=== PATIENT | female | born 1955 | race Caucasian/White ===

== ENCOUNTER 2018-04-24 18:06 | Emergency (ER) | payer OTHER ==
[~2018-04-24] VITALS: Ht 152.4 cm; Wt 59.0 kg
[~2018-04-24 18:06] MED LIST: ALBU3IS INH; ALBU90OI INH; ALBU90OI61 INH; ALPR.25 PO; AMOX500 PO; ASPI81CH PO; Augmentin 875-1 EACH PO; BENZ100A PO; CARI350 PO; CEPH500 PO; CODGUAEL PO; DOXY100 PO; DULO30 PO; ESCI10; GABA100 PO; HYDACE10B PO; HYDACE5 PO; IBUP600 PO; ISODICACE; METO100ER PO; METO25ER PO; METO50ER PO; MONT10T PO; Maxalt5 MG; Melatonin5 M1 PO; ONDA4 PO; OXYACE5T PO; OXYC10ER PO; OXYC10TA19 PO; OXYC1TAB11 PO; OXYC5; OXYC5 PO; PANT20 PO; PRED10 PO; PRED20 PO; Percocet 5-3251 EACH PO; RANI150 PO; RXHYDACE PO; RXOXYACE PO; SULTRIDS PO; TRAZ100; Veetids 500500 MG PO
[2018-04-24] MEDS ORDERED: ALBU90OI INH (18:45)
[2018-04-24] MEDS ORDERED: BENZ100A PO (18:45)
[2018-04-24] MEDS ORDERED: Zofran4 MG PO (18:45)
== END 2018-04-24 18:49 | disposition home or self-care (01) ==
LOC: ER 18:06
DX: J40 Bronchitis, not specified as acute or chronic (principal); A08.4 Viral intestinal infection, unspecified; Z79.899 Other long term (current) drug therapy; I10 Essential (primary) hypertension; F17.210 Nicotine dependence, cigarettes, uncomplicated
CPT/HCPCS: 99283

== ENCOUNTER 2021-01-21 01:42 | Inpatient (IN) | payer OTHER ==
[~2021-01-21] VITALS: Ht 167.6 cm; Wt 50.3 kg
[~2021-01-21 01:42] MED LIST changes: +Zofran4 MG PO
[2021-01-21 02:28] LABS: BASOPHILS ABSOLUTE AUTO 0.08 K/mm3 (0.00-0.23); BASOPHILS PERCENT AUTO 1 % (0-2); EOSINOPHILS ABSOLUTE AUTO 0.21 K/mm3 (0.00-0.68); EOSINOPHILS PERCENT AUTO 3 % (0-6); Hematocrit 37.8 % (33.0-51.0); IMMATURE GRAN ABSOLUTE AUTO 0.09 K/mm3 (0.00-0.10); IMMATURE GRAN PERCENT AUTO 1 % (0-1); LYMPHOCYTES ABSOLUTE AUTO 1.59 K/mm3 (0.84-5.20); LYMPHOCYTES PERCENT AUTO 20 % (21-46); MONOCYTES ABSOLUTE AUTO 0.55 K/mm3 (0.16-1.47); MONOCYTES PERCENT AUTO 7 % (4-13); Mean Corpuscular HGB 28.3 pg (26.0-34.0); Mean Corpuscular HGB Conc 31.7 g/dL (31.5-36.5); Mean Corpuscular Volume 89 fL (80-100); Mean Platelet Volume 10.8 fL (9.1-12.4); NEUTROPHILS ABSOLUTE AUTO 5.43 K/mm3 (1.96-9.15); NEUTROPHILS PERCENT AUTO 68 % (41-73); Platelet Count 260 K/mm3 (150-400); RDW Coefficient Variation 14.7 % (11.7-14.2); RDW Standard Deviation 48.1 fL (35.1-46.3); Red Blood Cell Count 4.24 M/mm3 (3.80-5.20); White Blood Cell Count 7.95 K/mm3 (4.00-11.30)
[2021-01-21 02:44] LABS: D-Dimer, Quantitative 0.51 mg/L FEU (0.00-0.52); International Normalized Ratio 1.01; Prothrombin Time Results 10.6 Sec (9.7-11.5)
[2021-01-21 02:50] LABS: Albumin, Blood 3.1 g/dL (3.4-5.0); Albumin/Globulin Ratio 0.8 (0.8-1.8); Bilirubin, Total 0.7 mg/dL (0.1-1.0); Bun/Creatinine Ratio 18.9 (12.0-20.0); Calcium, Blood 8.6 mg/dL (8.5-10.1); Creatinine, Blood 1.06 mg/dL (0.40-1.00); Globulin, Blood 3.8 g/dL (2.2-4.0); Potassium, Blood 3.6 mmol/L (3.5-5.5); Total Protein, Blood 6.9 g/dL (6.4-8.2); Troponin I 0.065 ng/mL (0.000-0.040)
[2021-01-21 03:29] LABS: SARS-Cov-2 (COVID-19) PCR, MMC NEGATIVE (NEGATIVE)
[2021-01-22 04:08] LABS: Albumin, Blood 2.8 g/dL (3.4-5.0); Anion Gap 4 mmol/L (6-16); Blood Urea Nitrogen 30 mg/dL (8-24); Bun/Creatinine Ratio 23.8 (12.0-20.0); CO2, Blood 28 mmol/L (21-32); Calcium, Blood 8.5 mg/dL (8.5-10.1); Chloride, Blood 107 mmol/L (98-108); Creatinine, Blood 1.26 mg/dL (0.40-1.00); Glomerular Filtration Rate 42 (60-); Glucose, Blood 119 mg/dL (70-99); Magnesium, Blood 2.3 mg/dL (1.6-2.4); Phosphorus, Blood 3.8 mg/dL (2.5-4.9); Potassium, Blood 4.4 mmol/L (3.5-5.5); Sodium, Blood 139 mmol/L (136-145)
[2021-01-23 05:44] LABS: Albumin, Blood 2.3 g/dL (3.4-5.0); Anion Gap 5 mmol/L (6-16); Blood Urea Nitrogen 28 mg/dL (8-24); Bun/Creatinine Ratio 26.9 (12.0-20.0); CO2, Blood 28 mmol/L (21-32); Calcium, Blood 8.3 mg/dL (8.5-10.1); Chloride, Blood 106 mmol/L (98-108); Creatinine, Blood 1.04 mg/dL (0.40-1.00); Glomerular Filtration Rate 53 (60-); Glucose, Blood 261 mg/dL (70-99); Phosphorus, Blood 2.5 mg/dL (2.5-4.9); Potassium, Blood 3.8 mmol/L (3.5-5.5); Sodium, Blood 139 mmol/L (136-145)
[2021-01-24 03:55] LABS: Albumin, Blood 2.7 g/dL (3.4-5.0); Anion Gap 2 mmol/L (6-16); Blood Urea Nitrogen 35 mg/dL (8-24); CO2, Blood 29 mmol/L (21-32); Calcium, Blood 8.7 mg/dL (8.5-10.1); Chloride, Blood 109 mmol/L (98-108); Creatinine, Blood 1.13 mg/dL (0.40-1.00); Glomerular Filtration Rate 48 (60-); Glucose, Blood 141 mg/dL (70-99); Phosphorus, Blood 2.7 mg/dL (2.5-4.9); Potassium, Blood 4.1 mmol/L (3.5-5.5); Sodium, Blood 140 mmol/L (136-145)
[2021-01-25 05:05] LABS: Albumin, Blood 2.6 g/dL (3.4-5.0); Anion Gap 5 mmol/L (6-16); Blood Urea Nitrogen 29 mg/dL (8-24); Bun/Creatinine Ratio 26.4 (12.0-20.0); CO2, Blood 27 mmol/L (21-32); Calcium, Blood 8.5 mg/dL (8.5-10.1); Chloride, Blood 110 mmol/L (98-108); Glomerular Filtration Rate 50 (60-); Glucose, Blood 122 mg/dL (70-99); Phosphorus, Blood 4.1 mg/dL (2.5-4.9); Potassium, Blood 4.1 mmol/L (3.5-5.5); Sodium, Blood 142 mmol/L (136-145)
[2021-01-25] MEDS ORDERED: ALPR.25 PO (11:38)
[2021-01-25] MEDS ORDERED: METO50 PO (11:38)
[2021-01-25] MEDS ORDERED: DILT180 PO (11:39)
[2021-01-25] MEDS ORDERED: XARELTO20 MG PO (11:39)
[2021-01-25] MEDS ORDERED: Tambocor100 MG PO (11:40)
== END 2021-01-25 13:52 | disposition home or self-care (01) | DRG 309 ==
LOC: ER 01:42 → PCU 04:48 → MEDS 01-22 15:18 → ICUE 01-24 00:37 → PCU 01-24 01:03
PROVIDERS: Emergency Medicine; Family Medicine; ADMIT Internal Medicine
DX: I48.91 Unspecified atrial fibrillation (principal); E44.0 Moderate protein-calorie malnutrition; I24.8 Other forms of acute ischemic heart disease; Z20.822 Contact with and (suspected) exposure to COVID-19; N18.30 Chronic kidney disease, stage 3 unspecified; Z71.6 Tobacco abuse counseling; J44.9 Chronic obstructive pulmonary disease, unspecified; I27.20 Pulmonary hypertension, unspecified; I08.1 Rheumatic disorders of both mitral and tricuspid valves; I12.9 Hypertensive chronic kidney disease with stage 1 through stage 4 chronic kidney disease, or unspecified chronic kidney disease; F32.A Depression, unspecified; G47.00 Insomnia, unspecified; Z68.21 Body mass index [BMI] 21.0-21.9, adult; F41.9 Anxiety disorder, unspecified; F17.210 Nicotine dependence, cigarettes, uncomplicated; Z28.21 Immunization not carried out because of patient refusal; Z90.89 Acquired absence of other organs; Z90.710 Acquired absence of both cervix and uterus; Z98.890 Other specified postprocedural states; Z79.899 Other long term (current) drug therapy
CPT/HCPCS: 36415; 71045; 71046; 80053; 80069; 83735; 84145; 84443; 84484; 85025; 85379; 85610; 93005; 93010; 93306; 94640; 94760; 94762; 96365-59; 96366-59; 96376-59; 97110; 97161; 97165; 97530; 97535; 99285-25; A9270; J0360; J3010; U0004

== ENCOUNTER 2021-03-12 01:06 | Observation (INO) | payer OTHER ==
[~2021-03-12] VITALS: Ht 167.6 cm; Wt 54.4 kg
[~2021-03-12 01:06] MED LIST changes: +DILT180 PO; +METO50 PO; +Tambocor100 MG PO; +XARELTO20 MG PO
[2021-03-12 01:40] LABS: BASOPHILS PERCENT AUTO 1 % (0-2); EOSINOPHILS ABSOLUTE AUTO 0.11 K/mm3 (0.00-0.68); EOSINOPHILS PERCENT AUTO 1 % (0-6); Hematocrit 42.8 % (33.0-51.0); Hemoglobin 13.2 g/dL (11.5-16.0); IMMATURE GRAN ABSOLUTE AUTO 0.18 K/mm3 (0.00-0.10); IMMATURE GRAN PERCENT AUTO 1 % (0-1); LYMPHOCYTES ABSOLUTE AUTO 1.67 K/mm3 (0.84-5.20); LYMPHOCYTES PERCENT AUTO 13 % (21-46); MONOCYTES ABSOLUTE AUTO 1.02 K/mm3 (0.16-1.47); MONOCYTES PERCENT AUTO 8 % (4-13); Mean Corpuscular HGB 27.2 pg (26.0-34.0); Mean Corpuscular HGB Conc 30.8 g/dL (31.5-36.5); Mean Corpuscular Volume 88 fL (80-100); Mean Platelet Volume 11.5 fL (9.1-12.4); NEUTROPHILS ABSOLUTE AUTO 9.57 K/mm3 (1.96-9.15); NEUTROPHILS PERCENT AUTO 76 % (41-73); Platelet Count 313 K/mm3 (150-400); RDW Coefficient Variation 14.4 % (11.7-14.2); RDW Standard Deviation 46.5 fL (35.1-46.3); Red Blood Cell Count 4.86 M/mm3 (3.80-5.20); White Blood Cell Count 12.65 K/mm3 (4.00-11.30)
[2021-03-12 01:55] LABS: Alanine Aminotransfer (ALT/SGP 90 U/L (12-78); Albumin, Blood 3.1 g/dL (3.4-5.0); Albumin/Globulin Ratio 0.7 (0.8-1.8); Alk Phos 170 U/L (50-136); Anion Gap 7 mmol/L (6-16); Aspartate Aminotrans (AST/SGOT 61 U/L (12-37); Bilirubin, Total 1.2 mg/dL (0.1-1.0); Blood Urea Nitrogen 31 mg/dL (8-24); Bun/Creatinine Ratio 25.4 (12.0-20.0); CO2, Blood 27 mmol/L (21-32); Chloride, Blood 106 mmol/L (98-108); Creatinine, Blood 1.22 mg/dL (0.40-1.00); Globulin, Blood 4.2 g/dL (2.2-4.0); Glomerular Filtration Rate 44 (60-); Glucose, Blood 170 mg/dL (70-99); Potassium, Blood 4.4 mmol/L (3.5-5.5); Sodium, Blood 140 mmol/L (136-145); Total Protein, Blood 7.3 g/dL (6.4-8.2); Troponin I <0.015 ng/mL (0.000-0.040)
[2021-03-12 02:33] LABS: Influenza A, PCR NEGATIVE (NEGATIVE); Influenza B, PCR NEGATIVE (NEGATIVE); Resp Syncytial Virus, PCR NEGATIVE (NEGATIVE); SARS-Cov-2 (COVID-19) PCR, MMC NEGATIVE (NEGATIVE)
[2021-03-12 06:50] LABS: Magnesium, Blood 2.3 mg/dL (1.6-2.4)
[2021-03-12 06:51] LABS: Digoxin (Lanoxin) 0.09 ug/mL (0.80-2.00)
[2021-03-12 06:51] LABS: CPK Creatine Kinase 36 U/L (26-193); Troponin I <0.015 ng/mL (0.000-0.040)
[2021-03-12 14:42] LABS: CPK Creatine Kinase 33 U/L (26-193); Troponin I <0.015 ng/mL (0.000-0.040)
--- NOTE | 2021-03-13 04:17 | NUR ---
SHIFT SUMMARY PT IS AWAKE AND ALERT X4.FULL CODE STATUS. PT IS INDEPENDENT, ON RA.VS REVIEWED,ALL MEDS GIVEN. NO ACUTE CHANGES DURING THE SHIFT. WILL CONTINUE TO MONITOR.
[2021-03-13 05:50] LABS: BASOPHILS ABSOLUTE AUTO 0.14 K/mm3 (0.00-0.23); BASOPHILS PERCENT AUTO 2 % (0-2); EOSINOPHILS ABSOLUTE AUTO 0.42 K/mm3 (0.00-0.68); EOSINOPHILS PERCENT AUTO 5 % (0-6); Hematocrit 37.7 % (33.0-51.0); Hemoglobin 11.8 g/dL (11.5-16.0); IMMATURE GRAN ABSOLUTE AUTO 0.24 K/mm3 (0.00-0.10); IMMATURE GRAN PERCENT AUTO 3 % (0-1); LYMPHOCYTES ABSOLUTE AUTO 1.75 K/mm3 (0.84-5.20); LYMPHOCYTES PERCENT AUTO 19 % (21-46); MONOCYTES ABSOLUTE AUTO 1.05 K/mm3 (0.16-1.47); MONOCYTES PERCENT AUTO 11 % (4-13); Mean Corpuscular HGB 27.4 pg (26.0-34.0); Mean Corpuscular HGB Conc 31.3 g/dL (31.5-36.5); Mean Corpuscular Volume 88 fL (80-100); Mean Platelet Volume 11.1 fL (9.1-12.4); NEUTROPHILS ABSOLUTE AUTO 5.64 K/mm3 (1.96-9.15); NEUTROPHILS PERCENT AUTO 61 % (41-73); Platelet Count 304 K/mm3 (150-400); RDW Coefficient Variation 14.1 % (11.7-14.2); RDW Standard Deviation 45.4 fL (35.1-46.3); White Blood Cell Count 9.24 K/mm3 (4.00-11.30)
[2021-03-13 06:21] LABS: Albumin, Blood 2.4 g/dL (3.4-5.0); Albumin/Globulin Ratio 0.8 (0.8-1.8); Bilirubin, Total 0.6 mg/dL (0.1-1.0); Bun/Creatinine Ratio 30.8 (12.0-20.0); Calcium, Blood 8.6 mg/dL (8.5-10.1); Creatinine, Blood 1.3 mg/dL (0.40-1.00); Globulin, Blood 3.2 g/dL (2.2-4.0); Phosphorus, Blood 3.9 mg/dL (2.5-4.9); Potassium, Blood 4.1 mmol/L (3.5-5.5); Total Protein, Blood 5.6 g/dL (6.4-8.2)
[2021-03-13] MEDS ORDERED: FURO20 PO (10:49)
[2021-03-13] MEDS ORDERED: XARELTO20 MG PO (10:50)
--- NOTE | 2021-03-13 16:00 | NUR ---
DISCHARGE DISCHARGE INSTRUCTIONS, MEDICATION LIST AND FOLLOW UP APPOINTMENT REVIEWED WITH PT. QUESTIONS/CONCERNS ANSWERED. PT VERBALLY INDICATED UNDERSTANDING OF ALL INSTRUCTIONS RECEIVED. ATTEMPTED TO CONTACT PT'S SON VIA T/C SEVERAL TIMES, BUSY SIGNAL EVERY TIME. [facility] CALLED FOR PT AND SHE WAS ESCORTED OUT VIA W/C BY LINEN CONTROLLER.
== END 2021-03-13 14:46 | disposition home or self-care (01) ==
LOC: ER 01:06 → ERHOLD 01:07 → MEDS 16:32
PROVIDERS: Emergency Medicine; ADMIT Internal Medicine
DX: I13.0 Hypertensive heart and chronic kidney disease with heart failure and stage 1 through stage 4 chronic kidney disease, or unspecified chronic kidney disease (principal); I50.9 Heart failure, unspecified; N18.30 Chronic kidney disease, stage 3 unspecified; I48.20 Chronic atrial fibrillation, unspecified; J96.01 Acute respiratory failure with hypoxia; J44.9 Chronic obstructive pulmonary disease, unspecified; F17.210 Nicotine dependence, cigarettes, uncomplicated
CPT/HCPCS: 0241U; 36415; 71045; 80053; 80162; 82550; 83735; 83880; 84100; 84145; 84484; 85025; 93005; 93010; 93970; 96374; 96375; 96376; 99285-25; A9270; J1160; J1940

== ENCOUNTER 2021-03-26 22:42 | Inpatient (IN) | payer OTHER ==
[~2021-03-26] VITALS: Ht 167.6 cm; Wt 54.6 kg
[~2021-03-26 22:42] MED LIST changes: +FURO20 PO
[2021-03-27 00:21] LABS: BASOPHILS ABSOLUTE AUTO 0.11 K/mm3 (0.00-0.23); BASOPHILS PERCENT AUTO 1 % (0-2); EOSINOPHILS ABSOLUTE AUTO 0.04 K/mm3 (0.00-0.68); EOSINOPHILS PERCENT AUTO 0 % (0-6); Hematocrit 43.9 % (33.0-51.0); Hemoglobin 13.6 g/dL (11.5-16.0); IMMATURE GRAN ABSOLUTE AUTO 0.13 K/mm3 (0.00-0.10); IMMATURE GRAN PERCENT AUTO 1 % (0-1); LYMPHOCYTES ABSOLUTE AUTO 1.82 K/mm3 (0.84-5.20); LYMPHOCYTES PERCENT AUTO 13 % (21-46); MONOCYTES ABSOLUTE AUTO 1.01 K/mm3 (0.16-1.47); MONOCYTES PERCENT AUTO 7 % (4-13); Mean Corpuscular HGB 27.8 pg (26.0-34.0); Mean Corpuscular Volume 90 fL (80-100); Mean Platelet Volume 11.4 fL (9.1-12.4); NEUTROPHILS ABSOLUTE AUTO 10.66 K/mm3 (1.96-9.15); NEUTROPHILS PERCENT AUTO 78 % (41-73); Platelet Count 430 K/mm3 (150-400); RDW Coefficient Variation 14.6 % (11.7-14.2); RDW Standard Deviation 47.7 fL (35.1-46.3); White Blood Cell Count 13.77 K/mm3 (4.00-11.30)
[2021-03-27 00:35] LABS: Alanine Aminotransfer (ALT/SGP 39 U/L (12-78); Albumin, Blood 3.4 g/dL (3.4-5.0); Albumin/Globulin Ratio 0.8 (0.8-1.8); Alk Phos 118 U/L (50-136); Anion Gap 7 mmol/L (6-16); Aspartate Aminotrans (AST/SGOT 28 U/L (12-37); Bilirubin, Total 1.3 mg/dL (0.1-1.0); Blood Urea Nitrogen 23 mg/dL (8-24); Bun/Creatinine Ratio 21.1 (12.0-20.0); CO2, Blood 26 mmol/L (21-32); Calcium, Blood 9.3 mg/dL (8.5-10.1); Chloride, Blood 109 mmol/L (98-108); Creatinine, Blood 1.09 mg/dL (0.40-1.00); Globulin, Blood 4.2 g/dL (2.2-4.0); Glomerular Filtration Rate 50 (60-); Glucose, Blood 144 mg/dL (70-99); Potassium, Blood 4.4 mmol/L (3.5-5.5); Sodium, Blood 142 mmol/L (136-145); Total Protein, Blood 7.6 g/dL (6.4-8.2); Troponin I <0.015 ng/mL (0.000-0.040)
[2021-03-27 03:02] LABS: Influenza A, PCR NEGATIVE (NEGATIVE); Influenza B, PCR NEGATIVE (NEGATIVE); Resp Syncytial Virus, PCR NEGATIVE (NEGATIVE); SARS-Cov-2 (COVID-19) PCR, MMC NEGATIVE (NEGATIVE)
[2021-03-27 04:04] LABS: BASOPHILS PERCENT AUTO 1 % (0-2); EOSINOPHILS ABSOLUTE AUTO 0.07 K/mm3 (0.00-0.68); EOSINOPHILS PERCENT AUTO 1 % (0-6); Hematocrit 39.3 % (33.0-51.0); Hemoglobin 11.7 g/dL (11.5-16.0); IMMATURE GRAN ABSOLUTE AUTO 0.11 K/mm3 (0.00-0.10); IMMATURE GRAN PERCENT AUTO 1 % (0-1); LYMPHOCYTES ABSOLUTE AUTO 2.62 K/mm3 (0.84-5.20); LYMPHOCYTES PERCENT AUTO 23 % (21-46); MONOCYTES ABSOLUTE AUTO 1.02 K/mm3 (0.16-1.47); MONOCYTES PERCENT AUTO 9 % (4-13); Mean Corpuscular HGB 27.1 pg (26.0-34.0); Mean Corpuscular HGB Conc 29.8 g/dL (31.5-36.5); Mean Corpuscular Volume 91 fL (80-100); Mean Platelet Volume 11.1 fL (9.1-12.4); NEUTROPHILS ABSOLUTE AUTO 7.47 K/mm3 (1.96-9.15); NEUTROPHILS PERCENT AUTO 66 % (41-73); Platelet Count 321 K/mm3 (150-400); RDW Coefficient Variation 14.7 % (11.7-14.2); RDW Standard Deviation 48.3 fL (35.1-46.3); Red Blood Cell Count 4.32 M/mm3 (3.80-5.20); White Blood Cell Count 11.39 K/mm3 (4.00-11.30)
[2021-03-27 05:01] LABS: Alanine Aminotransfer (ALT/SGP 33 U/L (12-78); Albumin, Blood 2.7 g/dL (3.4-5.0); Albumin/Globulin Ratio 0.8 (0.8-1.8); Alk Phos 107 U/L (50-136); Anion Gap 7 mmol/L (6-16); Aspartate Aminotrans (AST/SGOT 46 U/L (12-37); Bilirubin, Total 0.9 mg/dL (0.1-1.0); Blood Urea Nitrogen 25 mg/dL (8-24); Bun/Creatinine Ratio 22.3 (12.0-20.0); CO2, Blood 22 mmol/L (21-32); Calcium, Blood 8.4 mg/dL (8.5-10.1); Chloride, Blood 112 mmol/L (98-108); Creatinine, Blood 1.12 mg/dL (0.40-1.00); Globulin, Blood 3.6 g/dL (2.2-4.0); Glomerular Filtration Rate 49 (60-); Glucose, Blood 256 mg/dL (70-99); Sodium, Blood 141 mmol/L (136-145); Total Protein, Blood 6.3 g/dL (6.4-8.2)
--- NOTE | 2021-03-27 06:04 | NUR ---
PATIENT IS ALERT AND ORIENTATED ABLE TO MAKE NEEDS KNOWN, ARRIVED VIA STRETCHER AT 0439 , ABLE TO WALK FROM STRETCHER TO BED, EXCESSIVE SNEEZING UPON ARRIVAL, ON 2L NC SATURATIONS >92%, ANXIOUS AND WITHDRAWN REQUESTED XANAX THAT PATIENT TAKES TID AT HOME, PATIENT STATED THAT SHE HASN'T BEEN TAKING HER MEDICATIONS AT HOME THAT THEY FELL TO WHERE SHE COULDN'T FIND THEM, PATIENT STATES SHE LIVES ALONE IN A TRAILER AND SHE HAD A FALL RECENTLY FROM NOT HAVING ANY LIGHTS ON, SAFETY WAS EXPLAINED TO PATIENT, ORIENTATED TO ROOM, CALL LIGHT AND SAFETY PROTOCOL, PATIENT DOESN'T WANT TO USE YELLOW SOCKS WHILE IN BED BUT AGREED TO PUT THEM ON PRIOR TO AMBULATION. LUNG SOUNDS ARE COARSE AND DIM IN LOWER LOBE FINE CRACKLES, PATIENT STATED SHE IS A FIFTY YEAR SMOKER AND HASN'T BEEN REALLY SMOKING FOR TWO WEEKS JUST ONE HERE AND THERE, SHE SMOKES IN HER HOME. PATIENT DIDN'T WANT TO ANSWER SURGICAL HISTORY QUESTIONS BUT IS ALREADY NOTED IN THE CHART. PATIENT REQUESTED TO REST, WILL CONTINUE TO MONITOR UNTIL CHANGE OF SHIFT.
--- NOTE | 2021-03-27 10:30 | NUR ---
SpO2 dropped to 87% while sleeping and lying flat on her back. Oxygen applied at 2 l/min and the pt awakened, spo2 improved to 91%.
--- NOTE | 2021-03-27 17:44 | NUR ---
SHIFT SUMMARY PT ALERT AND ORIENTED X4, VITAL SIGNS STABLE WITH SPO2 MAINTAINING IN 90'S VIA RA. WHEN PT SLEEPING SHE WILL OCCASIONALLY DESATURATE TO 88% THEREFOR 2L O2 VIA NC ON PT TO MAINTAIN SATS ABOVE 90%. PT REMAINS IN AFIB PER TELE MONITORING. PT REPORTED SLIGHT CHEST PRESSURE THIS AM. PT ALSO REPORTED THAT MINIMAL EXERTION EXHAUSTS HER AND STATED THAT SHE HAS FELT THIS WAY AT HOME WELL. SHE HAS BEEN ABLE TO UTILIZE BEDSIDE COMMODE SBA. HOME MED LASIX CONTINUED TODAY, NO OTHER ACUTE CHANGES NOTED. WILL CONTINUE TO MONITOR. CALL LIGHT IN REACH.
--- NOTE | 2021-03-27 21:28 | NUR ---
PATIENT COMPLAIN OF STOMACH BURNING AFTER A BOWEL MOVEMENT AND UNABLE TO CATCH HER BREATHE OXYGEN WAS OFF AND SAT 88% NOW SITTING ON COMMODE AGAIN, " I CAN'T DO THIS ANYMORE,
--- NOTE | 2021-03-27 23:18 | NUR ---
AT 2226 PATIENT RECEIVED 1MG IVP ATIVAN WITH GOOD RESULTS, CALM AND RESTING. WILL CONTINUE TO MONITOR.
--- NOTE | 2021-03-28 01:20 | NUR ---
PATIENT CONCERNED WHEN SHE DISCHARGES SHE WILL NOT HAVE MONEY FOR MEDICATIONS, " I HAVE NO MONEY, AND CAN'T AFFORD MEDICATIONS" THIS WAS FORWARD ON TO MARKETING FINANCIAL ANALYST WHO PUT IN A REFEREAL FOR GROOVER RUNNER.
--- NOTE | 2021-03-28 03:00 | NUR ---
PATIENT HAD CONTINUOUS EPISODE OF DIARRHEA, UNABLE TO KEEP CLEAN, PATIENT AGREED TO RECTAL TUBE, BED CHANGED X 3, HEART RATE SUSTAINING 130-150'S DR. PATTERSON GAVE ORDER TO GIVE DILTIZEM 15MG IVP X ONCE, BP 135/107 0255 4 BEATS VT HR 151 PATIENT TOLERATED WELL, HR 89 AND BP 124/79 AFTER PUSH.
--- NOTE | 2021-03-28 17:50 | NUR ---
SHIFT SUMMARY NO ACUTE EVENTS THIS SHIFT, VSS. PT TEMP ELEVATED AT TIMES, IMPROVED WITH REMOVAL OF EXTRA BLANKETS. PT DENIED PAIN THIS SHIFT, WAS ABLE TO USE BEDSIDE COMMODE WITH ASSISTANCE. PT APPEARED SOMEWHAT LETHARGIC THIS MORNING AND STATED SHE FELT LIKE TAKING A NAP, AND WAS MUCH MORE ALERT IN THE AFTERNOON. PT WAS PLEASANT AND ORIENTED THOUGHOUT SHIFT. PT ON 2 L VIA NASAL CANNULA OR ON ROOM AIR TOLERATED. PT'S RECTAL TUBE WAS FULL OF GAS AND CAME OUT BY AFTERNOON, STOOL WAS NOTED TO BE LESS LOOSE THAN START OF SHIFT. PT HAD POOR APPETITE, ORAL INTAKE ENCOURAGED.
[2021-03-28 19:48] LABS: Source, Urine Clean Catch
[2021-03-28 20:01] LABS: Bilirubin, Urine Neg (Neg); Blood, Urine Neg (Neg); Glucose Qualitative, Urine Neg (Neg); Ketones, Urine Neg (Neg); Leukocyte Esterase, Urine Neg (Neg); Nitrite, Urine Neg (Neg); Protein, Urine 1+ (Neg); Specific Gravity, Urine 1.025 (1.003-1.022); Urobilinogen, Urine NORM (Normal)
[2021-03-28 20:16] LABS: Appearance, Urine Clear (Clear); Color, Urine Yellow (P-Yellow)
[2021-03-29 04:07] LABS: Bun/Creatinine Ratio 21.6 (12.0-20.0); Calcium, Blood 7.9 mg/dL (8.5-10.1); Creatinine, Blood 1.34 mg/dL (0.40-1.00); Magnesium, Blood 1.6 mg/dL (1.6-2.4); Potassium, Blood 3.8 mmol/L (3.5-5.5)
--- NOTE | 2021-03-29 05:15 | NUR ---
PATIENT HAD A ROUGH NIGHT; JUST DOES NOT FEEL WELL. SHE BECAME EXTREMELY ANXIOUS AT THE START OF THE SHIFT WHEN IV ABX WERE BEING ADMINISTERED; FOR SOME REASON THIS REALLY AFFECTS HER. DR PATTERSON WAS NOTIFIED AND GAVE ORDERS FOR IV ATIVAN PRN; DOSE WAS ADMINISTERED WITH EFFECTIVENESS. ALTHOUGH THE ATIVAN WAS VERY EFFECTIVE, THE PATIENT WAS FULLY ABLE TO RELAX AND GO TO SLEEP ONCE SHE WAS AWARE THAT ALL IV MEDICATIONS WERE ADMINISTERED. PATIENT DID SLEEP T/O THE NIGHT HOWEVER WOKE UP SEVERAL TIMES CALLING OUT FOR THE "NURSE". MOST OFTEN SHE WAS REQUESTING A SNACK OR A WARM BLANKET WHICH BOTH SEEMED TO APPEASE HER FOR THE TIME BEING. PATIENT DID GET UP ONE TIME DURING THE SHIFT TO USE THE BSC; SBA FOR SAFETY. DUE TO PATIENTS FATIGUE AND LETHARGY BED ALARMS SET. PATIENT IS COOPERATIVE WITH STAFF AND CARE PROVIDED. PATIENT NOW RESTING IN BED. CALL LIGHT WITHIN REACH.
--- NOTE | 2021-03-29 17:39 | NUR ---
Shift note: Pt is oriented x4, but has been lethargic throughout the day. Anxious at times, prn xanax given. Pt reported headache today, prn tylenol given. VSS on 2L sating low 90s. Tele: afib 90-110s, po metoprolol given as well as xaralto. IV magnesium given as well as PO potassium.
--- NOTE | 2021-03-29 18:28 | NUR ---
BROTHER SHARON WAS UPDATED.
--- NOTE | 2021-03-30 04:05 | NUR ---
PT IS ALERT WHEN SPOKEN TO. REQUESTING ATIVAN FOR ANXIETY WITH IV ABX. PT SLEEPS THROUGH ANTIBIOTICS AFTER TAKING ATIVAN. PT IS ABLE TO SLEEP THROUGH THE NGHT WITHOUT EXPRESSING ANXIETY. BP SLIGHTLY ELEVATED. O2 SAT 94-97% ON RA, O2 AT BEDSIDE. LEFT LOWER LOBE AUSCLTATED COURSE RALES. PT CONTINUE TO EXPERIENCE A DRY COUGH. EDUCATED PATIENT ON IMPORTANCE OF CONTINUEING IV ABX, PUT IS WITHDRAWN BUT COOPERATIVE.
[2021-03-30 05:00] LABS: Bun/Creatinine Ratio 26.2 (12.0-20.0); Calcium, Blood 8.4 mg/dL (8.5-10.1); Creatinine, Blood 1.26 mg/dL (0.40-1.00); Potassium, Blood 4.3 mmol/L (3.5-5.5)
--- NOTE | 2021-03-30 09:41 | NUR ---
Pt is lethargic, but oriented again today. Withdrawn. Pt reported feeling anxious, headach and nauseous at start of shift. PRN xanax, tylenol and zofran given. At that time HR 100-120s and BP elevated. added additional BP med. After about an hour pt reported feeling better, but still wanting to sleep.
--- NOTE | 2021-03-30 13:54 | NUR ---
Pt is lethargic and sleeping most of the day. Oriented x4. Pt was very anxious right at the start of the shift, prn xanax has been given x2 today. Headache reported, prn tylenol given. Nausea in AM, prn zofran given. Tele: a-fib 90-110s mainly. Pt did jump up to 120-130s when anxious this AM and when working with PT. BP has been elevated today, cozaar added by MD. Pt expressed concern about being able to pay for medications when she leave the hospital, pt does have a social media designer order in place. Pt is on RA-2L, prn. Last BM 03/29/2021. Up to BSC. Pt worked with PT and was weak when sitting on side of bed. Was able to transfer to BSC, but is deconditioned. PT talked about possibly increasing the frequency of visits. Pt is being transferred to medical floor.
--- NOTE | 2021-03-30 14:14 | NUR ---
BP HAS REMAINED ELEVATED EVEN AFTER NEW DOSE OF MD AVIVA NOTIFIED DBP >100. ORDER ADDDED FOR AMLODIPINE 5MG DAILY WITH FIRST DOSE NOW.
--- NOTE | 2021-03-30 14:45 | NUR ---
Report given to Hanh on medical floor.
--- NOTE | 2021-03-30 15:31 | NUR ---
PT ARRIVED TO ROOM 307 AT SET UP WITH A SNACK AFTER EXPLAINING SHE SLEPT THROUGH LUNCH. CURRENTLY LAYING IN BED WITH EYES CLOSED. WITH RECHECK BP IN AN HOUR AND NOTIFY MD IF NO CHANGE
--- NOTE | 2021-03-30 18:33 | NUR ---
SHIFT SUMMARY PTS BLOOD PRESSURE AND HEART RATE HAS CONTINUED TO BE ELEVATED SINCE ARRIVAL TO FLOOR. SPOKE WITH MD A FEW TIMES WITH NEW ORDERS PLACED. REQUESTED O2 APPROX 1630 SAYING SHE FELT SOB. HEART RATE AT THE TIME INCREASED TO 130-140'S. O2 PLACED. ALSO REPORTS FEELING NAUSEATED AT TIMES. DID EAT MUCH OF SUPPER. COREG GIVEN. WILL MONITER FOR CHANGE OR IMPROVEMENT AND NOTIFY CIRCUS TRAINER. 1 PERSON ASSIST UP TO BSC.
[2021-03-31 05:26] LABS: BASOPHILS ABSOLUTE AUTO 0.11 K/mm3 (0.00-0.23); BASOPHILS PERCENT AUTO 1 % (0-2); EOSINOPHILS ABSOLUTE AUTO 0.35 K/mm3 (0.00-0.68); EOSINOPHILS PERCENT AUTO 4 % (0-6); Hemoglobin 11.6 g/dL (11.5-16.0); IMMATURE GRAN ABSOLUTE AUTO 0.18 K/mm3 (0.00-0.10); IMMATURE GRAN PERCENT AUTO 2 % (0-1); LYMPHOCYTES ABSOLUTE AUTO 1.98 K/mm3 (0.84-5.20); LYMPHOCYTES PERCENT AUTO 21 % (21-46); MONOCYTES ABSOLUTE AUTO 0.91 K/mm3 (0.16-1.47); MONOCYTES PERCENT AUTO 10 % (4-13); Mean Corpuscular HGB 26.9 pg (26.0-34.0); Mean Corpuscular HGB Conc 29.7 g/dL (31.5-36.5); Mean Corpuscular Volume 91 fL (80-100); Mean Platelet Volume 11.4 fL (9.1-12.4); NEUTROPHILS ABSOLUTE AUTO 5.87 K/mm3 (1.96-9.15); NEUTROPHILS PERCENT AUTO 62 % (41-73); Platelet Count 304 K/mm3 (150-400); RDW Coefficient Variation 14.5 % (11.7-14.2); RDW Standard Deviation 48.2 fL (35.1-46.3); Red Blood Cell Count 4.31 M/mm3 (3.80-5.20)
[2021-03-31 06:14] LABS: Bun/Creatinine Ratio 25.2 (12.0-20.0); Calcium, Blood 8.6 mg/dL (8.5-10.1); Creatinine, Blood 1.19 mg/dL (0.40-1.00); Potassium, Blood 4.8 mmol/L (3.5-5.5)
--- NOTE | 2021-03-31 06:40 | NUR ---
PATIENT HAS HAD AN UNEVENTFUL NIGHT. HEART RHYTHM IS STILL AFIB RUNNING FROM THE 90'S TO LOW 100'S. BLOOD PRESSURE IS ALSO STILL FLUCTUATING. CALL LIGHT IN REACH BED IN LOWEST POSITION.
--- NOTE | 2021-03-31 17:15 | NUR ---
SHIFT SUMMARY PT IS AAOX4, ABLE TO MAKE NEEDS KNOWN. PATIENT IS VERY ANXIOUS AT TIMES AND YELLS FOR ASSISTANCE AT TIMES. PT MEDICATED FOR ANXIETY THIS SHIFT. PER PACKER INSULATION PT ALSO HAS MULTIPLE EVENTS OF AFIB 120's to 130's. DR. HAY NOTIFIED, T.O AND V.O. NOTED. NO C/O CP, SOB, OR N/V/D. PT ON 2LPM O2 VIA NC, SATTING 94-96%. PT REQUIRES 1P SBA TO BSC. BED AT LOWEST POSITION. CALL LIGHT WITHIN REACH.
--- NOTE | 2021-04-01 01:50 | NUR ---
PER TELE, READING RIGHT NOW IS AFIB 138
--- NOTE | 2021-04-01 05:20 | NUR ---
PATIENT WAS NAUSEATED AND SYMPTOMATIC DUE TO ELEVATED HEART RATE. WAS CALLED AND ORDER FOR 15MG OF CARDIZEM WAS GIVEN. PATIENTS HR RESPONDED WELL TO THIS. HR IS NOW IN THE 80'S. PATIENT REPORTS FEELING BETTER.
[2021-04-01 06:21] LABS: Bun/Creatinine Ratio 23.6 (12.0-20.0); Calcium, Blood 8.8 mg/dL (8.5-10.1); Creatinine, Blood 1.1 mg/dL (0.40-1.00); Potassium, Blood 4.8 mmol/L (3.5-5.5)
--- NOTE | 2021-04-01 08:00 | NUR ---
pt laying in bed, a bit sleepy, and anxious, b/p elevated and pt reports h/a which she recieved tylenol for but only came down to 08/10, Dr. Tena in to see her, says the h/a is probably from htn, increased her coreg to 25mg, lungs are clear in upper gu[place], dim in bases, resp even and unlabored, no cough noted, hrirr, tele in place running afib per monitor, see strip, no edema noted, ppp+1, cap refill <3sec, vs stable, afebrile, iv site powerglide to jerome is clear and patent, s.l. btx4, abd flat soft nontender, voids without diff, skin c/w/d, maew, general weakness, jannette, call light in reach.
--- NOTE | 2021-04-01 18:42 | NUR ---
pt has had one dose of xanax today, will take it tonight to help sleep, she slept today when left undisturbed, no acute changes this shift. call light in reach.
--- NOTE | 2021-04-02 05:49 | NUR ---
SHIFT SUMMARY ASSUMED CARE AT 1900. PT AAOX3, ANXIOUS. REMAINS ON CARDIAC TELEMETRY MONITORING, BOX# [id number]. AFIB, RATE INITALLY IN 110s-120s. CHARGE NURSE, TREE, REPORTED THAT THE THOROUGHBRED HORSE FARM MANAGER STATED PT'S HR IN THE 130s. PT C/O PALPITATIONS ANF FLUTTERING IN CHEST. HOSPITALIST NOTIFIED AND ORDERS RECEIVED TO GIVE 0800 DOSE OF COREG 25MG NOW AND ALSO ONE DOSE OF IV METOPROLOL 5MG. ORDER CARRIED OUT AND PATIENT UPDATED ON PLAN OF CARE. AFTER ADMINISTRATION OF IV METOPROLOL, DEANN-THOROUGHBRED HORSE FARM MANAGER REPORTED THAT PT'S HR HIGH 90s-LOW 100s, REMAINS IN AFIB. PT REPORTS SOME INPROVEMENT IN SYMPTOMS. REMAINS ON O2 2LPM VIA NC. IV SITE BENIGN. PT REQUESTED SEVERAL SNACKS OVERNIGHT. MEDICATED WITH PRN XANAX 0.25MG TWICE DURING SHIFT. BED REMAINS IN LOW POSITION WITH THE CALL LIGHT WITHIN EASY REACH. WILL CONTINUE TO MONITOR.
--- NOTE | 2021-04-02 16:59 | NUR ---
SHIFT SUMMARY 65 Y FEMALE ADMITTED WITH AFIB AND RLL PNEUM. PT HAS HX OF DEPRESSION AND SHF. PT IS A&O, UP IND/SBA TO BSC. PT HAS REMAINED AFIB IN 100'S PER TELE. PT CALLS OUT FREQUENTLY, C/O ANXIETY. PLANS FOR PT TO D/C HOME PENDING FOR TOMORROW PE DR. HAY. NO OTHER CHANGES THIS SHIFT.
--- NOTE | 2021-04-03 06:29 | NUR ---
SHIFT SUMMARY ASSUMED CARE AT 1900. NO ACUTE EVENTS OVERNIGHT. PT RECEIVED SCHEDULED MEDICATIONS ORDERED. PT RESTED WELL OVERNIGHT. REMAINS ON CARDIAC TELE, REMAINS IN AFIB, HR 118 AND LOWER, VERIFIED WITH TECH. ON O2 2LPM VIA NC, O2 SATS 93%-99%. DENIES CHEST PAIN, PALPITATIONS, AND SOB. IV SITE BENIGN. NO PRN XANAX NEEDED OR REQUESTED DURING THE SHIFT THUS FAR. BED IS IN LOW POSITION WITH THE CALL LIGHT WITHIN EASY REACH.
[2021-04-03] MEDS ORDERED: CARV25 PT (12:41)
[2021-04-03] MEDS ORDERED: XARELTO15 MG PO (12:41)
[2021-04-03] MEDS ORDERED: LOSA50 PO (12:42)
[2021-04-03] MEDS ORDERED: DILT60 PO (12:42)
[2021-04-03] MEDS ORDERED: TRAZ100 PO (12:43)
[2021-04-03] MEDS ORDERED: MELA3 PO (12:43)
--- NOTE | 2021-04-03 14:17 | NUR ---
DISCHARGE NOTE D/C ORDERS RECIEVED AND IMPLEMENTED. REVIEWED D/C INSTRUCTIONS, EDUCATION AND HOME MEDS WITH PT, SHE VERBALIZED UNDERSTANDING AND AGREE WITH PLAN. IV REMOVED INTACT AND PT TOLERATED WELL. PT D/C HOME AND WAS ESCOTED OUT VIA W/C AND TRANSPORTED HOME VIA [facility].
== END 2021-04-03 14:28 | disposition home or self-care (01) | DRG 193 ==
LOC: ER 22:42 → MEDS 03-27 03:22 → PCU 03-27 03:22 → MEDS 03-30 15:01
PROVIDERS: Family Medicine; Hospitalist; Internal Medicine; Student in an Organized Health Care Education/Training Program; ADMIT Internal Medicine
DX: J18.9 Pneumonia, unspecified organism (principal); J96.01 Acute respiratory failure with hypoxia; J44.0 Chronic obstructive pulmonary disease with (acute) lower respiratory infection; J44.1 Chronic obstructive pulmonary disease with (acute) exacerbation; I50.32 Chronic diastolic (congestive) heart failure; I13.0 Hypertensive heart and chronic kidney disease with heart failure and stage 1 through stage 4 chronic kidney disease, or unspecified chronic kidney disease; I48.91 Unspecified atrial fibrillation; Z20.822 Contact with and (suspected) exposure to COVID-19; F32.A Depression, unspecified; N18.30 Chronic kidney disease, stage 3 unspecified; F41.9 Anxiety disorder, unspecified; I27.20 Pulmonary hypertension, unspecified; F17.210 Nicotine dependence, cigarettes, uncomplicated; G47.00 Insomnia, unspecified; Z91.14 Patient's other noncompliance with medication regimen; Z98.1 Arthrodesis status; Z90.89 Acquired absence of other organs; Z98.890 Other specified postprocedural states; Z90.710 Acquired absence of both cervix and uterus; Z79.01 Long term (current) use of anticoagulants; Z79.899 Other long term (current) drug therapy
CPT/HCPCS: 0241U; 36415; 71045; 80048; 80053; 83690; 83735; 83880; 84132; 84484; 85025; 93005; 93010; 94760; 94761; 94762; 96365; 96367; 96368; 97110; 97116; 97162; 97530; 99285-25; A9270; J0456; J0696; J2060; J2405; J3475; J7050

== ENCOUNTER 2021-04-04 17:40 | Inpatient (IN) | payer OTHER ==
[~2021-04-04] VITALS: Ht 167.6 cm; Wt 60.6 kg
[~2021-04-04 17:40] MED LIST changes: +CARV25 PT; +DILT60 PO; +LOSA50 PO; +MELA3 PO; +TRAZ100 PO; +XARELTO15 MG PO
[2021-04-04 18:11] LABS: PCO2 Arterial 82 mmHg (35-45); PO2 Arterial 98.3 mmHg (80-100)
[2021-04-04 18:21] LABS: Alanine Aminotransfer (ALT/SGP 56 U/L (12-78); Albumin, Blood 3.3 g/dL (3.4-5.0); Albumin/Globulin Ratio 0.8 (0.8-1.8); Alk Phos 139 U/L (50-136); Anion Gap 1 mmol/L (6-16); Aspartate Aminotrans (AST/SGOT 38 U/L (12-37); Bilirubin, Total 0.4 mg/dL (0.1-1.0); Blood Urea Nitrogen 30 mg/dL (8-24); Bun/Creatinine Ratio 38.5 (12.0-20.0); CO2, Blood 32 mmol/L (21-32); Calcium, Blood 8.7 mg/dL (8.5-10.1); Chloride, Blood 106 mmol/L (98-108); Creatinine, Blood 0.78 mg/dL (0.40-1.00); Glomerular Filtration Rate >60 (60-); Glucose, Blood 215 mg/dL (70-99); Magnesium, Blood 2.3 mg/dL (1.6-2.4); Potassium, Blood 4.9 mmol/L (3.5-5.5); Sodium, Blood 139 mmol/L (136-145); Total Protein, Blood 7.3 g/dL (6.4-8.2)
[2021-04-04 19:30] LABS: BASOPHILS ABSOLUTE AUTO 0.06 K/mm3 (0.00-0.23); BASOPHILS PERCENT AUTO 1 % (0-2); EOSINOPHILS PERCENT AUTO 0 % (0-6); Hematocrit 40.6 % (33.0-51.0); Hemoglobin 11.9 g/dL (11.5-16.0); IMMATURE GRAN ABSOLUTE AUTO 0.23 K/mm3 (0.00-0.10); IMMATURE GRAN PERCENT AUTO 2 % (0-1); LYMPHOCYTES ABSOLUTE AUTO 0.86 K/mm3 (0.84-5.20); LYMPHOCYTES PERCENT AUTO 7 % (21-46); MONOCYTES PERCENT AUTO 2 % (4-13); Mean Corpuscular HGB 26.6 pg (26.0-34.0); Mean Corpuscular HGB Conc 29.3 g/dL (31.5-36.5); Mean Corpuscular Volume 91 fL (80-100); Mean Platelet Volume 11.2 fL (9.1-12.4); NEUTROPHILS ABSOLUTE AUTO 11.43 K/mm3 (1.96-9.15); NEUTROPHILS PERCENT AUTO 89 % (41-73); Platelet Count 320 K/mm3 (150-400); RDW Coefficient Variation 14.5 % (11.7-14.2); RDW Standard Deviation 48.3 fL (35.1-46.3); Red Blood Cell Count 4.48 M/mm3 (3.80-5.20); White Blood Cell Count 12.88 K/mm3 (4.00-11.30)
[2021-04-04 21:26] LABS: Influenza A, PCR NEGATIVE (NEGATIVE); Influenza B, PCR NEGATIVE (NEGATIVE); Resp Syncytial Virus, PCR NEGATIVE (NEGATIVE); SARS-Cov-2 (COVID-19) PCR, MMC NEGATIVE (NEGATIVE)
[2021-04-05 02:11] LABS: Anion Gap 5 mmol/L (6-16); Blood Urea Nitrogen 31 mg/dL (8-24); Bun/Creatinine Ratio 38.1 (12.0-20.0); CO2, Blood 31 mmol/L (21-32); Calcium, Blood 8.8 mg/dL (8.5-10.1); Chloride, Blood 105 mmol/L (98-108); Creatinine, Blood 0.81 mg/dL (0.40-1.00); Glomerular Filtration Rate >60 (60-); Glucose, Blood 219 mg/dL (70-99); Potassium, Blood 4.9 mmol/L (3.5-5.5); Sodium, Blood 141 mmol/L (136-145)
--- NOTE | 2021-04-05 05:43 | NUR ---
SHIFT SUMMARY PT IS ALERT AND ORIENTED. WHEN PT ARRIVED TO UNIT WAS FEELING ANXIOUS WITH SOB AND CHEST PAIN. PER GLOBAL CTO HEART RATE WAS AFIB IN THE 120'S TO 130'S. PT THEN RECIEVED ANXIETY MEDS AND SLEEP MEDS AND HEART RATE DECREASED TO 60'S AND TOUCHED 50'S. PT WAS ON 4L NC WHEN ARRIVED TO FLOOR AND IS NOW ON 3L NC AT 100% O2. SHE REPORTED THAT HER CHEST PAIN WAS "NOT SO BAD ANYMORE 5/10." SHE HAS BEEN SLEEPING ON AND OFF AND ASKING FOR SNACKS. SHE IS ABLE TO USE BSC WITH 1 ASSIST. CALL LIGHT IS WITHIN REACH. WILL CONTINUE TO MONITOR.
--- NOTE | 2021-04-05 16:52 | NUR ---
Pt is alert and oriented. In AM pt was pretty sleepy, but was more alert later in the day. Good appetite. IV abx continued per orders. PRN xanax given x2. VSS on 2L. Solumedrol continued per orders. Up to BSC with assist.
--- NOTE | 2021-04-05 18:02 | NUR ---
CALLED MD REGARDING TROP TRENDING UP, NO ANSWER SO LVM. PT REPORTED NAUSEA, PRN ZOFRAN GIVEN.
--- NOTE | 2021-04-06 05:47 | NUR ---
SHIFT SUMMARY PT IS ALERT AND ORIENTED. PT REPORTED ONLY HEADACHE IN THE EVENING 11/10 AND WAS TREATED PER EMAR. PT HAS HAD SEVERAL SNACKS T/O THE NIGHT. VITAL SIGNS ARE STABLE. THERE HAVE BEEN NO ACUTE CHANGES. PT IS ON 2L NC WITH SATS ABOVE 92%. SHE WAS TITRATED TO 1L NC BUT DROPPED TO 88-89% WHEN SLEEPING. CALLS APPROPRIETLY. CALL LIGHT IS WITHIN REACH.
[2021-04-06 06:02] LABS: Base Excess Venous 5.6 mmol/L; Bicarbonate Venous 28.5 mmol/L (24.0-30.0); PCO2 Venous 49.6 mmHg (38-42); PO2 Venous 58.5 mmHg (38-42)
--- NOTE | 2021-04-06 15:56 | NUR ---
Pt is A&Ox 4. VSS on RA-2L. Pt worked with PT/OT today and ambulated in the halls. Pt will be d/c w/ HH and walker and shower chair prescription. IV solumedrol given per orders. Pt had a good appetite. Tele: afib 80-100s, pt increases to 120-130s with activity.
[2021-04-06] MEDS ORDERED: PRED20 PO (15:59)
== END 2021-04-06 16:41 | disposition home health service (06) | DRG 189 ==
LOC: ER 17:40 → PCU 22:19 → ERHOLD 22:19 → PCU 04-05 00:29
PROVIDERS: Emergency Medicine; Student in an Organized Health Care Education/Training Program; ADMIT Internal Medicine
PROC: 5A09357 Assistance with Respiratory Ventilation, Less than 24 Consecutive Hours, Continuous Positive Airway Pressure (ICD-10-PCS; principal; 2021-04-04)
DX: J96.01 Acute respiratory failure with hypoxia (principal); J44.1 Chronic obstructive pulmonary disease with (acute) exacerbation; I13.0 Hypertensive heart and chronic kidney disease with heart failure and stage 1 through stage 4 chronic kidney disease, or unspecified chronic kidney disease; I50.32 Chronic diastolic (congestive) heart failure; Z20.822 Contact with and (suspected) exposure to COVID-19; J96.02 Acute respiratory failure with hypercapnia; R77.8 Other specified abnormalities of plasma proteins; F41.9 Anxiety disorder, unspecified; N18.30 Chronic kidney disease, stage 3 unspecified; F32.A Depression, unspecified; I27.20 Pulmonary hypertension, unspecified; G47.00 Insomnia, unspecified; Z28.21 Immunization not carried out because of patient refusal; F17.210 Nicotine dependence, cigarettes, uncomplicated; Z79.899 Other long term (current) drug therapy; Z91.14 Patient's other noncompliance with medication regimen; Z79.01 Long term (current) use of anticoagulants; Z90.89 Acquired absence of other organs; Z90.710 Acquired absence of both cervix and uterus; Z98.890 Other specified postprocedural states
CPT/HCPCS: 0241U; 36415; 36600; 71045; 80048; 80053; 82803; 83735; 84145; 84484; 85025; 93005; 93010; 94640; 94660; 94664; 94667; 94761; 96365; 96366; 96375; 97110; 97162; 97165; 97530; 97535; 98960; 99285-25; A9270; J2405; J2543; J2930; J3370

== ENCOUNTER 2021-04-28 20:51 | Observation (INO) | payer OTHER ==
[~2021-04-28] VITALS: Ht 175.3 cm; Wt 59.9 kg
[~2021-04-28 20:51] MED LIST changes: +CARV25 PO; -CARV25 PT
[2021-04-28 21:16] LABS: BASOPHILS ABSOLUTE AUTO 0.06 K/mm3 (0.00-0.23); BASOPHILS PERCENT AUTO 1 % (0-2); EOSINOPHILS ABSOLUTE AUTO 0.12 K/mm3 (0.00-0.68); EOSINOPHILS PERCENT AUTO 2 % (0-6); Hematocrit 33.5 % (33.0-51.0); Hemoglobin 10.4 g/dL (11.5-16.0); IMMATURE GRAN ABSOLUTE AUTO 0.07 K/mm3 (0.00-0.10); IMMATURE GRAN PERCENT AUTO 1 % (0-1); LYMPHOCYTES ABSOLUTE AUTO 1.62 K/mm3 (0.84-5.20); LYMPHOCYTES PERCENT AUTO 24 % (21-46); MONOCYTES ABSOLUTE AUTO 0.73 K/mm3 (0.16-1.47); MONOCYTES PERCENT AUTO 11 % (4-13); Mean Corpuscular HGB 26.9 pg (26.0-34.0); Mean Corpuscular Volume 87 fL (80-100); Mean Platelet Volume 10.7 fL (9.1-12.4); NEUTROPHILS ABSOLUTE AUTO 4.17 K/mm3 (1.96-9.15); NEUTROPHILS PERCENT AUTO 62 % (41-73); Platelet Count 257 K/mm3 (150-400); RDW Coefficient Variation 15.4 % (11.7-14.2); RDW Standard Deviation 48.5 fL (35.1-46.3); Red Blood Cell Count 3.87 M/mm3 (3.80-5.20); White Blood Cell Count 6.77 K/mm3 (4.00-11.30)
[2021-04-28 21:35] LABS: Alanine Aminotransfer (ALT/SGP 25 U/L (12-78); Albumin/Globulin Ratio 0.9 (0.8-1.8); Alk Phos 114 U/L (50-136); Anion Gap 5 mmol/L (6-16); Aspartate Aminotrans (AST/SGOT 17 U/L (12-37); Bilirubin, Total 0.5 mg/dL (0.1-1.0); Blood Urea Nitrogen 30 mg/dL (8-24); Bun/Creatinine Ratio 23.3 (12.0-20.0); CO2, Blood 33 mmol/L (21-32); Calcium, Blood 8.4 mg/dL (8.5-10.1); Chloride, Blood 105 mmol/L (98-108); Creatinine, Blood 1.29 mg/dL (0.40-1.00); Globulin, Blood 3.4 g/dL (2.2-4.0); Glomerular Filtration Rate 41 (60-); Glucose, Blood 109 mg/dL (70-99); Potassium, Blood 3.9 mmol/L (3.5-5.5); Sodium, Blood 143 mmol/L (136-145); Total Protein, Blood 6.4 g/dL (6.4-8.2)
[2021-04-28] MEDS ORDERED: FUROSEMIDE20 MG PO (23:50)
[2021-04-28] MEDS ORDERED: METO50 PO (23:51)
[2021-04-29 00:14] LABS: Troponin I <0.015 ng/mL (0.000-0.040)
[2021-04-29] MEDS ORDERED: MELA3 PO (00:14)
[2021-04-29 05:06] LABS: BASOPHILS ABSOLUTE AUTO 0.08 K/mm3 (0.00-0.23); BASOPHILS PERCENT AUTO 1 % (0-2); EOSINOPHILS ABSOLUTE AUTO 0.16 K/mm3 (0.00-0.68); EOSINOPHILS PERCENT AUTO 2 % (0-6); Hematocrit 32.5 % (33.0-51.0); Hemoglobin 9.9 g/dL (11.5-16.0); IMMATURE GRAN ABSOLUTE AUTO 0.09 K/mm3 (0.00-0.10); IMMATURE GRAN PERCENT AUTO 1 % (0-1); LYMPHOCYTES ABSOLUTE AUTO 1.87 K/mm3 (0.84-5.20); LYMPHOCYTES PERCENT AUTO 27 % (21-46); MONOCYTES ABSOLUTE AUTO 0.79 K/mm3 (0.16-1.47); MONOCYTES PERCENT AUTO 11 % (4-13); Mean Corpuscular HGB 26.5 pg (26.0-34.0); Mean Corpuscular HGB Conc 30.5 g/dL (31.5-36.5); Mean Corpuscular Volume 87 fL (80-100); Mean Platelet Volume 10.5 fL (9.1-12.4); NEUTROPHILS ABSOLUTE AUTO 3.96 K/mm3 (1.96-9.15); NEUTROPHILS PERCENT AUTO 57 % (41-73); Platelet Count 239 K/mm3 (150-400); RDW Coefficient Variation 15.3 % (11.7-14.2); RDW Standard Deviation 48.9 fL (35.1-46.3); Red Blood Cell Count 3.73 M/mm3 (3.80-5.20); White Blood Cell Count 6.95 K/mm3 (4.00-11.30)
--- NOTE | 2021-04-29 05:26 | NUR ---
SHIFT SUMMARY PT RESTED WELL THROUGH THE NIGHT AFTER ADMISSION WAS COMPLETE. ALERT AND ORIENTED, ABLE TO MAKE NEEDS KNOWN. COOPERATIVE WITH PLAN OF CARE. SATS >95% ON ROOM AIR. TELE READS AFIB - RATE 80-100'S. NO C/O CHEST PAIN. PT C/O R SIDED WEAKNESS IN RLE. PT ABLE TO AMBULATE WELL AND STEADY WITH WALKER AND STAND BY ASSISTANCE. VOIDED TO TOILET. NO SKIN ISSUES. HEAD CT DID NOT SHOW SIGNS OF STROKE, BUT PT GOING FOR MRI AND US OF CAROTID TODAY. VSS. CALL LIGHT WITHIN REACH, BED IN LOWEST POSITION. WILL CONTINUE TO MONITOR.
--- NOTE | 2021-04-29 05:29 | NUR ---
SHIFT SUMMARY PT REMAINS ON COMFORT CARE. PT HAD NO NEEDS THROUGH THE NIGHT. ALERT AND ORIENTED, ABLE TO MAKE NEEDS KNOWN. COOPERATIVE WITH PLAN OF CARE. SATS >95% ON 3LNC. NO TELE, NO CP. VOIDS TO URINAL. PT STATES HE "CANNOT GET COMFORTABLE" DESPITE INTERVNETIONS DONE AND OFFERED. NO VITALS DONE. PT STABLE. CALL LIGHT WITHIN REACH, BED IN LOWEST POSITION. WILL CONTINUE TO MONITOR.
[2021-04-29 05:58] LABS: Anion Gap 5 mmol/L (6-16); Blood Urea Nitrogen 29 mg/dL (8-24); Bun/Creatinine Ratio 27.6 (12.0-20.0); CHOL/HDL RATIO 2.4; CO2, Blood 28 mmol/L (21-32); Calcium, Blood 8.1 mg/dL (8.5-10.1); Chloride, Blood 109 mmol/L (98-108); Cholesterol 143 mg/dL (50-200); Creatinine, Blood 1.05 mg/dL (0.40-1.00); Glomerular Filtration Rate 52 (60-); Glucose, Blood 104 mg/dL (70-99); HDL Cholesterol 60 mg/dL (>39); LDL/HDL RATIO 1.1; Low Density Lipoprotein Chol 65 mg/dL (0-110); Sodium, Blood 142 mmol/L (136-145); Triglycerides 91 mg/dL (30-160); Very Low Density Lipoprot Chol 18 mg/dL (6-32)
[2021-04-29] MEDS ORDERED: ASPI81CH PO (11:45)
[2021-04-29] MEDS ORDERED: ATOR80 PO (11:46)
--- NOTE | 2021-04-29 17:02 | NUR ---
DISCHARGE PT DISCHARGED BY [facility] BACK TO [facility] AT 16:45 . ALL DISCHARGE PAPERWORK GONE OVER.
--- NOTE | 2021-04-30 14:29 | NUR ---
Received referral from nurse care trainer (Romana Looney) on 04/29/2021. Patient discharged 04/29/2021 with orders for home health and elected [facility]. Patient was admitted to [facility] on 04/28/2021 due to CVA. Review of patient's records indicate that patient does not have a PCP. Informed patient of the need to establish care with a PCP who can then make a referral for home health. Patient verbalized understanding of the above. No further interventions Natasha Graves Referral Liaison
== END 2021-04-29 16:21 | disposition home health service (06) ==
LOC: ER 20:51 → MEDS 20:52
PROVIDERS: Emergency Medicine; Family Medicine; ADMIT Internal Medicine
DX: I63.9 Cerebral infarction, unspecified (principal); G83.11 Monoplegia of lower limb affecting right dominant side; N17.9 Acute kidney failure, unspecified; I48.91 Unspecified atrial fibrillation; R07.89 Other chest pain; I12.9 Hypertensive chronic kidney disease with stage 1 through stage 4 chronic kidney disease, or unspecified chronic kidney disease; N18.30 Chronic kidney disease, stage 3 unspecified; J44.9 Chronic obstructive pulmonary disease, unspecified; F17.210 Nicotine dependence, cigarettes, uncomplicated; Z59.00 Homelessness unspecified; Z79.01 Long term (current) use of anticoagulants
CPT/HCPCS: 36415; 70450; 80048; 80053; 80061; 83036; 84484; 85025; 93005; 93010; 93880; 97110; 97162; 97165; 99285-25; A9270; G0378

== ENCOUNTER 2021-05-14 15:31 | Inpatient (IN) | payer OTHER ==
[~2021-05-14] VITALS: Ht 167.6 cm; Wt 55.1 kg
[~2021-05-14 15:31] MED LIST changes: +ATOR80 PO; +FUROSEMIDE20 MG PO
[2021-05-14] MEDS ORDERED: ALBU90OI INH (15:59)
[2021-05-14 16:22] LABS: BASOPHILS ABSOLUTE AUTO 0.09 K/mm3 (0.00-0.23); BASOPHILS PERCENT AUTO 1 % (0-2); EOSINOPHILS ABSOLUTE AUTO 0.18 K/mm3 (0.00-0.68); EOSINOPHILS PERCENT AUTO 2 % (0-6); Hematocrit 27.2 % (33.0-51.0); Hemoglobin 8.1 g/dL (11.5-16.0); IMMATURE GRAN ABSOLUTE AUTO 0.18 K/mm3 (0.00-0.10); IMMATURE GRAN PERCENT AUTO 2 % (0-1); LYMPHOCYTES ABSOLUTE AUTO 1.57 K/mm3 (0.84-5.20); LYMPHOCYTES PERCENT AUTO 18 % (21-46); MONOCYTES ABSOLUTE AUTO 0.89 K/mm3 (0.16-1.47); MONOCYTES PERCENT AUTO 10 % (4-13); Mean Corpuscular HGB 26.7 pg (26.0-34.0); Mean Corpuscular HGB Conc 29.8 g/dL (31.5-36.5); Mean Corpuscular Volume 90 fL (80-100); NEUTROPHILS ABSOLUTE AUTO 5.68 K/mm3 (1.96-9.15); NEUTROPHILS PERCENT AUTO 66 % (41-73); Platelet Count 355 K/mm3 (150-400); RDW Coefficient Variation 17.7 % (11.7-14.2); RDW Standard Deviation 57.9 fL (35.1-46.3); Red Blood Cell Count 3.03 M/mm3 (3.80-5.20); White Blood Cell Count 8.59 K/mm3 (4.00-11.30)
[2021-05-14 16:36] LABS: Albumin, Blood 3.1 g/dL (3.4-5.0); Albumin/Globulin Ratio 0.9 (0.8-1.8); Bilirubin, Total 0.8 mg/dL (0.1-1.0); Bun/Creatinine Ratio 22.1 (12.0-20.0); Calcium, Blood 8.3 mg/dL (8.5-10.1); Creatinine, Blood 0.95 mg/dL (0.40-1.00); Globulin, Blood 3.6 g/dL (2.2-4.0); Potassium, Blood 4.8 mmol/L (3.5-5.5); Total Protein, Blood 6.7 g/dL (6.4-8.2)
[2021-05-14 20:09] LABS: CPK Creatine Kinase 78 U/L (26-193)
[2021-05-14 20:45] LABS: Source, Urine Clean Catch
[2021-05-14 20:48] LABS: Appearance, Urine Clear (Clear); Bilirubin, Urine Neg (Neg); Blood, Urine Neg (Neg); Glucose Qualitative, Urine 2+ (Neg); Ketones, Urine Neg (Neg); Leukocyte Esterase, Urine Neg (Neg); Nitrite, Urine Neg (Neg); Protein, Urine Neg (Neg); Urobilinogen, Urine NORM (Normal)
[2021-05-14 20:59] LABS: Influenza A, PCR NEGATIVE (NEGATIVE); Influenza B, PCR NEGATIVE (NEGATIVE); Resp Syncytial Virus, PCR NEGATIVE (NEGATIVE); SARS-Cov-2 (COVID-19) PCR, MMC NEGATIVE (NEGATIVE)
[2021-05-14 21:02] LABS: Color, Urine Pale Yellow (P-Yellow)
[2021-05-14] MEDS ORDERED: GABA300 PO (22:04)
[2021-05-15 04:19] LABS: BASOPHILS ABSOLUTE AUTO 0.05 K/mm3 (0.00-0.23); BASOPHILS PERCENT AUTO 1 % (0-2); EOSINOPHILS ABSOLUTE AUTO 0.12 K/mm3 (0.00-0.68); EOSINOPHILS PERCENT AUTO 1 % (0-6); Hematocrit 24.3 % (33.0-51.0); Hemoglobin 7.4 g/dL (11.5-16.0); IMMATURE GRAN ABSOLUTE AUTO 0.16 K/mm3 (0.00-0.10); IMMATURE GRAN PERCENT AUTO 2 % (0-1); LYMPHOCYTES ABSOLUTE AUTO 1.66 K/mm3 (0.84-5.20); LYMPHOCYTES PERCENT AUTO 17 % (21-46); MONOCYTES ABSOLUTE AUTO 0.86 K/mm3 (0.16-1.47); MONOCYTES PERCENT AUTO 9 % (4-13); Mean Corpuscular HGB 26.7 pg (26.0-34.0); Mean Corpuscular HGB Conc 30.5 g/dL (31.5-36.5); Mean Corpuscular Volume 88 fL (80-100); Mean Platelet Volume 9.7 fL (9.1-12.4); NEUTROPHILS ABSOLUTE AUTO 6.88 K/mm3 (1.96-9.15); NEUTROPHILS PERCENT AUTO 71 % (41-73); Platelet Count 344 K/mm3 (150-400); RDW Coefficient Variation 17.6 % (11.7-14.2); Red Blood Cell Count 2.77 M/mm3 (3.80-5.20); White Blood Cell Count 9.73 K/mm3 (4.00-11.30)
[2021-05-15 04:51] LABS: Alanine Aminotransfer (ALT/SGP 25 U/L (12-78); Albumin, Blood 2.9 g/dL (3.4-5.0); Albumin/Globulin Ratio 0.9 (0.8-1.8); Alk Phos 94 U/L (50-136); Anion Gap 4 mmol/L (6-16); Aspartate Aminotrans (AST/SGOT 14 U/L (12-37); Bilirubin, Total 0.6 mg/dL (0.1-1.0); Blood Urea Nitrogen 17 mg/dL (8-24); Bun/Creatinine Ratio 22.3 (12.0-20.0); CO2, Blood 29 mmol/L (21-32); Calcium, Blood 8.5 mg/dL (8.5-10.1); Chloride, Blood 110 mmol/L (98-108); Creatinine, Blood 0.76 mg/dL (0.40-1.00); Globulin, Blood 3.2 g/dL (2.2-4.0); Glomerular Filtration Rate >60 (60-); Glucose, Blood 138 mg/dL (70-99); Potassium, Blood 3.9 mmol/L (3.5-5.5); Sodium, Blood 143 mmol/L (136-145); Total Protein, Blood 6.1 g/dL (6.4-8.2)
[2021-05-15 04:56] LABS: CPK Creatine Kinase 23 U/L (26-193)
--- NOTE | 2021-05-15 06:12 | NUR ---
SHIFT SUMMARY ASSUMED CARE OF PT AT 2100. PT IS A/OX4 BUT VERY ANXIOUS AT TIMES. HEART SOUNDS IRREGULAR, TELE SHOWED AFIB. PT REMANS ON DILTIZEM DTT T/O THE NIGHT. RATE WAS IN THE 90'S UNLESS MOVING OR AGITATED. LUNG SOUNDS HAVE CRACKLES AT THE BSES. PT REORTS SHE IS A CURRENT SMOKER. PT IS A 1P ASSIST TO BSC. PTWAS ABLE TO GET SLEEP DURING THE NIGHT.
[2021-05-24] MEDS ORDERED: ESCITALOPRAM OXA5 MG PO (19:39)
[2021-05-24] MEDS ORDERED: SYMBICORT 160-4.6 GM (19:40)
[2021-05-25] MEDS ORDERED: ONDA4ODT MM (15:22)
[2021-05-25] MEDS ORDERED: MASOPHEN325 M4 PO (15:22)
[2021-05-25] MEDS ORDERED: PANT20 PO (15:23)
== END 2021-05-15 13:40 | disposition home or self-care (01) | DRG 189 ==
LOC: ER 15:31 → ERHOLD 19:21 → PCU 21:45
PROVIDERS: ADMIT Internal Medicine
DX: J96.01 Acute respiratory failure with hypoxia (principal); J98.11 Atelectasis; Z20.822 Contact with and (suspected) exposure to COVID-19; F32.A Depression, unspecified; M54.2 Cervicalgia; F17.210 Nicotine dependence, cigarettes, uncomplicated; G89.29 Other chronic pain; G47.00 Insomnia, unspecified; I12.9 Hypertensive chronic kidney disease with stage 1 through stage 4 chronic kidney disease, or unspecified chronic kidney disease; N18.30 Chronic kidney disease, stage 3 unspecified; D63.1 Anemia in chronic kidney disease; J44.9 Chronic obstructive pulmonary disease, unspecified; I48.91 Unspecified atrial fibrillation; I16.0 Hypertensive urgency; Z53.29 Procedure and treatment not carried out because of patient's decision for other reasons; Z59.00 Homelessness unspecified; Z86.73 Personal history of transient ischemic attack (TIA), and cerebral infarction without residual deficits; Z90.710 Acquired absence of both cervix and uterus; Z90.89 Acquired absence of other organs; Z79.01 Long term (current) use of anticoagulants; Z79.82 Long term (current) use of aspirin; Z79.899 Other long term (current) drug therapy
CPT/HCPCS: 0241U; 36415; 71045; 80053; 81003; 82550; 83880; 84484; 85025; 93005; 93010; 96365; 96366; 96376; 97162; 97530; 99285-25; A9270; J0360; J0456; J0696; J1650; J7050

== ENCOUNTER 2021-05-24 15:49 | Observation (INO) | payer OTHER ==
[~2021-05-24] VITALS: Ht 167.6 cm; Wt 60.3 kg
[~2021-05-24 15:49] MED LIST changes: +GABA300 PO
[2021-05-24 16:34] LABS: BASOPHILS ABSOLUTE AUTO 0.06 K/mm3 (0.00-0.23); BASOPHILS PERCENT AUTO 1 % (0-2); EOSINOPHILS ABSOLUTE AUTO 0.14 K/mm3 (0.00-0.68); EOSINOPHILS PERCENT AUTO 2 % (0-6); Hematocrit 23.4 % (33.0-51.0); Hemoglobin 6.8 g/dL (11.5-16.0); IMMATURE GRAN ABSOLUTE AUTO 0.06 K/mm3 (0.00-0.10); IMMATURE GRAN PERCENT AUTO 1 % (0-1); LYMPHOCYTES PERCENT AUTO 24 % (21-46); MONOCYTES PERCENT AUTO 12 % (4-13); Mean Corpuscular HGB 26.2 pg (26.0-34.0); Mean Corpuscular HGB Conc 29.1 g/dL (31.5-36.5); Mean Corpuscular Volume 90 fL (80-100); Mean Platelet Volume 9.5 fL (9.1-12.4); NEUTROPHILS ABSOLUTE AUTO 3.99 K/mm3 (1.96-9.15); NEUTROPHILS PERCENT AUTO 60 % (41-73); Platelet Count 295 K/mm3 (150-400); RDW Coefficient Variation 16.7 % (11.7-14.2); RDW Standard Deviation 54.6 fL (35.1-46.3); White Blood Cell Count 6.65 K/mm3 (4.00-11.30)
[2021-05-24 16:59] LABS: Influenza A, PCR NEGATIVE (NEGATIVE); Influenza B, PCR NEGATIVE (NEGATIVE); Resp Syncytial Virus, PCR NEGATIVE (NEGATIVE); SARS-Cov-2 (COVID-19) PCR, MMC NEGATIVE (NEGATIVE)
[2021-05-24 17:14] LABS: Albumin, Blood 3.2 g/dL (3.4-5.0); Albumin/Globulin Ratio 1.1 (0.8-1.8); Bilirubin, Total 0.5 mg/dL (0.1-1.0); Bun/Creatinine Ratio 27.4 (12.0-20.0); Calcium, Blood 8.5 mg/dL (8.5-10.1); Creatinine, Blood 1.24 mg/dL (0.40-1.00); Potassium, Blood 4.1 mmol/L (3.5-5.5); Total Protein, Blood 6.2 g/dL (6.4-8.2)
[2021-05-24 18:37] LABS: International Normalized Ratio 1.11; Prothrombin Time Results 11.6 Sec (9.7-11.5)
[2021-05-24] MEDS ORDERED: ESCITALOPRAM OXA5 MG PO ×2 (19:39)
[2021-05-24] MEDS ORDERED: SYMBICORT 160-4.6 GM ×2 (19:40)
--- NOTE | 2021-05-24 21:00 | NUR ---
ADMISSION REPORT RECIEVED FROM ER NURSE. PATIENT ARRIVED TO PCU 14 ON ER JIMBelkysSPADE, SLID OVER BY PCU STAFF. 1st UNIT PRBC INFUSING UPON ARRIVAL WELL AT PROTONIX GTT. PATIENT ALERT AND ORIENTED. TELE IN PLACE READING SINUS RHYTHM 60s. PATIENT REPORTS ABDOMINAL TENDERNESS BUT DENIES BLACK TARRY STOOLS. PATIENT ORIENTED TO ROOM AND CALL LIGHT SYSTEM. PATIENT ABLE TO MAKE NEEDS KNOWN TO STAFF.
[2021-05-25 02:11] LABS: Hematocrit 29.2 % (33.0-51.0); Hemoglobin 8.8 g/dL (11.5-16.0); Mean Corpuscular HGB 26.6 pg (26.0-34.0); Mean Corpuscular HGB Conc 30.1 g/dL (31.5-36.5); Mean Corpuscular Volume 88 fL (80-100); Mean Platelet Volume 9.4 fL (9.1-12.4); Platelet Count 271 K/mm3 (150-400); RDW Coefficient Variation 15.9 % (11.7-14.2); RDW Standard Deviation 51.5 fL (35.1-46.3); Red Blood Cell Count 3.31 M/mm3 (3.80-5.20)
[2021-05-25 02:28] LABS: Bun/Creatinine Ratio 29.2 (12.0-20.0); Calcium, Blood 8.1 mg/dL (8.5-10.1); Creatinine, Blood 1.06 mg/dL (0.40-1.00); Potassium, Blood 4.3 mmol/L (3.5-5.5)
--- NOTE | 2021-05-25 06:02 | NUR ---
SHIFT SUMMARY PATIENT ALERT AND ORIENTED x4 AND HAS SLEPT THE MAJORITY OF SHIFT AFTER ADMISSION. VSS. PATIENT ON RA WITH O2 SAT ABOVE 90%. NO BM THIS SHIFT. 2 UNITS PRBCs INFUSED OVERNIGHT. PROTONIX GTT INFUSING. PATIENT ABLE TO USE BEDISDE COMMODE WITH SUPERVISON OF STAFF. CT SCAN COMPLETED THIS AM. PATIENT ABLE TO MAKE NEEDS KNOWN TO STAFF. NO OTHER ACUTE CHANGES, WILL REPORT TO DAY SHIFT RN.
--- NOTE | 2021-05-25 09:40 | NUR ---
PER TELEMETRY, PT IS NOW IN AFIB HR 90s. PT IS ASYMPTOMATIC. ISTRATE NOTIFIED, NO NEW ORDERS AT THIS TIME.
[2021-05-25 13:49] LABS: Hematocrit 33.5 % (33.0-51.0); Hemoglobin 10.3 g/dL (11.5-16.0); Mean Corpuscular HGB Conc 30.7 g/dL (31.5-36.5); Mean Corpuscular Volume 88 fL (80-100); Mean Platelet Volume 9.2 fL (9.1-12.4); Platelet Count 312 K/mm3 (150-400); RDW Coefficient Variation 15.8 % (11.7-14.2); RDW Standard Deviation 50.2 fL (35.1-46.3); Red Blood Cell Count 3.82 M/mm3 (3.80-5.20); White Blood Cell Count 7.81 K/mm3 (4.00-11.30)
--- NOTE | 2021-05-25 14:12 | NUR ---
DR BAHENATRATE NOTIFIED OF PT'S H/H RESULTS AND CONTINUED AFIB. SEE VS.
[2021-05-25] MEDS ORDERED: ONDA4ODT MM ×2 (15:22)
[2021-05-25] MEDS ORDERED: MASOPHEN325 M4 PO ×2 (15:22)
[2021-05-25] MEDS ORDERED: PANT20 PO ×2 (15:23)
--- NOTE | 2021-05-25 16:08 | NUR ---
DISCHARGE EDUCATION REVEIWED WITH PT INCLUDING MEDICATIONS, FOLLOW UP APPOINTMENTS AND DIAGNOSIS INFORMATION. PT VERBALIZES UNDERSTANDING AND STATES THEY DO NOT HAVE ANY QUESTIONS OR CONCERNS AT THIS TIME. RXs CALLED TO [facility] PER PT REQUEST. TRANSPORT ARRANGED WITH [facility]. IVs REMOVED. PT WILL BE SENT HOME WITH ALL BELONGINGS. FOLLOW UP APPT WITH PCP OFFICE CONFIRMED BY THIS RN, PT VERBALIZES UNDERSTANDING OF APPT DATE/TIME. NO FURTHER DISCHARGE NEEDS IDENTIFIED AT THIS TIME. AWAITING ARRIVAL OF TRANSPORT.
== END 2021-05-25 16:21 | disposition home or self-care (01) ==
LOC: ER 15:49 → PCU 15:50 → ER 20:35 → PCU 20:35 → ER 20:51 → PCU 20:54
PROVIDERS: Emergency Medicine; Family Medicine; ADMIT Internal Medicine
DX: D50.0 Iron deficiency anemia secondary to blood loss (chronic) (principal); R07.9 Chest pain, unspecified; I12.9 Hypertensive chronic kidney disease with stage 1 through stage 4 chronic kidney disease, or unspecified chronic kidney disease; N18.30 Chronic kidney disease, stage 3 unspecified; F17.210 Nicotine dependence, cigarettes, uncomplicated; J90 Pleural effusion, not elsewhere classified; J44.9 Chronic obstructive pulmonary disease, unspecified; N17.9 Acute kidney failure, unspecified; G47.00 Insomnia, unspecified; F41.9 Anxiety disorder, unspecified; I48.0 Paroxysmal atrial fibrillation; Z86.73 Personal history of transient ischemic attack (TIA), and cerebral infarction without residual deficits; Z79.01 Long term (current) use of anticoagulants; Z59.01 Sheltered homelessness; Z20.822 Contact with and (suspected) exposure to COVID-19
CPT/HCPCS: 0241U; 36415; 71045; 71250; 74177; 80048; 80053; 83880; 84145; 84484; 85025; 85027; 85610; 85730; 86850; 86900; 86901; 86923; 93005; 93010; 94640; A9270; C9113; J7030; P9016; Q9967

== ENCOUNTER 2021-09-22 19:48 | Emergency (ER) | payer OTHER ==
[~2021-09-22] VITALS: Ht 167.6 cm; Wt 60.8 kg
[~2021-09-22 19:48] MED LIST changes: +ESCITALOPRAM OXA5 MG PO; +MASOPHEN325 M4 PO; +ONDA4ODT MM; +SYMBICORT 160-4.6 GM
[2021-09-22 20:33] LABS: BASOPHILS PERCENT AUTO 1 % (0-2); EOSINOPHILS ABSOLUTE AUTO 0.14 K/mm3 (0.00-0.68); EOSINOPHILS PERCENT AUTO 2 % (0-6); Hematocrit 38.4 % (33.0-51.0); Hemoglobin 11.7 g/dL (11.5-16.0); IMMATURE GRAN ABSOLUTE AUTO 0.21 K/mm3 (0.00-0.10); IMMATURE GRAN PERCENT AUTO 2 % (0-1); LYMPHOCYTES ABSOLUTE AUTO 2.06 K/mm3 (0.84-5.20); LYMPHOCYTES PERCENT AUTO 21 % (21-46); MONOCYTES ABSOLUTE AUTO 0.85 K/mm3 (0.16-1.47); MONOCYTES PERCENT AUTO 9 % (4-13); Mean Corpuscular HGB 25.3 pg (26.0-34.0); Mean Corpuscular HGB Conc 30.5 g/dL (31.5-36.5); Mean Corpuscular Volume 83 fL (80-100); Mean Platelet Volume 9.7 fL (9.1-12.4); NEUTROPHILS ABSOLUTE AUTO 6.29 K/mm3 (1.96-9.15); NEUTROPHILS PERCENT AUTO 65 % (41-73); Platelet Count 259 K/mm3 (150-400); RDW Coefficient Variation 24.5 % (11.7-14.2); RDW Standard Deviation 71.7 fL (35.1-46.3); Red Blood Cell Count 4.62 M/mm3 (3.80-5.20); White Blood Cell Count 9.65 K/mm3 (4.00-11.30)
[2021-09-22 20:53] LABS: Albumin, Blood 3.4 g/dL (3.4-5.0); Bilirubin, Total 0.3 mg/dL (0.1-1.0); Bun/Creatinine Ratio 30.6 (12.0-20.0); Calcium, Blood 8.9 mg/dL (8.5-10.1); Creatinine, Blood 1.21 mg/dL (0.40-1.00); Globulin, Blood 3.3 g/dL (2.2-4.0); Potassium, Blood 3.8 mmol/L (3.5-5.5); Total Protein, Blood 6.7 g/dL (6.4-8.2)
== END 2021-09-22 22:46 | disposition home or self-care (01) ==
LOC: ER 19:48
PROVIDERS: Physician Assistant
DX: K64.8 Other hemorrhoids (principal); I48.91 Unspecified atrial fibrillation; I12.9 Hypertensive chronic kidney disease with stage 1 through stage 4 chronic kidney disease, or unspecified chronic kidney disease; N18.30 Chronic kidney disease, stage 3 unspecified; J44.9 Chronic obstructive pulmonary disease, unspecified; F17.200 Nicotine dependence, unspecified, uncomplicated; Z79.82 Long term (current) use of aspirin; Z79.899 Other long term (current) drug therapy; Z79.01 Long term (current) use of anticoagulants; Z86.73 Personal history of transient ischemic attack (TIA), and cerebral infarction without residual deficits
CPT/HCPCS: 36415; 80053; 85025

== ENCOUNTER 2021-10-08 13:01 | Emergency (ER) | payer OTHER ==
[~2021-10-08] VITALS: Ht 167.6 cm; Wt 60.8 kg
[~2021-10-08 13:01] MED LIST changes: -SYMBICORT 160-4.6 GM; +SYMBICORT 160-4.6 GM INH
[2021-10-08 13:52] LABS: BASOPHILS ABSOLUTE AUTO 0.04 K/mm3 (0.00-0.23); BASOPHILS PERCENT AUTO 1 % (0-2); EOSINOPHILS ABSOLUTE AUTO 0.02 K/mm3 (0.00-0.68); EOSINOPHILS PERCENT AUTO 0 % (0-6); Hematocrit 39.6 % (33.0-51.0); Hemoglobin 12.4 g/dL (11.5-16.0); IMMATURE GRAN ABSOLUTE AUTO 0.09 K/mm3 (0.00-0.10); IMMATURE GRAN PERCENT AUTO 2 % (0-1); LYMPHOCYTES PERCENT AUTO 20 % (21-46); MONOCYTES ABSOLUTE AUTO 1.06 K/mm3 (0.16-1.47); MONOCYTES PERCENT AUTO 20 % (4-13); Mean Corpuscular HGB 26.4 pg (26.0-34.0); Mean Corpuscular HGB Conc 31.3 g/dL (31.5-36.5); Mean Corpuscular Volume 84 fL (80-100); Mean Platelet Volume 9.8 fL (9.1-12.4); NEUTROPHILS ABSOLUTE AUTO 3.11 K/mm3 (1.96-9.15); NEUTROPHILS PERCENT AUTO 57 % (41-73); Platelet Count 215 K/mm3 (150-400); RDW Coefficient Variation 25.3 % (11.7-14.2); RDW Standard Deviation 76.1 fL (35.1-46.3); White Blood Cell Count 5.42 K/mm3 (4.00-11.30)
[2021-10-08 14:10] LABS: Albumin, Blood 3.1 g/dL (3.4-5.0); Bilirubin, Total 0.5 mg/dL (0.1-1.0); Bun/Creatinine Ratio 22.8 (12.0-20.0); Calcium, Blood 8.5 mg/dL (8.5-10.1); Creatinine, Blood 1.14 mg/dL (0.40-1.00); Globulin, Blood 3.2 g/dL (2.2-4.0); Potassium, Blood 4.1 mmol/L (3.5-5.5); Total Protein, Blood 6.3 g/dL (6.4-8.2)
[2021-10-08 14:28] LABS: Influenza B, PCR NEGATIVE (NEGATIVE); Resp Syncytial Virus, PCR NEGATIVE (NEGATIVE); SARS-Cov-2 (COVID-19) PCR, MMC NEGATIVE (NEGATIVE)
[2021-10-08 14:29] LABS: Influenza A, PCR POSITIVE (NEGATIVE)
[2021-10-08] MEDS ORDERED: Guaifenesin Wit10 ML PO ×2 (16:15→16:16)
[2021-10-08] MEDS ORDERED: Prednisone50 MG PO (16:15)
[2021-10-08] MEDS ORDERED: OSEL75CA PO (16:15)
[2021-10-08] MEDS ORDERED: ONDA4ODT MM (16:15)
== END 2021-10-08 17:04 | disposition home or self-care (01) ==
LOC: ER 13:01
PROVIDERS: Emergency Medicine
DX: J10.1 Influenza due to other identified influenza virus with other respiratory manifestations (principal); J40 Bronchitis, not specified as acute or chronic; I48.91 Unspecified atrial fibrillation; I12.9 Hypertensive chronic kidney disease with stage 1 through stage 4 chronic kidney disease, or unspecified chronic kidney disease; N18.30 Chronic kidney disease, stage 3 unspecified; J44.9 Chronic obstructive pulmonary disease, unspecified; F17.200 Nicotine dependence, unspecified, uncomplicated; Z20.822 Contact with and (suspected) exposure to COVID-19; Z79.899 Other long term (current) drug therapy; Z79.82 Long term (current) use of aspirin
CPT/HCPCS: 0241U; 71045; 80053; 84484; 85025; 93005; 93010; 94640; 94664; A9270; J2930; J7030

== ENCOUNTER 2021-10-15 21:00 | Inpatient (IN) | payer OTHER ==
[~2021-10-15] VITALS: Ht 167.6 cm; Wt 60.8 kg
[~2021-10-15 21:00] MED LIST changes: +Guaifenesin Wit10 ML PO; +OSEL75CA PO; +Prednisone50 MG PO
[2021-10-15 21:26] LABS: Hematocrit 44.8 % (33.0-51.0); Hemoglobin 13.9 g/dL (11.5-16.0); Mean Corpuscular HGB 26.7 pg (26.0-34.0); Mean Corpuscular Volume 86 fL (80-100); Mean Platelet Volume 10.3 fL (9.1-12.4); NRBC ABSOLUTE 0.06 K/mm3 (0.00-0.02); NRBC Auto 0.4 /100 WBC (0.0-0.2); Platelet Count 462 K/mm3 (150-400); RDW Coefficient Variation 25.2 % (11.7-14.2); RDW Standard Deviation 77.5 fL (35.1-46.3); Red Blood Cell Count 5.21 M/mm3 (3.80-5.20); White Blood Cell Count 16.96 K/mm3 (4.00-11.30)
[2021-10-15 21:46] LABS: Albumin, Blood 2.9 g/dL (3.4-5.0); Albumin/Globulin Ratio 0.5 (0.8-1.8); Bilirubin, Total 1.2 mg/dL (0.1-1.0); Bun/Creatinine Ratio 27.4 (12.0-20.0); Calcium, Blood 9.8 mg/dL (8.5-10.1); Creatinine, Blood 1.24 mg/dL (0.40-1.00); Globulin, Blood 5.4 g/dL (2.2-4.0); Potassium, Blood 4.1 mmol/L (3.5-5.5); Total Protein, Blood 8.3 g/dL (6.4-8.2)
[2021-10-15 21:49] LABS: BAND PERCENT MAN 34 % (0-8); BASOPHILS PERCENT MAN 0 % (0-2); EOSINOPHILS PERCENT MAN 0 % (0-6); LYMPHOCYTES ABSOLUTE MAN 1.35 K/mm3 (0.84-5.20); LYMPHOCYTES PERCENT MAN 8 % (21-46); MONOCYTES PERCENT MAN 13 % (4-13); MYELOCYTE ABSOLUTE MAN 0.33 K/mm3 (0.00-0.00); MYELOCYTE PERCENT MAN 2 % (0-0); NEUTROPHILS ABSOLUTE MAN 13.05 K/mm3 (1.96-9.15); SEG NEUTROPHILS PERCENT MAN 43 % (41-73); TOTAL CELLS COUNTED 100
[2021-10-15 21:50] LABS: PCO2 Arterial 46.3 mmHg (35-45); PO2 Arterial 70.3 mmHg (80-100); pH Blood Arterial 7.37 (7.35-7.45)
[2021-10-15 22:04] LABS: Influenza A, PCR NEGATIVE (NEGATIVE); Influenza B, PCR NEGATIVE (NEGATIVE); Resp Syncytial Virus, PCR NEGATIVE (NEGATIVE); SARS-Cov-2 (COVID-19) PCR, MMC NEGATIVE (NEGATIVE)
[2021-10-16 01:54] LABS: Source, Urine Foley catheter
[2021-10-16 02:02] LABS: Bilirubin, Urine Neg (Neg); Blood, Urine 4+ (Neg); Glucose Qualitative, Urine 3+ (Neg); Ketones, Urine 2+ (Neg); Leukocyte Esterase, Urine Neg (Neg); Nitrite, Urine Neg (Neg); Protein, Urine 4+ (Neg); Specific Gravity, Urine 1.025 (1.003-1.022); Urobilinogen, Urine 1+ (Normal)
[2021-10-16 02:15] LABS: Appearance, Urine Hazy (Clear); Color, Urine Yellow (P-Yellow)
[2021-10-16 02:20] LABS: Amorphous Mod (0-Heavy); Bacteria Mod /hpf; Mucus Light (0-Heavy); Red Blood Cells, Urine 0-2 /hpf (0-2); Squamous Epithelial Cells Few /hpf (Few); Transitional Epithelial Cells Few /hpf (0-Rare); White Blood Cells, Urine 0-2 /hpf (0-5)
[2021-10-16 03:14] LABS: Hemoglobin 12.8 g/dL (11.5-16.0); Mean Corpuscular HGB 26.7 pg (26.0-34.0); Mean Corpuscular HGB Conc 30.5 g/dL (31.5-36.5); Mean Corpuscular Volume 88 fL (80-100); Mean Platelet Volume 10.2 fL (9.1-12.4); NRBC ABSOLUTE 0.06 K/mm3 (0.00-0.02); NRBC Auto 0.4 /100 WBC (0.0-0.2); Platelet Count 414 K/mm3 (150-400); Red Blood Cell Count 4.79 M/mm3 (3.80-5.20); White Blood Cell Count 16.07 K/mm3 (4.00-11.30)
[2021-10-16 03:32] LABS: Albumin, Blood 2.8 g/dL (3.4-5.0); Albumin/Globulin Ratio 0.5 (0.8-1.8); Bilirubin, Total 0.6 mg/dL (0.1-1.0); Bun/Creatinine Ratio 31.4 (12.0-20.0); Calcium, Blood 9.2 mg/dL (8.5-10.1); Creatinine, Blood 1.05 mg/dL (0.40-1.00); Globulin, Blood 5.1 g/dL (2.2-4.0); Potassium, Blood 3.9 mmol/L (3.5-5.5); Total Protein, Blood 7.9 g/dL (6.4-8.2)
[2021-10-16 03:34] LABS: BAND PERCENT MAN 24 % (0-8); BASOPHILS PERCENT MAN 0 % (0-2); EOSINOPHILS PERCENT MAN 0 % (0-6); LYMPHOCYTES ABSOLUTE MAN 0.64 K/mm3 (0.84-5.20); LYMPHOCYTES PERCENT MAN 4 % (21-46); METAMYELOCYTE ABSOLUTE MAN 0.32 K/mm3 (0.00-0.00); METAMYELOCYTE PERCENT MAN 2 % (0-0); MONOCYTES ABSOLUTE MAN 2.57 K/mm3 (0.16-1.47); MONOCYTES PERCENT MAN 16 % (4-13); NEUTROPHILS ABSOLUTE MAN 12.53 K/mm3 (1.96-9.15); SEG NEUTROPHILS PERCENT MAN 54 % (41-73); TOTAL CELLS COUNTED 100
--- NOTE | 2021-10-16 06:42 | NUR ---
PT. CAME IN LAST NIGHT WITH AFIB AND RVR RATES INTO THE 180S WHEN SHE CAME TO ICU. CARDIZEM DRIP IS GOING AT 10 AND HR IS SUSTAINING AROUND 80S, TITRATED DOWN FROM 20 LAST NIGHT. BP AND HR ARE NOW WITHIN NORMAL LIMITS. LASIX WAS GIVEN BECAUSE THE PATIENT HAD CRACKLES FROM FLUID BOLUS GIVEN IN ER. HOWARD IN PLACE TO MONITOR URINE OUTPUT FROM LASIX.
--- NOTE | 2021-10-16 14:00 | NUR ---
PT WAS ABLE TO PASS BEDSIDE SWALLOW EVAL THIS AM. GAVE AM MEDS AND TURNED CARDIZEM GTT OFF. PT BECAME BRADYCARDIC AND HYPOTENSIVE AFTER COREG DOSE. PT REMAINS A/O X4 JUST FEELS TIRED WHICH PT HAD ALSO WORKED WITH PHYSICAL THERAPY WHICH EXERTED HER. HR DOWN TO 39 AT TIMES BUT NOT SUSTAINING. DR. PATTERSON ORDERED DOPAMINE GTT THAT WAS STARTED. AFTER TITRATING UP TO 10MCG/KG/MIN CALLED DR. PATTERSON BACK TO UPDATE AND SHE ORDERED 1L BOLUS OF LR AND TO TRY TO TITRATE DOPAMINE BACK DOWN. PT IS ASYMPTOMATIC AT THIS TIME. LS CLEAR WITH FAINT COARSE ON END OF EXHALE IN LOWER LOBES. WAS TRIALED ON BIPAP BUT PT DID NOT TOLERATE, BACK ON AIRVO 40L FIO2 35%.
--- NOTE | 2021-10-16 18:21 | NUR ---
SUMMARY PT RESTING IN BED. A/O X4. GETS SOB WITH EXERTION BUT DOES NOT DESAT. ON AIRVO 40L FIO2 35%, LS CLEAR EXCEPT LLL IS DIM. PT COUGHS UP THICK BROWNING SPUTUM AT TIMES. SPUTUM SAMPLE SENT TO LAB. TOLERATED 1L BOLUS. ABLE TO TITRATE DOPAMINE DOWN TO 2MCG/KG/MIN. PT ABLE TO TAKE A FEW BITES OF FOOD T/O THE DAY AND ABLE TO TAKE PILLS WITH WATER WITHOUT ISSUE. HELD PO IF PT LOOKED EXERTED AT ALL. NO SIGN OF DISTRESS TONIGHT. ABLE TO TURN SIDE TO SIDE IN BED INDEP.
[2021-10-17 05:10] LABS: Hematocrit 32.2 % (33.0-51.0); Mean Corpuscular HGB 26.8 pg (26.0-34.0); Mean Corpuscular HGB Conc 31.1 g/dL (31.5-36.5); Mean Corpuscular Volume 86 fL (80-100); Mean Platelet Volume 10.2 fL (9.1-12.4); NRBC ABSOLUTE 0.02 K/mm3 (0.00-0.02); NRBC Auto 0.3 /100 WBC (0.0-0.2); Platelet Count 290 K/mm3 (150-400); RDW Coefficient Variation 24.4 % (11.7-14.2); RDW Standard Deviation 74.7 fL (35.1-46.3); Red Blood Cell Count 3.73 M/mm3 (3.80-5.20); White Blood Cell Count 7.65 K/mm3 (4.00-11.30)
--- NOTE | 2021-10-17 05:15 | NUR ---
PT. WAS STABLE OVERNIGHT, REMAINED ON AIRVO AND WAS ABLE TO TURN OFF THE DOPAMINE DRIP AND THE PRESSURES HAVE SUSTAINED OVER A MAP OF 70 ALL NIGHT. PT. BG IS RUNNING 250-300S AND IS BEING TREATED VIA SLIDING SCALE. URINARY CATHETER IS STILL PATENT AND DRAINING, OUTPUT HAS DECREASED TO 300 OVERNIGHT. PT. HAS BEEN OTHERWISE UNCHANGED AND IS RESTING COMFORTABLY IN BED.
[2021-10-17 05:38] LABS: Albumin/Globulin Ratio 0.5 (0.8-1.8); Bilirubin, Total 0.4 mg/dL (0.1-1.0); Bun/Creatinine Ratio 33.3 (12.0-20.0); Calcium, Blood 8.5 mg/dL (8.5-10.1); Creatinine, Blood 1.53 mg/dL (0.40-1.00); Globulin, Blood 4.1 g/dL (2.2-4.0); Potassium, Blood 3.8 mmol/L (3.5-5.5); Total Protein, Blood 6.1 g/dL (6.4-8.2)
[2021-10-17 05:44] LABS: BASOPHILS PERCENT MAN 0 % (0-2); EOSINOPHILS PERCENT MAN 0 % (0-6); TOTAL CELLS COUNTED 100
[2021-10-17 05:48] LABS: BAND PERCENT MAN 29 % (0-8); LYMPHOCYTES ABSOLUTE MAN 0.22 K/mm3 (0.84-5.20); LYMPHOCYTES PERCENT MAN 3 % (21-46); METAMYELOCYTE ABSOLUTE MAN 0.07 K/mm3 (0.00-0.00); METAMYELOCYTE PERCENT MAN 1 % (0-0); MONOCYTES ABSOLUTE MAN 0.15 K/mm3 (0.16-1.47); MONOCYTES PERCENT MAN 2 % (4-13); MYELOCYTE ABSOLUTE MAN 0.07 K/mm3 (0.00-0.00); MYELOCYTE PERCENT MAN 1 % (0-0); NEUTROPHILS ABSOLUTE MAN 7.11 K/mm3 (1.96-9.15); SEG NEUTROPHILS PERCENT MAN 64 % (41-73)
--- NOTE | 2021-10-17 09:01 | NUR ---
PT TRANSITIONED TO PCU STATUS, O2 SWITCHED TO REGULAR HIFLO NASAL CANNULA STARTED AT 6L NOW DOWN TO 4L TOLERATING WELL SATTING ABOVE 95%, VITALS HRR 90-110'S AFIB, BP SYSTOLIC STARTED AT 140'S WHEN PT WAS SITTING UP EATING BREAKFAST PT NOW IS LYING DOWN BP SYSTOLIC WENT SOFT 90-100'S PROVIDER IS AWARE TO RESTART METOPROLOL 25MG. AFEBRILE. PT IS ALERT AND ORIENTED X4 AT BASELINE, ABLE TO MAKE NEEDS KNOWN CALLS APPROPRIATE, CAN MOVE SLOWLY BUT INDEPENDENTLY IN BED. ATE BREAKFAST THIS MORNING NO ISSUES, HAS BASELINE NON PRODUCTIVE DRY COUGH. DENIES ANY CHEST PAIN/PRESSURE PT STATED SHE'S JUST FEELING WEAK. NO OTHER ISSUES AT THIS TIME, PLAN TO TAKE HOWARD OUT BEFORE THE END OF THE SHIFT TODAY. NO OTHER COMPLAINS PT NOW RESTING IN BED CALL LIGHTS IN REACH WILL MONITOR
--- NOTE | 2021-10-17 17:10 | NUR ---
TRANSFER FROM ICU: REPORT RECEIVED FROM JOHNNIE FERRARI IN ICU. PATIENT ARRIVED VIA BED. PATIENT ALERT AND ORIENTED X4. PATIENT ABLE TO TRANSFER FROM BED TO BED WITH SBA. PATIENT REPORTED DIZZINESS UPON SITTING UP INITIALLY. PATIENT DENIED CHEST PAIN AND REPORTED THAT DIZZINESS RESOLVED. NO SHORTNESS OF BREATH NOTED WITH AMBULATION. PATIENT IN AFIB IN LOW 100'S PER TELEMETRY. VITALS STABLE WHEN COMPARED TO MOST RECENT VITALS IN THE ICU. PATIENT CONTINUES TO TOLERATE HIGH FLOW NC ON 2L VIA NC.
--- NOTE | 2021-10-17 17:10 | NUR ---
PT TRANSFERRED TO PCU 13 REPORT GIVEN TO ALONSO BLAIR, PT WAS ABLE TO STAND AND TRANSFER VIA WALKER TO PCU BED, PT STEYED IN BED MOST OF THE SHIFT ABLE TO MOVE SELF AROUND IN BED, O2 TITRATED DOWN TO 2L PT STILL DESATS TO 87% ON RA, BP SYSTOLIC 120-140'S FOR THE REST OF THE SHIFT, DENIES ANY PAIN OR DISCOMFORT. ANITA WAS DC'D PRIOR TO TRANSFER. EATING AND DRINKING WITH NO ISSUES. ALL BELONGINGS SENT WITH THE PT
--- NOTE | 2021-10-17 18:42 | NUR ---
END OF SHIFT SUMMARY: PATIENT ARRIVED TO THE UNIT [facility] 1710. SEE TRANSFER NOTE. PATIENT DENIED PAIN FOR THE REMAINDER OF THE SHIFT. PATIENT REPORTED FEELING COLD AND TIRED. HOME TRAZODONE DOSE ORDERED PER DR. JOHN. PATIENT REPORTED LACK OF APPETITE AND DENIED NAUSEA OR GASTRIC DISCOMFORT. HOWARD CATHETER PULLED PRIOR TO TRANSFER. PATIENT HAS YET TO VOID. LIQUOR ESTABLISHMENT MANAGER VONDA REPORTED THAT THE PATIENT HAD MOST RECENTLY BEEN DECREASED TO 2L VIA HIGH FLOW NASAL CANNULA. PATIENT STAYED STABLE ON 2L AT 96-98%. PATIENT DENIES DIFFICULTY BREATHING OR SHORTNESS OF BREATH.
--- NOTE | 2021-10-18 01:24 | NUR ---
CRITICAL VALUE: MIDNIGHT CBG 494. ADMINISTERED INSULIN PER EMAR.
--- NOTE | 2021-10-18 04:45 | NUR ---
CALLED RESIDENT DR. DAVINA DENG ([facility]) RE: CBG [phone] FOLLOWING PREVIOUS ORDERS. RECEIVED NEW ORDERS FOR 1X DOSE OF 10U LISPRO SC.
[2021-10-18 05:35] LABS: Hematocrit 33.6 % (33.0-51.0); Hemoglobin 10.5 g/dL (11.5-16.0); Mean Corpuscular HGB 26.9 pg (26.0-34.0); Mean Corpuscular HGB Conc 31.3 g/dL (31.5-36.5); Mean Corpuscular Volume 86 fL (80-100); Mean Platelet Volume 10.2 fL (9.1-12.4); Platelet Count 297 K/mm3 (150-400); RDW Coefficient Variation 24.3 % (11.7-14.2); RDW Standard Deviation 74.8 fL (35.1-46.3)
[2021-10-18 05:51] LABS: Albumin, Blood 2.1 g/dL (3.4-5.0); Albumin/Globulin Ratio 0.5 (0.8-1.8); Bilirubin, Total 0.3 mg/dL (0.1-1.0); Bun/Creatinine Ratio 37.8 (12.0-20.0); Creatinine, Blood 1.27 mg/dL (0.40-1.00); Globulin, Blood 4.1 g/dL (2.2-4.0); Potassium, Blood 3.8 mmol/L (3.5-5.5); Total Protein, Blood 6.2 g/dL (6.4-8.2)
--- NOTE | 2021-10-18 06:18 | NUR ---
SHIFT SUMMARY: PATIENT DENIES CHEST PAIN, SOB, N/V. AFEBRILE. CBG >300 T/O SHIFT, MEDICATED PER EMAR AND CALLED MD DOCUMENTED IN PREVIOUS NOTES. RETURNED TO AFIB RHYTHM SOON AFTER ADMINISTRATION OF APRESOLINE AT 0540. PATIENT COMPLIANT WITH CARE BUT NOT AN ACTIVE PARTICIPANT IN CARE. WANTS TO SLEEP AND BE LEFT ALONE, HAS NOT MOVED FROM RIGHT SIDE EXCEPT TO USE BSC AND WITH FIRM ENCOURAGEMENT FROM RN FOR VS MEASUREMENTS. WILL CONTINUE TO MONITOR AND REPORT TO ONCOMING RN.
[2021-10-18 06:24] LABS: BAND PERCENT MAN 11 % (0-8); BASOPHILS PERCENT MAN 0 % (0-2); EOSINOPHILS PERCENT MAN 0 % (0-6); LYMPHOCYTES ABSOLUTE MAN 0.44 K/mm3 (0.84-5.20); LYMPHOCYTES PERCENT MAN 4 % (21-46); METAMYELOCYTE ABSOLUTE MAN 0.11 K/mm3 (0.00-0.00); METAMYELOCYTE PERCENT MAN 1 % (0-0); MONOCYTES ABSOLUTE MAN 0.22 K/mm3 (0.16-1.47); MONOCYTES PERCENT MAN 2 % (4-13); MYELOCYTE ABSOLUTE MAN 0.22 K/mm3 (0.00-0.00); MYELOCYTE PERCENT MAN 2 % (0-0); NEUTROPHILS ABSOLUTE MAN 9.99 K/mm3 (1.96-9.15); PROMYELOCYTE ABSOLUTE MAN 0.11 K/mm3 (0.00-0.00); PROMYELOCYTE PERCENT MAN 1 % (0-0); SEG NEUTROPHILS PERCENT MAN 79 % (41-73); TOTAL CELLS COUNTED 100
--- NOTE | 2021-10-18 07:17 | NUR ---
ASSUMED CARE: PT SITTING UP AT EDGE OF BED AT THIS TIME. GETTING BREATHING TX FROM RT. RT PLACED PT ON RA DUE TO SATS OF 99% ON 2L. AFIB ON TELE AT 103. WILL CLARIFY WITH MD CBG ORDERS. NO FURTHER NEEDS OR CONCERNS AT THIS TIME.
--- NOTE | 2021-10-18 08:11 | NUR ---
MED STUDENT AT BEDSIDE, DISCUSSED PT'S MED ORDERS FOR BETA BLOCKERS DUE TO TACHYCARDIA AND HYPERTENSTION. DISCUSSED CBG ORDERS AND MED STUDENT STATED WILL DISCUSS WITH RESIDENT. NO ACUTE NEEDS AT THIS TIME.
--- NOTE | 2021-10-18 14:08 | NUR ---
CALL TO DR ROACH AND RESIDENT REGARDING PT'S CONTINUED HR OF 130S AFTER AM DOSE AND IV PUSH. SEE NEW ORDERS, WILL ADMINISTER WHEN AVAILABLE
[2021-10-18 14:48] LABS: Vancomycin, Trough 13.3 ug/mL (5.0-10.0)
--- NOTE | 2021-10-18 15:19 | NUR ---
CALL TO [facility] REGARDING PT'S HR IN 130S AFTER PO METOPROLOL DOSE. DR'S STATED THEY WOULD REVIEW AND CALL BACK
--- NOTE | 2021-10-18 17:47 | NUR ---
SHIFT SUMMARY: PT HAS BEEN ON RA SINCE THIS AM. COUGH NOTED AT TIMES. AFIB T/O DAY IN 130S MAJORITY OF THE DAY. MEDICATED MULTIPLE TIMES TO TRY TO CORRECT THIS WITH MOST CORRECTION NOTED WHEN CARDIZEM WAS ADMINISTERED. HR CURRENTLY IN 120S. MEDICATED T/O DAY FOR CBGS. RESTING T/O DAY. HELD PT/OT DUE TO PT'S HR. NO ACUTE NEEDS AT THIS TIME.
[2021-10-19 05:04] LABS: Hematocrit 35.8 % (33.0-51.0); Hemoglobin 11.4 g/dL (11.5-16.0); Mean Corpuscular HGB 27.3 pg (26.0-34.0); Mean Corpuscular HGB Conc 31.8 g/dL (31.5-36.5); Mean Corpuscular Volume 86 fL (80-100); NRBC ABSOLUTE 0.03 K/mm3 (0.00-0.02); NRBC Auto 0.1 /100 WBC (0.0-0.2); Platelet Count 355 K/mm3 (150-400); RDW Coefficient Variation 24.7 % (11.7-14.2); RDW Standard Deviation 75.3 fL (35.1-46.3); Red Blood Cell Count 4.17 M/mm3 (3.80-5.20); White Blood Cell Count 20.57 K/mm3 (4.00-11.30)
[2021-10-19 05:23] LABS: Albumin, Blood 2.4 g/dL (3.4-5.0); Albumin/Globulin Ratio 0.6 (0.8-1.8); Bilirubin, Total 0.4 mg/dL (0.1-1.0); Bun/Creatinine Ratio 36.3 (12.0-20.0); Creatinine, Blood 1.24 mg/dL (0.40-1.00); Globulin, Blood 4.2 g/dL (2.2-4.0); Potassium, Blood 3.3 mmol/L (3.5-5.5); Total Protein, Blood 6.6 g/dL (6.4-8.2)
[2021-10-19 05:36] LABS: BAND PERCENT MAN 4 % (0-8); BASOPHILS PERCENT MAN 0 % (0-2); EOSINOPHILS PERCENT MAN 0 % (0-6); LYMPHOCYTES ABSOLUTE MAN 1.64 K/mm3 (0.84-5.20); LYMPHOCYTES PERCENT MAN 8 % (21-46); METAMYELOCYTE PERCENT MAN 1 % (0-0); MONOCYTES ABSOLUTE MAN 0.82 K/mm3 (0.16-1.47); MONOCYTES PERCENT MAN 4 % (4-13); MYELOCYTE ABSOLUTE MAN 0.82 K/mm3 (0.00-0.00); MYELOCYTE PERCENT MAN 4 % (0-0); NEUTROPHILS ABSOLUTE MAN 17.07 K/mm3 (1.96-9.15); SEG NEUTROPHILS PERCENT MAN 79 % (41-73); TOTAL CELLS COUNTED 100
--- NOTE | 2021-10-19 06:09 | NUR ---
SHIFT SUMMARY: PATIENT A&O X4, AFEBRILE, DENIES SOB OR CHEST PAIN. CARDIZEM DRIP STARTED THIS SHIFT FOR HR >140. PATIENT MAINTAINED 80-90S FOR >4HRS ON 5 MG/HR DRIP BEFORE TRENDING BACK UP TO 110-120S. TITRATED PER ORDERS. AT 0400 VITALS SYSTOLIC BP >180 AND HAS SUSTAINED - MEDICATED PER EMAR. PATIENT REFUSED TO USE BSC "BECAUSE I'M AFIBBING." HAS BECOME ANXIOUS ABOUT HER BP AND IS REQUESTING TO TALK TO A MD. CALL PLACED TO DR. DENG WHO IS GOING TO FOLLOW UP WITH RESIDENT MD. BED LOW WITH CALL LIGHT IN PLACE. WILL CONTINUE TO MONITOR AND REPORT TO ONCOMING RN.
--- NOTE | 2021-10-19 07:09 | NUR ---
Received report from Noc RN. Patient is awake with slow verbal responses, patient withdrawn and independent with positioning in bed. Hospitalist by and ordered 1 time dose Hydralazine for systolics in the 170's. Waiting for patient to void post clark removal. She is on 2L O2 via NC and sats 93% and decreased to 1 L O2. Patient has 18ga PowerGlide in HENNA dressing intact and site WNL's and is infusing Diltiazem at 10 mg/hr with rates 110-120's A-Fib. She also has 20ga IV in RAC flushed and SL'd.
--- NOTE | 2021-10-19 09:58 | NUR ---
Patient had small amount of breakfast. 0852 reduced diltiazem gtt to 5mg/hr. She was up to bedside cammode at 0922 and had loose black coffee ground stool and bloody urine which was mixed with stool and could be r/t that. Called Dr Springer and he did rectal check and was guiac (+). He stated will look at GI consult. Patient continues to rest.
--- NOTE | 2021-10-19 10:47 | NUR ---
Patient up in room with OT and currently in bathroom and will get her up to chair. Remains on 1L O2 and sats >90%.
--- NOTE | 2021-10-19 11:30 | NUR ---
Patient alittle more alert while up in chait with OT, PT on there way to work with patient. Diltiazem gtt at 5 mg/hr and HR 90's. Her systolic around 140-150's and remains in A-Fib. Patient states poor appetite and wants to wait with lunch.
[2021-10-19 12:14] LABS: Hematocrit 37.3 % (33.0-51.0); Hemoglobin 11.7 g/dL (11.5-16.0)
[2021-10-19] MEDS ORDERED: Flonase 0.05% N16 GM (13:07)
[2021-10-19] MEDS ORDERED: IRON18 MG PO (13:13)
[2021-10-19] MEDS ORDERED: ALPR.25 PO (13:14)
--- NOTE | 2021-10-19 13:30 | NUR ---
Patient started on protonix gtt for possible GI bleed. PT worked with patient and placed back to bed. She has been resting since. Friend at bedside. Patient A-Fib in the 90's and systolic 130's. Diltiazem gtt remains at 5mg/hr.
--- NOTE | 2021-10-19 16:00 | NUR ---
Patient continues to rest and awakens easily for care. Mario Alberto remains in A-Fib and rates very low 100's and systolic 120's and MAP >65. Appetite still poor. Protonix gtt stopped and changed back to BID and Cardizem gtt remains at 5 mg/hr. She received 20 meq Potassium IV. She positions self for comfort and calls appropriately. She remains on 2L O2 via NC and sats>90%.
[2021-10-19 17:59] LABS: Hematocrit 35.2 % (33.0-51.0); Hemoglobin 10.9 g/dL (11.5-16.0)
--- NOTE | 2021-10-19 23:16 | NUR ---
CARE ASSUMPTION: PATIENT ASLEEP IN BED WITH CARDIZEM 5MG/HR INFUSING AND HR 105-120S, TITRATED TO 10 MG/HR AND HR CAME DOWN TO 65-80 AT 2300. CARDIZEM STOPPED AT 2315. SYSTOLIC BP 110-140S WHEN PATIENT IS LYING FLAT ON HER BACK, HIGHER BPS WHEN PATIENT IS IN PREFERRED SIDE-LYING POSITION. AFEBRILE, O2 >92% RA, DENIES SOB OR CHEST PAIN/DISCOMFORT. BED LOW WITH SIDERAIL UP AND CALL LIGHT IN REACH.
[2021-10-20 01:10] LABS: Hematocrit 33.3 % (33.0-51.0); Hemoglobin 10.3 g/dL (11.5-16.0)
[2021-10-20 04:10] LABS: Hematocrit 34.5 % (33.0-51.0); Hemoglobin 10.8 g/dL (11.5-16.0); Mean Corpuscular HGB 27.1 pg (26.0-34.0); Mean Corpuscular HGB Conc 31.3 g/dL (31.5-36.5); Mean Corpuscular Volume 87 fL (80-100); NRBC ABSOLUTE 0.14 K/mm3 (0.00-0.02); NRBC Auto 0.8 /100 WBC (0.0-0.2); Platelet Count 334 K/mm3 (150-400); RDW Standard Deviation 76.7 fL (35.1-46.3); Red Blood Cell Count 3.99 M/mm3 (3.80-5.20)
[2021-10-20 04:26] LABS: Albumin, Blood 2.4 g/dL (3.4-5.0); Albumin/Globulin Ratio 0.6 (0.8-1.8); Bilirubin, Total 0.4 mg/dL (0.1-1.0); Bun/Creatinine Ratio 34.9 (12.0-20.0); Calcium, Blood 9.1 mg/dL (8.5-10.1); Creatinine, Blood 1.06 mg/dL (0.40-1.00); Globulin, Blood 3.8 g/dL (2.2-4.0); Potassium, Blood 3.6 mmol/L (3.5-5.5); Total Protein, Blood 6.2 g/dL (6.4-8.2)
[2021-10-20 04:28] LABS: BAND PERCENT MAN 2 % (0-8); BASOPHILS PERCENT MAN 0 % (0-2); EOSINOPHILS PERCENT MAN 0 % (0-6); LYMPHOCYTES ABSOLUTE MAN 1.91 K/mm3 (0.84-5.20); LYMPHOCYTES PERCENT MAN 11 % (21-46); METAMYELOCYTE ABSOLUTE MAN 0.69 K/mm3 (0.00-0.00); METAMYELOCYTE PERCENT MAN 4 % (0-0); MONOCYTES ABSOLUTE MAN 1.39 K/mm3 (0.16-1.47); MONOCYTES PERCENT MAN 8 % (4-13); MYELOCYTE ABSOLUTE MAN 0.69 K/mm3 (0.00-0.00); MYELOCYTE PERCENT MAN 4 % (0-0); SEG NEUTROPHILS PERCENT MAN 71 % (41-73); TOTAL CELLS COUNTED 100
--- NOTE | 2021-10-20 05:29 | NUR ---
SHIFT SUMMARY: PATIENT HR 90-110S W/O CARDIZEM DRIP RUNNING; AFIB RHYTHM PERSISTS. SYSTOLIC BP >160 THIS AM. MEDICATED PER EMAR. PATIENT COMPLAINED OF POOR APPETITE EARLY AM THEN STATED SHE "DOESN'T WANT TO TALK" WHEN ASKED TO DESCRIBE STOMACH DISCOMFORT. DENIES SOB OR CHEST PAIN. O2 >90% RA AND AFEBRILE. HENNA POWERGLIDE PATENT AND DRAWS. PATIENT ATTENDS CHANGED T/O SHIFT. PATIENT REFUSED TURNS AND REPOSITIONED SELF TO RIGHT SIDE. COOPERATIVE WITH OTHER CARE AND MAKES NEEDS KNOWN WHEN STAFF IN ROOM. BED LOW WITH CALL LIGHT IN REACH. WILL CONTINUE TO MONITOR AND REPORT TO ONCOMING RN.
--- NOTE | 2021-10-20 07:30 | NUR ---
Received report from Noc Rn. Patient sleeping and awakens easily for care. She is on RA and sats >90%. She has 18ga PowerGlide to HENNA flushdianna and SL. JONNA but weak and slow, she is independent with positioning for comfort. She calls appropriatly. Her son was by briefly.
--- NOTE | 2021-10-20 10:30 | NUR ---
Patient was awakened for PT and OT together and got her up to chair after working with her. She tolerated some full liquid while up in chair. She tolerated am meds with water. When we got her up she went into bathroom and had valenzuela colored urine and dark black/green stool. When she was done went back to bed. She has been rest since. She continues in A-Fib rate of 90's and systolic 160's. She is up with SBA when transferring.
--- NOTE | 2021-10-20 13:30 | NUR ---
Patient has been sleeping most of shift and awakens to care and meds. She called and attends changed , incontinent when coughing of urine. Ra and sats >90%. HR 100's and systolic 160's. Denies any current needs. Patient denies appetite and does not want lunch.
--- NOTE | 2021-10-20 17:30 | NUR ---
Patient continues to rest and awakens for care and hydration. Dr Church by and talked with patient, clear liquid until 0600 and NPO after kaleb for EGD in am. Digoxin started and stil A-Fib 90-100's and systolic 170's and will give labatelol 10 mg. CBG low 100's, no coverage needed. Tolerated IV PO meds. She is SBA when up to ambulate. She still does not feel like eating.
[2021-10-21 04:54] LABS: Hemoglobin 11.6 g/dL (11.5-16.0)
[2021-10-21 05:16] LABS: Albumin, Blood 2.2 g/dL (3.4-5.0); Albumin/Globulin Ratio 0.6 (0.8-1.8); Bilirubin, Total 0.6 mg/dL (0.1-1.0); Bun/Creatinine Ratio 25.5 (12.0-20.0); Calcium, Blood 8.5 mg/dL (8.5-10.1); Creatinine, Blood 1.06 mg/dL (0.40-1.00); Potassium, Blood 4.2 mmol/L (3.5-5.5); Total Protein, Blood 6.2 g/dL (6.4-8.2)
--- NOTE | 2021-10-21 05:34 | NUR ---
SHIFT SUMMARY NO ACUTE CHANGES THIS SHIFT. PT AWAKE BUT LETHARGIC. SP02>90% ON RA. PT HAD HTN, MEDICATED PER EMAR W/ PRN X1 THIS SHIFT. AFIB, MOSTLY 100'S-120'S. DENIED PAIN. PT HAD MULITPLE INCONTINENT VOIDS, LINENS CHANGED. C/D ATTENDS IN PLACE. NO BM THIS SHIFT. COVID SWAB DONE THIS AM. NPO FOR PROCEDURE. PT SLEPT MOST OF NIGHT, REPOSITIONED Q2H. PT'S SON SLEPT IN RECLINER DURING SHIFT. CALL LIGHT IN REACH.
[2021-10-21 06:13] LABS: Influenza A, PCR NEGATIVE (NEGATIVE); Influenza B, PCR NEGATIVE (NEGATIVE); Resp Syncytial Virus, PCR NEGATIVE (NEGATIVE); SARS-Cov-2 (COVID-19) PCR, MMC NEGATIVE (NEGATIVE)
--- NOTE | 2021-10-21 10:21 | NUR ---
PT REFUSES TO PARTICIPATE IN CARE, PT REFUSED PHYSICAL THERAPY CONSULT AND COVERED FACE TO AVOID SPEAKING WITH PHYSICAL THERAPIST. PT THEN BECOMES AGITATED THAT SHE IS NPO FOR PROCEDURE AND CAN NOT HAVE "SPRITE"
--- NOTE | 2021-10-21 11:30 | NUR ---
PT CONTINUES TO REFUSE TP WORK WITH PHYSICAL THERAPY, REMAINS UNINVOLVED IN CARE. PT UPDATED THAT SHE WILL NOT GO TO PROCEDURE UNTIL AFTER 3-4 THIS EVENING. PT CONTINUES TO PRODUCE BLACK TARRY STOOLS
--- NOTE | 2021-10-21 14:44 | NUR ---
History, Chart, Medications and Allergies reviewed before start of procedure. Patient confirms NPO status and agrees with scheduled surgery. Pre-Op teaching done. Pt verbalizes understanding. Lungs dim t/o, coarse cough noted.
--- NOTE | 2021-10-21 15:39 | NUR ---
10/21/21 1538 Arturo Gomez History, Chart, Medications and Allergies reviewed before start of procedure.MONITOR INTACT WITH CONTINUOUS PULSE OXIMETRY AND INTERMITTENT BP.3-LEAD EKG REVIEWED WITH PHYSICIAN PRIOR TO START OF PROCEDURE.O2 VIA POM INTACT THROUGHOUT SEDATION/PROCEDURE. See Anesthesia record
--- NOTE | 2021-10-21 18:44 | NUR ---
PT CONTINUES TO REFUSE OCCUPATIONAL AND PHYSICAL THERAPY. STAFF FROM [facility] WHERE SHE LIVES WERE INTO VISIT, THEY STATE THAT PT IS ABLE TO RETURN THERE BUT HER RETURN DEPENDS ON HER WILLINGNESS TO PARTICIPATE IN PHYSICAL THERAPY THEY CAN NOT PROVIDE TOTAL CARE PT STS "I WILL TOMORROW ONLY IF I DON'T HAVE INTERNAL BLEEDING". PT WENT TO DAY SURGERY FOR EGD, THERE WAS NO ACTIVE BLEEDING NOTED DURING EGD, PT DOES STILL HAVE BLACK TARRY STOOLS. PT FREQUENTLY AGITATED AND COVERS HEAD WITH BLANKETS WHEN SHE DOES NOT WISH TO INTERACT WITH STAFF. VSS. DENIES CP AND SOB AT THIS TIME. PRODUCTIVE COUGH NOTED.
--- NOTE | 2021-10-22 05:59 | NUR ---
SHIFT SUMMARY PT LETHARGIC, FOLLOWS DIRECTIONS. SP02>90% ON 2L NC. TELEMETRY SHOWS AFIB, MOSTLY 90'S, ELEVATED WITH MOVEMENT. BP SOFT. TELEMETRY ALARMING T/O SHIFT FOR ST ABNORMALITY, WHICH IS NOT NEW FROM PREVIOUS SHIFTS. EKG DONE TO COMPARE TO PREVIOUS EKG, SEE FRONT OF CHART. DENIED PAIN. INCONTINENT OF URINE, C/D LINEN IN PLACE. NO BM THIS SHIFT. SON VISITED AT START OF SHIFT BUT DID NOT STAY. SLEPT MOST OF NIGHT. CALL LIGHT IN REACH,
--- NOTE | 2021-10-22 09:30 | NUR ---
PT REPORTS CP AT THIS TIME, UPON ASSESSMENT PT BECOMES AGITATED SHE IS BEING ASKED QUESTIONS ABOUT HER CP AND SOB. PT REPORTS SOB AND STATES IS DIFFICULT TO EXHALE, PT RAISES VOICE TO STAFF WHEN ASKING QUESTIONS. SHE REPORTS "CHRUSHING" CP TO LT ANTERIOR CHEST STS WAS THE SAME WITH ACTIVITY WITH PHYSICAL THERAPY. EKG BEING PERFORMED. DR PORTER TO BEDSIDE
--- NOTE | 2021-10-22 10:00 | NUR ---
PT REPORTS THAT CP AND SOB HAVE RESOLVED ONCE BACK TO BED. VSS. PT MEDICATED PER EMAR.
--- NOTE | 2021-10-22 11:04 | NUR ---
REYMUNDOAR GIVEN BP WAS 132 SYSTOLIC, SYSTOLIC BP NOW 78 WHICH IS UNCHANGED WITH REPEAT CHECK OF. DR PORTER CALLED PRESSURE REMAINS LOW, ANTICIPATING NEW ORDERS
--- NOTE | 2021-10-22 11:30 | NUR ---
DR PORTER CALLED ABOUT CONTINUED HYPOTENSION
--- NOTE | 2021-10-22 12:24 | NUR ---
DR PORTER CALLED ABOUT CRITICAL TROPONIN AND CONTINUED HYPOTENSION, NO NEW ORDERS AT THIS TIME
--- NOTE | 2021-10-22 15:50 | NUR ---
DR MARIE HAS BEEN IN TO ASSESS PT, HE WAS PRESENT DURING THE ECHO AT BEDSIDE, NEW ORDERS WERE OBTAINED FROM DR MARIE. DR PORTER IS UPDATED ABOUT NEW ORDERS AND THAT ECHO HAS BEEN VIEWED BY CARDIOLOGY. WILL CONTINUE TO MONITOR PT 500ML LACTATED RINGERS INFUSES TO DETERMINE IF PT WILL REQUIRE AN ADDITIONAL 500ML INFUSION.
[2021-10-22 16:41] LABS: Hematocrit 31.1 % (33.0-51.0); Hemoglobin 9.5 g/dL (11.5-16.0); Mean Corpuscular HGB 27.1 pg (26.0-34.0); Mean Corpuscular HGB Conc 30.5 g/dL (31.5-36.5); Mean Corpuscular Volume 89 fL (80-100); Mean Platelet Volume 10.4 fL (9.1-12.4); NRBC ABSOLUTE 0.03 K/mm3 (0.00-0.02); NRBC Auto 0.2 /100 WBC (0.0-0.2); Platelet Count 271 K/mm3 (150-400); RDW Coefficient Variation 23.6 % (11.7-14.2); RDW Standard Deviation 74.4 fL (35.1-46.3); White Blood Cell Count 13.61 K/mm3 (4.00-11.30)
--- NOTE | 2021-10-22 16:43 | NUR ---
500ML LR BOLUS HAS COMPLETED, MAPs REMAIN ABOVE 65 BUT PRESSURES STILL REMAIN SOFT. WILL CONTINUE WITH ANOTHER 500ML LR BOLUS WAS DISCUSSED WITH DR PORTER EARLIER IN THE DAY. PT'S LUNG SOUNDS REMAIN UNCHANGED T/O THE DAY, NO CHANGE SINCE FLUID BOLUSES. AFTERNOON GLUCOSE WAS 280 EVENING GLUCOSE WAS 67, PT WAS PROVIDED WITH YOGURT AND NAYLA MIST, WILL RECHECK GLUCOSE THIS EVENING, PT WAS ASYMPTOMATIC T/O HYPOTENSION AND CHANGE IN BLOOD SUGAR. PT DOES STATE THAT BREATHING HAS BEEN MORE DIFFICULT SINCE WAKING THIS AM, BUT HAS ALSO REMAINED UNCHANGED SINCE FLUIDS WERE ADMINSTERED. STS THAT CP HAS RESOLVED, AND ABD PAIN HAS GREATLY IMPROVED.
[2021-10-22 17:18] LABS: Alanine Aminotransfer (ALT/SGP 16 U/L (12-78); Albumin, Blood 1.9 g/dL (3.4-5.0); Albumin/Globulin Ratio 0.6 (0.8-1.8); Alk Phos 61 U/L (50-136); Anion Gap 5 mmol/L (6-16); Aspartate Aminotrans (AST/SGOT 18 U/L (12-37); Bilirubin, Total 0.2 mg/dL (0.1-1.0); Blood Urea Nitrogen 31 mg/dL (8-24); Bun/Creatinine Ratio 29.8 (12.0-20.0); CO2, Blood 33 mmol/L (21-32); Calcium, Blood 8.1 mg/dL (8.5-10.1); Chloride, Blood 110 mmol/L (98-108); Creatinine, Blood 1.04 mg/dL (0.40-1.00); Digoxin (Lanoxin) 0.85 ug/mL (0.80-2.00); Globulin, Blood 3.1 g/dL (2.2-4.0); Glomerular Filtration Rate 59 (60-); Glucose, Blood 70 mg/dL (70-99); Potassium, Blood 3.6 mmol/L (3.5-5.5); Sodium, Blood 148 mmol/L (136-145)
[2021-10-22 18:23] LABS: BAND PERCENT MAN 25 % (0-8); BASOPHILS PERCENT MAN 0 % (0-2); EOSINOPHILS ABSOLUTE MAN 0.27 K/mm3 (0.00-0.68); EOSINOPHILS PERCENT MAN 2 % (0-6); LYMPHOCYTES % ATYPICAL MANUAL 1 % (0-0); LYMPHOCYTES PERCENT MAN 13 % (21-46); METAMYELOCYTE ABSOLUTE MAN 0.27 K/mm3 (0.00-0.00); METAMYELOCYTE PERCENT MAN 2 % (0-0); MONOCYTES ABSOLUTE MAN 0.54 K/mm3 (0.16-1.47); MONOCYTES PERCENT MAN 4 % (4-13); NEUTROPHILS ABSOLUTE MAN 9.79 K/mm3 (1.96-9.15); SEG NEUTROPHILS PERCENT MAN 47 % (41-73); TOTAL CELLS COUNTED 100
[2021-10-22 18:24] LABS: MYELOCYTE ABSOLUTE MAN 0.81 K/mm3 (0.00-0.00); MYELOCYTE PERCENT MAN 6 % (0-0)
--- NOTE | 2021-10-22 18:27 | NUR ---
PT C/O BRIEF EPISODE OF CP THAT WAS RELIEVED BY SITTING PT UP. RT UPPER AND LOWER LOBES SOUND MORE COARSE, LR THAT WAS INFUSING IS STOPPED AT THIS TIME WITH A TOTAL OF 800ML LR INFUSED, PT DENIES ANY CHANGE IN WORK OF BREATHING THROUGHOUT THE ENTIRE EPISODE, OTHERWISE REMAINS ASYMPTOMATIC. BP 127/74 MAP 89. PT LEFT WITH HOB AT 30 DEGREES CONTINUES TO REPORT NO CP. TOTAL DURATION OF CP WAS LESS THAN 2 MINUTES PER PT'S REPORT.
--- NOTE | 2021-10-22 18:33 | NUR ---
COUGH IS NOW MORE PRODUCTIVE, PT WITH YELLOW TO GREEN SPUTUM PRODUCTION AT THIS TIME.
[2021-10-23 05:19] LABS: Hematocrit 31.2 % (33.0-51.0); Hemoglobin 9.3 g/dL (11.5-16.0); Mean Corpuscular HGB 26.9 pg (26.0-34.0); Mean Corpuscular HGB Conc 29.8 g/dL (31.5-36.5); Mean Corpuscular Volume 90 fL (80-100); Mean Platelet Volume 9.7 fL (9.1-12.4); Platelet Count 245 K/mm3 (150-400); RDW Coefficient Variation 23.5 % (11.7-14.2); Red Blood Cell Count 3.46 M/mm3 (3.80-5.20); White Blood Cell Count 12.46 K/mm3 (4.00-11.30)
[2021-10-23 05:42] LABS: Albumin/Globulin Ratio 0.6 (0.8-1.8); Bilirubin, Total 0.4 mg/dL (0.1-1.0); Bun/Creatinine Ratio 19.8 (12.0-20.0); Creatinine, Blood 0.96 mg/dL (0.40-1.00); Globulin, Blood 3.3 g/dL (2.2-4.0); Potassium, Blood 4.1 mmol/L (3.5-5.5); Total Protein, Blood 5.3 g/dL (6.4-8.2)
--- NOTE | 2021-10-23 06:06 | NUR ---
SHIFT SUMMARY PATIENT ALERT AND ORIENTED x3-4, ABLE TO MAKE NEEDS KNOWN TO STAFF. USES CALL LIGHT APPROPRIATLEY. VSS. SOFT BPs AT TIMES. 2L NC IN PLACE WITH O2 SAT LOW TO MID 90s. DENIES CHEST PAIN OR SOB. GREEN STOOL ONLY THIS SHIFT. NO SIGNS OF BLEEDING. PATIENT ABLE TO TRANSFER TO BSC WITH 1 PERSON ASSIST. TURNS SELF IN BED. NO OTHER SIGNFICANT CHANGES THIS SHIFT, WILL REPORT TO DAY SHIFT RN.
--- NOTE | 2021-10-23 09:33 | NUR ---
PT COMPLAINED OF 7/10 LEFT UPPER CHEST PAIN, VSS. DR. MARIE NOTIFIED, WCTM.
--- NOTE | 2021-10-23 18:24 | NUR ---
SHIFT SUMMARY PT ENDORSED CHEST PAIN THIS MORNING, DR. MARIE EVALUATED PATIENT AT BEDSIDE AND RESTARTED LOWER DOSE OF COREG THAN ON PREVIOUSLY AND INITIATED DIGOXIN, BOTH GIVEN PER EMAR. PT REMAINED IN A FIB THIS SHIFT, HR UP TO 150-170s WITH ACTIVITY, HOWEVER AT REST PT HAS MAINTAINED 90s-130s T/O SHIFT. PT ABLE TO STAND WITH X1 ASSIST AT BEDSIDE. THIS EVENING PT COMPLAINED OF LUQ ABDOMINAL PAIN. A MASS WAS VISIBLE ON LUQ/L SIDE, ABOUT THE SIZE OF AN ORANGE. SKIN COLOR UNCHANGED FOR NORMAL SKIN, AREA FIRM AND TENDER. DR. STEIN NOTIFIED AND ORDERS FOR ABDOMINAL ULTRASOUND GIVEN. WCTM.
--- NOTE | 2021-10-23 22:07 | NUR ---
UPDATE CALL PLACED TO HOSPITALIST REGARDING PATIENT'S PAIN LEVEL AND "MASS" IN LEFT FLANK AREA. PATIENT STATES THAT SHE THINKS THE MASS IS GETTING BIGGER AND "I NEED SOMETHING MORE THAN TYLENOL, IT JUST ISN'T CUTTING IT". DR. DENG TO PUT IN ORDERS. SEE UPDATED EMAR/ORDERS.
[2021-10-24 04:30] LABS: Hematocrit 25.7 % (33.0-51.0); Hemoglobin 7.8 g/dL (11.5-16.0); Mean Corpuscular HGB 27.3 pg (26.0-34.0); Mean Corpuscular HGB Conc 30.4 g/dL (31.5-36.5); Mean Corpuscular Volume 90 fL (80-100); Mean Platelet Volume 10.7 fL (9.1-12.4); NRBC ABSOLUTE 0.02 K/mm3 (0.00-0.02); NRBC Auto 0.2 /100 WBC (0.0-0.2); Platelet Count 219 K/mm3 (150-400); RDW Coefficient Variation 23.8 % (11.7-14.2); RDW Standard Deviation 75.2 fL (35.1-46.3); Red Blood Cell Count 2.86 M/mm3 (3.80-5.20); White Blood Cell Count 12.69 K/mm3 (4.00-11.30)
[2021-10-24 05:00] LABS: Albumin, Blood 1.9 g/dL (3.4-5.0); Albumin/Globulin Ratio 0.6 (0.8-1.8); Bilirubin, Total 0.2 mg/dL (0.1-1.0); Bun/Creatinine Ratio 13.4 (12.0-20.0); Calcium, Blood 7.8 mg/dL (8.5-10.1); Creatinine, Blood 0.89 mg/dL (0.40-1.00); Globulin, Blood 3.1 g/dL (2.2-4.0); Potassium, Blood 3.9 mmol/L (3.5-5.5)
[2021-10-24 06:01] LABS: BAND PERCENT MAN 6 % (0-8); BASOPHILS PERCENT MAN 0 % (0-2); EOSINOPHILS PERCENT MAN 0 % (0-6); LYMPHOCYTES % ATYPICAL MANUAL 1 % (0-0); LYMPHOCYTES ABSOLUTE MAN 1.52 K/mm3 (0.84-5.20); LYMPHOCYTES PERCENT MAN 11 % (21-46); METAMYELOCYTE ABSOLUTE MAN 0.38 K/mm3 (0.00-0.00); METAMYELOCYTE PERCENT MAN 3 % (0-0); MONOCYTES ABSOLUTE MAN 0.25 K/mm3 (0.16-1.47); MONOCYTES PERCENT MAN 2 % (4-13); MYELOCYTE PERCENT MAN 4 % (0-0); NEUTROPHILS ABSOLUTE MAN 10.02 K/mm3 (1.96-9.15); SEG NEUTROPHILS PERCENT MAN 73 % (41-73); TOTAL CELLS COUNTED 100
--- NOTE | 2021-10-24 06:37 | NUR ---
SHIFT SUMMARY PATIENT ALET AND ORIENTED, WITHDRAWN AFFECT. VSS. PATIENT ALTERATING BETWEEN RA AND 2L D/T PAIN AND PAIN MEDICATION, O2 SAT REMEAINS >90%. SLEPT FOR MAJORITY OF NIGHT AFTER LEFT FLANK PAIN WAS BETTER MANAGED. SEE PREVIOUS NOTES. ABDOMINAL BINDER IN PLACE TO ASSIST WITH REDUCING SWELLING IN LEFT LOWER QUADRANT AREA. ADEQUATE OUTPUT THIS SHIFT. NO OTHER SIGNIFICANT CHANGES THIS SHIFT. WILL REPORT TO DAY SHIFT RN.
[2021-10-24 10:00] LABS: Hematocrit 25.9 % (33.0-51.0); Hemoglobin 7.8 g/dL (11.5-16.0)
[2021-10-24 15:30] LABS: Hematocrit 25.9 % (33.0-51.0); Hemoglobin 7.7 g/dL (11.5-16.0)
--- NOTE | 2021-10-24 16:23 | NUR ---
HEMATOMA HEMATOMA TO RIGHT SIDE OF ABDOMEN ASSESSED FREQUENTLY. PATIENT WEARING ABD BINDER, SIZE HAS NOT SEEMED TO CHANGE FROM INITIAL MORNING ASSESSMENT. H AND H REMAINS STABLE. AT 1600 PATIENT CONCERNED THAT PAIN HAS SPREAD AND STATES SHE FEELS THE HEMATOMA HAS GROWN IN SIZE. RN ASSESSED AND NOTIFIED DR. STEIN OF PATIENT'S REPORTS OF INCREASED PAIN AND POSSIBLE SIZE INCREASE. WILL CONTINUE TO MONITOR AT THIS TIME DUE TO STABLE H&H.
--- NOTE | 2021-10-24 17:55 | NUR ---
SHIFT SUMMARY PATIENT ORIENTED, STARTED ON 2L 02 AND TITRATED TO ROOM AIR WITH STABLE SP02 ABOVE 90%. STANDBY ASSIST TO COMMODE. ABD BINDER IN PLACE, HEMATOMA MONITORED AND REPORTED TO DR. STEIN CONCERNS. LABS REMAINED STABLE. MEDICATED FOR PAIN ONCE, EFFECTIVE PER PATIENT. CARDIOLOGY ROUNDED WITH NO CONCERNS, REPORTED THEY WILL SIGN OFF AT THIS TIME. PATIENT CURRENTLY RESTING ON RIGHT SIDE WITH SON IN ROOM. WILL REPORT TO ONCOMING RN.
[2021-10-24 21:26] LABS: Hematocrit 23.7 % (33.0-51.0); Hemoglobin 7.2 g/dL (11.5-16.0)
--- NOTE | 2021-10-25 05:36 | NUR ---
SHIFT SUMMARY PATIENT ALERT AND ORIENTED, ABLE TO MAKE NEEDS KNOWN TO STAFF. VSS, PATIENT WEARING 2L NC OVERNIGHT D/T O2 SATs DROPPING TO MID 80s WHEN PATIENT IS SLEEPING. DENIES CHEST PAIN OR PRESSURE. MEDICATED PER EMAR FOR PAIN. NO CHANGES TO HEMATOMA ON LEFT FLANK. STANDBY ASSIST TO BEDSIDE COMMODE. NO OTHER SIGNFICANT CHANGES THIS SHIFT. WILL REPORT TO DAY SHIFT RN.
[2021-10-25 05:50] LABS: Hematocrit 23.1 % (33.0-51.0); Mean Corpuscular HGB 27.7 pg (26.0-34.0); Mean Corpuscular HGB Conc 30.3 g/dL (31.5-36.5); Mean Corpuscular Volume 91 fL (80-100); Mean Platelet Volume 10.6 fL (9.1-12.4); NRBC ABSOLUTE 0.02 K/mm3 (0.00-0.02); NRBC Auto 0.2 /100 WBC (0.0-0.2); Platelet Count 221 K/mm3 (150-400); RDW Coefficient Variation 23.9 % (11.7-14.2); RDW Standard Deviation 76.7 fL (35.1-46.3); Red Blood Cell Count 2.53 M/mm3 (3.80-5.20); White Blood Cell Count 11.93 K/mm3 (4.00-11.30)
--- NOTE | 2021-10-25 06:35 | NUR ---
UPDATE AM LABS CAME BACK WITH A HGB OF 7.0. CALL PLACED TO DR. VELAZQUEZ, ORDER RECIEVED FOR REPEAT H&H FOR 1000.
[2021-10-25 07:31] LABS: BAND PERCENT MAN 2 % (0-8); BASOPHILS PERCENT MAN 0 % (0-2); EOSINOPHILS ABSOLUTE MAN 0.11 K/mm3 (0.00-0.68); EOSINOPHILS PERCENT MAN 1 % (0-6); LYMPHOCYTES ABSOLUTE MAN 0.83 K/mm3 (0.84-5.20); LYMPHOCYTES PERCENT MAN 7 % (21-46); MONOCYTES ABSOLUTE MAN 0.23 K/mm3 (0.16-1.47); MONOCYTES PERCENT MAN 2 % (4-13); SEG NEUTROPHILS PERCENT MAN 81 % (41-73); TOTAL CELLS COUNTED 100
[2021-10-25 07:32] LABS: MYELOCYTE ABSOLUTE MAN 0.83 K/mm3 (0.00-0.00); MYELOCYTE PERCENT MAN 7 % (0-0)
[2021-10-25 10:33] LABS: Hematocrit 23.7 % (33.0-51.0); Hemoglobin 7.1 g/dL (11.5-16.0)
--- NOTE | 2021-10-25 16:51 | NUR ---
SHIFT SUMMARY PT REMAINS ALERT AND ORIENTED. VS STABLE. PT COMPLAINED OF PAIN TO LEFT FLANK HEMATOMA THAT WAS RELEIVED WITH MEDICATION ADMINISTRATION. ABD BINDER IN PLACE. HEMATOMA UNCHANGED THIS SHIFT. PT ABLE TO TRANSFER WITH MINIMAL ASSISTANCE. WILL CONTINUE TO MONITOR AND REPORT TO ONCOMING RN
[2021-10-25 17:13] LABS: Hematocrit 24.1 % (33.0-51.0); Hemoglobin 7.2 g/dL (11.5-16.0)
[2021-10-26 04:25] LABS: Hematocrit 22.9 % (33.0-51.0); Hemoglobin 6.7 g/dL (11.5-16.0)
--- NOTE | 2021-10-26 06:10 | NUR ---
SHIFT SUMMARY/UPDATE PATIENT ALERT AND ORIENTED, ABLE TO MAKE NEEDS KNOWN TO STAFF. VSS, BPs SOFT AT TIMES. PATIENT WEARING 2L NC WHILE SLEEPING D/T O2 SATs DROPPING TO HIGH 80s, ON RA WHILE AWAKE. MEDICATED PER EMAR FOR PAIN, PATIENT ABLE TO SLEEP FOR MAJORITY OF NIGHT. BLADDER SCAN DONE THIS MORNING BECAUSE PATIENT HAS NOT FELT THE URGE TO VOID THIS SHIFT. APPROXIMATLEY 250 IN BLADDER, PATIENT STATES "I WILL PEE AFTER BREAKFAST, I DON'T NEED TO RIGHT NOW". ABDOMINAL BINDER IN PLACE FOR COMFORT FROM LEFT FLANK TENDERNESS. HGB 6.7 ON AM LABS, CALL PLACED TO HOSPIALIST, ORDER RECIEVED TO TRANSFUSE 1 UNIT PRBC.
--- NOTE | 2021-10-26 07:43 | NUR ---
ASSUMED CARE OF PT THIS AM PT. RESTING QUIELTY IN BED, AWAKENS EASILY TO VERBAL STIMULI. PT. DENIES ANY CHEST PAIN OR PRESSURE THIS AM. REPORTS PAIN TO LEFT FLANK. REPORTS PAIN IS WORSE WHEN COUGHING. TENDER TO PALPATION. PT REPORTS SHE THINKS THE "LUMP" IS SMALLER THIS AM. UNABLE TO FEEL CLEAR MARGINS OF HEMATOMA. ABD BINDER TO ABD FOR COMFORT. PT. VSS THIS AM. SON SLEEPING AT BEDSIDE THIS AM. CALL LIGHT IN REACH.
[2021-10-26 11:07] LABS: Hematocrit 25.6 % (33.0-51.0)
--- NOTE | 2021-10-26 15:57 | NUR ---
ROUNDED ON PT. MED FOR PAIN PER PT. REQUEST, LEFT FLANK ASSESSED AND REMAINS UNCHANGED. CONTINUES TO BE TENDER TO PALPATION. PT. UP TO BEDSIDE COMMODE WITH 1 PERSON ASSIST. REMAINS IN AFIB WITH ST ELEVATION, THIS IS NOT NEW TO PT. VSS AT THIS TIME.
--- NOTE | 2021-10-26 16:29 | NUR ---
REPORT TO DEV BLAIR
--- NOTE | 2021-10-26 16:57 | NUR ---
PT ARRIVED TO UNIT @ THIS TIME. 1X ASSIST TO BED. DENIES PAIN. ORIENTED TO ROOM. CALL LIGHT W/IN REACH.
[2021-10-27 05:20] LABS: Hemoglobin 8.3 g/dL (11.5-16.0)
--- NOTE | 2021-10-27 05:29 | NUR ---
PT A/0X4 AND CANDELARIA TO MAKE NEEDS KNOWN. PT C/O PAIN TO L FLANK AND MEDICATED PER JUN. PT STATES THAT THE HEMATOMA ON L FLANK SIZE INCREASES/DECREASES ON ITS OWN. HEMATOMA MARKED WITH MARKER. PT ALSO C/O NAUSEA AND MEDICATED PER JUN. ABD BINDER IN PLACE. PT C/O OF BURNING ON URINATION AND REQUESTING A U.A BE SENT FOR TESTING. WILL ENDORSE TO ONCOMING RN.
--- NOTE | 2021-10-27 18:16 | NUR ---
SUMMARY- PT A/O UP TO CHAIR SBA MULT TIMES TODAY. USES CALL LIGHT AND KNOWS LIMITS. AMBULATED WITH R/T IN DUENAS FOR O2 EVAL. HAD BEEN ON ROOM AIR MOST OF THE SHIFT. AROUND 1530 PT SATS WERE CHECKED AND FOUND TO BE 86-88% ROOM AIR, ONC COUGH AND DEEP BREATH, CLEARED SOME PHLEGM. SATS HIGHEST AT 88%. PLACED ON 2L NC. PT CONT WITH CRACKLES IN THE BASES. DR WILLIS AWARE. PT TOLERATING FOOD AND FLUIDS. NEEDS DIABETIC TEACHING THIS IS A NEW DIAGNOSIS. PLAN FOR DISCHARGE IN THE NEXT DAY OR SO, ACCORDING TO WHAT DR WILLIS SPOKE TO PT. PT C/O BURINIG WITH URINATION. SENT UA FINALLY THIS PM- (OTHERS COMTAMINALTED WITH BM.) WILL REPORT ALL TO SILVIANO BLAIR.
[2021-10-27 18:29] LABS: Source, Urine Clean Catch
[2021-10-27 18:55] LABS: Appearance, Urine Hazy (Clear); Bilirubin, Urine Neg (Neg); Blood, Urine 2+ (Neg); Color, Urine Yellow (P-Yellow); Glucose Qualitative, Urine Neg (Neg); Ketones, Urine Neg (Neg); Leukocyte Esterase, Urine 1+ (Neg); Nitrite, Urine Neg (Neg); Protein, Urine 2+ (Neg); Specific Gravity, Urine 1.025 (1.003-1.022); Urobilinogen, Urine NORM (Normal)
[2021-10-27 19:07] LABS: Calcium Oxalate Crystals Many /hpf; Hyaline Casts 0-2 /lpf (0-2)
[2021-10-27 19:08] LABS: Bacteria Many /hpf; Squamous Epithelial Cells Mod /hpf (Few); Yeast/Fungi Urine Rare /hpf
--- NOTE | 2021-10-27 23:51 | NUR ---
TELEMETRY EVENTS (NIGHT) EPISODE OF 2.45 PAUSE PER MILANA PLANNING ASSISTANT AT 2205 EPIDOSE OF BRADYCARDIA ON 40'S, COMES BACK UP QUICKLY PER MILANA AT 2305 ... CALLED DR. STEIN, NOTIFY OF THIS EVENT PLAN: RECHECK DIGOXIN LEVEL IN THE MORNING HOLD DIGOXIN MED IN THE MORNING UNTIL WE GET RESULTS BACK. ... WILL NOTIFY AM NURSE
--- NOTE | 2021-10-28 03:36 | NUR ---
TEMETRY EVENTS 0330: TELE CALLED FOR 3.05 PAUSE. NOTIFY CHARGE NURSE OF THIS, WILL CONTINUE TO MONITOR PATIENT. PT IS ASYMPTOMATIC. SLEEPING WITH 2L NC. VITALS RECHECKED 162/95 MMHG, 77 HR, 98.1 TEMP, 14 RR AND 94%.
[2021-10-28 05:57] LABS: Hematocrit 25.6 % (33.0-51.0); Hemoglobin 7.7 g/dL (11.5-16.0)
[2021-10-28 06:30] LABS: Digoxin (Lanoxin) 1.74 ug/mL (0.80-2.00)
--- NOTE | 2021-10-28 07:28 | NUR ---
SHIFT SUMMARY TELE EVENTS WITH MULTIPLE PAUSE T/O SHIFT. SEE EMR NOTES. PT ALSO EXPERIENCE SOME BRADYCARDIAC EPISODE LAST NIGHT AND THIS MORNING PER TELE AT 30-40'S BUT WOULD RECOVER QUICKLY. PT IS ASYMPTOMATIC. DENIES CHEST PAIN AND SOB. WEARS 2L NASAL CANNULA AT NIGHT. DESATS ON MID 80'S WHEN AT SLEEP. TOLEARTING PO INTAKE. DENIES NAUSEA AND VOMITING. PT REPORTS PAIN ON L ABD, PAIN MANAGED WITH NORCO. ABD BINDER IN PLACE. DIGOXIN ON HOLD FOR THIS MORNING. WILL RECHECK WITH FOR LAB DIGOXIN RESULT. PT HAD BM. ALSO HAVE REDNESS IN BUTTOM. APPLIED CREAM TO PREVENT SKIN BREAKDOWN. CALL LIGHT WITHIN REACH. REPORT GIVEN TO AM NURSE.
[2021-10-28] MEDS ORDERED: CITALOPRAM HBR10 MG PO (14:34)
[2021-10-28] MEDS ORDERED: DIGOX250 MCG PO (14:36)
[2021-10-28] MEDS ORDERED: METF500 PO (14:36)
[2021-10-28] MEDS ORDERED: Norco 5-325 Ta1 EACH PO (14:44)
--- NOTE | 2021-10-28 15:54 | NUR ---
DISCHARGE SUMMARY: PT DISCHARGED TO THE [facility]. DISCUSSED AND EDUCATED PT ON DISCHARGE PLAN, MEDICATION CHANGES AND FOLLOW-UP CARE PLAN. PT JAKE. PT REPORTED HER GLASSES HAVE BEEN MISSING AND SHE THINKS SHE LOST THEM IN THE ER SEVERAL DAYS AGO. SHE REPORTS OTHERS HAVE LOOKED FOR HER GLASSES AND NOT TO WORRY ABOUT LOOKING FOR THEM WHEN I OFFERED TO CHECK INTO IF THEY HAD BEEN FOUND. CLOTHING FROM [employer]OTHING [employer] OBTAINED FOR PT HERS WERE SOILED AND WET AND SHE WAS UNABLE TO WEAR THEM HOME. PT GIVEN A SHIRT AND [place] PANTS WHICH FIT WELL. ASSISTED PT WITH PACKING UP HER BELONGINGS AND SENT PT HOME VIA WHEELCHAIR WITH WHEELCHAIR TRANSPORT THROUGH [facility].
== END 2021-10-28 15:40 | disposition home health service (06) | DRG 871 ==
LOC: ER 21:00 → PCU 10-16 00:04 → ICUW 10-16 00:04 → PCU 10-17 16:59 → MEDS 10-26 16:48
PROVIDERS: Emergency Medicine; Family Medicine; Internal Medicine; Internal Medicine Interventional Cardiology; Student in an Organized Health Care Education/Training Program; ADMIT Family Medicine
PROC: 3E03329 Introduction of Other Anti-infective into Peripheral Vein, Percutaneous Approach (ICD-10-PCS; 2021-10-16)
PROC: 0DJ08ZZ Inspection of Upper Intestinal Tract, Via Natural or Artificial Opening Endoscopic (ICD-10-PCS; principal; 2021-10-21 15:00)
DX: A41.9 Sepsis, unspecified organism (principal); J18.9 Pneumonia, unspecified organism; J96.01 Acute respiratory failure with hypoxia; R65.21 Severe sepsis with septic shock; D62 Acute posthemorrhagic anemia; K92.2 Gastrointestinal hemorrhage, unspecified; I13.0 Hypertensive heart and chronic kidney disease with heart failure and stage 1 through stage 4 chronic kidney disease, or unspecified chronic kidney disease; N17.9 Acute kidney failure, unspecified; E87.2 Acidosis; Z20.822 Contact with and (suspected) exposure to COVID-19; R65.20 Severe sepsis without septic shock; I48.91 Unspecified atrial fibrillation; N18.30 Chronic kidney disease, stage 3 unspecified; R79.89 Other specified abnormal findings of blood chemistry; J44.9 Chronic obstructive pulmonary disease, unspecified; I95.2 Hypotension due to drugs; I16.0 Hypertensive urgency; E11.22 Type 2 diabetes mellitus with diabetic chronic kidney disease; F41.9 Anxiety disorder, unspecified; I27.20 Pulmonary hypertension, unspecified; Z98.890 Other specified postprocedural states; Z90.710 Acquired absence of both cervix and uterus; F17.200 Nicotine dependence, unspecified, uncomplicated; G47.00 Insomnia, unspecified; Z79.82 Long term (current) use of aspirin; Z79.899 Other long term (current) drug therapy; I50.9 Heart failure, unspecified; K44.9 Diaphragmatic hernia without obstruction or gangrene
CPT/HCPCS: 0241U; 36415; 36430; 36600; 51702; 71045; 71046; 74177; 76705; 80053; 80162; 80202; 81001; 82803; 82947; 83036; 83605; 83690; 83735; 83880; 84145; 84484; 85014; 85018; 85025; 85027; 86850; 86900; 86901; 86923; 87040; 87070; 87086; 87205; 93005; 93010; 93306; 93308; 93321; 94640; 94660; 94664; 94760; 94761; 94762; 96365; 96366; 96368; 96375; 96376; 97110; 97116; 97162; 97166; 97530; 97535; 99285-25; A9270; C1751; C9113; J0360; J0456; J0696; J1160; J1265; J1650; J1815; J1940; J2405; J2543; J2704; J2930; J3370; J3480; J7030; J7040; J7050; J7060; J7120; J7512; P9016; Q9967

== ENCOUNTER 2021-11-06 16:29 | Inpatient (IN) | payer OTHER ==
[~2021-11-06] VITALS: Ht 167.6 cm; Wt 92.9 kg
[~2021-11-06 16:29] MED LIST changes: +CITALOPRAM HBR10 MG PO; +DIGOX250 MCG PO; +Flonase 0.05% N16 GM; +IRON18 MG PO; +METF500 PO; +Norco 5-325 Ta1 EACH PO
[2021-11-06 16:57] LABS: BASOPHILS ABSOLUTE AUTO 0.09 K/mm3 (0.00-0.23); BASOPHILS PERCENT AUTO 1 % (0-2); EOSINOPHILS ABSOLUTE AUTO 0.22 K/mm3 (0.00-0.68); EOSINOPHILS PERCENT AUTO 3 % (0-6); Hematocrit 30.5 % (33.0-51.0); Hemoglobin 9.2 g/dL (11.5-16.0); IMMATURE GRAN ABSOLUTE AUTO 0.15 K/mm3 (0.00-0.10); IMMATURE GRAN PERCENT AUTO 2 % (0-1); LYMPHOCYTES ABSOLUTE AUTO 1.17 K/mm3 (0.84-5.20); LYMPHOCYTES PERCENT AUTO 13 % (21-46); MONOCYTES ABSOLUTE AUTO 0.83 K/mm3 (0.16-1.47); MONOCYTES PERCENT AUTO 10 % (4-13); Mean Corpuscular HGB 27.1 pg (26.0-34.0); Mean Corpuscular HGB Conc 30.2 g/dL (31.5-36.5); Mean Corpuscular Volume 90 fL (80-100); Mean Platelet Volume 9.6 fL (9.1-12.4); NEUTROPHILS ABSOLUTE AUTO 6.24 K/mm3 (1.96-9.15); NEUTROPHILS PERCENT AUTO 72 % (41-73); NRBC ABSOLUTE 0.02 K/mm3 (0.00-0.02); NRBC Auto 0.2 /100 WBC (0.0-0.2); Platelet Count 392 K/mm3 (150-400); RDW Coefficient Variation 21.8 % (11.7-14.2); RDW Standard Deviation 71.2 fL (35.1-46.3); Red Blood Cell Count 3.39 M/mm3 (3.80-5.20)
[2021-11-06 17:09] LABS: Albumin, Blood 2.7 g/dL (3.4-5.0); Albumin/Globulin Ratio 0.6 (0.8-1.8); Bun/Creatinine Ratio 14.4 (12.0-20.0); Calcium, Blood 8.9 mg/dL (8.5-10.1); Creatinine, Blood 0.9 mg/dL (0.40-1.00); Globulin, Blood 4.6 g/dL (2.2-4.0); Total Protein, Blood 7.3 g/dL (6.4-8.2)
[2021-11-06 17:44] LABS: Influenza A, PCR NEGATIVE (NEGATIVE); Influenza B, PCR NEGATIVE (NEGATIVE); Resp Syncytial Virus, PCR NEGATIVE (NEGATIVE); SARS-Cov-2 (COVID-19) PCR, MMC NEGATIVE (NEGATIVE)
[2021-11-06 21:21] LABS: Source, Urine Foley catheter
[2021-11-06 21:23] LABS: Appearance, Urine Clear (Clear); Bilirubin, Urine Neg (Neg); Blood, Urine Neg (Neg); Color, Urine Yellow (P-Yellow); Glucose Qualitative, Urine Neg (Neg); Ketones, Urine Neg (Neg); Leukocyte Esterase, Urine Neg (Neg); Nitrite, Urine Neg (Neg); Protein, Urine Neg (Neg); Specific Gravity, Urine 1.005 (1.003-1.022); Urobilinogen, Urine NORM (Normal)
[2021-11-06] MEDS ORDERED: GABA300 PO (21:56)
--- NOTE | 2021-11-07 02:19 | NUR ---
ARRIVAL TO ICU AT 2024 PT ARRIVED TO ICU 7 VIA ED BED AND TRANSFERED OVER TO ICU BED VIA SLIDE SHEET. PT IS A/O X4 AND ABLE TO MAKE HER NEEDS KNOWN; GENERAL WEAKNESS NOTED. SPO2 >95% ON 4L NC; DYSPNEA NOTED WITH EXERTION; PRODUCTIVE CONGESTED COUGH NOTED WITH MODERATE AMOUNT OF THICK SECREATIONS, SPUTUM SAMPLE SENT. AFIB NOTED, HR 90-100; NITRO GTT INFUSING AT 140MCG/MIN AT ARRIVAL AND AM ABLE TO TITRATE DOWN; SEE FLOWSHEET FOR TITRATION; BP IMPROVING WITH NITRO GTT AND PO HYDROLAZINE. ABDOMINAL HEMATOMA NOTED TO LT SIDE, AREA IS TRACED AND TENDER TO TOUCH; ABDMONINAL BAND IS OFF FOR THE NIGHT INSTRUCTED BY ADMITTING HOSPITALIST AND WILL START AGAIN IN THE MORNING. HOWARD PLACED FOR STRICT I&O'S; UA SENT. WHILE PLACING HOWARD, PT LABIA FOUND WITH SIGNS OF REDNESS AND PT C/O DISCOMFORT WHEN URINATING. POWERGLIDE PLACED TO KELLIE. SEE ADMISSION ASSESSMENT FOR FULL ASSESSMENT.
[2021-11-07 04:53] LABS: BASOPHILS ABSOLUTE AUTO 0.04 K/mm3 (0.00-0.23); BASOPHILS PERCENT AUTO 1 % (0-2); EOSINOPHILS ABSOLUTE AUTO 0.23 K/mm3 (0.00-0.68); EOSINOPHILS PERCENT AUTO 3 % (0-6); Hematocrit 26.2 % (33.0-51.0); Hemoglobin 7.6 g/dL (11.5-16.0); IMMATURE GRAN ABSOLUTE AUTO 0.12 K/mm3 (0.00-0.10); IMMATURE GRAN PERCENT AUTO 2 % (0-1); LYMPHOCYTES ABSOLUTE AUTO 1.17 K/mm3 (0.84-5.20); LYMPHOCYTES PERCENT AUTO 16 % (21-46); MONOCYTES ABSOLUTE AUTO 0.98 K/mm3 (0.16-1.47); MONOCYTES PERCENT AUTO 13 % (4-13); Mean Corpuscular HGB 26.6 pg (26.0-34.0); Mean Corpuscular Volume 92 fL (80-100); Mean Platelet Volume 9.5 fL (9.1-12.4); NEUTROPHILS ABSOLUTE AUTO 5.03 K/mm3 (1.96-9.15); NEUTROPHILS PERCENT AUTO 67 % (41-73); NRBC ABSOLUTE 0.02 K/mm3 (0.00-0.02); NRBC Auto 0.3 /100 WBC (0.0-0.2); Platelet Count 334 K/mm3 (150-400); RDW Coefficient Variation 21.4 % (11.7-14.2); RDW Standard Deviation 71.6 fL (35.1-46.3); Red Blood Cell Count 2.86 M/mm3 (3.80-5.20); White Blood Cell Count 7.57 K/mm3 (4.00-11.30)
[2021-11-07 05:21] LABS: Albumin/Globulin Ratio 0.6 (0.8-1.8); Bilirubin, Total 0.9 mg/dL (0.1-1.0); Calcium, Blood 7.6 mg/dL (8.5-10.1); Creatinine, Blood 0.91 mg/dL (0.40-1.00); Globulin, Blood 3.6 g/dL (2.2-4.0); Magnesium, Blood 1.9 mg/dL (1.6-2.4); Potassium, Blood 3.8 mmol/L (3.5-5.5); Total Protein, Blood 5.6 g/dL (6.4-8.2)
[2021-11-07 05:34] LABS: International Normalized Ratio 1.12; Prothrombin Time Results 11.7 Sec (9.7-11.5)
--- NOTE | 2021-11-07 05:56 | NUR ---
END OF SHIFT SUMMARY NO ACUTE EVENTS OVERNIGHT. PT SLEPT MOST OF THE NIGHT SINCE ARRIVAL TO ICU. SHE IS A/O X4 AND ABLE TO MAKE HER NEEDS KNONW. SPO2 >95% ON 4L NC; CONT TO HAVE PRODUCTIVE COUGH. AFIB NOTED; HR 60-80'S. SBP 100-130; NITRO OFF SINCE 2300. NO CHANGES TO ABD HEMATOMA. HOWARD IN PLACE AND DRAINING TO GRAVITY; 1100ML OUTPUT. WILL REPORT TO AM RN WHEN AVAILABLE.
--- NOTE | 2021-11-07 08:00 | NUR ---
INITIAL ASSESSMENT PATIENT ALERT AND ORIENTED X 4. PATIENT HAS TEMP OF 99.2 DEGREES FAHRENHEIT. PATIENT COMPLAINS OF PAIN IN L ABD HEMATOMA. PATIENT WEAK BUT ABLE TO REPOSITION WITH ASSISTANCE. PATIENT STATES SHE USES WALKER TO GET AROUND AT HOME. PATIENT DECREASED FROM 4 L NC TO 2 L NC AND REMAINS SATTING 90% AND GREATER. INSP WHEEZE NOTED TO YARITZA. RUL CLEAR. CRACKLES NOTED IN LOWER LOBES. PATIENT SOB WITH EXERTION. PATIENT HAS MOIST COUGH AND OCCASIONAL COUGHS UP LARGE AMOUNTS OF THICK, CLEAR SPUTUM. PATIENT IN A. FIB, HR 60S TO 70S. SBP 120S TO 140S. 2+ EDEMA NOTED TO BLES. 1+ EDEMA NOTED TO BUES. SCDS IN PLACE. HOWARD IN PLACE DRAINING YELLOW COLORED URINE. PATIENT COMPLAINTS OF BURNING WITH URINATION. PATIENT RECEIVING SCHEDULED LASIX. ABD MILDLY DISTENDED, TENDER, WITH HYPERACTIVE BOWEL SOUNDS NOTED. SKIN FRAGILE AND DRY. L ABD HEMATOMA NOTED. LABIA REDDENED. BED LOW, CALL LIGHT IN REACH. WILL CONTINUE TO MONITOR PATIENT FREQUENTLY THROUGHOUT SHIFT.
--- NOTE | 2021-11-07 11:00 | NUR ---
DR. DENG UPDATED ON PATIENT STATUS. INFORMED THAT PATIENT HAD 6 BEAT RUN OF VTACH AT 1024; ASYMPTOMATIC. INFORMED THAT PATIENT IS NOT ON ANTICOAGULANT AT THIS TIME AND IS IN A. FIB. INFORMED THAT PATIENT DISCHARGED END OF OCTOBER AND HAD A GI BLEED THAT ADMIT. NO ORDERS RECEIVED AT THIS TIME.
--- NOTE | 2021-11-07 12:30 | NUR ---
PATIENT HAS TEMP OF 99.5 DEGREES FAHRENHEIT. HR IN THE 60S. SBP IN THE 120S. PATIENT STATES NO BURNING OR DISCOMFORT WITH URINATION. NO REDNESS NOTED ON LABIA AT THIS TIME. BLOOD SUGAR 176; COVERAGE GIVEN. NO OTHER ACUTE CHANGES TO NOTE ON AT THIS TIME. WILL CONTINUE TO MONITOR.
--- NOTE | 2021-11-07 16:42 | NUR ---
PATIENT HAS TEMP OF 101.2 DEGREES FAHRENHEIT. PRN TYLENOL GIVEN FOR FEVER. HR IN THE 70S. SBP IN THE 140S. BLOOD SUGAR OF 116; NO COVERAGE INDICATED. PRN NORCO GIVEN FOR COMPLAINTS OF PAIN AT ABD HEMATOMA. PATIENT SITTING IN CHAIR AT THIS TIME. NO OTHER ACUTE CHANGES TO NOTE ON AT THIS TIME. WILL CONTINUE TO MONITOR.
--- NOTE | 2021-11-07 18:25 | NUR ---
SHIFT SUMMARY PATIENT NAPPED ON AND OFF THROUGHOUT SHIFT. PATIENT REMAINED ALERT AND ORIENTED X 4. PATIENT HAD TMAX OF 101.2 DEGREES FAHRENHEIT. PATIENT GIVEN PRN TYLENOL FOR FEVER AND HAS COME DOWN. PATIENT 1 PERSON ASSIST WITH WALKER. PATIENT WORKED WITH PHYSICAL THERAPY TODAY AND GOT UP TO CHAIR. PATIENT RECEIVED PRN NORCO FOR COMPLAINTS OF PAIN AT ABD HEMATOMA SITE. PATIENT REMAINED SATTING WELL ON 2 L NC. PATIENT CONTINUES TO HAVE SOB WITH EXERTION. PATIENT CONTINUES TO HAVE MOIST COUGH; OCCASIONAL AT TIMES. PATIENT REMAINS IN A. FIB, HR 60S TO 70S. SBP LOW 100S TO 140S. PATIENT HAD ASYMPTOMATIC 6 BEAT RUN OF VTACH THIS AM. EDEMA REMAINS TO UPPER AND LOWER EXTREMITIES. NO BM THIS SHIFT. HOWARD DRAINED 1700 MLS OF YELLOW COLORED URINE. PATIENT RECEIVING SCHEDULED LASIX. NO CHANGES TO SKIN NOTED. IV SALINE LOCKED. BLOOD SUGARS 116 TO 176. PATIENT REFUSED BEDBATH THI SHIFT. PATIENT APPEARS COMFORTABLE AT THIS TIME. BED LOW, CALL LIGHT IN REACH. REPORT WILL BE GIVEN TO ASSUMING MANAGER APPOINTMENT NURSE SHORTLY.
[2021-11-08 04:08] LABS: BASOPHILS ABSOLUTE AUTO 0.05 K/mm3 (0.00-0.23); BASOPHILS PERCENT AUTO 1 % (0-2); EOSINOPHILS ABSOLUTE AUTO 0.32 K/mm3 (0.00-0.68); EOSINOPHILS PERCENT AUTO 5 % (0-6); Hematocrit 24.3 % (33.0-51.0); Hemoglobin 7.2 g/dL (11.5-16.0); IMMATURE GRAN ABSOLUTE AUTO 0.12 K/mm3 (0.00-0.10); IMMATURE GRAN PERCENT AUTO 2 % (0-1); LYMPHOCYTES ABSOLUTE AUTO 1.24 K/mm3 (0.84-5.20); LYMPHOCYTES PERCENT AUTO 17 % (21-46); MONOCYTES ABSOLUTE AUTO 0.93 K/mm3 (0.16-1.47); MONOCYTES PERCENT AUTO 13 % (4-13); Mean Corpuscular HGB 27.2 pg (26.0-34.0); Mean Corpuscular HGB Conc 29.6 g/dL (31.5-36.5); Mean Corpuscular Volume 92 fL (80-100); Mean Platelet Volume 9.9 fL (9.1-12.4); NEUTROPHILS ABSOLUTE AUTO 4.52 K/mm3 (1.96-9.15); NEUTROPHILS PERCENT AUTO 63 % (41-73); Platelet Count 317 K/mm3 (150-400); RDW Coefficient Variation 21.2 % (11.7-14.2); RDW Standard Deviation 70.8 fL (35.1-46.3); Red Blood Cell Count 2.65 M/mm3 (3.80-5.20); White Blood Cell Count 7.18 K/mm3 (4.00-11.30)
[2021-11-08 04:37] LABS: Bun/Creatinine Ratio 15.9 (12.0-20.0); Calcium, Blood 7.7 mg/dL (8.5-10.1); Creatinine, Blood 0.94 mg/dL (0.40-1.00); Potassium, Blood 4.1 mmol/L (3.5-5.5)
--- NOTE | 2021-11-08 05:23 | NUR ---
SHIFT SUMMARY PATIENT IS ALERT AND ORIENTED X4. 02 SATS 96% ON 4L VIA NC. COARSE LS, PRODUCTIVE COUGH, WITH CLEAR SPUTUM. HR A.FIB 60-70, BRIEF PERIODS OF BRADYCARDIA DOWN TO THE 40s. BP STABLE. HOWARD PATENT AND DRAINING TO GRAVITY. MEDICATED FOR FEVER OF 101.7, NOW DOWN TO 100.0. PATIENT REPOSITIONS SELF AND SLEPT MOST THE NIGHT. CALL LIGHT IN REACH.
--- NOTE | 2021-11-08 10:19 | NUR ---
ASSUMED CARE OF PATIENT AT 0700, SHE WAS SLEEPING. SKIN HOT TO THE TOUCH, TEMP ELEVATED. LEFT LOWER FLANK WITH DRAWING AROUND HEMATOMA, TENDER TO PALPATE. PT WITH O2 VIA NC @ 4L WITH SATS>98%. LUNGS COARSE, MOIST COUGH NON PRODUCTIVE AT THIS TIME. TAKING IN HER BREAKFAST, ABLE TO MAKE NEEDS KNOWN, HOWARD TO GRAVITY DRAINAGE, ATTEMPT TO HAVE BM WHEN WORKING WITH THERAPY, UNABLE. NOW SITTING UP IN THE RECLINER WITHOUT ANY COMPLAINTS.
--- NOTE | 2021-11-08 14:32 | NUR ---
PT MEDICATED WITH PAIN MEDS PER HER REQUEST, TAKEN BY BED TO RADIOLOGY FOR HER PROCEDURE.
[2021-11-08 15:35] LABS: Automated BF WBC Count 0.465 K/mm3 (0-999); Body Fluid WBC Count 465 /mm3 (0-999)
--- NOTE | 2021-11-08 15:37 | NUR ---
RETURNS FROM IMAGING ACCOMPANIED BY [place], IN [facility], TEMP STILL ELEV AT 100.6, MEDICATED WITH TYLENOL. SHE SAID SHE WOULD LIKE TO REST A BIT.
[2021-11-08 15:52] LABS: RBC Count, Body Fluid 283 /mm3 (0-0)
[2021-11-08 15:53] LABS: Appearance, Body Fluid Clear (Clear); Color, Body Fluid Yellow (None-Yellow)
--- NOTE | 2021-11-08 15:56 | NUR ---
PT COUGHING UP CLEAR/WHITE PHLEGM, DOING WELL IN BEING ABLE TO EXPECTORATE. RESTING WHEN NOT COUGHING.
[2021-11-08 16:15] LABS: Total Cell Count, Body Fluid 100
[2021-11-08 16:26] LABS: Albumin, Body Fluid 0.9 g/dL; Glucose, Body Fluid 194 mg/dL
[2021-11-08 16:29] LABS: Lactate Dehydrogenase, Body Fl 99 U/L; Protein, Body Fluid 1.9 g/dL
[2021-11-08 17:07] LABS: pH, Body Fluid 7.7
--- NOTE | 2021-11-08 17:58 | NUR ---
MAURICIO IS ON OXYGEN VIA NC @ 2L. SHE SAID SHE HASN'T REALLY NOTICED A CHANGE SINCE THE THORACENTESIS BUT SHE SAID THEY TOOK "A LOT OUT". SHE HAS HAD GOOD URINE OUTPUT, TAKEN IN HER MEALS FAIRLY WELL. SHE LIKES HER MILK AND HER WATER. SHE CONTINUES WITH PAIN IN THE LEFT FLANK, HAS BEEN MEDICATED A COUPLE OF TIMES. TEMP DOWN TO 99.2, MEDICATED WITH TYLENOL MOST RECENTLY. WILL CONT TO MONITOR AND TREAT.
--- NOTE | 2021-11-09 06:20 | NUR ---
SHIFT SUMMARY PATIENT IS ALERT AND ORIENTED X4. 02 SATS 96% ON 2L VIA NC, PRODUCTIVE COUGH WITH THICK YELLOW SPUTUM. HR A. FIB 60-70s, BRIEF EPISODES OF BRADYCARDIA DOWN TO 40s. BP STABLE, DENIES CP/PRESSURE. TEMP HOWARD PATENT AND DRAINING TO GRAVITY. PATIENT UP WITH 1 PERSON ASSIST TO BEDSIDE COMMODE. CALL LIGHT IN REACH.
[2021-11-09 08:16] LABS: BASOPHILS ABSOLUTE AUTO 0.07 K/mm3 (0.00-0.23); BASOPHILS PERCENT AUTO 1 % (0-2); EOSINOPHILS ABSOLUTE AUTO 0.33 K/mm3 (0.00-0.68); EOSINOPHILS PERCENT AUTO 4 % (0-6); Hematocrit 28.5 % (33.0-51.0); Hemoglobin 8.2 g/dL (11.5-16.0); IMMATURE GRAN ABSOLUTE AUTO 0.15 K/mm3 (0.00-0.10); IMMATURE GRAN PERCENT AUTO 2 % (0-1); LYMPHOCYTES ABSOLUTE AUTO 1.46 K/mm3 (0.84-5.20); LYMPHOCYTES PERCENT AUTO 19 % (21-46); MONOCYTES ABSOLUTE AUTO 0.98 K/mm3 (0.16-1.47); MONOCYTES PERCENT AUTO 13 % (4-13); Mean Corpuscular HGB 26.3 pg (26.0-34.0); Mean Corpuscular HGB Conc 28.8 g/dL (31.5-36.5); Mean Corpuscular Volume 91 fL (80-100); Mean Platelet Volume 9.7 fL (9.1-12.4); NEUTROPHILS ABSOLUTE AUTO 4.73 K/mm3 (1.96-9.15); NEUTROPHILS PERCENT AUTO 61 % (41-73); Platelet Count 373 K/mm3 (150-400); RDW Standard Deviation 70.3 fL (35.1-46.3); Red Blood Cell Count 3.12 M/mm3 (3.80-5.20); White Blood Cell Count 7.72 K/mm3 (4.00-11.30)
[2021-11-09 08:39] LABS: Albumin, Blood 2.5 g/dL (3.4-5.0); Albumin/Globulin Ratio 0.6 (0.8-1.8); Bilirubin, Total 0.7 mg/dL (0.1-1.0); Bun/Creatinine Ratio 13.9 (12.0-20.0); Calcium, Blood 8.5 mg/dL (8.5-10.1); Creatinine, Blood 0.94 mg/dL (0.40-1.00); Globulin, Blood 4.1 g/dL (2.2-4.0); Potassium, Blood 4.1 mmol/L (3.5-5.5); Total Protein, Blood 6.6 g/dL (6.4-8.2)
--- NOTE | 2021-11-09 09:33 | NUR ---
AM ASSUME CARE PATIENT IS RESTING IN BED, BOOSTED HER FOR BREAKFAST BUT SHE HAS A DECREASED APPETITE AND NAUSEA. GAVE HER SALTINE CRACKERS AND SPRITE. PUT PRUNE JUICE ON TRAY DUE TO HER NOT BEING ABLE TO HAVE A BOWEL MOVEMENT. DISCUSSED WITH DR'S ABOUT HER BOWEL TREATMENT PLAN. AWAITING ORDERS. PATIENT HAS A HOWARD IN PLACE AND IS GETTING DIURETICS HOWEVER SHE IS ABLE TO BE UP OUT OF BED TO COMMODE, PLAN TO DC HOWARD. PT IN ROOM WORKING WITH PATIENT AND GOT HER TO BEDSIDE CHAIR. VITAL SIGNS ARE STABLE AT THIS TIME SHE DOES HAVE 2L NC ON WITH SAO2 AT 92%, IT WAS INCREASED TO 4L WITH PT WORKING WITH HER. HER LEFT LUNG HAS DECREASE LUNG SOUNDS GREATER THAN RIGHT LUNG THIS AM, DR ARE AWARE. LEFT FLANK CAUSING HER PAIN AND NORCO WAS GIVEN FOR PAIN CONTROL. HER FEVER HAS DECREASED SLIGHTLY SINCE OVER NIGHT. WILL CONTINUE TO MONITOR PATIENT.
[2021-11-09 10:49] LABS: Digoxin (Lanoxin) 1.81 ug/mL (0.80-2.00)
--- NOTE | 2021-11-09 15:22 | NUR ---
PT MOVING TO MEDICAL FLOOR PATIENT BEING BROUGHT UP TO MEDICAL FLOOR FOR JENNY TO ASSUME CARE FOR THE REST OF THE SHIFT. PATIENT RECIEVED HER BATH S/P A BM. SHE AMBULATED IN ROOM 10 STEPS. SHE IS WEAK AND A 1 PER SBA IS ADVISED. NO ACUTE CARE NEEDS AT THIS TIME.
--- NOTE | 2021-11-09 19:15 | NUR ---
SHIFT SUMMARY; PATIENT FROM ICU 7 TODAY. SHE IS AO X 4. INDEPENDANT TRANSFER FROM WHEELCHAIR TO BED. SHE IS ON 2 LITERS O2 VIA NASAL CANNULA. SHE COMPLAINS AFTER DINNER ABOUT PAIN ON HER LEFT SIDE. MEDICATED WITH NORCO WITH GOOD RESULTS. PATIENT CURRENTLY RESTING COMFORTABLY EYES CLOSED BREATHING AND UNLABORED.
[2021-11-10 04:50] LABS: BASOPHILS ABSOLUTE AUTO 0.08 K/mm3 (0.00-0.23); BASOPHILS PERCENT AUTO 1 % (0-2); EOSINOPHILS ABSOLUTE AUTO 0.31 K/mm3 (0.00-0.68); EOSINOPHILS PERCENT AUTO 4 % (0-6); Hematocrit 26.3 % (33.0-51.0); Hemoglobin 7.6 g/dL (11.5-16.0); IMMATURE GRAN ABSOLUTE AUTO 0.24 K/mm3 (0.00-0.10); IMMATURE GRAN PERCENT AUTO 3 % (0-1); LYMPHOCYTES ABSOLUTE AUTO 1.48 K/mm3 (0.84-5.20); LYMPHOCYTES PERCENT AUTO 21 % (21-46); MONOCYTES ABSOLUTE AUTO 0.89 K/mm3 (0.16-1.47); MONOCYTES PERCENT AUTO 13 % (4-13); Mean Corpuscular HGB 26.2 pg (26.0-34.0); Mean Corpuscular HGB Conc 28.9 g/dL (31.5-36.5); Mean Corpuscular Volume 91 fL (80-100); NEUTROPHILS ABSOLUTE AUTO 4.06 K/mm3 (1.96-9.15); NEUTROPHILS PERCENT AUTO 58 % (41-73); Platelet Count 362 K/mm3 (150-400); RDW Coefficient Variation 20.5 % (11.7-14.2); White Blood Cell Count 7.06 K/mm3 (4.00-11.30)
[2021-11-10 05:14] LABS: Albumin, Blood 1.9 g/dL (3.4-5.0); Albumin/Globulin Ratio 0.5 (0.8-1.8); Bilirubin, Total 0.6 mg/dL (0.1-1.0); Bun/Creatinine Ratio 14.9 (12.0-20.0); Calcium, Blood 7.9 mg/dL (8.5-10.1); Creatinine, Blood 0.8 mg/dL (0.40-1.00); Globulin, Blood 3.6 g/dL (2.2-4.0); Total Protein, Blood 5.5 g/dL (6.4-8.2)
--- NOTE | 2021-11-10 06:26 | NUR ---
PT OVERNIGHT CANDELARIA TO SLEEP T/O THE NIGHT. PT PLACED ON TELEMETRY. PER BANK CONSULTANT PT HAD EPISODES OF PAUSES WITH THE LONGEST ONE BEING 2.42 SECONDS. NOTIFIED AT THAT TIME AND PER MD MONITOR PT AND CALL BACK IF PAUSES ARE GREATER THAN 3 SECONDS. PT CONTINUED TO HAVE PAUSES CAUSING THE HR AT SOME POINT TO REGISTER HR 38 (TELE STRIP SAVED AT 9152) HOWEVER UPON REVIEW HR NOT 38. PT VOIDING W/O ISSUE. MEDICATED PER JUN FOR PAIN TO LEFT FLANK HEMATOMA. PT ALSO HAD EPISODE WHERE OXYGEN WAS 67% AT THIS TIME PT DID NOT HAVE NC. PT WAS ASLEEP AND IT APPEARS IT FELL OFF. PT PLACED ON 6L AND EVENTUALLY TITRATED TO 2L. PT ALSO PLACED ON CONT.PULSE OX.
--- NOTE | 2021-11-10 18:04 | NUR ---
SHIFT SUMMARY; PATIENT WORKED WITH PT OT TODAY. SHE AMBULATES IN ROOM AND IS ABLE TO GET UP AND DOWN FROM CHAIR USING HER WALKER FOR SUPPORT. ENGINE WATCHMAN MET WITH JAMES TODAY AND SHE IS AGGREABLE TO RETURNING TO [facility] AT DISCHARGE. MET WITH PATIENT TODAY AND PLAN IS TO DC HER HOME TOMORROW. SHE IS AO X 4. HER LUNGS ARE CLEAR IN THE UPPER LOBES AND DIM IN THE BASES. SHE HAS A SLIGHT RALE NOTED ON RIGHT LOWER LOBE THAT CLEARS WITH COUGH. SHE IS NOT FEBRILE.
[2021-11-11 04:45] LABS: BASOPHILS ABSOLUTE AUTO 0.06 K/mm3 (0.00-0.23); BASOPHILS PERCENT AUTO 1 % (0-2); EOSINOPHILS ABSOLUTE AUTO 0.46 K/mm3 (0.00-0.68); EOSINOPHILS PERCENT AUTO 8 % (0-6); Hemoglobin 7.5 g/dL (11.5-16.0); IMMATURE GRAN ABSOLUTE AUTO 0.23 K/mm3 (0.00-0.10); IMMATURE GRAN PERCENT AUTO 4 % (0-1); LYMPHOCYTES PERCENT AUTO 24 % (21-46); MONOCYTES ABSOLUTE AUTO 0.95 K/mm3 (0.16-1.47); MONOCYTES PERCENT AUTO 16 % (4-13); Mean Corpuscular HGB 26.5 pg (26.0-34.0); Mean Corpuscular HGB Conc 28.8 g/dL (31.5-36.5); Mean Corpuscular Volume 92 fL (80-100); Mean Platelet Volume 9.8 fL (9.1-12.4); NEUTROPHILS PERCENT AUTO 48 % (41-73); Platelet Count 371 K/mm3 (150-400); RDW Coefficient Variation 20.4 % (11.7-14.2); RDW Standard Deviation 69.5 fL (35.1-46.3); Red Blood Cell Count 2.83 M/mm3 (3.80-5.20)
[2021-11-11] MEDS ORDERED: SENN187 PO (11:13)
[2021-11-11] MEDS ORDERED: DIGOX125 MC1 PO (11:13)
[2021-11-11] MEDS ORDERED: VISBIOME 112.51 EACH PO (11:14)
[2021-11-11] MEDS ORDERED: FURO40 PO (11:15)
[2021-11-11] MEDS ORDERED: AMOCLA875 PO (11:15)
[2021-11-11] MEDS ORDERED: FURO20 PO (11:17)
[2021-11-11] MEDS ORDERED: TRAM50 PO (11:18)
--- NOTE | 2021-11-11 15:09 | NUR ---
DISCHARGE SUMMARY PT A/O X4 PLEASANT AND COOPERATIVE WITH CARE. GOING HOME ON O2 AND ARRANGED TO HAVE HOME HEALTH. ABLE TO AMBULATE IND/SBA WITH FWW. HEMATOMA ON L FLANK RESPONDS WELL TO COLD THERAPY. SENT HOME WITH AN ICE. DC'D TO [facility].
== END 2021-11-11 15:07 | disposition home health service (06) | DRG 871 ==
LOC: ER 16:29 → ICUW 19:24 → ICUE 19:24 → MEDS 11-09 15:57
PROVIDERS: Family Medicine; Internal Medicine; Nurse Practitioner Acute Care; Student in an Organized Health Care Education/Training Program; ADMIT Internal Medicine
PROC: 3E03329 Introduction of Other Anti-infective into Peripheral Vein, Percutaneous Approach (ICD-10-PCS; 2021-11-06)
PROC: 0W993ZZ Drainage of Right Pleural Cavity, Percutaneous Approach (ICD-10-PCS; principal; 2021-11-08)
DX: A41.9 Sepsis, unspecified organism (principal); I50.33 Acute on chronic diastolic (congestive) heart failure; J96.01 Acute respiratory failure with hypoxia; J18.9 Pneumonia, unspecified organism; I13.0 Hypertensive heart and chronic kidney disease with heart failure and stage 1 through stage 4 chronic kidney disease, or unspecified chronic kidney disease; I16.1 Hypertensive emergency; I48.20 Chronic atrial fibrillation, unspecified; J44.9 Chronic obstructive pulmonary disease, unspecified; M79.81 Nontraumatic hematoma of soft tissue; E11.22 Type 2 diabetes mellitus with diabetic chronic kidney disease; D63.1 Anemia in chronic kidney disease; N18.30 Chronic kidney disease, stage 3 unspecified; I27.20 Pulmonary hypertension, unspecified; R65.20 Severe sepsis without septic shock; G47.00 Insomnia, unspecified; F41.9 Anxiety disorder, unspecified; F17.210 Nicotine dependence, cigarettes, uncomplicated; E87.70 Fluid overload, unspecified; I16.0 Hypertensive urgency; Z79.899 Other long term (current) drug therapy; Z79.84 Long term (current) use of oral hypoglycemic drugs; Z79.51 Long term (current) use of inhaled steroids; Z79.891 Long term (current) use of opiate analgesic; Z79.01 Long term (current) use of anticoagulants; Z86.73 Personal history of transient ischemic attack (TIA), and cerebral infarction without residual deficits; Z87.19 Personal history of other diseases of the digestive system; Z98.890 Other specified postprocedural states; Z90.710 Acquired absence of both cervix and uterus
CPT/HCPCS: 0241U; 32555; 36415; 51702; 71045; 80048; 80053; 80162; 81003; 82042; 82945; 82947; 83605; 83615; 83735; 83880; 83986; 84145; 84157; 84484; 85025; 85610; 87040; 87070; 87081; 87205; 88108; 88305; 89051; 93005; 93010; 94640; 94664; 94761; 94762; 96365; 96366; 96375; 97110; 97116; 97161; 97530; 99285-25; A9270; C1751; J0295; J1940; J2405; J7040

== ENCOUNTER 2021-11-12 05:56 | Emergency (ER) | payer OTHER ==
[~2021-11-12] VITALS: Ht 170.2 cm; Wt 60.8 kg
[~2021-11-12 05:56] MED LIST changes: +AMOCLA875 PO; +DIGOX125 MC1 PO; +FURO40 PO; +SENN187 PO; +TRAM50 PO; +VISBIOME 112.51 EACH PO
[2021-11-12 06:36] LABS: BASOPHILS ABSOLUTE AUTO 0.11 K/mm3 (0.00-0.23); BASOPHILS PERCENT AUTO 1 % (0-2); EOSINOPHILS ABSOLUTE AUTO 0.22 K/mm3 (0.00-0.68); EOSINOPHILS PERCENT AUTO 2 % (0-6); Hematocrit 32.2 % (33.0-51.0); Hemoglobin 9.5 g/dL (11.5-16.0); IMMATURE GRAN ABSOLUTE AUTO 0.42 K/mm3 (0.00-0.10); IMMATURE GRAN PERCENT AUTO 4 % (0-1); LYMPHOCYTES ABSOLUTE AUTO 1.14 K/mm3 (0.84-5.20); LYMPHOCYTES PERCENT AUTO 12 % (21-46); MONOCYTES ABSOLUTE AUTO 1.12 K/mm3 (0.16-1.47); MONOCYTES PERCENT AUTO 12 % (4-13); Mean Corpuscular HGB 26.5 pg (26.0-34.0); Mean Corpuscular HGB Conc 29.5 g/dL (31.5-36.5); Mean Corpuscular Volume 90 fL (80-100); Mean Platelet Volume 9.2 fL (9.1-12.4); NEUTROPHILS ABSOLUTE AUTO 6.74 K/mm3 (1.96-9.15); NEUTROPHILS PERCENT AUTO 69 % (41-73); Platelet Count 460 K/mm3 (150-400); RDW Coefficient Variation 20.1 % (11.7-14.2); RDW Standard Deviation 66.8 fL (35.1-46.3); Red Blood Cell Count 3.58 M/mm3 (3.80-5.20); White Blood Cell Count 9.75 K/mm3 (4.00-11.30)
[2021-11-12 06:53] LABS: Albumin, Blood 2.9 g/dL (3.4-5.0); Albumin/Globulin Ratio 0.6 (0.8-1.8); Bilirubin, Total 0.8 mg/dL (0.1-1.0); Calcium, Blood 8.9 mg/dL (8.5-10.1); Creatinine, Blood 0.72 mg/dL (0.40-1.00); Potassium, Blood 3.6 mmol/L (3.5-5.5); Total Protein, Blood 7.9 g/dL (6.4-8.2)
[2021-11-12 08:26] LABS: Digoxin (Lanoxin) 1.47 ug/mL (0.80-2.00)
== END 2021-11-12 12:18 | disposition home or self-care (01) ==
LOC: ER 05:56
PROVIDERS: Emergency Medicine
DX: I48.91 Unspecified atrial fibrillation (principal); U07.1 COVID-19; E11.22 Type 2 diabetes mellitus with diabetic chronic kidney disease; I13.0 Hypertensive heart and chronic kidney disease with heart failure and stage 1 through stage 4 chronic kidney disease, or unspecified chronic kidney disease; N18.30 Chronic kidney disease, stage 3 unspecified; I50.9 Heart failure, unspecified; J44.9 Chronic obstructive pulmonary disease, unspecified; Z79.01 Long term (current) use of anticoagulants; Z79.899 Other long term (current) drug therapy; Z79.84 Long term (current) use of oral hypoglycemic drugs; Z87.891 Personal history of nicotine dependence
CPT/HCPCS: 71045; 80053; 80162; 83880; 84484; 85025; 93005; 93010; A9270; J1940; J2405

== ENCOUNTER 2021-11-12 13:18 | Emergency (ER) | payer OTHER ==
[~2021-11-12] VITALS: Ht 167.6 cm; Wt 77.1 kg
== END 2021-11-12 17:04 | disposition home or self-care (01) ==
LOC: ER 13:18
DX: U07.1 COVID-19 (principal); I12.9 Hypertensive chronic kidney disease with stage 1 through stage 4 chronic kidney disease, or unspecified chronic kidney disease; N18.30 Chronic kidney disease, stage 3 unspecified; E11.22 Type 2 diabetes mellitus with diabetic chronic kidney disease; Z79.84 Long term (current) use of oral hypoglycemic drugs; Z79.899 Other long term (current) drug therapy; Z79.01 Long term (current) use of anticoagulants; Z86.73 Personal history of transient ischemic attack (TIA), and cerebral infarction without residual deficits; Z87.891 Personal history of nicotine dependence
CPT/HCPCS: 99282

== ENCOUNTER 2021-11-30 15:44 | Emergency (ER) | payer OTHER ==
[~2021-11-30] VITALS: Ht 167.6 cm; Wt 60.8 kg
[2021-11-30 16:33] LABS: BASOPHILS ABSOLUTE AUTO 0.11 K/mm3 (0.00-0.23); BASOPHILS PERCENT AUTO 2 % (0-2); EOSINOPHILS ABSOLUTE AUTO 0.23 K/mm3 (0.00-0.68); EOSINOPHILS PERCENT AUTO 3 % (0-6); Hematocrit 32.6 % (33.0-51.0); Hemoglobin 9.3 g/dL (11.5-16.0); IMMATURE GRAN ABSOLUTE AUTO 0.16 K/mm3 (0.00-0.10); IMMATURE GRAN PERCENT AUTO 2 % (0-1); LYMPHOCYTES ABSOLUTE AUTO 1.67 K/mm3 (0.84-5.20); LYMPHOCYTES PERCENT AUTO 22 % (21-46); MONOCYTES ABSOLUTE AUTO 0.95 K/mm3 (0.16-1.47); MONOCYTES PERCENT AUTO 13 % (4-13); Mean Corpuscular HGB 24.9 pg (26.0-34.0); Mean Corpuscular HGB Conc 28.5 g/dL (31.5-36.5); Mean Corpuscular Volume 87 fL (80-100); Mean Platelet Volume 9.8 fL (9.1-12.4); NEUTROPHILS ABSOLUTE AUTO 4.36 K/mm3 (1.96-9.15); NEUTROPHILS PERCENT AUTO 58 % (41-73); Platelet Count 357 K/mm3 (150-400); RDW Coefficient Variation 18.3 % (11.7-14.2); RDW Standard Deviation 58.8 fL (35.1-46.3); Red Blood Cell Count 3.73 M/mm3 (3.80-5.20); White Blood Cell Count 7.48 K/mm3 (4.00-11.30)
[2021-11-30 17:02] LABS: Albumin/Globulin Ratio 0.7 (0.8-1.8); Bilirubin, Total 0.6 mg/dL (0.1-1.0); Bun/Creatinine Ratio 11.2 (12.0-20.0); Creatinine, Blood 0.81 mg/dL (0.40-1.00); Globulin, Blood 4.4 g/dL (2.2-4.0); Potassium, Blood 3.5 mmol/L (3.5-5.5); Total Protein, Blood 7.4 g/dL (6.4-8.2)
[2021-11-30 17:44] LABS: Influenza A, PCR NEGATIVE (NEGATIVE); Influenza B, PCR NEGATIVE (NEGATIVE); Resp Syncytial Virus, PCR NEGATIVE (NEGATIVE); SARS-Cov-2 (COVID-19) PCR, MMC NEGATIVE (NEGATIVE)
[2021-11-30 18:04] LABS: Source, Urine Clean Catch
[2021-11-30 18:09] LABS: Appearance, Urine Clear (Clear); Bilirubin, Urine Neg (Neg); Blood, Urine 1+ (Neg); Color, Urine Yellow (P-Yellow); Glucose Qualitative, Urine Neg (Neg); Ketones, Urine Neg (Neg); Leukocyte Esterase, Urine Neg (Neg); Nitrite, Urine Neg (Neg); Protein, Urine 2+ (Neg); Urobilinogen, Urine NORM (Normal)
[2021-11-30 18:16] LABS: Bacteria Mod /hpf; Squamous Epithelial Cells Few /hpf (Few)
[2021-11-30] MEDS ORDERED: CEPH500 PO (18:59)
== END 2021-11-30 21:08 | disposition home or self-care (01) ==
LOC: ER 15:44
PROVIDERS: Physician Assistant
DX: N39.0 Urinary tract infection, site not specified (principal); I12.9 Hypertensive chronic kidney disease with stage 1 through stage 4 chronic kidney disease, or unspecified chronic kidney disease; E11.22 Type 2 diabetes mellitus with diabetic chronic kidney disease; N18.30 Chronic kidney disease, stage 3 unspecified; I48.91 Unspecified atrial fibrillation; J44.9 Chronic obstructive pulmonary disease, unspecified; Z87.891 Personal history of nicotine dependence; Z79.899 Other long term (current) drug therapy; Z79.84 Long term (current) use of oral hypoglycemic drugs; Z20.822 Contact with and (suspected) exposure to COVID-19
CPT/HCPCS: 0241U; 36415; 71045; 74176; 80053; 81001; 83605; 84145; 85025; 93005; 93010; J0696; J1885; J7030

== ENCOUNTER 2022-01-03 02:55 | Emergency (ER) | payer OTHER ==
[~2022-01-03] VITALS: Ht 167.6 cm; Wt 58.5 kg
[~2022-01-03 02:55] MED LIST changes: +CARVEDILOL12.5 MG PO; +CEPHALEXIN125 MG/5 M PO; +DIGOX125 MC1; +FLUTICASONE-SA1 EAC1 INH; +FUROSEMIDE40 MG PO; +LEVOFLOXACIN750 MG PO; +LIPITOR80 MG PO; +Nicoderm Cq1 EAC1 TOP; +PANTOPRAZOLE SO40 M2 PO; +SEN-O-TAB8.6 MG; +TRAZ50 PO; +Ventolin/Prove6.7 GM INH
[2022-01-03 03:42] LABS: BASOPHILS ABSOLUTE AUTO 0.08 K/mm3 (0.00-0.23); BASOPHILS PERCENT AUTO 1 % (0-2); EOSINOPHILS ABSOLUTE AUTO 0.32 K/mm3 (0.00-0.68); EOSINOPHILS PERCENT AUTO 4 % (0-6); Hematocrit 30.6 % (33.0-51.0); Hemoglobin 8.9 g/dL (11.5-16.0); IMMATURE GRAN PERCENT AUTO 1 % (0-1); LYMPHOCYTES ABSOLUTE AUTO 1.61 K/mm3 (0.84-5.20); LYMPHOCYTES PERCENT AUTO 21 % (21-46); MONOCYTES ABSOLUTE AUTO 0.73 K/mm3 (0.16-1.47); MONOCYTES PERCENT AUTO 10 % (4-13); Mean Corpuscular HGB 24.1 pg (26.0-34.0); Mean Corpuscular HGB Conc 29.1 g/dL (31.5-36.5); Mean Corpuscular Volume 83 fL (80-100); Mean Platelet Volume 10.2 fL (9.1-12.4); NEUTROPHILS ABSOLUTE AUTO 4.72 K/mm3 (1.96-9.15); NEUTROPHILS PERCENT AUTO 62 % (41-73); Platelet Count 312 K/mm3 (150-400); RDW Coefficient Variation 16.9 % (11.7-14.2); RDW Standard Deviation 51.5 fL (35.1-46.3); White Blood Cell Count 7.56 K/mm3 (4.00-11.30)
[2022-01-03 04:02] LABS: Albumin, Blood 3.4 g/dL (3.4-5.0); Albumin/Globulin Ratio 0.9 (0.8-1.8); Bilirubin, Total 0.6 mg/dL (0.1-1.0); Bun/Creatinine Ratio 13.7 (12.0-20.0); Creatinine, Blood 0.73 mg/dL (0.40-1.00); Globulin, Blood 3.8 g/dL (2.2-4.0); Potassium, Blood 3.7 mmol/L (3.5-5.5); Total Protein, Blood 7.2 g/dL (6.4-8.2)
== END 2022-01-03 07:05 | disposition home or self-care (01) ==
LOC: ER 02:55
PROVIDERS: Emergency Medicine
DX: I48.91 Unspecified atrial fibrillation (principal); I10 Essential (primary) hypertension; Z86.73 Personal history of transient ischemic attack (TIA), and cerebral infarction without residual deficits; F17.200 Nicotine dependence, unspecified, uncomplicated
CPT/HCPCS: 36415; 71045; 80053; 83880; 84484; 85025; 93005; 93010; 99285-25

== ENCOUNTER 2022-01-05 18:25 | Inpatient (IN) | payer OTHER ==
[~2022-01-05] VITALS: Ht 167.6 cm; Wt 59.4 kg
[2022-01-05 20:13] LABS: BASOPHILS ABSOLUTE AUTO 0.08 K/mm3 (0.00-0.23); BASOPHILS PERCENT AUTO 1 % (0-2); EOSINOPHILS PERCENT AUTO 4 % (0-6); Hematocrit 29.4 % (33.0-51.0); Hemoglobin 8.9 g/dL (11.5-16.0); IMMATURE GRAN PERCENT AUTO 1 % (0-1); LYMPHOCYTES ABSOLUTE AUTO 1.84 K/mm3 (0.84-5.20); LYMPHOCYTES PERCENT AUTO 22 % (21-46); MONOCYTES ABSOLUTE AUTO 0.71 K/mm3 (0.16-1.47); MONOCYTES PERCENT AUTO 8 % (4-13); Mean Corpuscular HGB 24.3 pg (26.0-34.0); Mean Corpuscular HGB Conc 30.3 g/dL (31.5-36.5); Mean Corpuscular Volume 80 fL (80-100); Mean Platelet Volume 10.1 fL (9.1-12.4); NEUTROPHILS ABSOLUTE AUTO 5.52 K/mm3 (1.96-9.15); NEUTROPHILS PERCENT AUTO 65 % (41-73); Platelet Count 338 K/mm3 (150-400); RDW Coefficient Variation 16.9 % (11.7-14.2); RDW Standard Deviation 49.6 fL (35.1-46.3); Red Blood Cell Count 3.66 M/mm3 (3.80-5.20); White Blood Cell Count 8.55 K/mm3 (4.00-11.30)
[2022-01-05] MEDS ORDERED: COREG25 MG PO (20:13)
[2022-01-05] MEDS ORDERED: LISI20 PO (20:13)
[2022-01-05] MEDS ORDERED: METFORMIN HCL500 M2 PO (20:14)
[2022-01-05] MEDS ORDERED: TRAZ100 PO (20:14)
[2022-01-05] MEDS ORDERED: ELIQUIS5 M3 PO (20:15)
[2022-01-05 20:33] LABS: Albumin, Blood 3.4 g/dL (3.4-5.0); Albumin/Globulin Ratio 0.9 (0.8-1.8); Bilirubin, Total 0.5 mg/dL (0.1-1.0); Calcium, Blood 9.1 mg/dL (8.5-10.1); Creatinine, Blood 0.8 mg/dL (0.40-1.00); Globulin, Blood 3.9 g/dL (2.2-4.0); Magnesium, Blood 1.9 mg/dL (1.6-2.4); Potassium, Blood 3.7 mmol/L (3.5-5.5); Total Protein, Blood 7.3 g/dL (6.4-8.2)
[2022-01-06] MEDS ORDERED: DIGOX125 MC1 PO (01:22)
[2022-01-06] MEDS ORDERED: SEN-O-TAB8.6 MG PO (01:24)
[2022-01-06] MEDS ORDERED: Norco 5-325 Ta1 EACH PO (01:24)
[2022-01-06] MEDS ORDERED: POTA10T PO (01:25)
[2022-01-06] MEDS ORDERED: GABAPENTIN600 MG PO (01:25)
[2022-01-06 04:51] LABS: BASOPHILS PERCENT AUTO 1 % (0-2); EOSINOPHILS ABSOLUTE AUTO 0.26 K/mm3 (0.00-0.68); EOSINOPHILS PERCENT AUTO 3 % (0-6); Hematocrit 31.8 % (33.0-51.0); Hemoglobin 9.6 g/dL (11.5-16.0); IMMATURE GRAN ABSOLUTE AUTO 0.16 K/mm3 (0.00-0.10); IMMATURE GRAN PERCENT AUTO 2 % (0-1); LYMPHOCYTES ABSOLUTE AUTO 1.64 K/mm3 (0.84-5.20); LYMPHOCYTES PERCENT AUTO 19 % (21-46); MONOCYTES ABSOLUTE AUTO 0.88 K/mm3 (0.16-1.47); MONOCYTES PERCENT AUTO 10 % (4-13); Mean Corpuscular HGB Conc 30.2 g/dL (31.5-36.5); Mean Corpuscular Volume 80 fL (80-100); Mean Platelet Volume 10.3 fL (9.1-12.4); NEUTROPHILS ABSOLUTE AUTO 5.81 K/mm3 (1.96-9.15); NEUTROPHILS PERCENT AUTO 66 % (41-73); Platelet Count 385 K/mm3 (150-400); RDW Coefficient Variation 17.2 % (11.7-14.2); White Blood Cell Count 8.85 K/mm3 (4.00-11.30)
[2022-01-06 05:20] LABS: Albumin, Blood 3.6 g/dL (3.4-5.0); Albumin/Globulin Ratio 0.9 (0.8-1.8); Bilirubin, Total 0.8 mg/dL (0.1-1.0); Calcium, Blood 9.1 mg/dL (8.5-10.1); Creatinine, Blood 0.75 mg/dL (0.40-1.00); Globulin, Blood 3.9 g/dL (2.2-4.0); Potassium, Blood 3.3 mmol/L (3.5-5.5); Total Protein, Blood 7.5 g/dL (6.4-8.2)
--- NOTE | 2022-01-06 07:39 | NUR ---
NOC SHIFT SUMMARY PT ADMITTED FOR HTN URGENY/AFIB. 5MG IV LOPRESSOR GIVEN OVERNIGHT FOR HR OF 123. BNP 881; TRACE EDEMA IN BLE AND CRACKLES HEARD AT LUNG BASES. PUREWICH PLACED OVERNIGHT TO ALLOW HR TO DECREASE. PT AAOX4. NO ISSUES ASIDE FROM HR CONTROL NOTED. AM HR DOWN TO 80'S-90'S
[2022-01-06] MEDS ORDERED: FURO20 PO (12:48)
[2022-01-06] MEDS ORDERED: VITAMIN C125 MG PO (12:53)
[2022-01-06] MEDS ORDERED: FERSU300 PO (12:54)
--- NOTE | 2022-01-06 15:32 | NUR ---
DC HOME WRITTEN & VERBAL DC INSTRUCTIONS GIVEN TO PT WITH FAMILY MEMBER AT BEDSIDE, BOTH VERBALIZED GOOD UNDERSTANDING. ALL QUESTIONS ANSWERED. ANY NEW MED SCRIPTS FAXED TO [facility]. PIV DC'D WITH CATH TIP INTACT, NO REDNESS OR SWELLING NOTED. PT HOME VIA W/C WITH ALL PERSONAL BELONGINGS TO PRIVATE VEHICLE.
== END 2022-01-06 16:06 | disposition home or self-care (01) | DRG 291 ==
LOC: ER 18:25 → MEDS 23:39 → ER 01-06 00:55 → MEDS 01-06 00:58
PROVIDERS: Family Medicine; Student in an Organized Health Care Education/Training Program; ADMIT Internal Medicine
DX: I13.0 Hypertensive heart and chronic kidney disease with heart failure and stage 1 through stage 4 chronic kidney disease, or unspecified chronic kidney disease (principal); I50.33 Acute on chronic diastolic (congestive) heart failure; J96.01 Acute respiratory failure with hypoxia; I16.0 Hypertensive urgency; D50.9 Iron deficiency anemia, unspecified; J44.9 Chronic obstructive pulmonary disease, unspecified; Z79.899 Other long term (current) drug therapy; Z79.82 Long term (current) use of aspirin; Z79.84 Long term (current) use of oral hypoglycemic drugs; N18.30 Chronic kidney disease, stage 3 unspecified; E87.6 Hypokalemia; I48.91 Unspecified atrial fibrillation; I27.20 Pulmonary hypertension, unspecified; G47.00 Insomnia, unspecified; E11.22 Type 2 diabetes mellitus with diabetic chronic kidney disease; Z86.73 Personal history of transient ischemic attack (TIA), and cerebral infarction without residual deficits; F17.210 Nicotine dependence, cigarettes, uncomplicated; D63.1 Anemia in chronic kidney disease
CPT/HCPCS: 36415; 71045; 80053; 82947; 83735; 83880; 84484; 85025; 93005; 93010; 94640; 94664; 94760; 96365; 96375; 99285-25; A9270; J0360; J1940; J3475

== ENCOUNTER 2022-01-21 16:22 | Emergency (ER) | payer OTHER ==
[~2022-01-21] VITALS: Ht 167.6 cm; Wt 59.0 kg
[~2022-01-21 16:22] MED LIST changes: +COREG25 MG PO; +ELIQUIS5 M3 PO; +FERSU300 PO; +GABAPENTIN600 MG PO; +LISI20 PO; +METFORMIN HCL500 M2 PO; +POTA10T PO; +SEN-O-TAB8.6 MG PO; +VITAMIN C125 MG PO
[2022-01-21 16:54] LABS: BASOPHILS ABSOLUTE AUTO 0.07 K/mm3 (0.00-0.23); BASOPHILS PERCENT AUTO 1 % (0-2); EOSINOPHILS ABSOLUTE AUTO 0.18 K/mm3 (0.00-0.68); EOSINOPHILS PERCENT AUTO 2 % (0-6); Hematocrit 32.4 % (33.0-51.0); Hemoglobin 9.2 g/dL (11.5-16.0); IMMATURE GRAN ABSOLUTE AUTO 0.06 K/mm3 (0.00-0.10); IMMATURE GRAN PERCENT AUTO 1 % (0-1); LYMPHOCYTES ABSOLUTE AUTO 1.76 K/mm3 (0.84-5.20); LYMPHOCYTES PERCENT AUTO 23 % (21-46); MONOCYTES ABSOLUTE AUTO 0.68 K/mm3 (0.16-1.47); MONOCYTES PERCENT AUTO 9 % (4-13); Mean Corpuscular HGB 23.5 pg (26.0-34.0); Mean Corpuscular HGB Conc 28.4 g/dL (31.5-36.5); Mean Corpuscular Volume 83 fL (80-100); Mean Platelet Volume 10.5 fL (9.1-12.4); NEUTROPHILS ABSOLUTE AUTO 4.92 K/mm3 (1.96-9.15); NEUTROPHILS PERCENT AUTO 64 % (41-73); Platelet Count 315 K/mm3 (150-400); RDW Coefficient Variation 18.4 % (11.7-14.2); RDW Standard Deviation 54.4 fL (35.1-46.3); Red Blood Cell Count 3.91 M/mm3 (3.80-5.20); White Blood Cell Count 7.67 K/mm3 (4.00-11.30)
[2022-01-21 17:11] LABS: Albumin, Blood 3.8 g/dL (3.4-5.0); Albumin/Globulin Ratio 1.1 (0.8-1.8); Bilirubin, Total 0.7 mg/dL (0.1-1.0); Bun/Creatinine Ratio 18.2 (12.0-20.0); Calcium, Blood 9.4 mg/dL (8.5-10.1); Creatinine, Blood 0.99 mg/dL (0.40-1.00); Globulin, Blood 3.4 g/dL (2.2-4.0); Potassium, Blood 3.7 mmol/L (3.5-5.5); Total Protein, Blood 7.2 g/dL (6.4-8.2)
== END 2022-01-21 20:14 | disposition home or self-care (01) ==
LOC: ER 16:22
PROVIDERS: Physician Assistant
DX: I12.9 Hypertensive chronic kidney disease with stage 1 through stage 4 chronic kidney disease, or unspecified chronic kidney disease (principal); E11.22 Type 2 diabetes mellitus with diabetic chronic kidney disease; N18.30 Chronic kidney disease, stage 3 unspecified; J44.9 Chronic obstructive pulmonary disease, unspecified; I48.91 Unspecified atrial fibrillation; Z86.73 Personal history of transient ischemic attack (TIA), and cerebral infarction without residual deficits; Z79.899 Other long term (current) drug therapy; Z79.82 Long term (current) use of aspirin; Z79.84 Long term (current) use of oral hypoglycemic drugs; Z87.891 Personal history of nicotine dependence
CPT/HCPCS: 36415; 71046; 80053; 83880; 84484; 85025; 93005; 93010; 99284-25; A9270

== ENCOUNTER 2022-02-13 19:08 | Emergency (ER) | payer OTHER ==
[~2022-02-13] VITALS: Ht 167.6 cm; Wt 59.0 kg
[2022-02-13 19:33] LABS: BASOPHILS ABSOLUTE AUTO 0.06 K/mm3 (0.00-0.23); BASOPHILS PERCENT AUTO 1 % (0-2); EOSINOPHILS ABSOLUTE AUTO 0.19 K/mm3 (0.00-0.68); EOSINOPHILS PERCENT AUTO 2 % (0-6); Hematocrit 27.8 % (33.0-51.0); Hemoglobin 8.1 g/dL (11.5-16.0); IMMATURE GRAN ABSOLUTE AUTO 0.08 K/mm3 (0.00-0.10); IMMATURE GRAN PERCENT AUTO 1 % (0-1); LYMPHOCYTES ABSOLUTE AUTO 2.06 K/mm3 (0.84-5.20); LYMPHOCYTES PERCENT AUTO 23 % (21-46); MONOCYTES ABSOLUTE AUTO 0.94 K/mm3 (0.16-1.47); MONOCYTES PERCENT AUTO 10 % (4-13); Mean Corpuscular HGB 23.5 pg (26.0-34.0); Mean Corpuscular HGB Conc 29.1 g/dL (31.5-36.5); Mean Corpuscular Volume 81 fL (80-100); Mean Platelet Volume 10.5 fL (9.1-12.4); NEUTROPHILS ABSOLUTE AUTO 5.73 K/mm3 (1.96-9.15); NEUTROPHILS PERCENT AUTO 63 % (41-73); Platelet Count 343 K/mm3 (150-400); RDW Coefficient Variation 18.6 % (11.7-14.2); RDW Standard Deviation 54.9 fL (35.1-46.3); Red Blood Cell Count 3.44 M/mm3 (3.80-5.20); White Blood Cell Count 9.06 K/mm3 (4.00-11.30)
[2022-02-13 19:45] LABS: Albumin, Blood 3.5 g/dL (3.4-5.0); Bilirubin, Total 0.6 mg/dL (0.1-1.0); Bun/Creatinine Ratio 29.4 (12.0-20.0); Calcium, Blood 9.5 mg/dL (8.5-10.1); Creatinine, Blood 0.82 mg/dL (0.40-1.00); Globulin, Blood 3.6 g/dL (2.2-4.0); Potassium, Blood 4.2 mmol/L (3.5-5.5); Total Protein, Blood 7.1 g/dL (6.4-8.2)
[2022-02-13] MEDS ORDERED: Cardizem CD 12120 MG PO (21:23)
== END 2022-02-13 22:52 | disposition home or self-care (01) ==
LOC: ER 19:08
PROVIDERS: Emergency Medicine
DX: I48.91 Unspecified atrial fibrillation (principal); I13.0 Hypertensive heart and chronic kidney disease with heart failure and stage 1 through stage 4 chronic kidney disease, or unspecified chronic kidney disease; E11.22 Type 2 diabetes mellitus with diabetic chronic kidney disease; N18.30 Chronic kidney disease, stage 3 unspecified; I50.9 Heart failure, unspecified; J44.9 Chronic obstructive pulmonary disease, unspecified; Z86.73 Personal history of transient ischemic attack (TIA), and cerebral infarction without residual deficits; Z79.899 Other long term (current) drug therapy; Z79.01 Long term (current) use of anticoagulants; Z79.82 Long term (current) use of aspirin
CPT/HCPCS: 71045; 80053; 83690; 83880; 84443; 84484; 85025; 93005; 93010; A9270; J7030

== ENCOUNTER → 2022-02-28 | Outpatient (CLI) | payer OTHER ==
[~2022-02-28] MED LIST changes: +Cardizem CD 12120 MG PO
== END | disposition home or self-care (01) ==
LOC: LAB 07:48 → PLD 07:48 → LAB SHORT 07:48
DX: L60.2 Onychogryphosis (principal); B35.1 Tinea unguium
CPT/HCPCS: 88305; 88312

== ENCOUNTER 2022-04-09 15:00 | Observation (INO) | payer OTHER ==
[~2022-04-09] VITALS: Ht 167.6 cm; Wt 59.1 kg
[2022-04-09 15:23] LABS: BASOPHILS ABSOLUTE AUTO 0.07 K/mm3 (0.00-0.23); BASOPHILS PERCENT AUTO 1 % (0-2); EOSINOPHILS ABSOLUTE AUTO 0.23 K/mm3 (0.00-0.68); EOSINOPHILS PERCENT AUTO 3 % (0-6); Hematocrit 25.3 % (33.0-51.0); Hemoglobin 7.3 g/dL (11.5-16.0); IMMATURE GRAN ABSOLUTE AUTO 0.07 K/mm3 (0.00-0.10); IMMATURE GRAN PERCENT AUTO 1 % (0-1); LYMPHOCYTES ABSOLUTE AUTO 1.76 K/mm3 (0.84-5.20); LYMPHOCYTES PERCENT AUTO 23 % (21-46); MONOCYTES PERCENT AUTO 13 % (4-13); Mean Corpuscular HGB 21.9 pg (26.0-34.0); Mean Corpuscular HGB Conc 28.9 g/dL (31.5-36.5); Mean Corpuscular Volume 76 fL (80-100); Mean Platelet Volume 9.8 fL (9.1-12.4); NEUTROPHILS PERCENT AUTO 59 % (41-73); Platelet Count 307 K/mm3 (150-400); RDW Coefficient Variation 17.2 % (11.7-14.2); RDW Standard Deviation 47.6 fL (35.1-46.3); Red Blood Cell Count 3.34 M/mm3 (3.80-5.20); White Blood Cell Count 7.63 K/mm3 (4.00-11.30)
[2022-04-09 15:45] LABS: Albumin, Blood 3.3 g/dL (3.4-5.0); Albumin/Globulin Ratio 1.2 (0.8-1.8); Bilirubin, Total 0.4 mg/dL (0.1-1.0); Bun/Creatinine Ratio 21.1 (12.0-20.0); Calcium, Blood 8.5 mg/dL (8.5-10.1); Creatinine, Blood 0.76 mg/dL (0.40-1.00); Globulin, Blood 2.8 g/dL (2.2-4.0); Potassium, Blood 3.9 mmol/L (3.5-5.5); Total Protein, Blood 6.1 g/dL (6.4-8.2)
[2022-04-09 15:59] LABS: Source, Urine Clean Catch
[2022-04-09 16:10] LABS: Appearance, Urine Clear (Clear); Bilirubin, Urine Neg (Neg); Blood, Urine Neg (Neg); Color, Urine Yellow (P-Yellow); Glucose Qualitative, Urine Neg (Neg); Ketones, Urine Neg (Neg); Leukocyte Esterase, Urine 1+ (Neg); Nitrite, Urine Neg (Neg); Protein, Urine 1+ (Neg); Urobilinogen, Urine NORM (Normal)
[2022-04-09] MEDS ORDERED: DILT60 PO (16:11)
[2022-04-09] MEDS ORDERED: ELIQUIS5 M2 PO (16:12)
[2022-04-09] MEDS ORDERED: SYMBICORT 160-4.6 GM IH (16:13)
[2022-04-09 16:20] LABS: Influenza A, PCR NEGATIVE (NEGATIVE); Influenza B, PCR NEGATIVE (NEGATIVE); Resp Syncytial Virus, PCR NEGATIVE (NEGATIVE); SARS-Cov-2 (COVID-19) PCR, MMC NEGATIVE (NEGATIVE)
[2022-04-09 16:51] LABS: Bacteria Mod /hpf; Red Blood Cells, Urine 0-2 /hpf (0-2); Squamous Epithelial Cells Few /hpf (Few); White Blood Cells, Urine 0-2 /hpf (0-5)
[2022-04-09 16:52] LABS: Mucus Light (0-Heavy)
[2022-04-09 23:12] LABS: Percent Saturation 4.8 % (15.0-50.0)
[2022-04-10 05:55] LABS: Hematocrit 23.5 % (33.0-51.0); Hemoglobin 6.9 g/dL (11.5-16.0)
--- NOTE | 2022-04-10 13:01 | NUR ---
CALLED DR HAY- PT HER ON BLOOD VITALS, IS TRENDING DOWN. CURRENTLY RUNNING SINUS BHARGAV AT [address]. CALL[address] DR HAY, THE PT RECIEVED RATE CONTROL MEDS THIS MORNING THAT WERE SCHEDULED, SHE IS AWARE AND IS MAKING ADJUSTMENTS. PT IS AYMPTOMATIC AND WAS JUST ASSISTED BACK TO BED FROM THE CHAIR WHERE SHE SAT TO EAT LUNCH. NO NEW ORDERS AT THIS TIME WILL CTM.
--- NOTE | 2022-04-10 20:07 | NUR ---
SHIFT SUMMARY- PT RECIEVED 1 UNIT OF PRBC'S. PT WAS MEDICATED FOR PAIN ONCE THIS SHIFT IN THE EVENING. PT IS IN BED, CALL LIGHT IN REACH NO S&S OF DISTRESS NOTED AT THE TIME OF BEDSIDE REPORT. PLAN IS FOR THE PT TO DC HOME TOMORROW AFTER HER IRON INFUSION.
--- NOTE | 2022-04-11 03:58 | NUR ---
LOAN ASSISTANT SUMMARY A&OX4. PATIENT EFFECTIVELY COMMUNICATES NEEDS. VSS. TELE REVEALS SINUS RHYTHM, HR 90'S. RR EVEN AND UNLABORED ON RA. PATIENT RECEIVED ONE UNIT OF BLOOD YESTERDAY AND REPORTS SIGNIFICANT IMPROVEMENT SECONDARY TO THIS. GUIAIC STOOL SAMPLE UNCOLLECTED AT THIS TIME. CHAMOMILE TEA PROVIDED TO PATIENT FOR A DRY COUGH DUE TO CEPACOL SHORTAGES. PATIENT OBSERVED TO BE SLEEPING COMFORTABLY THROUGHOUT THE NIGHT. PRN MEDICATIONS ADMINISTERED PER ORDERS. NO ACUTE EVENTS THIS SHIFT. BED LOW AND LOCKED. CALL LIGHT WITHIN REACH. THIS RN WILL CONTINUE TO CLOSELY MONITOR.
[2022-04-11 06:02] LABS: BASOPHILS ABSOLUTE AUTO 0.07 K/mm3 (0.00-0.23); BASOPHILS PERCENT AUTO 1 % (0-2); EOSINOPHILS ABSOLUTE AUTO 0.23 K/mm3 (0.00-0.68); EOSINOPHILS PERCENT AUTO 4 % (0-6); Hematocrit 25.8 % (33.0-51.0); Hemoglobin 7.6 g/dL (11.5-16.0); IMMATURE GRAN ABSOLUTE AUTO 0.07 K/mm3 (0.00-0.10); IMMATURE GRAN PERCENT AUTO 1 % (0-1); LYMPHOCYTES ABSOLUTE AUTO 1.76 K/mm3 (0.84-5.20); LYMPHOCYTES PERCENT AUTO 27 % (21-46); MONOCYTES PERCENT AUTO 15 % (4-13); Mean Corpuscular HGB Conc 29.5 g/dL (31.5-36.5); Mean Corpuscular Volume 75 fL (80-100); Mean Platelet Volume 10.2 fL (9.1-12.4); NEUTROPHILS ABSOLUTE AUTO 3.43 K/mm3 (1.96-9.15); NEUTROPHILS PERCENT AUTO 52 % (41-73); Platelet Count 273 K/mm3 (150-400); RDW Coefficient Variation 17.2 % (11.7-14.2); RDW Standard Deviation 46.5 fL (35.1-46.3); Red Blood Cell Count 3.46 M/mm3 (3.80-5.20); White Blood Cell Count 6.56 K/mm3 (4.00-11.30)
[2022-04-11 06:47] LABS: Bun/Creatinine Ratio 20.7 (12.0-20.0); Calcium, Blood 8.8 mg/dL (8.5-10.1); Creatinine, Blood 0.87 mg/dL (0.40-1.00)
[2022-04-11] MEDS ORDERED: GUAI600T33 PO (12:41)
[2022-04-11] MEDS ORDERED: CARV6.25 PO (12:44)
[2022-04-11] MEDS ORDERED: ACET325 PO (12:48)
[2022-04-11] MEDS ORDERED: HYDRA25 PO (12:49)
--- NOTE | 2022-04-11 17:14 | NUR ---
DISCHARGE NOTE- PT WAS GIVEN VERBAL AND WRITTEN DISCHARGE INSTRUCTIONS AND ACKNOWLEDGED UNDERSTANING OF THEM. NO S&S OF DISTRESS NOTED AT THE TIME OF DISCHARGE. PT ESCORTED OUT TO THE [facility] VIA WC BY THE TORCH CUTTER. [facility] PAY [facility]AX[facility] TO THE [facility].
== END 2022-04-11 17:01 | disposition home or self-care (01) ==
LOC: ER 15:00 → ERHOLD 20:20 → MEDS 22:28
PROVIDERS: Internal Medicine; Nurse Practitioner Acute Care; Student in an Organized Health Care Education/Training Program; ADMIT Internal Medicine
DX: R07.9 Chest pain, unspecified (principal); I48.0 Paroxysmal atrial fibrillation; E11.9 Type 2 diabetes mellitus without complications; I16.0 Hypertensive urgency; D50.9 Iron deficiency anemia, unspecified; R77.8 Other specified abnormalities of plasma proteins; I50.32 Chronic diastolic (congestive) heart failure; Z86.73 Personal history of transient ischemic attack (TIA), and cerebral infarction without residual deficits; K21.9 Gastro-esophageal reflux disease without esophagitis; Z79.01 Long term (current) use of anticoagulants; Z20.822 Contact with and (suspected) exposure to COVID-19
CPT/HCPCS: 0241U; 36415; 36430; 71046; 80048; 80053; 81001; 82272; 82728; 82947; 83540; 83550; 83880; 84484; 85014; 85018; 85025; 85651; 86140; 86850; 86900; 86901; 86923; 87086; 93005; 93010; 93306; 94640; 94664; 94760; 96374; 96375; 99285-25; A9270; G0378; J2270; J2405; J2916; J7030; J7050; P9016

== ENCOUNTER 2022-04-20 08:59 | Observation (INO) | payer OTHER ==
[~2022-04-20] VITALS: Ht 167.6 cm; Wt 59.0 kg
[~2022-04-20 08:59] MED LIST changes: +ACET325 PO; +CARV6.25 PO; +ELIQUIS5 M2 PO; +GUAI600T33 PO; +HYDRA25 PO; +SYMBICORT 160-4.6 GM IH
[2022-04-20 10:08] LABS: BASOPHILS ABSOLUTE AUTO 0.08 K/mm3 (0.00-0.23); BASOPHILS PERCENT AUTO 1 % (0-2); EOSINOPHILS ABSOLUTE AUTO 0.04 K/mm3 (0.00-0.68); EOSINOPHILS PERCENT AUTO 0 % (0-6); Hematocrit 32.3 % (33.0-51.0); Hemoglobin 9.7 g/dL (11.5-16.0); IMMATURE GRAN ABSOLUTE AUTO 0.07 K/mm3 (0.00-0.10); IMMATURE GRAN PERCENT AUTO 1 % (0-1); LYMPHOCYTES ABSOLUTE AUTO 0.99 K/mm3 (0.84-5.20); LYMPHOCYTES PERCENT AUTO 10 % (21-46); MONOCYTES ABSOLUTE AUTO 0.48 K/mm3 (0.16-1.47); MONOCYTES PERCENT AUTO 5 % (4-13); Mean Corpuscular HGB 23.3 pg (26.0-34.0); Mean Corpuscular Volume 78 fL (80-100); Mean Platelet Volume 9.7 fL (9.1-12.4); NEUTROPHILS ABSOLUTE AUTO 8.27 K/mm3 (1.96-9.15); NEUTROPHILS PERCENT AUTO 83 % (41-73); Platelet Count 374 K/mm3 (150-400); RDW Coefficient Variation 21.3 % (11.7-14.2); RDW Standard Deviation 58.4 fL (35.1-46.3); Red Blood Cell Count 4.16 M/mm3 (3.80-5.20); White Blood Cell Count 9.93 K/mm3 (4.00-11.30)
[2022-04-20 11:08] LABS: Albumin, Blood 4.1 g/dL (3.4-5.0); Albumin/Globulin Ratio 1.3 (0.8-1.8); Bilirubin, Total 0.7 mg/dL (0.1-1.0); Bun/Creatinine Ratio 23.8 (12.0-20.0); Calcium, Blood 9.1 mg/dL (8.5-10.1); Creatinine, Blood 0.84 mg/dL (0.40-1.00); Globulin, Blood 3.1 g/dL (2.2-4.0); Magnesium, Blood 1.4 mg/dL (1.6-2.4); Potassium, Blood 4.2 mmol/L (3.5-5.5); Thyroid Stimulating Hormone 1.223 uIU/mL (0.360-4.800); Total Protein, Blood 7.2 g/dL (6.4-8.2)
--- NOTE | 2022-04-20 17:25 | NUR ---
SHIFT SUMMARY PATIENT ALERT AND ORIENTED X4. UNSTEADY ON FEET, REQUIRES 1 ASSIST TO AMBULATE. THE RIGHT SIDE OF THE PATIENT'S FACE IS BRUISED AND SWOLLEN, SHE IS UNABLE TO OPEN HER RIGHT EYE DUE TO THE SWELLING. PATIENT MEDICATED PER EMAR FOR PAIN. PATIENT IS FROM THE [facility], SHE WAS INFORMED TODAY THAT SINCE SHE IS UNABLE TO CARE FOR HERSELF THAT THEY ARE UNABLE TO ALLOW HER TO RETURN. SHE CURRENTLY HAS NO OTHER PLAN FOR HOUSING. CALL LIGHT WITHIN REACH.
[2022-04-21 03:37] LABS: Hematocrit 26.1 % (33.0-51.0); Hemoglobin 7.6 g/dL (11.5-16.0); Mean Corpuscular HGB Conc 29.1 g/dL (31.5-36.5); Mean Corpuscular Volume 79 fL (80-100); Mean Platelet Volume 9.8 fL (9.1-12.4); Platelet Count 322 K/mm3 (150-400); RDW Coefficient Variation 21.1 % (11.7-14.2); RDW Standard Deviation 58.2 fL (35.1-46.3); White Blood Cell Count 5.69 K/mm3 (4.00-11.30)
[2022-04-21 04:00] LABS: Bun/Creatinine Ratio 20.4 (12.0-20.0); Creatinine, Blood 0.93 mg/dL (0.40-1.00); Magnesium, Blood 2.2 mg/dL (1.6-2.4)
--- NOTE | 2022-04-21 04:31 | NUR ---
SHIFT SUMMARY: PT ALERT AND ORIENTED X4, ABLE TO FOLLOW COMMANDS AND MAKE NEEDS KNOWN. BP STABLE, HR REMAINS AFIB 70'S, NO COMPLAINTS OF CP/PRESSURE THROUGHOUT THE NIGHT, AFEBRILE, SATURATIONS >95% ON ROOM AIR. RESPIRATIONS EVEN AND UNLABORED. PULSES STRONG AND EQUAL THROUGHOUT. PT WITH RIGHT SWOLLEN EYE DUE TO ORBITAL FRACTURE FROM FALL AT HOME. MEDICATED X2 FOR PAIN, SEE EMAR. SBA TO AND FROM BATHROOM VIA FWW. CALLS APPROPRIATELY. BED ALARM IN PLACE FOR SAFETY. PT ABLE TO REPOS IND IN BED. BED IN LOW, CALL LIGHT IN REACH, WILL REPORT TO ONCOMING RN.
--- NOTE | 2022-04-21 13:30 | NUR ---
[employer] NOTIFIED THIS RN THAT PT HR BRIEFLY DROPPED INTO THE 40'S AND HAS BEEN STAYING AROUND 50-60'S. THIS RN AND CHAN RN ENTERED PT ROOM TO ASSESS, PT ON HER LEFT SIDE . PT INSTRUCTED TO LAY ON HER BACK FOR VS. PT NOTED TO HAVE SOFT BP'S, SEE CHARTS. WHEN ASKED IF SHE IS LIGHTHEADED OR HAVING SOB, PT ANSWERED YES TO BOTH. ORTHOSTATIC VS DONE, PT REPORTS LIGHTHEADEDNESS THAT GOT WORSE SHE SAT AT EDGE OF BED AND WORSENED WHEN STANDING. PT VISIBLY UNSTABLE DURING STANDING BP. NOTIFIED OF RESULTS AND SYMPTOMS. 500ML BOLUS ORDERED AND H&H ALREADY ORDERED FOR 1400.
[2022-04-21 14:03] LABS: Hematocrit 26.3 % (33.0-51.0); Hemoglobin 7.7 g/dL (11.5-16.0)
--- NOTE | 2022-04-21 18:42 | NUR ---
SHIFT SUMMARY PATIENT ALERT AND ORIENTED X4. MEDICATED PER EMAR FOR PAIN. TELEMETRY NOTED THAT PATIENT'S HEART RATE WAS SLOWLY TRENDING DOWN, SUSTAINING IN THE 50'S-60'S AND TOUCHED THE HIGH 40'S. PATIENT WAS HYPOTENSIVE UPON ASSESSMENT. COMPLETED ORTHOSTATIC VITAL SIGNS, PATIENT WAS INCREASINGLY DIZZY AND UNSTEADY SHE STOOD UP. NOTIFIED DR JOHN. PATIENT FEELING BETTER AFTER FLUID BOLUS. WILL CONTINUE TO MONITOR. CALL LIGHT WITHIN REACH.
[2022-04-22 04:09] LABS: BASOPHILS ABSOLUTE AUTO 0.05 K/mm3 (0.00-0.23); BASOPHILS PERCENT AUTO 1 % (0-2); EOSINOPHILS ABSOLUTE AUTO 0.22 K/mm3 (0.00-0.68); EOSINOPHILS PERCENT AUTO 4 % (0-6); Hematocrit 25.9 % (33.0-51.0); Hemoglobin 7.5 g/dL (11.5-16.0); IMMATURE GRAN ABSOLUTE AUTO 0.03 K/mm3 (0.00-0.10); IMMATURE GRAN PERCENT AUTO 1 % (0-1); LYMPHOCYTES ABSOLUTE AUTO 1.75 K/mm3 (0.84-5.20); LYMPHOCYTES PERCENT AUTO 34 % (21-46); MONOCYTES ABSOLUTE AUTO 0.52 K/mm3 (0.16-1.47); MONOCYTES PERCENT AUTO 10 % (4-13); Mean Corpuscular HGB 22.9 pg (26.0-34.0); Mean Corpuscular Volume 79 fL (80-100); Mean Platelet Volume 10.4 fL (9.1-12.4); NEUTROPHILS ABSOLUTE AUTO 2.54 K/mm3 (1.96-9.15); NEUTROPHILS PERCENT AUTO 50 % (41-73); Platelet Count 309 K/mm3 (150-400); RDW Coefficient Variation 21.2 % (11.7-14.2); RDW Standard Deviation 58.6 fL (35.1-46.3); Red Blood Cell Count 3.27 M/mm3 (3.80-5.20); White Blood Cell Count 5.11 K/mm3 (4.00-11.30)
[2022-04-22 04:41] LABS: Bun/Creatinine Ratio 29.3 (12.0-20.0); Calcium, Blood 8.2 mg/dL (8.5-10.1); Creatinine, Blood 0.92 mg/dL (0.40-1.00); Potassium, Blood 4.6 mmol/L (3.5-5.5)
--- NOTE | 2022-04-22 06:23 | NUR ---
SHIFT SUMMARY: PT REMAINED STABLE. MINIMAL LIGHTHEADNESS UPON STANDING. VS WNL WHILE AWAKE BUT WHEN SHE SLEPT HR DROPPED LOW 36, NEVER SUSTAINED. PAIN AND SORENESS T/O, NORCO AND TORDOL GIVEN. RIGHT EYE REMAINS SWOLLEN, BRUISED AND SHUT, STATED BLURRED VISION WHEN ATTEMPTED TO OPEN IT. SLEPT WELL, NO ACUTE CHANGES. DID HAVE FURTHER DROP IN H&H WITH NO SIGN OF BLEEDING. WILL PASS ON TO DAYSHIFT.
--- NOTE | 2022-04-22 13:43 | NUR ---
PT A/OX4. NO VSS. PT REMAINS A-FIB 60-80'S, SOME SLOW RATES REPORTED DURING NOC SHIFT. NO REPORT OF SOB AOR CHEST PAIN. PT REPORTS PAIN OF HER RIGHT SIDE OF BODY, TREATING PER EMAR AND REPOSITIONING. IRWIN BLAIR UPDATED AND TAKING OVER IN CARE.
--- NOTE | 2022-04-22 17:39 | NUR ---
SHIFT SUMMARY TOOK OVER CARE AROUND 1330. PT ALERT, ORIENTED, ABLE TO MAKE NEEDS KNOWN. SP02>90% ON RA. TELEMETRY SHOWS AFIB, VSS. PT C/O OF 8/10 PAIN "ALL OVER". MEDICATED X1 W/ TORADOL PER EMAR. PT HAS R ORBITAL FX, REPORTS EYE SWOLLEN SHUT "FOR DAYS". ABLE TO OPEN BOTH EYES THIS AFTERNOON. BOTH PUPILS REACTIVE, EQUAL. PT REPORTS BLURRYNESS TO OBJECTS CLOSE TO HER W/ R EYE. PT WORKED W/ PT. AMBULATED TO BATHROOM W/ GB, FWW, AND SBA. ABLE TO VOID. C/O OF NO BM X3 DAYS. CALL LIGHT IN REACH. PT EATING DINNER IN ROOM CURRENTLY.
--- NOTE | 2022-04-23 05:27 | NUR ---
SHIFT SUMMARY: PT A&OX2-3, ANXIOUS ABOUT CONDITION, DIFFICULT TO EDUCATE DUE TO ANXIETY BUT COOPERATIVE. REPORTS PALPITATIONS BUT NO CHEST PAIN. HR NOTED TO BE IRREGULAR IN 90'S. BP'S INCREASED AT BEGINNING OF SHIFT, NOT RECEIVING ALL HOME BP MEDS. PT REPORTS FEELING INCREASED PRESSURE IN HEAD WITH ELEVATED BP BUT ASYMPTOMATIC OTHERWISE. DR. MAS CALLED, REQUESTING BP MEDS. BP DECREASES AFTER MEDICATIONS GIVEN AND ABLE TO REST IN BED. PT UP TO BATHROM FREQUENTLY TO VOID, INCREASING BP WHEN UP. PT USING BED MOSQUERA WHILE BP HIGH TO HELP WITH DECREASING BP. PT DENIES ANY SOB. O2 SATS > 92% ON RA. PT CONTINUES TO HAVE LARGE PURPLE BRUISE ON RIGHT SIDE OF FACE, VISION CONTINUES TO BE BLURRY. SILVER DOLLAR SIZED BRUISE NOTED ON RIGHT HIP. CMS CHECKS INTACT IN FEET BILATERALLY. MEDICATED FOR PAIN WITH PRN MEDICATIONS, SEE EMAR. CALL LIGHT IN REACH, BED ALARM ON.
--- NOTE | 2022-04-23 18:35 | NUR ---
SHIFT SUMMARY PT ALERT, ORIENTED. SP02>90% ON RA, VSS. MEDICAL STATUS, NO TELE. ELEVATED BP THIS EVENING, 10 MG HYDRALAZINE GIVEN PER EMAR X1. PT C/O OF PAIN, STATES THE LOWER DOSE OF NORCO IS NOT WORKING LIKE THE PREVIOUS DAY'S ORDER AND WANTS THE OLD NORCO ORDER. MEDICATED Q4H PER EMAR. PT UP W/ PT TODAY. AMBULATED TO BATHROOM W/ GB AND FWW. RESTING IN ROOM CURRENTLY. CALL LIGHT IN REACH.
[2022-04-24 04:46] LABS: BASOPHILS ABSOLUTE AUTO 0.05 K/mm3 (0.00-0.23); BASOPHILS PERCENT AUTO 1 % (0-2); EOSINOPHILS ABSOLUTE AUTO 0.11 K/mm3 (0.00-0.68); EOSINOPHILS PERCENT AUTO 1 % (0-6); Hematocrit 25.6 % (33.0-51.0); Hemoglobin 7.6 g/dL (11.5-16.0); IMMATURE GRAN ABSOLUTE AUTO 0.12 K/mm3 (0.00-0.10); IMMATURE GRAN PERCENT AUTO 1 % (0-1); LYMPHOCYTES ABSOLUTE AUTO 0.94 K/mm3 (0.84-5.20); LYMPHOCYTES PERCENT AUTO 10 % (21-46); MONOCYTES ABSOLUTE AUTO 0.74 K/mm3 (0.16-1.47); MONOCYTES PERCENT AUTO 8 % (4-13); Mean Corpuscular HGB 23.4 pg (26.0-34.0); Mean Corpuscular HGB Conc 29.7 g/dL (31.5-36.5); Mean Corpuscular Volume 79 fL (80-100); Mean Platelet Volume 10.4 fL (9.1-12.4); NEUTROPHILS PERCENT AUTO 79 % (41-73); Platelet Count 365 K/mm3 (150-400); RDW Coefficient Variation 22.5 % (11.7-14.2); RDW Standard Deviation 60.7 fL (35.1-46.3); Red Blood Cell Count 3.25 M/mm3 (3.80-5.20); White Blood Cell Count 9.16 K/mm3 (4.00-11.30)
--- NOTE | 2022-04-24 04:47 | NUR ---
SHIFT SUMMARY: PT A&OX4, ANXIOUS. COMPLAINING OF SEVERE PAIN IN HEAD WHEN AWAKE BUT ABLE TO SLEEP SOUNDLY FOR LONG STRETCHES THROUGHOUT THE NIGHT. PLACED ON 1 LPM WHEN SLEEPING SOUNDLY DUE TO O2 SATS DROPPING TO 87%. DENIES SOB. MEDICATED FOR PAIN WITH NORCO PA AND TORADOL X 1. BP HIGH DURING NIGHT, RECEIVING ADDITIONAL DOSE OF HYDRALAZINE FROM DR. MAS WITH GOOD RESULTS. PT NAUSEATED X 1, WITH SCAN EMESIS. OCCURANCE HAPPENED DIRECTLY AFTER RECEIVING PO PAIN PILL, PT STATES SHE DOES NOT BELIEVE THIS IS THE CAUSE. MEDICATED FOR NAUSEA WITH GOOD RESULTS.
[2022-04-24 05:10] LABS: Bun/Creatinine Ratio 28.7 (12.0-20.0); Calcium, Blood 8.6 mg/dL (8.5-10.1); Creatinine, Blood 1.15 mg/dL (0.40-1.00); Potassium, Blood 4.6 mmol/L (3.5-5.5)
--- NOTE | 2022-04-24 06:52 | NUR ---
PT RESTING COMFORTABLY, APPEARS TO BE SLEEPING BUT ABLE OT AROUSE EASILY. PT IS CALM, NO LONGER ANXIOUS AT THIS TIME. SOFT BP'S WITH SBP IN LOW 100. PT DENIES ANY DIZZIENESS OR LIGHTHEADEDNESS. WILL PASS ON IN REPORT.
--- NOTE | 2022-04-24 11:27 | NUR ---
NURSE NOTE PATIENT TRANSFERRED FROM PCU 18- TO MED 343. RECEIVED REPORT FROM IRWIN BLAIR.
--- NOTE | 2022-04-24 16:01 | NUR ---
SHIFT SUMMARY PATIENT IS ALERT AND ORIENTED. PATIENT HAS BEEN PLEASENT AND COOPERATIVE THIS SHIFT. PATIENT IS A RECENT TRANSFER FROM [facility]. PATIENT HAS BEEN WALKING THE FLOOR WITH THE FRAME RUNNER WITH GOOD RESULTS. PATIENT HAS BEEN IN PAIN AND MEDICATED PER EMAR. PATIENT HAS NOT HAD ANY COMPLAINTS OF NAUSEA, SOB, VOMITTING THIS SHIFT. VITAL SIGNS REVIEWED. BED IN LOCKED AND LOWEST POSITION. CALL LIGHT IN PLACE. WILL MONITOR UNTIL SHIFT CHANGE.
--- NOTE | 2022-04-25 04:14 | NUR ---
SENIOR BUYER SUMMARY A&OX4. PATIENT EFFECTIVELY COMMUNICATES NEEDS. VSS. RR EVEN AND UNLABORED ON RA. PAIN ASSESSED AND MEDICATED PER EMAR. NO OTHER SYMPTOMS REPORTED TO THIS RN. PATIENT OBSERVED SLEEPING THROUGHOUT THE NIGHT. BED LOW AND LOCKED. CALL LIGHT WITHIN REACH. THIS RN WILL CONTINUE TO MONITOR.
[2022-04-25 05:00] LABS: Hematocrit 23.8 % (33.0-51.0); Hemoglobin 6.9 g/dL (11.5-16.0)
[2022-04-25 05:22] LABS: Bun/Creatinine Ratio 39.7 (12.0-20.0); Calcium, Blood 8.6 mg/dL (8.5-10.1); Creatinine, Blood 0.96 mg/dL (0.40-1.00)
--- NOTE | 2022-04-25 05:59 | NUR ---
BLOOD TRANSFUSION DR. PATTERSON NOTIFIED BY THIS RN OF HBG 6.9. AN ORDER FOR 1 UNIT OF PRBC WAS PLACED. BLOOD SLIP NOT RECEIVED. TYPE AND SCREEN PENDING.
[2022-04-25 13:20] LABS: Hematocrit 30.6 % (33.0-51.0); Hemoglobin 9.3 g/dL (11.5-16.0)
--- NOTE | 2022-04-25 19:25 | NUR ---
PT ALERT NO S/S OF ACUTE DISTRESS. SAFETY MEASURES IN PLACE REPORT GIVEN TO ON COMING NURSE.
--- NOTE | 2022-04-25 23:38 | NUR ---
ELOQUIS LATE D/T UNCERTAINTY WHETHER HS DOSE IS TO BE RECIEVED. AM DOSE WAS HELD IN PRESENCE OF LOW HGB W/POSSIBLE IRON DIFFICIENCY CAUSE. 1 UNIT PRBC'S WAS TRANSFUSED AND IRON WAS RECIEVED FOR HGB IMPROVEMENT BUT CLARIFICATION IS NEEDED. THIS RN HAS ATTEMPTED TO CALL X3 BETWEEN 2029 AND 2329 AND AM STILL AWAITING RETURN CALL. WCTM AND TRY AGAIN MOMENTARILY.
--- NOTE | 2022-04-26 01:00 | NUR ---
CALLED AGAIN RE: EL BLOUNT AND HE INSTRUCTED TO CONTINUE TO HOLD MED PENDING REEVALUATION BY SANDY ROSENBAUM.
--- NOTE | 2022-04-26 03:51 | NUR ---
SUMMARY: PT A/OX4, CALLS APPROPRIATELY TO SPECIFY NEEDS AND IS COOPERATIVE W/CARE. BED ALARM IN PLACE D/T FALLING PRIOR TO ADMISSION AND SHE CONT'S TO HAVE HIP AND FACIAL BRUISING W/R.EYE SWELLING RESULT OF ORBITAL FRACTURE. SHE WAS MEDICATED W/NORCO X2 FOR TOLERABLE RELIEF OF FACE, HEAD AND NECK PAIN. SBA PROVIDED TO TOILET. SHE REMAINS ON TELEMETRY AND WAS AFIB AT 80'S-100'S BPM BUT DRAMATIC DIRECTOR ALERTED RN OF A FEW EPISODES SVT W/HR 140'S-150'S BPM THAT LASTED <5 SECS AND RESOLVED SPONTANEOUSLY. ONE OCCURENCE WAS W/AMBULATION, ANOTHER WAS WHEN EXPERIENCING PAIN AND THEN WHILE PT WAS RESTING W/O S/S DISTRESS. SHE DENIED CP AND ALL OTHER S/S CARDIAC DISTRESS EACH TIME. MD WAS MADE AWARE W/CONTINUE TO MONITOR INSTRUCTION RECIEVED AND HE ALSO ADVISED TO CONTINUE TO HOLD HS DOSE OF ELOQUIS PENDING REEVALUATION BY DAY MD. SEE PRIOR NOTES FOR DETAILS. NO ACUTE CHANGES, VSS/AFEBRILE. WCTM AND REPORT TO DAY RN.
[2022-04-26 05:31] LABS: Hematocrit 29.3 % (33.0-51.0); Hemoglobin 8.8 g/dL (11.5-16.0)
--- NOTE | 2022-04-26 07:36 | NUR ---
RECEIVED REPORT FROM NOC RN, LISANDRO COBOS REGARDING PATIENT ELIQUIS WAS HELD THE SCHEDULED DOSE YESTERDAY AND LAST NIGHT D/T PATIENT H&H WAS LOW. CALLED DR. RUSH AT 0736 REGARDING PATIENT ELIQUIS SCHEDULE DOSE THIS AM. RECEIVED ORDER FROM DR. RUSH TO [facility] HOLDING THE SCHEDULE DOSE TODAY.
--- NOTE | 2022-04-26 18:03 | NUR ---
SHIFT SUMMARY: PATIENT A&OX4. CALM, PLEASANT AND COOPERATIVE c CARE. USES CALL LIGHT APPROPRIATELY AND ABLE TO ADVOCATE FOR HER NEEDS. PATIENT DENIES CP/PRESSURE. ON TELE, AFIB AT 85 BPM, PER SUPERVISOR PRINT LINE FRIDA. LUNGS CLEAR T/O TO AUSCULTATION. CONTINENT OF URINE AND STOOL. AMBULATE c SBA AND FWW, TO BATHRROM AND BACK TO BED. PATIENT REPORT PAIN 9/10 TO R SIDE OF FACE, HEAD AND NECK T/O THE DAY. RECEIVED PAIN MEDS X2 NORCO AND X1 TYLENOL. PATIENT REPORTS ADEQUATE RELIEF FROM NORCO BUT NOT c TYLENOL. GI CONSULT WAS CALLED IN AND SPOKE c DR. JEAN BAPTISTE. RECEIVED CALL OVER VOCERA FROM NURSING WASTE SPECIALIST MEG AREVALO, PER MEG, PATIENT NOT ABLE TO GO BACK TO [facility], THEY CANNOT HOLD THE BED FOR HER. CHARGE NURSE, JEFFERY IBARRA STRUCTURAL DESIGNER WAS NOTIFIED. GUIACC NEEDED, AWAITING FOR STOOL SPECIMEN SAMPLE. VITAL SIGNS REVIEWED. IV TO RIGHT FOREARM INFUSING SODIUM FERRIC AT THIS TIME. CALL LIGHT IN REACH.
--- NOTE | 2022-04-27 04:03 | NUR ---
BETTING AGENCY MANAGER SUMMARY A&OX4. PATIENT EFFECTIVELY COMMUNICATES NEEDS. VSS. RR EVEN AND UNLABORED ON RA. PAIN ASSESSED AND MEDICATED PER EMAR. NPO AFTER MIDNIGHT DUE TO POSSIBLE GI CONSULT AND COLONOSCOPY, PER DAYSHIFT REPORT. NO ACUTE EVENTS THROUGHOUT THE NIGHT. BED LOW AND LOCKED. CALL LIGHT WITHIN REACH. THIS RN WILL CONTINUE TO MONITOR.
[2022-04-27 05:28] LABS: BASOPHILS ABSOLUTE AUTO 0.06 K/mm3 (0.00-0.23); BASOPHILS PERCENT AUTO 1 % (0-2); EOSINOPHILS ABSOLUTE AUTO 0.29 K/mm3 (0.00-0.68); EOSINOPHILS PERCENT AUTO 5 % (0-6); Hematocrit 30.5 % (33.0-51.0); Hemoglobin 9.3 g/dL (11.5-16.0); IMMATURE GRAN ABSOLUTE AUTO 0.08 K/mm3 (0.00-0.10); IMMATURE GRAN PERCENT AUTO 1 % (0-1); LYMPHOCYTES ABSOLUTE AUTO 1.62 K/mm3 (0.84-5.20); LYMPHOCYTES PERCENT AUTO 29 % (21-46); MONOCYTES ABSOLUTE AUTO 0.81 K/mm3 (0.16-1.47); MONOCYTES PERCENT AUTO 15 % (4-13); Mean Corpuscular HGB 24.9 pg (26.0-34.0); Mean Corpuscular HGB Conc 30.5 g/dL (31.5-36.5); Mean Corpuscular Volume 82 fL (80-100); Mean Platelet Volume 9.8 fL (9.1-12.4); NEUTROPHILS ABSOLUTE AUTO 2.74 K/mm3 (1.96-9.15); NEUTROPHILS PERCENT AUTO 49 % (41-73); Platelet Count 415 K/mm3 (150-400); RDW Coefficient Variation 23.6 % (11.7-14.2); RDW Standard Deviation 66.4 fL (35.1-46.3); Red Blood Cell Count 3.74 M/mm3 (3.80-5.20)
[2022-04-27 05:57] LABS: Bun/Creatinine Ratio 35.5 (12.0-20.0); Calcium, Blood 8.7 mg/dL (8.5-10.1); Creatinine, Blood 0.93 mg/dL (0.40-1.00); Potassium, Blood 4.4 mmol/L (3.5-5.5)
--- NOTE | 2022-04-27 19:25 | NUR ---
PT ALERT NO S/S OF ACUTE DISTRESS. SAFETY MEASURES IN PLACE. REPORT GIVEN TO ON COMING NURSE.
--- NOTE | 2022-04-27 19:28 | NUR ---
PT ALERT NO S/S OF ACUTE DISTRESS. SAFETY MEASURES IN PLACE. REPORT GIVEN TO ON COMING NURSE.
--- NOTE | 2022-04-27 20:06 | NUR ---
MET AND EVAL PATIENT AT CHANGE OF SHIFT. / L. ORBITAL PAIN MEDICATED EFFECTIVELY TO TOLERABLE LEVEL OF /10. TELE CURRENT A FIB 90'S WITH FREQUENT PVC'S. NO SOB OR CHEST PAIN NOTED AT THIS TIME. VSS. WILL CONTINUE TO MONITOR OVERNIGHT AND TREAT OVERNIGHT.
--- NOTE | 2022-04-28 04:32 | NUR ---
MAURICIO WAS MEDICATED TWICE FOR RIGHT FACIAL AND ALSO HIP PAIN THROUGH THE NIGHT. BOTH TIMES IT DID ALLOW HER TO GET BACK TO SLEEP. SHE IS USING ICE OVER HER RIGHT CHEEK AND ORBIT. SHE IS TOLERATING CLEAR LIQUID DIET WELL, AND UNDERSTANDS THAT PREP FOR MONDAY'S COLONOSCOPY BEGINS THIS MORNING AT 0800. PATIENT DOES CALL APPROPRIATELY FOR ASSISTANCE AT ALL TIMES
[2022-04-28 05:29] LABS: Hematocrit 30.6 % (33.0-51.0); Hemoglobin 9.1 g/dL (11.5-16.0)
--- NOTE | 2022-04-28 07:58 | NUR ---
pt sitting up in bed a/ox3, cooperative with care, follows commands well, reports pain in her face 10/10, req pain meds, this was given, lungs are clear t/o, resp even and unlabored, no cough noted at this time, she reports occ cough and states she's bringing up blood occ that is coming from sinus, on r/a, hrirr, distant, tele in place running afib in the 's, no edema noted, ppp+1, cap refill <3 sec, vs stable, afebrile, piv site to rfa, site is clear and patent, btx4, abd flat soft nontender, voids without diff, skin has some bruising to right side of face, otherwise c/w/d, jannette moreno, call light in reach.
--- NOTE | 2022-04-28 09:17 | NUR ---
Pt known to this card writer hand from previous hospital stay with advnaced care planning performed with Pt during that visit. Brief supportive visit this AM. Pt resting in bed and is drinking prep for her scheduled procedure. Pt reports no longer living at the [facility] and is home less. She reports needing assistance with finding a place to stay. Instructed request will be relayed to RN Caremanager. Continued supportive visit. Pt agreeable for continued visits. Palliative Care will remain available.
[2022-04-28 13:42] LABS: Stool Occult Blood Guaiac 1 Pos (Neg)
--- NOTE | 2022-04-28 14:33 | NUR ---
pt had two doses of prep, and is having some stool, asking for a muscle relaxer, notified Dr. ca lux in reach.
--- NOTE | 2022-04-28 14:34 | NUR ---
pt is more clear this afternoon, responds appropriately, no needs or complaints at this time, call light in reach.
--- NOTE | 2022-04-28 18:18 | NUR ---
pt has had two doses of prep this am, and noon, has been having stools and some cramping, medicated for pain three times today, wants a muscle relaxant tonight, will have scope tomorow afternoon, call light in reach.
[2022-04-29 05:44] LABS: Hematocrit 28.7 % (33.0-51.0); Hemoglobin 8.5 g/dL (11.5-16.0)
--- NOTE | 2022-04-29 07:54 | NUR ---
MAURICIO CONTINUES ON WITH THE PREP FOR HER COLONOSCOPY THIS AFTERNOON. ALTHOUGH HER PRIMARY FOCUS HAS BEEN THE PAIN OVER THE RIGHT SIDE OF HER FACE HER RIGHT SHOULDER AND ALSO HER HIP. FACE IS STILL VERY SWOLLEN AND BRUISED. PATIENT STATES HER TEETH EVEN FEEL LOOSE, AT 0615, WHEN LAST BOTTLE OF AGUIRRE PREP WAS GIVEN, STOOL WAS A DARK BROWN WATERY LIQUID WITH TINY FLECKS AND NO NOTICEABLE PIECES OF STOOL
--- NOTE | 2022-04-29 09:00 | NUR ---
PT PLEASANT COOP A.O. X3, PAIN IN RT FACE R/T FALL AND BRUISING NOTED. PT UNDERGOING BOWEL PREP FOR COLONOSCOPY TODAY. FINISHING LAST GLASS AT THIS TIME. H/R REG, NO MURMUR NOTED. PER TELE, NSR SINCE YEST AM. RATE 67. LUNGS CLEAR, RESP EASY, UNLABORED ;ON R.A. PT HAVING MANY BOUTS DIARRHEA. IS NOW YELLOW WITH SOME SPOTS OF BROWN. WILL FOLLOW PREP CONTINUES. VOIDS AT [facility]. SBA TO BSC IS GETTING PRETTY WEAK AND TIRED. BED IN LOW POSITION, CALL LITE IN REACH, CALLS APPROP
--- NOTE | 2022-04-29 14:55 | NUR ---
04/29/22 1455 Rubina Santos HISTORY, CHART, MEDICATIONS AND ALLERGIES REVIEWED BEFORE START OF PROCEDURE. PATIENT CONFIRMS NPO STATUS AND AGREES WITH SCHEDULED PROCEDURE. 3-LEAD EKG REVIEWED WITH PHYSICIAN PRIOR TO START OF PROCEDURE. MONITOR INTACT WITH CONTINUOUS PULSE OXIMETRY,CAPNOGRAPHY, 3-LEAD EKG, INTERMITTENT BP. SUPPLEMENTAL O2 TO BE TITRATED THROUGHOUT PROCEDURE TO MAINTAIN O2 SATURATION ABOVE 90%. PATIENT DETERMINED TO BE ASA APPROPRIATE FOR PROPOFOL SEDATION PRIOR TO START OF PROCEDURE BY DR. BROWN
--- NOTE | 2022-04-29 15:53 | NUR ---
DR CORRAL START FOOD NOW PER BRAD DEAN. . UPDATING ORDER
--- NOTE | 2022-04-29 17:11 | NUR ---
1530 pt to room. she pleasant talking. wents food. called rn from day [facility], [place]. food okayed from dr carver for now. she eating well. pt states feels good. 1545 pt bp 165/65. states face really hurts. gave norco. 1635 bp dropped to 109/49. 102/[address] carver. lmtc on his cell. next check 1645 improving to 112/50. discussed with charge weigher. watching. [address] trinh, hosp. updated. new bp 98/46 map 62. he okay keep, no new orders bolus at this time. advised called dr jones with no ans yet. discussed with charge weigher. h/r stable. watch for tachy. continuing q15 vitals.
--- NOTE | 2022-04-29 17:55 | NUR ---
PT PLEASANT COOP LADY. PAIN WITH INJURY ON RT FACE. SHE HAD SCOPE TODAY. BP ELEVATED. MEDICATED FOR PAIN. BP IMMEDIATLY DROPPED. CALLED DR HENSON. LMTC ON HIS CELL. CALLED HOSP DR SANCHEZ WHEN DROPPED TO 98/48. MAP 62. H/R 72 HOLDING STEADY. PT SLIGHTLY LIGHT HEADED. NO NEW ORDERS. BP HAS SINCE RECOVERED TO 114/51 OF 1800. PT STATES FEELS OKAY. EATING LIGHT FOOD. CONTINUE TO MONITOR. HAVE DISCUSSED WITH ROADABILITY MACHINE OPERATOR. BED IN LOW POSITION, CALL KATI MENDOZA, CALLS APROP
[2022-04-30 05:45] LABS: Hematocrit 27.2 % (33.0-51.0); Hemoglobin 8.1 g/dL (11.5-16.0)
--- NOTE | 2022-04-30 06:40 | NUR ---
Shift Summary PT hypotensive at start of shift and her BP remained stable around 100/43 t/o the night. C/O pain on R side of face, rcvd PRN L[place] per emar and uninterrupted rest. Pt AOx4, 1 assist to BSC w/ FWW, has R hip and knee pain. No acute events, slept well through part of the night, pleasant and cooperative with care.
--- NOTE | 2022-04-30 16:09 | NUR ---
SHIFT SUMMARY PATIENT IS ALERT AND ORIENTED. PATIENT HAS HAD NO ACUTE EVENTS THIS SHIFT. VITAL SIGNS REVIEWED. PATIENT HAS COMPLAINED OF HIP AND GENERALIZED PAIN ONCE THIS SHIFT. PATIENT HAS NOT COMPLAINED OF SOB, NAUSEA OR VOMITTING THIS SHIFT. PATIENT HAS BEEN PLEASENT AND COOPERATIVE WITH CARE THIS SHIFT. BED IN LOCKED AND LOWEST POSITION. CALL LIGHT IN PLACE. WILL MONITOR UNTIL SHIFT CHANGE
[2022-05-01 05:50] LABS: BASOPHILS ABSOLUTE AUTO 0.05 K/mm3 (0.00-0.23); BASOPHILS PERCENT AUTO 1 % (0-2); EOSINOPHILS PERCENT AUTO 4 % (0-6); Hematocrit 27.1 % (33.0-51.0); IMMATURE GRAN ABSOLUTE AUTO 0.07 K/mm3 (0.00-0.10); IMMATURE GRAN PERCENT AUTO 1 % (0-1); LYMPHOCYTES PERCENT AUTO 27 % (21-46); MONOCYTES ABSOLUTE AUTO 0.86 K/mm3 (0.16-1.47); MONOCYTES PERCENT AUTO 16 % (4-13); Mean Corpuscular HGB 25.4 pg (26.0-34.0); Mean Corpuscular HGB Conc 29.5 g/dL (31.5-36.5); Mean Corpuscular Volume 86 fL (80-100); NEUTROPHILS ABSOLUTE AUTO 2.67 K/mm3 (1.96-9.15); NEUTROPHILS PERCENT AUTO 51 % (41-73); Platelet Count 334 K/mm3 (150-400); RDW Coefficient Variation 24.3 % (11.7-14.2); RDW Standard Deviation 74.5 fL (35.1-46.3); Red Blood Cell Count 3.15 M/mm3 (3.80-5.20); White Blood Cell Count 5.25 K/mm3 (4.00-11.30)
[2022-05-01 06:11] LABS: Bun/Creatinine Ratio 25.1 (12.0-20.0); Calcium, Blood 8.6 mg/dL (8.5-10.1); Creatinine, Blood 0.96 mg/dL (0.40-1.00); Potassium, Blood 4.3 mmol/L (3.5-5.5)
--- NOTE | 2022-05-01 06:17 | NUR ---
Shift Summary PT c/o nausea t/o the night. Refused PM meds, and refused Zofran at that time when offered. Later in the night accepted PRN Zofran which helped a little, also gave PRN Reglan which helped a little more but pt still c/o of nausea this AM. Pt AOx3, some confusion at times. Pt bed bound d/t weakness and incontinent. Q2 turns, purewick in place, attends changed as needed. No c/o pain, no emesis despite constant nausea. VSS, pt slept on and off waking up d/t nausea.
--- NOTE | 2022-05-01 06:24 | NUR ---
Shift Summary Pt c/o painful R side of face and headache. PRN Burton, darkness and uninterrupted rest managed pain well. Pt up to BSC with FWW and 1 SBA. Held PM Hydralazine d/t low MAP. Slept well t/o most of the night. VSS, pleasant and cooperative with care.
--- NOTE | 2022-05-01 16:43 | NUR ---
SHIFT SUMMARY: PT A&0 X4. PT HAS BEEN PLEASANT AND COOPERATIVE WITH ALL CARE PROVIDED. PT HAS C/O PAIN TWICE THIS SHIFT IN THE R.SIDE OF HER FACE WELL A CONSTANT HEADACHE. PROVIDED PT WITH PRN TRAMADOL AND TYLENOL. PT SB ASSIST W/FWW TO BATHROOM. REMINDED PT SEVERAL TIMES THIS SHIFT NOT TO GO W/O A STAFF MEMBER AND TO USE CALL LIGHT. PT HAD FEVER OF 101.3 AROUND 1540. PT HAD RECEIVED TYLENOL PRIOR TO TEMP AND PLACED ICE PACK IN ARMPITS AND COOL RAG ON HEAD. WILL REASSESS TEMP. PT C/O TRACE AMOUNT OF BLOOD WHEN COUGHING. STATED THIS HAS HAPPENED BEFORE. PT HAS NOT C/O OF THIS SINCE THE AM. PT STATES SHE FEELS SHE NEEDS TO HAVE "IMAGES DONE ON HER HEAD." CALL LIGHT IN REACH. WILL CONTINUE TO MONITOR.
--- NOTE | 2022-05-01 20:27 | NUR ---
NURSE NOTE--PHYSICIAN CONTACT DAY SHIFT REPORT AND THIS NURSE OBSERVED SMALL AMOUNTS OF BLOOD IN PT SPUTUM. DOSE OF ELIQUIS SCHEDULED 2099; CALL TO DR TO DISCUSS--DR BASHIR APPROVED GIVIING ELIQUIS MEDS.
--- NOTE | 2022-05-02 08:05 | NUR ---
GEAR HOBBER SET UP OPERATOR SUMMARY NO ACUTE CHANGES. A/OX4. PLEASANT AND COOPERATIVE. PT CONT TO C/O PAIN ON RIGHT SIDE OF HER FACE/HEAD; 10/10. MED PER EMAR. OBSERVED TRACE AMOUNT OF BLOOD IN SPUTUM. GAVE PM DOSE OF ELIQUIS; SEE RN NOTE. PT CALLS APPROPRIATELY FOR ASSISTANCE TO THE BATHROOM; SBA W/FWW. VITALS REVIEWED/STABLE. CALL LIGHT ACCESSIBLE. BED LOCKED/LOW.
[2022-05-02 08:41] LABS: BASOPHILS ABSOLUTE AUTO 0.07 K/mm3 (0.00-0.23); BASOPHILS PERCENT AUTO 1 % (0-2); EOSINOPHILS ABSOLUTE AUTO 0.21 K/mm3 (0.00-0.68); EOSINOPHILS PERCENT AUTO 4 % (0-6); Hematocrit 28.8 % (33.0-51.0); Hemoglobin 8.3 g/dL (11.5-16.0); IMMATURE GRAN PERCENT AUTO 2 % (0-1); LYMPHOCYTES ABSOLUTE AUTO 1.32 K/mm3 (0.84-5.20); LYMPHOCYTES PERCENT AUTO 22 % (21-46); MONOCYTES ABSOLUTE AUTO 0.96 K/mm3 (0.16-1.47); MONOCYTES PERCENT AUTO 16 % (4-13); Mean Corpuscular HGB 25.3 pg (26.0-34.0); Mean Corpuscular HGB Conc 28.8 g/dL (31.5-36.5); Mean Corpuscular Volume 88 fL (80-100); Mean Platelet Volume 10.3 fL (9.1-12.4); NEUTROPHILS ABSOLUTE AUTO 3.36 K/mm3 (1.96-9.15); NEUTROPHILS PERCENT AUTO 56 % (41-73); Platelet Count 298 K/mm3 (150-400); RDW Coefficient Variation 23.9 % (11.7-14.2); RDW Standard Deviation 75.2 fL (35.1-46.3); Red Blood Cell Count 3.28 M/mm3 (3.80-5.20); White Blood Cell Count 6.02 K/mm3 (4.00-11.30)
--- NOTE | 2022-05-02 16:47 | NUR ---
SHIFT SUMMARY: PT A&O X4. PT HAS BEEN PLEASANT AND COOPERATIVE WITH ALL CARE PROVIDED. NO ACUTE CHANGES THIS SHIFT. PT CONTINUES TO C/O 7/10 PAIN IN R. HIP, R. SIDE OF FACE, AND HEAD. GIVEN TWO DOSES OF PRN NORCO AND A MUSCLE RELAXER. PT WORKED WITH PHYSICAL THERAPY TODAY. PT WENT DOWN FOR A CHEST XRAY THIS AFTERNOON DUE TO HEMOPTYSIS. EMPLOYEES FROM [employer] CAME TO TALK TO/INTERVIEW PT. PT AND FACILITY BOTH STATE SHE WOULD BE A GOOD FIT. PAPERWORK IN ROOM AND ENCOURAGING PT TO FILL OUT. CALL LIGHT IN REACH. BED IN LOWEST POSITION. WILL CONTINUE TO MONITOR.
--- NOTE | 2022-05-03 04:18 | NUR ---
WARRANTY CLERK SUMMARY A&OX4. PATIENT EFFECTIVELY COMMUNICATES NEEDS. NO ACUTE EVENTS THROUGHOUT THE NIGHT. VSS. TELE REVEALS SINUS RHYTHM, HR 60'S. PRN PAIN MEDICATION PROVIDED ADEQUATE COVERAGE. PATIENT OBSERVED SLEEPING COMFORTABLY THROUGHOUT THE NIGHT. BED LOW AND LOCKED. CALL LIGHT WITHIN REACH. THIS RN WILL CONTINUE TO CLOSELY MONITOR.
[2022-05-03 05:05] LABS: Hematocrit 28.2 % (33.0-51.0); Hemoglobin 8.3 g/dL (11.5-16.0)
--- NOTE | 2022-05-03 15:14 | NUR ---
SHIFT SUMMARY PT AWAKE DURING SHIFT REPORT, RESTING QUIETLY. CALLS FOR ASSIST TO BTHRM, USING FWW AND SBA. PT WITH BRUISING TO R FACE D/T FALL AT HOME. PT ALSO C/O PAIN TO R HIP; MEDICATED X1 TO PRESENT THIS SHIFT. PT TO F/U WITH OPTHAMOLOGY OUTPT AT D/C. CARE MANAGERS WORKING ON PLACEMENT AT THIS TIME. PT ABLE TO WORK WITH PT/OT TODAY AND AMBULATE IN HALLS AND . DENIED FURTHER NEEDS AT THIS TIME. CALL LT IN REACH.
[2022-05-04 05:49] LABS: Hematocrit 35.3 % (33.0-51.0); Hemoglobin 10.7 g/dL (11.5-16.0)
--- NOTE | 2022-05-04 07:34 | NUR ---
ACUTE CARE PHYSICIAN SUMMARY: A&Ox3-4. PLEASANT AND COOPERATIVE WITH CARE. CALLS APPROPRIATELY AND IS ABLE TO COMMUNICATE NEEDS EFFECTIVELY. C/O PAIN IN CHEEKBONE R/T FALLS; MEDICATED PRN NORCO THIS AM. HYDRALAZINE HELD LAST NIGHT D/T SBP 100. DECLINED MILK OF MAG, AFRAID SHE WOULD BE UP ALL NIGHT WITH DIARRHEA SO SHE HAS REQUESTED TO TAKE IT THIS MORNING. ANTICIIPATE DC TO LTC FACILITY. LABS DRAWN THIS AM; NO CRITICAL VALUES RECEIVED. WILL REPORT TO ONCOMING RN.
--- NOTE | 2022-05-04 14:19 | NUR ---
VS TAKEN BEFORE ADMINITERING SCHEDULED APRESOLINE- 1405 BP 86/63- HR 110, PT STATES SHE FEELS WEAK AND TIRED. HELD APRESONINE. CALL PLACED TO DR MAS, NOTIFIED OF LOW BP, ORDER FOR 1L NS BOLUS AND REEVAL. PT HAS MULTIPLE AM BP MEDS ADMINISTERED, NEEDS TO BE ADRESSED. PASSED INFORMATION TO ONCOMING JOHNNIE GOETZ.
--- NOTE | 2022-05-04 14:51 | NUR ---
ASSUMED CARE OF PT AT THIS TIME PT HYPOTENSIVE NOTIFIED BOLUS 1L BOLUS NS @ THIS TIME. PT RESPONDING TO QUESTIONS APPROPRIATLY. PT C/O DIZZINESS AND FEELING TIRED. BP 84/60 @ THIS TIME 450 NS IN.
[2022-05-04 16:24] LABS: Hematocrit 31.7 % (33.0-51.0); Hemoglobin 9.6 g/dL (11.5-16.0); Mean Corpuscular HGB 25.9 pg (26.0-34.0); Mean Corpuscular HGB Conc 30.3 g/dL (31.5-36.5); Mean Corpuscular Volume 86 fL (80-100); Mean Platelet Volume 9.8 fL (9.1-12.4); Platelet Count 324 K/mm3 (150-400); White Blood Cell Count 8.02 K/mm3 (4.00-11.30)
[2022-05-04 16:48] LABS: Magnesium, Blood 2.4 mg/dL (1.6-2.4)
[2022-05-04 16:52] LABS: Bun/Creatinine Ratio 35.1 (12.0-20.0); Calcium, Blood 8.6 mg/dL (8.5-10.1); Creatinine, Blood 1.51 mg/dL (0.40-1.00); Phosphorus, Blood 3.5 mg/dL (2.5-4.9); Potassium, Blood 5.5 mmol/L (3.5-5.5); Thyroid Stimulating Hormone 1.2 uIU/mL (0.360-4.800)
--- NOTE | 2022-05-04 17:20 | NUR ---
SHIFT SUMMARY PT A&OX4 AND IN PLEASENT MOOD SINCE THIS RN ASSUMED CARE OF PT AT APPROX 1330. HYPOTENSION NOTED-MEDS ADJUSTED. 2L BOLUS. FRIEND IN TO SEE PT T/O VISITING HOURS. TOLERATING PO INTAKE. PLAN TO COLLECT UA. CALL LIGHT W/IN REACH. TELE IN PLACE-AFIB. EKG-AFIB.
--- NOTE | 2022-05-04 17:26 | NUR ---
pt hypotensive assiting nurse with care. Pt back on meds and BP dropped. Fluid bolus give. Review care with nurse and reassured patient of care needs. Nursing updated physican. Will continue to monitor advised monitor closelsy for s/s of bleeding. will follow up.
[2022-05-04 17:44] LABS: Source, Urine Clean Catch
[2022-05-04 17:46] LABS: Appearance, Urine Clear (Clear); Bilirubin, Urine Neg (Neg); Blood, Urine Neg (Neg); Glucose Qualitative, Urine Neg (Neg); Ketones, Urine Neg (Neg); Leukocyte Esterase, Urine 3+ (Neg); Nitrite, Urine Neg (Neg); Protein, Urine Neg (Neg); Urobilinogen, Urine NORM (Normal)
[2022-05-04 17:53] LABS: Color, Urine Pale Yellow (P-Yellow)
[2022-05-04 17:55] LABS: Bacteria Few /hpf; Red Blood Cells, Urine 0-2 /hpf (0-2); Squamous Epithelial Cells Few /hpf (Few)
--- NOTE | 2022-05-05 03:38 | NUR ---
RIBBON SWEATBAND OPERATOR SUMMARY NO ACUTE EVENTS THROUGHOUT THE NIGHT. A&OX4. PATIENT EFFECTIELY COMMNICATES NEEDS. VSS. TELE REVEALS A-FB, HR 70'S. RR EVEN AND UNLABORED ON RA. PAIN MEDICATED PER EMAR. BED LOW AND LOCKED. CALL LIGHT WITHIN REACH. CONTINUED MONITORING.
[2022-05-05] MEDS ORDERED: FEROSUL220 MG/51 PO (08:24)
[2022-05-05] MEDS ORDERED: DOCU100 PO (08:24)
[2022-05-05] MEDS ORDERED: DILT120 PO (08:24)
[2022-05-05] MEDS ORDERED: FLUC200 PO (08:25)
[2022-05-05] MEDS ORDERED: MIRALAX17 GM PO (08:49)
[2022-05-05 10:44] LABS: Hematocrit 31.9 % (33.0-51.0); Hemoglobin 9.6 g/dL (11.5-16.0); Mean Corpuscular HGB 25.9 pg (26.0-34.0); Mean Corpuscular HGB Conc 30.1 g/dL (31.5-36.5); Mean Corpuscular Volume 86 fL (80-100); Mean Platelet Volume 9.9 fL (9.1-12.4); Platelet Count 308 K/mm3 (150-400); RDW Coefficient Variation 24.5 % (11.7-14.2); RDW Standard Deviation 75.9 fL (35.1-46.3); Red Blood Cell Count 3.71 M/mm3 (3.80-5.20); White Blood Cell Count 6.54 K/mm3 (4.00-11.30)
--- NOTE | 2022-05-05 10:45 | NUR ---
TELE MONITOR NOTIFIED THIS RN PT CONVERTED TO SR FROM AFIB AT APPROX MIDNIGHT AFTER 2.6 SECOND PAUSE (SINUS PAUSE)
[2022-05-05 10:58] LABS: Bun/Creatinine Ratio 41.1 (12.0-20.0); Creatinine, Blood 1.12 mg/dL (0.40-1.00); Potassium, Blood 4.8 mmol/L (3.5-5.5)
--- NOTE | 2022-05-05 12:25 | NUR ---
PT REPORT TO LACIE DUNLAP RN, SHE IS ASSUMING CARE AT THIS TIME
--- NOTE | 2022-05-05 19:49 | NUR ---
RN RECEIVED REPORT FROM CHARGE NURSE AT 1315. MAURICIO WAS PLANNED FOR DISCHARGE TODAY, BUT WAS KEPT DUE TO UTI AND STARTING ROCEPHIN. PT IS VERY ANXIOUS, CONCERNED THAT HER BELONGINGS AT [facility] WILL BE STOLEN. SHE IS LOOKING FORWARD TO DISCHARGE TO [facility]. PT DENIES PAIN, AND STATES SHE WANTS TO LENGTHEN THE TIME BETWEEN HER PAIN MED ADMINISTRATION. ROOM AIR. IV TO LFA. SBA TO BSC. MONITORED REMOTELY VIA TELEMTETRY RATE CONTROLLED AFIB IN THE 80'S - 90'S. HARD SCRIPT FOR NORCO WAS PLACED BY CM MEAT STOCKER BRINDA IN THE PT PACKET FOR DISCHARGE TO SNF, ANTICIPATED TOMORROW. RN GAVE REPORT TO ONCOMING NURSE.
--- NOTE | 2022-05-06 03:55 | NUR ---
PATIENT ALERT AND ORIENTED, ROOM AIR, AFIB CONTROLLED ON TELE, 20 LFA SL, CARDIAC DIET, STANDBY ASSIST TO RESTROOM, HARD SCRIPT FOR NORCO IN D/C PACKET, ORBIAL FX FROM FALL PRIOR TO HOSPITALIZATION, PLAN TO D/C TO [facility] ONCE UTI RESOLVED, MEDICATED FOR PAIN PER EMAR, NO EVENTS OVERNIGHT, PATIENT SLEPT WELL.
--- NOTE | 2022-05-06 12:00 | NUR ---
PT WAS TRANSPORTED TO [facility]. SNF PACKET GIVEN TO EMS STAFF. BELONGINGS RETURNED TO PT. PT WAS WHEELED OUT TO AMBULANCE TRANSPORT VIA WHEELCHAIR, ACCOMPANIED BY EMS STAFF AND INDUSTRIAL ORDER CLERK. IV AND TELEMETRY REMOVED BY VALORIE DAILY.
== END 2022-05-06 12:18 | disposition home health service (06) ==
LOC: ER 08:59 → MEDS 09:00 → PCU 09:00 → MEDS 04-24 11:16 → ENPENDDIS 05-05 17:35 → MEDS 05-06 12:18
PROVIDERS: Emergency Medicine; Family Medicine; Family Medicine Adult Medicine; Internal Medicine; Nurse Practitioner Acute Care; Student in an Organized Health Care Education/Training Program; ADMIT Internal Medicine
PROC: 0DB68ZX Excision of Stomach, Via Natural or Artificial Opening Endoscopic, Diagnostic (ICD-10-PCS; principal; 2022-04-29 13:00)
PROC: 0DBL8ZX Excision of Transverse Colon, Via Natural or Artificial Opening Endoscopic, Diagnostic (ICD-10-PCS; principal; 2022-04-29 13:00)
PROC: 0DB48ZX Excision of Esophagogastric Junction, Via Natural or Artificial Opening Endoscopic, Diagnostic (ICD-10-PCS; principal; 2022-04-29 13:00)
PROC: 0DBN8ZX Excision of Sigmoid Colon, Via Natural or Artificial Opening Endoscopic, Diagnostic (ICD-10-PCS; principal; 2022-04-29 13:00)
PROC: 0DBP8ZX Excision of Rectum, Via Natural or Artificial Opening Endoscopic, Diagnostic (ICD-10-PCS; principal; 2022-04-29 13:00)
DX: I48.91 Unspecified atrial fibrillation (principal); D50.9 Iron deficiency anemia, unspecified; K59.00 Constipation, unspecified; R04.2 Hemoptysis; E11.9 Type 2 diabetes mellitus without complications; B37.89 Other sites of candidiasis; I11.0 Hypertensive heart disease with heart failure; I50.9 Heart failure, unspecified; S02.30XA Fracture of orbital floor, unspecified side, initial encounter for closed fracture; W19.XXXA Unspecified fall, initial encounter; Y92.009 Unspecified place in unspecified non-institutional (private) residence as the place of occurrence of the external cause; S02.40CA Maxillary fracture, right side, initial encounter for closed fracture; K29.50 Unspecified chronic gastritis without bleeding; D12.3 Benign neoplasm of transverse colon; K44.9 Diaphragmatic hernia without obstruction or gangrene; K57.30 Diverticulosis of large intestine without perforation or abscess without bleeding; K64.8 Other hemorrhoids; G89.29 Other chronic pain; R07.9 Chest pain, unspecified; K21.9 Gastro-esophageal reflux disease without esophagitis; J44.9 Chronic obstructive pulmonary disease, unspecified; Z86.73 Personal history of transient ischemic attack (TIA), and cerebral infarction without residual deficits
CPT/HCPCS: 36415; 70450; 70486; 71045; 71046; 72125; 73030; 73502; 80048; 80053; 81001; 82270; 82947; 83036; 83605; 83735; 84100; 84443; 84484; 85014; 85018; 85025; 85027; 86850; 86900; 86901; 86923; 87086; 87147; 88305; 88312; 88342; 93005; 93010; 94640; 94664; 94760; 96365; 96367; 96375; 97110; 97110-CO; 97116; 97162; 97165; 97530; 97535; 97535-CO; 99285-25; A9270; J0360; J0696; J1160; J1170; J1885; J2405; J2704; J2916; J3475; J7030; J7050; J7120; P9016

== ENCOUNTER → 2022-06-03 | Outpatient (CLI) | payer OTHER ==
[~2022-06-03] MED LIST changes: +DILT120 PO; +DOCU100 PO; +FEROSUL220 MG/51 PO; +FLUC200 PO; +MIRALAX17 GM PO
[2022-06-03 19:44] LABS: Creatinine, Blood 0.86 mg/dL (0.40-1.00); Potassium, Blood 4.1 mmol/L (3.5-5.5)
== END | disposition home or self-care (01) ==
LOC: LAB SHORT 18:54 → LAB 18:54
PROVIDERS: Family Medicine
DX: G89.4 Chronic pain syndrome (principal)
CPT/HCPCS: 80048

== ENCOUNTER 2022-07-11 20:06 | Observation (INO) | payer OTHER ==
[~2022-07-11] VITALS: Ht 167.6 cm; Wt 60.4 kg
[2022-07-11 20:27] LABS: BASOPHILS PERCENT AUTO 1 % (0-2); EOSINOPHILS ABSOLUTE AUTO 0.08 K/mm3 (0.00-0.68); EOSINOPHILS PERCENT AUTO 1 % (0-6); Hemoglobin 12.5 g/dL (11.5-16.0); IMMATURE GRAN ABSOLUTE AUTO 0.63 K/mm3 (0.00-0.10); IMMATURE GRAN PERCENT AUTO 6 % (0-1); LYMPHOCYTES ABSOLUTE AUTO 2.13 K/mm3 (0.84-5.20); LYMPHOCYTES PERCENT AUTO 19 % (21-46); MONOCYTES ABSOLUTE AUTO 0.84 K/mm3 (0.16-1.47); MONOCYTES PERCENT AUTO 8 % (4-13); Mean Corpuscular HGB Conc 31.3 g/dL (31.5-36.5); Mean Corpuscular Volume 90 fL (80-100); Mean Platelet Volume 9.3 fL (9.1-12.4); NEUTROPHILS ABSOLUTE AUTO 7.47 K/mm3 (1.96-9.15); NEUTROPHILS PERCENT AUTO 66 % (41-73); Platelet Count 344 K/mm3 (150-400); RDW Coefficient Variation 17.1 % (11.7-14.2); RDW Standard Deviation 55.6 fL (35.1-46.3); Red Blood Cell Count 4.46 M/mm3 (3.80-5.20); White Blood Cell Count 11.25 K/mm3 (4.00-11.30)
[2022-07-11] MEDS ORDERED: DILTIAZEM PO (20:54)
[2022-07-11 20:56] LABS: Magnesium, Blood 1.9 mg/dL (1.6-2.4)
[2022-07-11 21:01] LABS: Albumin, Blood 3.8 g/dL (3.4-5.0); Albumin/Globulin Ratio 1.1 (0.8-1.8); Bilirubin, Total 0.3 mg/dL (0.1-1.0); Bun/Creatinine Ratio 26.2 (12.0-20.0); Calcium, Blood 9.5 mg/dL (8.5-10.1); Creatinine, Blood 0.99 mg/dL (0.40-1.00); Globulin, Blood 3.6 g/dL (2.2-4.0); Potassium, Blood 4.4 mmol/L (3.5-5.5); Total Protein, Blood 7.4 g/dL (6.4-8.2)
[2022-07-11 21:43] LABS: Thyroid Stimulating Hormone 1.8 uIU/mL (0.360-4.800)
[2022-07-12] VITALS (11 sets, daily range): BP systolic 112–177; BP diastolic 57–108
[2022-07-12 04:34] LABS: BASOPHILS ABSOLUTE AUTO 0.11 K/mm3 (0.00-0.23); BASOPHILS PERCENT AUTO 1 % (0-2); EOSINOPHILS ABSOLUTE AUTO 0.07 K/mm3 (0.00-0.68); EOSINOPHILS PERCENT AUTO 1 % (0-6); Hematocrit 37.9 % (33.0-51.0); Hemoglobin 11.7 g/dL (11.5-16.0); IMMATURE GRAN PERCENT AUTO 5 % (0-1); LYMPHOCYTES ABSOLUTE AUTO 1.86 K/mm3 (0.84-5.20); LYMPHOCYTES PERCENT AUTO 18 % (21-46); MONOCYTES ABSOLUTE AUTO 0.89 K/mm3 (0.16-1.47); MONOCYTES PERCENT AUTO 9 % (4-13); Mean Corpuscular HGB Conc 30.9 g/dL (31.5-36.5); Mean Corpuscular Volume 91 fL (80-100); Mean Platelet Volume 9.8 fL (9.1-12.4); NEUTROPHILS ABSOLUTE AUTO 6.92 K/mm3 (1.96-9.15); NEUTROPHILS PERCENT AUTO 67 % (41-73); Platelet Count 312 K/mm3 (150-400); RDW Standard Deviation 54.7 fL (35.1-46.3); Red Blood Cell Count 4.18 M/mm3 (3.80-5.20); White Blood Cell Count 10.35 K/mm3 (4.00-11.30)
[2022-07-12 04:54] LABS: Albumin, Blood 3.6 g/dL (3.4-5.0); Albumin/Globulin Ratio 1.1 (0.8-1.8); Bilirubin, Total 0.2 mg/dL (0.1-1.0); Bun/Creatinine Ratio 33.3 (12.0-20.0); Calcium, Blood 9.1 mg/dL (8.5-10.1); Creatinine, Blood 0.81 mg/dL (0.40-1.00); Globulin, Blood 3.2 g/dL (2.2-4.0); Magnesium, Blood 2.2 mg/dL (1.6-2.4); Potassium, Blood 4.3 mmol/L (3.5-5.5); Total Protein, Blood 6.8 g/dL (6.4-8.2)
--- NOTE | 2022-07-12 06:11 | NUR ---
SHIFT SUMMARY PT CAME IN THIS SHIFT W/ AFIB RVR. SHE WAS ON A DILTIAZEM GTT AT 5 AND IT WAS TURNED OFF ABOUT 0200 BECAUSE HER HR DROPPED TO THE 60'S. SHE WAS HYPERTENSIVE BUT THE GTT HELPED STABLIZE IT. PT DENIES ANY ANGINA AND CHEST PALPITATIONS SINCE ARRIVING TO PCU. HR IS AFIB 60'S-80'S OFF THE GTT. SHE IS ON RA AND DENIES SOB. SHE IS IS A&OX4, CALLS APPROPRIATELY, SBA FOR TX, AND COOPERATIVE WITH CARE. SHE HAS HANGMAN SYNDROME AND GETS NORCO AROUND THE CLOCK TO HELP MANAGE PAIN. SHE WAS MEDICATED FOR PAIN AND THE NAUSEA SHE PRESENTED WITH ON ADMISSION. SHE HAS BEEN RESTING IN THE ROOM AND HAS HAD NO OTHER COMPLAINTS.
[2022-07-12] MEDS ORDERED: DICLOFONO2.5 GM (08:11)
[2022-07-12] MEDS ORDERED: ELIQUIS5 M2 PO (08:12)
[2022-07-12] MEDS ORDERED: DILT60ER PO (08:12)
[2022-07-12] MEDS ORDERED: LISI20 PO (08:14)
[2022-07-12] MEDS ORDERED: GABA300 PO (08:14)
[2022-07-12] MEDS ORDERED: FERROUS SULFATE (08:14)
[2022-07-12] MEDS ORDERED: SENNA LAXATIVE8.6 MG PO (08:15)
[2022-07-12] MEDS ORDERED: TRAZ100 PO (08:15)
[2022-07-12] MEDS ORDERED: DOCU100 PO (08:16)
[2022-07-12] MEDS ORDERED: METF500 PO (08:17)
[2022-07-12] MEDS ORDERED: Norco 5-325 Ta1 EACH PO (08:17)
[2022-07-12] MEDS ORDERED: SYMBICORT 160-4.6 GM INH (08:18)
[2022-07-12] MEDS ORDERED: PANT40 PO (08:18)
--- NOTE | 2022-07-12 17:20 | NUR ---
SHIFT SUMMARY; ASSUMED CARE AT 0700. A/A/OX4 DURING SHIFT. HR AFIB 100'115 DURING SHIFT. RESTARTED ON ORAL DILTIAZEM. CHEMBG'S PER EMAR, VSS. FORGETFUL AT TIMES, WHICH IS BASELINE FOR PT. AMBULATES WITH SBA, NO ACUTE CHANGES, WILL CONTINUE TO MONITOR AND TREAT UNTIL CHANGE OF SHIFT.
[2022-07-13 04:55] VITALS: BP 169/95
--- NOTE | 2022-07-13 06:12 | NUR ---
SHIFT SUMMARY OT IS A&OX4 BUT IS FORGETFUL AT TIMES. SHE CALLS APPROPRIATELY AND IS A SBA FOR TX. SHE HAS BEEN AFIB 80 S-110 S ON TELE AND BP STARTED OUT ELEVATED W/ THE SYSTOLIC IN THE 160 S. SHE WAS GIVEN HER DOSE OF 120 MG CARDIZEM PO AND HER BP IS NOW STABLE. SHE TOLERATED THE INCREASED DOSE WELL. PT WAS MEDICATED FOR HER CHRONIC NECK PAIN, AND HAS HAD NO OTHER COMPLAINTS THIS SHIFT. SHE IS ON ROOM AIR AND HAS NO SOB. HER BED ALARM IS ON, BED IS IN LOW, AND CALL LIGHT IS IN REACH. I WILL CONTINUE TO MONITOR UNTIL SHIFT REPORT IS GIVEN TO THE ONCOMING SHIFT RN. SEE NOTES FOR ANY UPDATES.
[2022-07-13 07:19] VITALS: BP 157/102
[2022-07-13 12:09] VITALS: BP 143/97
[2022-07-13] MEDS ORDERED: ALBU90OI INH (13:30)
[2022-07-13] MEDS ORDERED: GUAI600T33 PO (13:31)
[2022-07-13] MEDS ORDERED: AZIT250 PO (13:31)
--- NOTE | 2022-07-13 14:11 | NUR ---
PT DISCHARGED BACK TO [facility] WITH DISCHARGE ORDERS. DR HAY WENT OVER MEDICATION CHANGES WITH THE PT AND FOLLOW UP APPTS. PT VERBALIZED UNDERSTANDING. PT HRR SUSTAINING 90-110'S INCREASES TO 140'S WITH EXERTION GOES BACK DOWN TO 90'S AFTER REST. PT DENIES PALPITATIONS AND CHEST PAIN. PT HAS BEEN INDEPENDENT IN THE ROOM. SBP 140'S, SATS ABOVE 95% ON RA, AFEBRILE. ALL BELONGINGS SENT WITH THE PT, TRANSPORTATION SHOWED UP AT APPROX 1400.
== END 2022-07-13 13:53 | disposition home or self-care (01) ==
LOC: ER 20:06 → PCU 22:25 → ER 22:25 → PCU 22:25
PROVIDERS: Emergency Medicine; Family Medicine; ADMIT Internal Medicine
DX: I48.91 Unspecified atrial fibrillation (principal); F17.210 Nicotine dependence, cigarettes, uncomplicated; J44.9 Chronic obstructive pulmonary disease, unspecified; N18.30 Chronic kidney disease, stage 3 unspecified; E11.22 Type 2 diabetes mellitus with diabetic chronic kidney disease; I50.9 Heart failure, unspecified; I13.0 Hypertensive heart and chronic kidney disease with heart failure and stage 1 through stage 4 chronic kidney disease, or unspecified chronic kidney disease
CPT/HCPCS: 36415; 51702; 71045; 80053; 82947; 83735; 84443; 84484; 85025; 93005; 93010; 94640; 94762; 96365; 96368; 96374; 96376; 99285-25; A9270; G0378; J3475

== ENCOUNTER 2022-08-15 16:54 | Inpatient (IN) | payer OTHER ==
[~2022-08-15] VITALS: Ht 167.6 cm; Wt 62.0 kg
[~2022-08-15 16:54] MED LIST changes: +AZIT250 PO; +BISA10S PR; +Cardizem Cd180 MG PO; +DICLOFONO2.5 GM; +DILT60ER PO; +DILTIAZEM PO; +FERROUS SULFATE; +PANT40 PO; +SENNA LAXATIVE8.6 MG PO
[2022-08-15 18:15] LABS: BASOPHILS PERCENT AUTO 1 % (0-2); EOSINOPHILS ABSOLUTE AUTO 0.11 K/mm3 (0.00-0.68); EOSINOPHILS PERCENT AUTO 1 % (0-6); Hematocrit 48.8 % (33.0-51.0); Hemoglobin 15.5 g/dL (11.5-16.0); IMMATURE GRAN ABSOLUTE AUTO 0.27 K/mm3 (0.00-0.10); IMMATURE GRAN PERCENT AUTO 2 % (0-1); LYMPHOCYTES ABSOLUTE AUTO 2.24 K/mm3 (0.84-5.20); LYMPHOCYTES PERCENT AUTO 16 % (21-46); MONOCYTES ABSOLUTE AUTO 1.14 K/mm3 (0.16-1.47); MONOCYTES PERCENT AUTO 8 % (4-13); Mean Corpuscular HGB 29.7 pg (26.0-34.0); Mean Corpuscular HGB Conc 31.8 g/dL (31.5-36.5); Mean Corpuscular Volume 94 fL (80-100); Mean Platelet Volume 9.7 fL (9.1-12.4); NEUTROPHILS ABSOLUTE AUTO 9.78 K/mm3 (1.96-9.15); NEUTROPHILS PERCENT AUTO 72 % (41-73); Platelet Count 316 K/mm3 (150-400); RDW Coefficient Variation 15.6 % (11.7-14.2); Red Blood Cell Count 5.22 M/mm3 (3.80-5.20); White Blood Cell Count 13.64 K/mm3 (4.00-11.30)
[2022-08-15 18:40] LABS: Albumin, Blood 4.1 g/dL (3.4-5.0); Albumin/Globulin Ratio 1.2 (0.8-1.8); Bilirubin, Total 0.6 mg/dL (0.1-1.0); Bun/Creatinine Ratio 21.2 (12.0-20.0); Creatinine, Blood 1.13 mg/dL (0.40-1.00); Globulin, Blood 3.4 g/dL (2.2-4.0); Potassium, Blood 4.3 mmol/L (3.5-5.5); Total Protein, Blood 7.5 g/dL (6.4-8.2)
[2022-08-15 23:07] VITALS: BP 175/115
[2022-08-15 23:26] VITALS: BP 179/95
[2022-08-15 23:30] VITALS: BP 174/105
[2022-08-15 23:55] LABS: International Normalized Ratio 0.96; Prothrombin Time Results 10.1 Sec (9.7-11.5)
[2022-08-16] VITALS (7 sets, daily range): BP systolic 116–174; BP diastolic 62–92
[2022-08-16 06:03] LABS: BASOPHILS ABSOLUTE AUTO 0.09 K/mm3 (0.00-0.23); BASOPHILS PERCENT AUTO 1 % (0-2); EOSINOPHILS ABSOLUTE AUTO 0.05 K/mm3 (0.00-0.68); EOSINOPHILS PERCENT AUTO 1 % (0-6); Hematocrit 45.5 % (33.0-51.0); Hemoglobin 14.6 g/dL (11.5-16.0); IMMATURE GRAN ABSOLUTE AUTO 0.17 K/mm3 (0.00-0.10); IMMATURE GRAN PERCENT AUTO 2 % (0-1); LYMPHOCYTES ABSOLUTE AUTO 1.64 K/mm3 (0.84-5.20); LYMPHOCYTES PERCENT AUTO 17 % (21-46); MONOCYTES ABSOLUTE AUTO 0.81 K/mm3 (0.16-1.47); MONOCYTES PERCENT AUTO 8 % (4-13); Mean Corpuscular HGB 29.5 pg (26.0-34.0); Mean Corpuscular HGB Conc 32.1 g/dL (31.5-36.5); Mean Corpuscular Volume 92 fL (80-100); Mean Platelet Volume 9.7 fL (9.1-12.4); NEUTROPHILS ABSOLUTE AUTO 7.11 K/mm3 (1.96-9.15); NEUTROPHILS PERCENT AUTO 72 % (41-73); Platelet Count 261 K/mm3 (150-400); RDW Coefficient Variation 15.4 % (11.7-14.2); Red Blood Cell Count 4.95 M/mm3 (3.80-5.20); White Blood Cell Count 9.87 K/mm3 (4.00-11.30)
[2022-08-16 06:27] LABS: Albumin, Blood 3.6 g/dL (3.4-5.0); Albumin/Globulin Ratio 1.1 (0.8-1.8); Bilirubin, Total 0.8 mg/dL (0.1-1.0); Bun/Creatinine Ratio 20.4 (12.0-20.0); Calcium, Blood 9.1 mg/dL (8.5-10.1); Creatinine, Blood 0.78 mg/dL (0.40-1.00); Globulin, Blood 3.2 g/dL (2.2-4.0); Potassium, Blood 3.8 mmol/L (3.5-5.5); Total Protein, Blood 6.8 g/dL (6.4-8.2)
[2022-08-17 04:01] VITALS: BP 117/82
[2022-08-17 07:41] VITALS: BP 105/68
[2022-08-17 09:15] VITALS: BP 112/65
[2022-08-17 11:37] VITALS: BP 111/69
[2022-08-17] MEDS ORDERED: DILT120ERA PO (21:34)
== END 2022-08-17 12:57 | DRG 309 ==
LOC: ER 16:54 → PCU 22:34
PROVIDERS: Family Medicine; Physician Assistant; ADMIT Internal Medicine
DX: I48.91 Unspecified atrial fibrillation (principal); I13.0 Hypertensive heart and chronic kidney disease with heart failure and stage 1 through stage 4 chronic kidney disease, or unspecified chronic kidney disease; N17.9 Acute kidney failure, unspecified; R65.10 Systemic inflammatory response syndrome (SIRS) of non-infectious origin without acute organ dysfunction; I50.32 Chronic diastolic (congestive) heart failure; F17.210 Nicotine dependence, cigarettes, uncomplicated; J44.9 Chronic obstructive pulmonary disease, unspecified; M79.89 Other specified soft tissue disorders; E11.22 Type 2 diabetes mellitus with diabetic chronic kidney disease; N18.30 Chronic kidney disease, stage 3 unspecified; I27.20 Pulmonary hypertension, unspecified; G47.00 Insomnia, unspecified; F41.9 Anxiety disorder, unspecified; Z90.89 Acquired absence of other organs; Z90.710 Acquired absence of both cervix and uterus; Z71.6 Tobacco abuse counseling; Z86.73 Personal history of transient ischemic attack (TIA), and cerebral infarction without residual deficits; Z98.890 Other specified postprocedural states; Z98.1 Arthrodesis status; Z79.01 Long term (current) use of anticoagulants; Z79.811 Long term (current) use of aromatase inhibitors; Z79.84 Long term (current) use of oral hypoglycemic drugs; Z79.899 Other long term (current) drug therapy; Z79.891 Long term (current) use of opiate analgesic; Z79.51 Long term (current) use of inhaled steroids; Z79.2 Long term (current) use of antibiotics; Z87.19 Personal history of other diseases of the digestive system
CPT/HCPCS: 36415; 71045; 80053; 82947; 83735; 84484; 85025; 85610; 85730; 93005; 93010; 93971; 94640; 94760; 94762; 96361-59; 96365-59; 96376-59; 99284-25; A9270; J1644; J2405; J7030

== ENCOUNTER 2022-10-25 20:02 | Observation (INO) | payer OTHER ==
[~2022-10-25] VITALS: Ht 170.2 cm; Wt 59.8 kg
[~2022-10-25 20:02] MED LIST changes: -DICLOFONO2.5 GM; +DICLOFONO2.5 GM TOP; +DILT120ERA PO; -FERROUS SULFATE; +FERROUS SULFATE PO
[2022-10-25 20:34] LABS: BASOPHILS ABSOLUTE AUTO 0.05 K/mm3 (0.00-0.23); BASOPHILS PERCENT AUTO 1 % (0-2); EOSINOPHILS ABSOLUTE AUTO 0.12 K/mm3 (0.00-0.68); EOSINOPHILS PERCENT AUTO 2 % (0-6); Hematocrit 38.7 % (33.0-51.0); Hemoglobin 12.5 g/dL (11.5-16.0); IMMATURE GRAN ABSOLUTE AUTO 0.23 K/mm3 (0.00-0.10); IMMATURE GRAN PERCENT AUTO 3 % (0-1); LYMPHOCYTES ABSOLUTE AUTO 1.87 K/mm3 (0.84-5.20); LYMPHOCYTES PERCENT AUTO 27 % (21-46); MONOCYTES PERCENT AUTO 11 % (4-13); Mean Corpuscular HGB 30.6 pg (26.0-34.0); Mean Corpuscular HGB Conc 32.3 g/dL (31.5-36.5); Mean Corpuscular Volume 95 fL (80-100); Mean Platelet Volume 10.3 fL (9.1-12.4); NEUTROPHILS ABSOLUTE AUTO 3.93 K/mm3 (1.96-9.15); NEUTROPHILS PERCENT AUTO 56 % (41-73); Platelet Count 256 K/mm3 (150-400); RDW Coefficient Variation 14.7 % (11.7-14.2); RDW Standard Deviation 51.4 fL (35.1-46.3); Red Blood Cell Count 4.08 M/mm3 (3.80-5.20)
[2022-10-25 20:58] LABS: Albumin, Blood 3.7 g/dL (3.4-5.0); Albumin/Globulin Ratio 1.2 (0.8-1.8); Bilirubin, Total 0.3 mg/dL (0.1-1.0); Bun/Creatinine Ratio 22.6 (12.0-20.0); Calcium, Blood 9.5 mg/dL (8.5-10.1); Creatinine, Blood 1.06 mg/dL (0.40-1.00); Globulin, Blood 3.1 g/dL (2.2-4.0); Potassium, Blood 3.9 mmol/L (3.5-5.5); Total Protein, Blood 6.8 g/dL (6.4-8.2)
[2022-10-25 21:42] LABS: Influenza A, PCR NEGATIVE (NEGATIVE); Influenza B, PCR NEGATIVE (NEGATIVE); Resp Syncytial Virus, PCR NEGATIVE (NEGATIVE); SARS-Cov-2 (COVID-19) PCR, MMC NEGATIVE (NEGATIVE)
[2022-10-25 23:00] VITALS: BP 119/63
[2022-10-25 23:10] VITALS: BP 139/83
[2022-10-25 23:15] VITALS: BP 127/78
--- NOTE | 2022-10-25 23:50 | NUR ---
PCU ARRIVAL NOTE RECEIVED REPORT FROM ZIGZAGGER BRYANT PUTNAM, PT SHORTLY ARRIVED TO PCU 13 ~2300 ON 10/25/22. PT ABLE TO SBA TRANSFER FROM ER [facility] TO PCU BED. A/Ox3-4 AND COOPERATIVE WITH CARE. CARDIAC, ARRIVED IN AFIB 90-110'S WITH NO REPORTS OF CP OR PRESSURE. DENIES PALPITATIONS OR DIZZINESS. SBP STABLE 120-130'S. WAS NOT ON CARDIZEM gtt WHEN PT ARRIVED IN PCU. RESPIRATORY, MAINTAINED SPO2 >90% ON RA, DENIES ANY SOB OR DYSPNEA. LS CLEAR BUT TIGHT/DIM IN THE BASES. GI/, ABD A LITTLE FIRM TO PALPATION WITH BS PRESENT IN ALL QUADRANTS. REPORTS LAST BM WAS "COUPLE DAYS AGO". INTERMITTENT EPISODES OF INCONTINCE PER PT'S REPORT. PULL UPS ON PATIENT, CHANGED PRN TO KEEP CLEAN AND DRY. SKIN, CLEAR T/O WITH NO NOTICIBLE WOUNDS OR INJURIES NOTED. LEFT AC IV PATENT AND FLUSHES WELL. ASSESSED PT FOR RISKS OF ANY IGNITION SOURCES WELL BEHAVIORS FOR INCREASED RISKS OF FIRE DANGER. PT EDUCATED ON COMMON SOURCES OF IGNITION WELL NEED TO KEEP A SAFE ENVIRONMENT. PT IS A CURRENT EVERYDAY SMOKER, ARRIVED TO PCU WITH STORY READER IN HER BAG. PT LABLE PUT ON STORY READER AND SECURED IN MEDICATION DRAWER PER CONTOUR PATH TAPE MILL OPERATOR INTRUCTIONS. PT VOICED UNDERSTANDING OF ALL EDUCTION PROVIDED. WILL CONTINUE TO PROCESS MD ORDERS. PONCE DAVIS OF THIS NOTE
[2022-10-26 03:28] VITALS: BP 107/56
--- NOTE | 2022-10-26 05:17 | NUR ---
SHIFT SUMMARY MINIMAL CHANGES SINCE TRANSFER OF CARE NOTE. SEE SAID NOTE FOR MORE DETAILS. REMAINS A/Ox3-4 AND COOPERATIVE WITH CARE. REMAINS IN AFIB, BUT RATE HAS BECOME MORE CONTROLLED AVERAGING IN THE 70-90'S. CARDIZEM gtt NOT STARTED DUE TO HOLDING PARAMETERS. NO C/O CP, PRESSURE, OR DIZZINESS SINCE HER ARRIVAL TO PCU 13. CONTINUES TO MAINTAIN SPO2 >90% ON RA WITH NO REPORTS OF SOB OR DYSPNEA. NO NEW ORDERS AT THIS TIME, WILL REPORT TO ONCOMING RN. SUSAN, PONCE OF THIS NOTE
[2022-10-26 07:49] VITALS: BP 132/90
[2022-10-26] MEDS ORDERED: Zoloft50 MG PO (09:39)
[2022-10-26] MEDS ORDERED: FERSU300 PO (09:40)
[2022-10-26] MEDS ORDERED: Bisoprolol Fumar5 MG PO (09:40)
[2022-10-26] MEDS ORDERED: FAMO20 PO (09:41)
[2022-10-26] MEDS ORDERED: ZYRTEC10 M1 PO (09:42)
--- NOTE | 2022-10-26 09:52 | NUR ---
AM NOTE: PATIENT ALERT AND ORIENTED X3. AT TIMES CAN BE ANXIOUS. ABLE TO MAKE NEEDS KNOWN. USING CALL LIGHT. PERRLA. DENIES NUMBNESS/TINGLING. UP WITH SBA TO BSC. PATIENT STATES SHE USES WALKER AT HOME. ON ROOM AIR SATING ABOVE 90%. EVEN AND UNLABORED RESPIRATIONS. INTERMIT WHEEZING HEARD. OCCASIONAL DRY COUGH. TELE SHOWING AFIB WITH HR 70-90'S. DENIES CHEST PAIN/PRESSURE/PALPITATIONS. PPP. BP STABLE. NO SIGNS OF EDEMA. SALINE LOCKED. DENIES ABOMINAL PAIN/NAUSEA. EATING WNL. ATTENDS IN PLACE. URGENCY INCONTINENCE. UP TO BSC WITH SBA. URINE YELLOW IN COLOR. SKIN OVERALL C/D/I. MED LIST OBTAINED FROM [facility]. MED REC COMPLETE. DR. DYER CALLED TO UPDATE ON MED REC. CALL LIGHT IN REACH. PATIENT RESTING IN BED AT THIS TIME.
[2022-10-26 11:01] VITALS: BP 141/88
[2022-10-26] MEDS ORDERED: PRED20 PO (12:21)
[2022-10-26] MEDS ORDERED: AZIT500 PO (12:21)
[2022-10-26] MEDS ORDERED: BENZ100A PO (12:21)
--- NOTE | 2022-10-26 14:33 | NUR ---
DISCHARGE: NO ACUTE CHANGES, PATIENT DISCHARGE WNL. DISCHARGE AND MEDICATIONS FAXED TO [facility]. DISCHARGE PACKET REVIEWED WITH PATIENT. NEW MEDICATIONS AND FOLLOW UP APPOINTMENTS DISCUSSED. PATIENT ABLE TO TEACH BACK DISCHARGE INSTRUCTIONS. IV REMOVED WNL. FAMILY FRIEND IN TO PICK PATIENT UP. PATIENT LEFT UNIT WITH ALL PERSONAL BELONGINGS AND DISCHARGE PACKET. PROFESSOR OF LITERACY RETURNED TO PATIENT UPON LEAVING BUILDING.
== END 2022-10-26 14:27 | disposition home or self-care (01) ==
LOC: ER 20:02 → PCU 20:03
PROVIDERS: Emergency Medicine; ADMIT Internal Medicine
DX: I48.20 Chronic atrial fibrillation, unspecified (principal); R06.02 Shortness of breath; J44.9 Chronic obstructive pulmonary disease, unspecified; I13.0 Hypertensive heart and chronic kidney disease with heart failure and stage 1 through stage 4 chronic kidney disease, or unspecified chronic kidney disease; I50.30 Unspecified diastolic (congestive) heart failure; N18.30 Chronic kidney disease, stage 3 unspecified; E11.22 Type 2 diabetes mellitus with diabetic chronic kidney disease; K21.9 Gastro-esophageal reflux disease without esophagitis; I27.20 Pulmonary hypertension, unspecified; F17.210 Nicotine dependence, cigarettes, uncomplicated; Z79.84 Long term (current) use of oral hypoglycemic drugs; Z20.822 Contact with and (suspected) exposure to COVID-19
CPT/HCPCS: 0241U; 71046; 80053; 85025; 93005; 93010; 94640; 94664; 94760; 96365; 96366; 96375; 99285-25; A9270; G0378; J2930; J3475; J7030

== ENCOUNTER 2023-03-19 12:54 | Emergency (ER) | payer OTHER ==
[~2023-03-19] VITALS: Ht 167.6 cm; Wt 54.4 kg
[~2023-03-19 12:54] MED LIST changes: +AZIT500 PO; +Bisoprolol Fumar5 MG PO; +FAMO20 PO; +ZYRTEC10 M1 PO; +Zoloft50 MG PO
[2023-03-19 13:22] LABS: BASOPHILS ABSOLUTE AUTO 0.09 K/mm3 (0.00-0.23); BASOPHILS PERCENT AUTO 1 % (0-2); EOSINOPHILS ABSOLUTE AUTO 0.04 K/mm3 (0.00-0.68); EOSINOPHILS PERCENT AUTO 0 % (0-6); Hematocrit 46.8 % (33.0-51.0); IMMATURE GRAN ABSOLUTE AUTO 0.17 K/mm3 (0.00-0.10); IMMATURE GRAN PERCENT AUTO 2 % (0-1); LYMPHOCYTES ABSOLUTE AUTO 1.81 K/mm3 (0.84-5.20); LYMPHOCYTES PERCENT AUTO 18 % (21-46); MONOCYTES ABSOLUTE AUTO 0.91 K/mm3 (0.16-1.47); MONOCYTES PERCENT AUTO 9 % (4-13); Mean Corpuscular HGB 29.6 pg (26.0-34.0); Mean Corpuscular HGB Conc 32.1 g/dL (31.5-36.5); Mean Corpuscular Volume 92 fL (80-100); Mean Platelet Volume 9.5 fL (9.1-12.4); NEUTROPHILS ABSOLUTE AUTO 7.25 K/mm3 (1.96-9.15); NEUTROPHILS PERCENT AUTO 71 % (41-73); Platelet Count 345 K/mm3 (150-400); RDW Standard Deviation 47.3 fL (35.1-46.3); Red Blood Cell Count 5.07 M/mm3 (3.80-5.20); White Blood Cell Count 10.27 K/mm3 (4.00-11.30)
[2023-03-19 13:43] LABS: Albumin, Blood 4.1 g/dL (3.4-5.0); Albumin/Globulin Ratio 1.1 (0.8-1.8); Bilirubin, Total 0.7 mg/dL (0.1-1.0); Bun/Creatinine Ratio 17.7 (12.0-20.0); Calcium, Blood 9.2 mg/dL (8.5-10.1); Creatinine, Blood 0.74 mg/dL (0.40-1.00); Globulin, Blood 3.8 g/dL (2.2-4.0); Potassium, Blood 4.7 mmol/L (3.5-5.5); Total Protein, Blood 7.9 g/dL (6.4-8.2)
[2023-03-19 14:00] VITALS: BP 165/91
== END 2023-03-19 14:45 | disposition home or self-care (01) ==
LOC: ER 12:54
PROVIDERS: Emergency Medicine
DX: I48.91 Unspecified atrial fibrillation (principal); I13.0 Hypertensive heart and chronic kidney disease with heart failure and stage 1 through stage 4 chronic kidney disease, or unspecified chronic kidney disease; I50.30 Unspecified diastolic (congestive) heart failure; N18.30 Chronic kidney disease, stage 3 unspecified; E11.22 Type 2 diabetes mellitus with diabetic chronic kidney disease; J44.9 Chronic obstructive pulmonary disease, unspecified; F17.210 Nicotine dependence, cigarettes, uncomplicated; Z79.01 Long term (current) use of anticoagulants; Z79.899 Other long term (current) drug therapy
CPT/HCPCS: 71045; 80053; 83690; 83880; 84484; 85025; 93005; 93010; 99285-25

== ENCOUNTER 2023-04-01 20:58 | Emergency (ER) | payer OTHER ==
[~2023-04-01] VITALS: Ht 167.6 cm; Wt 55.3 kg
[2023-04-01 21:20] LABS: BASOPHILS PERCENT AUTO 1 % (0-2); EOSINOPHILS ABSOLUTE AUTO 0.27 K/mm3 (0.00-0.68); EOSINOPHILS PERCENT AUTO 3 % (0-6); Hematocrit 37.1 % (33.0-51.0); Hemoglobin 11.7 g/dL (11.5-16.0); IMMATURE GRAN ABSOLUTE AUTO 0.12 K/mm3 (0.00-0.10); IMMATURE GRAN PERCENT AUTO 2 % (0-1); LYMPHOCYTES ABSOLUTE AUTO 2.31 K/mm3 (0.84-5.20); LYMPHOCYTES PERCENT AUTO 28 % (21-46); MONOCYTES ABSOLUTE AUTO 0.76 K/mm3 (0.16-1.47); MONOCYTES PERCENT AUTO 9 % (4-13); Mean Corpuscular HGB 29.7 pg (26.0-34.0); Mean Corpuscular HGB Conc 31.5 g/dL (31.5-36.5); Mean Corpuscular Volume 94 fL (80-100); Mean Platelet Volume 9.7 fL (9.1-12.4); NEUTROPHILS ABSOLUTE AUTO 4.62 K/mm3 (1.96-9.15); NEUTROPHILS PERCENT AUTO 57 % (41-73); Platelet Count 260 K/mm3 (150-400); RDW Standard Deviation 48.1 fL (35.1-46.3); Red Blood Cell Count 3.94 M/mm3 (3.80-5.20); White Blood Cell Count 8.18 K/mm3 (4.00-11.30)
[2023-04-01 21:37] LABS: Albumin, Blood 3.4 g/dL (3.4-5.0); Albumin/Globulin Ratio 1.1 (0.8-1.8); Bilirubin, Total 0.2 mg/dL (0.1-1.0); Bun/Creatinine Ratio 18.3 (12.0-20.0); Calcium, Blood 8.5 mg/dL (8.5-10.1); Creatinine, Blood 1.15 mg/dL (0.40-1.00); Globulin, Blood 3.1 g/dL (2.2-4.0); Potassium, Blood 4.3 mmol/L (3.5-5.5); Total Protein, Blood 6.5 g/dL (6.4-8.2)
[2023-04-02] MEDS ORDERED: DILT120ERA PO (01:06)
[2023-04-02 01:26] VITALS: BP 140/76
== END 2023-04-02 01:42 | disposition home or self-care (01) ==
LOC: ER 20:58
PROVIDERS: Emergency Medicine
DX: I13.0 Hypertensive heart and chronic kidney disease with heart failure and stage 1 through stage 4 chronic kidney disease, or unspecified chronic kidney disease (principal); R06.02 Shortness of breath; Z79.899 Other long term (current) drug therapy; Z79.84 Long term (current) use of oral hypoglycemic drugs; Z79.52 Long term (current) use of systemic steroids; I48.91 Unspecified atrial fibrillation; E11.22 Type 2 diabetes mellitus with diabetic chronic kidney disease; N18.30 Chronic kidney disease, stage 3 unspecified; I50.9 Heart failure, unspecified; J44.9 Chronic obstructive pulmonary disease, unspecified; F17.210 Nicotine dependence, cigarettes, uncomplicated
CPT/HCPCS: 71046; 80053; 83880; 84484; 85025; 93005; 93010; 96374; 99285-25; A9270; J2765

== ENCOUNTER 2023-04-05 15:32 | Emergency (ER) | payer OTHER ==
[~2023-04-05] VITALS: Ht 167.6 cm; Wt 55.3 kg
[2023-04-05 16:58] LABS: BASOPHILS ABSOLUTE AUTO 0.08 K/mm3 (0.00-0.23); BASOPHILS PERCENT AUTO 1 % (0-2); EOSINOPHILS ABSOLUTE AUTO 0.28 K/mm3 (0.00-0.68); EOSINOPHILS PERCENT AUTO 3 % (0-6); Hematocrit 42.9 % (33.0-51.0); Hemoglobin 13.6 g/dL (11.5-16.0); IMMATURE GRAN ABSOLUTE AUTO 0.15 K/mm3 (0.00-0.10); IMMATURE GRAN PERCENT AUTO 2 % (0-1); LYMPHOCYTES ABSOLUTE AUTO 1.66 K/mm3 (0.84-5.20); LYMPHOCYTES PERCENT AUTO 18 % (21-46); MONOCYTES PERCENT AUTO 7 % (4-13); Mean Corpuscular HGB 29.6 pg (26.0-34.0); Mean Corpuscular HGB Conc 31.7 g/dL (31.5-36.5); Mean Corpuscular Volume 94 fL (80-100); Mean Platelet Volume 9.8 fL (9.1-12.4); NEUTROPHILS ABSOLUTE AUTO 6.24 K/mm3 (1.96-9.15); NEUTROPHILS PERCENT AUTO 69 % (41-73); Platelet Count 306 K/mm3 (150-400); RDW Coefficient Variation 14.1 % (11.7-14.2); RDW Standard Deviation 49.1 fL (35.1-46.3); Red Blood Cell Count 4.59 M/mm3 (3.80-5.20); White Blood Cell Count 9.01 K/mm3 (4.00-11.30)
[2023-04-05 17:23] LABS: Albumin/Globulin Ratio 1.1 (0.8-1.8); Bilirubin, Total 0.3 mg/dL (0.1-1.0); Bun/Creatinine Ratio 26.7 (12.0-20.0); Calcium, Blood 9.3 mg/dL (8.5-10.1); Creatinine, Blood 0.75 mg/dL (0.40-1.00); Globulin, Blood 3.5 g/dL (2.2-4.0); Potassium, Blood 4.2 mmol/L (3.5-5.5); Total Protein, Blood 7.5 g/dL (6.4-8.2)
[2023-04-05 19:06] VITALS: BP 232/92
[2023-04-05] MEDS ORDERED: DILTIAZEM 24HR180 M3 PO (20:19)
[2023-04-05] MEDS ORDERED: HYDROCHLOROTH12.5 MG PO (20:19)
== END 2023-04-05 20:49 | disposition home or self-care (01) ==
LOC: ER 15:32
PROVIDERS: Physician Assistant
DX: I16.0 Hypertensive urgency (principal); I10 Essential (primary) hypertension; F17.210 Nicotine dependence, cigarettes, uncomplicated
CPT/HCPCS: 80053; 85025; 93005; 93010; 99283-25; A9270

== ENCOUNTER → 2023-04-11 | Outpatient (CLI) | payer OTHER ==
[~2023-04-11] MED LIST changes: +DILTIAZEM 24HR180 M3 PO; +HYDROCHLOROTH12.5 MG PO
== END ==
LOC: LAB SHORT 14:00 → LAB 14:00
DX: R19.5 Other fecal abnormalities (principal)
CPT/HCPCS: 89055

== ENCOUNTER → 2023-04-17 | Outpatient (CLI) | payer OTHER ==
[2023-04-18 08:41] LABS: C DIFFICILE DNA NEGATIVE (Negative)
== END | disposition home or self-care (01) ==
LOC: LAB SHORT 13:00 → LAB 13:00 → LAB FUT 04-12 08:05
PROVIDERS: Family Medicine
DX: R19.5 Other fecal abnormalities (principal)
CPT/HCPCS: 87493

== ENCOUNTER 2023-09-13 22:52 | Emergency (ER) | payer OTHER ==
[~2023-09-13] VITALS: Ht 170.2 cm; Wt 80.7 kg
[~2023-09-13 22:52] MED LIST changes: +Amoxicillin875 MG PO; +ISOSORBIDE MONO30 MG PO; +LIDOCAINE1 EAC1 TOP; +Methocarbamol500 MG PO; +Prednisone20 MG PO; +SPIRONOLACTONE25 MG PO
[2023-09-13] MEDS ORDERED: LOSA25 PO (23:08)
[2023-09-13] MEDS ORDERED: BUDE.25 INH (23:10)
[2023-09-13] MEDS ORDERED: SIME80CH PO (23:10)
[2023-09-13] MEDS ORDERED: BUDESONIDE-FO10.2 G2 INH (23:12)
[2023-09-13 23:32] LABS: BASOPHILS ABSOLUTE AUTO 0.12 K/mm3 (0.00-0.23); BASOPHILS PERCENT AUTO 1 % (0-2); EOSINOPHILS PERCENT AUTO 4 % (0-6); Hemoglobin 11.2 g/dL (11.5-16.0); IMMATURE GRAN ABSOLUTE AUTO 0.11 K/mm3 (0.00-0.10); IMMATURE GRAN PERCENT AUTO 1 % (0-1); LYMPHOCYTES ABSOLUTE AUTO 2.66 K/mm3 (0.84-5.20); LYMPHOCYTES PERCENT AUTO 29 % (21-46); MONOCYTES ABSOLUTE AUTO 1.06 K/mm3 (0.16-1.47); MONOCYTES PERCENT AUTO 12 % (4-13); Mean Corpuscular HGB 27.3 pg (26.0-34.0); Mean Corpuscular HGB Conc 30.3 g/dL (31.5-36.5); Mean Corpuscular Volume 90 fL (80-100); Mean Platelet Volume 9.6 fL (9.1-12.4); NEUTROPHILS ABSOLUTE AUTO 4.78 K/mm3 (1.96-9.15); NEUTROPHILS PERCENT AUTO 52 % (41-73); Platelet Count 334 K/mm3 (150-400); RDW Coefficient Variation 14.5 % (11.7-14.2); RDW Standard Deviation 47.8 fL (35.1-46.3); Red Blood Cell Count 4.11 M/mm3 (3.80-5.20); White Blood Cell Count 9.13 K/mm3 (4.00-11.30)
[2023-09-13 23:56] LABS: Albumin, Blood 3.6 g/dL (3.4-5.0); Albumin/Globulin Ratio 1.1 (0.8-1.8); Bilirubin, Total 0.3 mg/dL (0.1-1.0); Bun/Creatinine Ratio 25.3 (12.0-20.0); Calcium, Blood 9.3 mg/dL (8.5-10.1); Creatinine, Blood 0.79 mg/dL (0.40-1.00); Globulin, Blood 3.3 g/dL (2.2-4.0); Potassium, Blood 4.5 mmol/L (3.5-5.5); Total Protein, Blood 6.9 g/dL (6.4-8.2)
[2023-09-14 02:00] VITALS: BP 150/89
[2023-09-14 02:54] LABS: Hematocrit 34.8 % (33.0-51.0); Hemoglobin 10.7 g/dL (11.5-16.0)
[2023-09-14 03:07] LABS: Source, Urine Clean Catch
[2023-09-14 03:10] LABS: Bilirubin, Urine Neg (Neg); Blood, Urine Neg (Neg); Glucose Qualitative, Urine Neg (Neg); Ketones, Urine Neg (Neg); Leukocyte Esterase, Urine Neg (Neg); Nitrite, Urine Neg (Neg); Protein, Urine Neg (Neg); Urobilinogen, Urine NORM (Normal)
[2023-09-14 03:23] LABS: Appearance, Urine Clear (Clear); Color, Urine Pale Yellow (P-Yellow)
== END 2023-09-14 04:10 | disposition home or self-care (01) ==
LOC: ER 22:52
PROVIDERS: Emergency Medicine
DX: K92.1 Melena (principal); E11.22 Type 2 diabetes mellitus with diabetic chronic kidney disease; I13.0 Hypertensive heart and chronic kidney disease with heart failure and stage 1 through stage 4 chronic kidney disease, or unspecified chronic kidney disease; I50.9 Heart failure, unspecified; N18.30 Chronic kidney disease, stage 3 unspecified; J44.9 Chronic obstructive pulmonary disease, unspecified; F17.210 Nicotine dependence, cigarettes, uncomplicated; I48.91 Unspecified atrial fibrillation; Z86.73 Personal history of transient ischemic attack (TIA), and cerebral infarction without residual deficits; Z79.899 Other long term (current) drug therapy; Z79.51 Long term (current) use of inhaled steroids; Z88.8 Allergy status to other drugs, medicaments and biological substances
CPT/HCPCS: 74177; 80053; 81003; 85014; 85018; 85025; 86850; 86900; 86901; 93005; 93010; 99285-25; Q9967

== ENCOUNTER 2023-10-22 15:59 | Emergency (ER) | payer OTHER ==
[~2023-10-22] VITALS: Ht 167.6 cm; Wt 60.3 kg
[~2023-10-22 15:59] MED LIST changes: +BUDE.25 INH; +BUDESONIDE-FO10.2 G2 INH; +LOSA25 PO; +SIME80CH PO
[2023-10-22] MEDS ORDERED: NS 500 ML IV ONE (16:20)
[2023-10-22] MEDS ORDERED: Acetaminophen 500 MG Tab PO ONE (16:20)
[2023-10-22 16:26] LABS: Calcium, Ionized (POC) 1.23 mmol/L (1.10-1.46); Chloride (POC) 107 mmol/L (98-108); Creatinine (POC) 1.4 mg/dL (0.6-1.0); Glucose (ISTAT POC) 98 mg/dL (70-99); Hemoglobin (POC) 12.9 g/dL (12.0-16.0); Potassium (POC) 5.5 mmol/L (3.5-5.5); Sodium (POC) 139 mmol/L (135-148); Total CO2 (POC) 24 mmol/L (21-32)
[2023-10-22] MEDS ORDERED: Ipratropium Bromide INH 0.02% 0.5 mg/2.5ML Vial INH SCH (16:30)
[2023-10-22] MEDS ORDERED: Albuterol 2.5 MG/3 ML VIAL INH SCH (16:30)
[2023-10-22 16:33] LABS: BASOPHILS PERCENT AUTO 1 % (0-2); EOSINOPHILS ABSOLUTE AUTO 0.35 K/mm3 (0.00-0.68); EOSINOPHILS PERCENT AUTO 4 % (0-6); Hematocrit 37.4 % (33.0-51.0); Hemoglobin 11.4 g/dL (11.5-16.0); IMMATURE GRAN ABSOLUTE AUTO 0.35 K/mm3 (0.00-0.10); IMMATURE GRAN PERCENT AUTO 4 % (0-1); LYMPHOCYTES ABSOLUTE AUTO 2.32 K/mm3 (0.84-5.20); LYMPHOCYTES PERCENT AUTO 25 % (21-46); MONOCYTES ABSOLUTE AUTO 0.83 K/mm3 (0.16-1.47); MONOCYTES PERCENT AUTO 9 % (4-13); Mean Corpuscular HGB 27.2 pg (26.0-34.0); Mean Corpuscular HGB Conc 30.5 g/dL (31.5-36.5); Mean Corpuscular Volume 89 fL (80-100); Mean Platelet Volume 9.5 fL (9.1-12.4); NEUTROPHILS ABSOLUTE AUTO 5.45 K/mm3 (1.96-9.15); NEUTROPHILS PERCENT AUTO 58 % (41-73); Platelet Count 313 K/mm3 (150-400); RDW Coefficient Variation 15.9 % (11.7-14.2); RDW Standard Deviation 52.2 fL (35.1-46.3); Red Blood Cell Count 4.19 M/mm3 (3.80-5.20)
[2023-10-22 16:51] LABS: Albumin, Blood 3.8 g/dL (3.4-5.0); Bilirubin, Total 0.2 mg/dL (0.1-1.0); Bun/Creatinine Ratio 28.5 (12.0-20.0); Calcium, Blood 9.1 mg/dL (8.5-10.1); Creatinine, Blood 1.3 mg/dL (0.40-1.00); Globulin, Blood 3.8 g/dL (2.2-4.0); Potassium, Blood 5.5 mmol/L (3.5-5.5); Total Protein, Blood 7.6 g/dL (6.4-8.2)
[2023-10-22 17:01] LABS: Influenza A, PCR NEGATIVE (NEGATIVE); Influenza B, PCR NEGATIVE (NEGATIVE); Resp Syncytial Virus, PCR NEGATIVE (NEGATIVE); SARS-Cov-2 (COVID-19) PCR, MMC NEGATIVE (NEGATIVE)
[2023-10-22 17:48] VITALS: BP 124/55
== END 2023-10-22 18:37 | disposition home or self-care (01) ==
LOC: ER 15:59
PROVIDERS: Physician Assistant
DX: J44.1 Chronic obstructive pulmonary disease with (acute) exacerbation (principal); J06.9 Acute upper respiratory infection, unspecified; R00.1 Bradycardia, unspecified; E11.22 Type 2 diabetes mellitus with diabetic chronic kidney disease; N18.30 Chronic kidney disease, stage 3 unspecified; I10 Essential (primary) hypertension; G47.00 Insomnia, unspecified; I48.91 Unspecified atrial fibrillation; F17.210 Nicotine dependence, cigarettes, uncomplicated; Z86.73 Personal history of transient ischemic attack (TIA), and cerebral infarction without residual deficits; Z79.899 Other long term (current) drug therapy; Z79.84 Long term (current) use of oral hypoglycemic drugs; Z79.51 Long term (current) use of inhaled steroids; Z88.8 Allergy status to other drugs, medicaments and biological substances
CPT/HCPCS: 0241U; 71046; 80047; 80053; 85014; 85025; 93005; 93010; 94644; 94664; 96360; 99285-25; A9270; J7030

== ENCOUNTER 2023-11-30 01:38 | Observation (INO) | payer OTHER ==
[~2023-11-30] VITALS: Ht 167.6 cm; Wt 60.6 kg
[2023-11-30] VITALS (27 sets, daily range): BP systolic 111–168; BP diastolic 55–142
[~2023-11-30 01:38] MED LIST changes: -PANT40 PO
[2023-11-30] MEDS ORDERED: Ipratropium/Albuterol SulF 2.5-0.5MG/3 ML Amp INH ONE (01:55)
[2023-11-30 02:14] LABS: BASOPHILS ABSOLUTE AUTO 0.11 K/mm3 (0.00-0.23); BASOPHILS PERCENT AUTO 1 % (0-2); EOSINOPHILS ABSOLUTE AUTO 0.35 K/mm3 (0.00-0.68); EOSINOPHILS PERCENT AUTO 4 % (0-6); Hematocrit 36.3 % (33.0-51.0); Hemoglobin 11.1 g/dL (11.5-16.0); IMMATURE GRAN ABSOLUTE AUTO 0.13 K/mm3 (0.00-0.10); IMMATURE GRAN PERCENT AUTO 2 % (0-1); LYMPHOCYTES ABSOLUTE AUTO 2.37 K/mm3 (0.84-5.20); LYMPHOCYTES PERCENT AUTO 28 % (21-46); MONOCYTES ABSOLUTE AUTO 0.92 K/mm3 (0.16-1.47); MONOCYTES PERCENT AUTO 11 % (4-13); Mean Corpuscular HGB 26.9 pg (26.0-34.0); Mean Corpuscular HGB Conc 30.6 g/dL (31.5-36.5); Mean Corpuscular Volume 88 fL (80-100); Mean Platelet Volume 9.7 fL (9.1-12.4); NEUTROPHILS ABSOLUTE AUTO 4.59 K/mm3 (1.96-9.15); NEUTROPHILS PERCENT AUTO 54 % (41-73); Platelet Count 282 K/mm3 (150-400); RDW Coefficient Variation 15.3 % (11.7-14.2); Red Blood Cell Count 4.13 M/mm3 (3.80-5.20); White Blood Cell Count 8.47 K/mm3 (4.00-11.30)
[2023-11-30 02:28] LABS: Albumin, Blood 3.5 g/dL (3.4-5.0); Bilirubin, Total 0.2 mg/dL (0.1-1.0); Bun/Creatinine Ratio 29.4 (12.0-20.0); Creatinine, Blood 0.88 mg/dL (0.40-1.00); Globulin, Blood 3.6 g/dL (2.2-4.0); Potassium, Blood 4.1 mmol/L (3.5-5.5); Thyroid Stimulating Hormone 4.53 uIU/mL (0.360-4.800); Total Protein, Blood 7.1 g/dL (6.4-8.2)
[2023-11-30] MEDS ORDERED: HYDR10 PO (02:28)
[2023-11-30] MEDS ORDERED: Ondansetron HCl 2 MG / ML 2ML Vial IV ONE (02:45)
[2023-11-30] MEDS ORDERED: Acetaminophen 325 MG TABLET PO PRN (02:55)
[2023-11-30] MEDS ORDERED: Ondansetron HCl 2 MG / ML 2ML Vial IV PRN (02:55)
[2023-11-30] MEDS ORDERED: Norco 5-325 Ta1 EACH PO (04:00)
[2023-11-30] MEDS ORDERED: HYDROcodone 5-APAP 325 TAB PO ONE (04:00)
[2023-11-30] MEDS ORDERED: HYDROcodone 5-APAP 325 TAB PO PRN (04:00)
--- NOTE | 2023-11-30 04:53 | NUR ---
ASSUMED CARE OF PATIENT/ADMIT FROM ED PT TO ICU 1 AT 0350 VIA VALDEZ WITH ED RN. PT ABLE TO ASSIST IN TRANSFER TO ICU BED VIA SLIDING HERSELF OVER. A&0 X 4. ABLE TO FOLLOW COMMANDS, MAKE PURPOSEFUL MOVEMENTS, AND MAKE NEEDS KNOWN. AFEBRILE. REPORTED R HIP AND R KNEE PAIN IN ED, WHERE SHE WAS MEDICATED PER EMAR WITH GOOD BENEFIT - STATING PAIN HAS DECREASED TO 4 FROM 7. CONTINOUS CARDIAC MONITORING IN PLACE SHOWING AFIB WITH RVR, HR FROM 90'S-130'S. ARRIVED TO UNIT ON CARDIZEM GTT AT 15 mL/HR. BP STABLE. ON RA WITH O2 SATURATION > 92%. DENIES N/V. TOLERAING PO INTAKE WELL. PIV TO LWR INFUSING. SEE ADMIT ASSESSMENT FOR FURTHER DETAILS.
[2023-11-30] MEDS ORDERED: ACET325 PO (05:05)
[2023-11-30] MEDS ORDERED: ZYRTEC10 M2 PO (05:06)
[2023-11-30] MEDS ORDERED: DESITIN DAILY136 GM (05:08)
[2023-11-30] MEDS ORDERED: TRIPLE PASTE57 GM (05:08)
[2023-11-30] MEDS ORDERED: NYSTATIN15 GM TOP (05:09)
[2023-11-30] MEDS ORDERED: Robaxin750 MG (05:10)
[2023-11-30] MEDS ORDERED: LIDO700A20 TOP (05:11)
[2023-11-30] MEDS ORDERED: IPRAT-ALBUT 0.5-3 ML (05:12)
--- NOTE | 2023-11-30 05:37 | NUR ---
SHIFT SUMMARY NO ACUTE CHANGES NOTED SINCE ASSUMPTION OF CARE NOTE. DILTIAZEM DRIP REMAINS AT 15 mL/HR WITH HR IN 70'S-100'S. BP STABLE. WILL CONTINUE TO MONITOR AND REPORT TO ONCOMING RN.
[2023-11-30] MEDS ORDERED: Methocarbamol 500 MG Tab PO PRN (06:18)
[2023-11-30] MEDS ORDERED: Insulin Human Lispro 100 Units/ML 3ML Syringe SC SCH (07:30)
[2023-11-30] MEDS ORDERED: Diltiazem HCl 180 MG Cap.CD PO SCH (08:00)
[2023-11-30] MEDS ORDERED: Nystatin 100,000 Unit/GM CREAM 15 GM TOP SCH (09:00)
[2023-11-30] MEDS ORDERED: Pantoprazole Sodium 20 MG Tab PO SCH (09:00)
[2023-11-30] MEDS ORDERED: Sertraline HCl 100 MG Tab PO SCH (09:00)
[2023-11-30] MEDS ORDERED: Loratadine 10 MG Tab PO SCH (09:00)
[2023-11-30] MEDS ORDERED: Spironolactone 50 MG Tab PO SCH (09:00)
[2023-11-30] MEDS ORDERED: Losartan Potassium 50 MG Tab PO SCH (09:00)
[2023-11-30] MEDS ORDERED: Lidocaine 4% 1 Patch TOP SCH (09:00)
[2023-11-30] MEDS ORDERED: Apixaban 5 MG Tab PO SCH (09:00)
--- NOTE | 2023-11-30 10:37 | NUR ---
"Spiritual Care Attempted | Pt. request Pt. was somewhat somnolent and displayed evidence of discomfort, and requested this story reader vist her after she gets transferred to another room. Pt. verbalized gratitude for the spiritual care attempt."
--- NOTE | 2023-11-30 10:47 | NUR ---
ARRIVED TO PCU 16 PATIENT ARRIVED TO PCU 16 VIA BED WITH BELONGINGS. NO FAMILY AT BEDSIDE. PATIENT IS ALERT AND CONVERSING WITH STAFF APPROPRIATELY. FOLLOWS COMMANDS AND ASSISTS WITH TURNS. NO INCREASED RESPIRATORY EFFORT. TELE BOX CONFIRMED WITH PHOTOGRAPHIC INTELLIGENCE OFFICER-AFIB 110'S. PATIENT DENIES CHEST PAIN. BREIF IN PLACE AND LIDOCAINE PATCH TO RT HIP. REPORT RECEIVED FROM LUCRECIA Red RN.
[2023-11-30] MEDS ORDERED: Metoprolol Succinate 50 MG TABCR PO SCH (11:00)
--- NOTE | 2023-11-30 18:23 | NUR ---
SHIFT SUMMARY PT IS A&OX4. AFIB ON MONITOR WITH RATE IN 80S. BP STABLE THROUGHOUT DAY. PT C/O CHRONIC R HIP AND R KNEE PAIN. PT MEDICATED PER EMAR. PT MINIMAL ASSIST TO BEDSIDE COMMODE. [facility] UPDATED VIA TELEPHONE. BED IN LOW POSITION, CALL LIGHT WITHIN REACH.
[2023-11-30] MEDS ORDERED: Gabapentin 300 MG Cap PO SCH (21:00)
[2023-11-30] MEDS ORDERED: TraZODone HCl 100 MG Tab PO SCH (22:00)
[2023-12-01 03:57] VITALS: BP 125/56
--- NOTE | 2023-12-01 05:52 | NUR ---
SHIFT SUMMARY PT A&O X4, ABLE TO MAKE NEEDS KNOWN. VSS, AFEBRILE, SPO2 >93% RA, TELE SHOWS AFIB 70'S-80'S. PT DENIES SOB OR CP. SBA WITH TRANSFERS. MEDICATED PER EMAR FOR CHRONIC HIP AND KNEE PAIN. PT IS RESTING QUIETLY IN BED CALL LIGHT WITHIN REACH, BREATHING EVEN AND UNLABORED.
[2023-12-01 07:15] LABS: BASOPHILS ABSOLUTE AUTO 0.11 K/mm3 (0.00-0.23); BASOPHILS PERCENT AUTO 1 % (0-2); EOSINOPHILS ABSOLUTE AUTO 0.37 K/mm3 (0.00-0.68); EOSINOPHILS PERCENT AUTO 5 % (0-6); Hematocrit 41.5 % (33.0-51.0); IMMATURE GRAN ABSOLUTE AUTO 0.13 K/mm3 (0.00-0.10); IMMATURE GRAN PERCENT AUTO 2 % (0-1); LYMPHOCYTES ABSOLUTE AUTO 2.44 K/mm3 (0.84-5.20); LYMPHOCYTES PERCENT AUTO 30 % (21-46); MONOCYTES ABSOLUTE AUTO 0.97 K/mm3 (0.16-1.47); MONOCYTES PERCENT AUTO 12 % (4-13); Mean Corpuscular HGB 26.7 pg (26.0-34.0); Mean Corpuscular HGB Conc 31.3 g/dL (31.5-36.5); Mean Corpuscular Volume 85 fL (80-100); Mean Platelet Volume 9.7 fL (9.1-12.4); NEUTROPHILS ABSOLUTE AUTO 4.21 K/mm3 (1.96-9.15); NEUTROPHILS PERCENT AUTO 51 % (41-73); Platelet Count 312 K/mm3 (150-400); RDW Coefficient Variation 15.2 % (11.7-14.2); RDW Standard Deviation 47.9 fL (35.1-46.3); Red Blood Cell Count 4.86 M/mm3 (3.80-5.20); White Blood Cell Count 8.23 K/mm3 (4.00-11.30)
[2023-12-01 07:36] VITALS: BP 118/70
[2023-12-01 07:40] LABS: Albumin, Blood 3.3 g/dL (3.4-5.0); Bilirubin, Total 0.4 mg/dL (0.1-1.0); Bun/Creatinine Ratio 29.2 (12.0-20.0); Calcium, Blood 9.7 mg/dL (8.5-10.1); Creatinine, Blood 0.96 mg/dL (0.40-1.00); Globulin, Blood 3.4 g/dL (2.2-4.0); Potassium, Blood 4.3 mmol/L (3.5-5.5); Total Protein, Blood 6.7 g/dL (6.4-8.2)
[2023-12-01 12:09] VITALS: BP 105/76
[2023-12-01] MEDS ORDERED: DILT180 PO (13:38)
[2023-12-01 13:51] VITALS: BP 124/81
--- NOTE | 2023-12-01 14:48 | NUR ---
Apon taking Rubi outside for discharge, she proceeded to light a cigarette. I had told her she was not allowed to smoke on the property. Another patient that was waiting for a ride was on oxygen near by, and told Rubi that she was on oxygen. Rubi then let me put the cigerate out for her, and she put them away. A little while later she tried to light another one, I proceeded to tell her again that she cannot smoke on the property. She got angry and began to get out of the wheelchair. Saying that she was just going to walk away then. About that time is when her Taxi arrived, she didn't light another one up.
--- NOTE | 2023-12-01 15:35 | NUR ---
DISCHARGE SUMMARY PT ALERT, ORIENTED X4; ANXIOUS AT TIMES, COOPERATIVE WITH CARE. PT UP WITH SBA IN ROOM, IND AT TIMES. PT REPORTS CHRONIC HIP PAIN, MEDICATED PER EMAR. PT DENIES CHEST PAIN/PRESSURE, SOB, NAUSEA, DIZZINESS AND NUMB/TINGLING. TELE AFIB 100-130'S THIS AM, AFER PAIN MEDICATION AND SCHEDULED CARDIAC MEDICATIONS 70-90'S; BP STABLE. SPO2 >90% ON RA, BREATHING EVEN AND UNLABORED. ABD SOFT, NONTENDER, WITH + BT. NO EDEMA NOTED. VSS. NO OTHER ACUTE CHANGES NOTED. PT EDUCATED ON DISCHARGE INSTRUCTIONS, FOLLOW UP APPOINTMENT, PRESCRIPTIONS, AND SMOKING POLICY. PT ASKING TO GO OUTSIDE FOR A SMOKE, EDUCATED PT ON NOT SMOKING ON CAMPUS AND THEY WOULD NEED WAIT UNTIL THEY WERE HOME.
== END 2023-12-01 14:40 | disposition home or self-care (01) ==
LOC: ER 01:38 → ICUE 01:39 → PCU 10:38
PROVIDERS: Emergency Medicine; ADMIT Internal Medicine
DX: I48.91 Unspecified atrial fibrillation (principal); R07.89 Other chest pain; I13.0 Hypertensive heart and chronic kidney disease with heart failure and stage 1 through stage 4 chronic kidney disease, or unspecified chronic kidney disease; E11.22 Type 2 diabetes mellitus with diabetic chronic kidney disease; N18.30 Chronic kidney disease, stage 3 unspecified; I50.30 Unspecified diastolic (congestive) heart failure; J44.9 Chronic obstructive pulmonary disease, unspecified; Z86.73 Personal history of transient ischemic attack (TIA), and cerebral infarction without residual deficits; F17.210 Nicotine dependence, cigarettes, uncomplicated; Z88.8 Allergy status to other drugs, medicaments and biological substances; Z79.899 Other long term (current) drug therapy
CPT/HCPCS: 36415; 71046; 80053; 82947; 83605; 83880; 84443; 84484; 85025; 85730; 93005; 93010; 93246; 94640; 94664; 96365; 96366; 96375; 99285-25; A9270; G0378; J2405; J2470

== ENCOUNTER 2023-12-08 20:15 | Observation (INO) | payer OTHER ==
[~2023-12-08] VITALS: Ht 167.6 cm; Wt 61.7 kg
[~2023-12-08 20:15] MED LIST changes: +DESITIN DAILY136 GM; +HYDR10 PO; +IPRAT-ALBUT 0.5-3 ML; +LIDO700A20 TOP; +NYSTATIN15 GM TOP; +Robaxin750 MG PO; +TRIPLE PASTE57 GM; +ZYRTEC10 M2 PO
[2023-12-08] MEDS ORDERED: NS 1,000 ML IV SCH (21:00)
[2023-12-08] MEDS ORDERED: NS 1,000 ML IV ONE (21:04)
[2023-12-08 21:38] LABS: BASOPHILS ABSOLUTE AUTO 0.11 K/mm3 (0.00-0.23); BASOPHILS PERCENT AUTO 1 % (0-2); EOSINOPHILS ABSOLUTE AUTO 0.14 K/mm3 (0.00-0.68); EOSINOPHILS PERCENT AUTO 2 % (0-6); Hematocrit 43.2 % (33.0-51.0); Hemoglobin 13.2 g/dL (11.5-16.0); IMMATURE GRAN ABSOLUTE AUTO 0.11 K/mm3 (0.00-0.10); IMMATURE GRAN PERCENT AUTO 1 % (0-1); LYMPHOCYTES ABSOLUTE AUTO 1.96 K/mm3 (0.84-5.20); LYMPHOCYTES PERCENT AUTO 24 % (21-46); MONOCYTES PERCENT AUTO 15 % (4-13); Mean Corpuscular HGB 26.4 pg (26.0-34.0); Mean Corpuscular HGB Conc 30.6 g/dL (31.5-36.5); Mean Corpuscular Volume 86 fL (80-100); Mean Platelet Volume 9.8 fL (9.1-12.4); NEUTROPHILS ABSOLUTE AUTO 4.68 K/mm3 (1.96-9.15); NEUTROPHILS PERCENT AUTO 57 % (41-73); Platelet Count 368 K/mm3 (150-400); RDW Coefficient Variation 15.6 % (11.7-14.2); RDW Standard Deviation 49.3 fL (35.1-46.3)
[2023-12-08 21:48] LABS: Albumin, Blood 3.9 g/dL (3.4-5.0); Albumin/Globulin Ratio 0.9 (0.8-1.8); Bilirubin, Total 0.4 mg/dL (0.1-1.0); Calcium, Blood 9.6 mg/dL (8.5-10.1); Creatinine, Blood 1.5 mg/dL (0.40-1.00); Globulin, Blood 4.2 g/dL (2.2-4.0); Potassium, Blood 4.8 mmol/L (3.5-5.5); Total Protein, Blood 8.1 g/dL (6.4-8.2)
[2023-12-08] MEDS ORDERED: Morphine Sulfate 4 MG/1 ML Injection IV ONE (22:15)
[2023-12-08 23:24] VITALS: BP 124/75
[2023-12-09] MEDS ORDERED: NS 1,000 ML IV SCH (01:00)
[2023-12-09] MEDS ORDERED: Ondansetron HCl 2 MG / ML 2ML Vial IV PRN (01:00)
[2023-12-09] MEDS ORDERED: Remdesivir (EUA) 200 MG in NS 250 ML IV ONE (01:10)
[2023-12-09 02:17] LABS: Influenza A, PCR NEGATIVE (NEGATIVE); Influenza B, PCR NEGATIVE (NEGATIVE); Resp Syncytial Virus, PCR NEGATIVE (NEGATIVE)
[2023-12-09 04:12] LABS: SARS-Cov-2 (COVID-19) PCR, MMC POSITIVE (NEGATIVE)
[2023-12-09 04:18] VITALS: BP 104/63
[2023-12-09 04:26] LABS: Source, Urine Clean Catch
[2023-12-09 04:29] LABS: Bilirubin, Urine Neg (Neg); Blood, Urine Neg (Neg); Glucose Qualitative, Urine Neg (Neg); Ketones, Urine Neg (Neg); Leukocyte Esterase, Urine Neg (Neg); Nitrite, Urine Neg (Neg); Protein, Urine Neg (Neg); Urobilinogen, Urine NORM (Normal)
[2023-12-09] MEDS ORDERED: HYDROcodone 5-APAP 325 TAB PO PRN (04:45)
[2023-12-09 04:46] LABS: Appearance, Urine Clear (Clear); Color, Urine Pale Yellow (P-Yellow)
--- NOTE | 2023-12-09 05:07 | NUR ---
SUMMARY- PT ARRIVED TO ROOM IN NO DISTRESS. PT C/O BEING COLD AND HER HIPS AND LEGS HURT. PROVIDER CONTACTED AND HER HOME PAIN MEDS WAS STARTED. PT HAS BEEN RESTING QUIETLY. PT IS ABLE TO AMBULATE TO BATHROOM WITH FWW. PT USES A PULL FOR PERIODS OF INCOTINENCE. PT DENIES SOB OR CX PAIN. CALL LIGHT IN REACH.
[2023-12-09 05:57] LABS: BASOPHILS ABSOLUTE AUTO 0.08 K/mm3 (0.00-0.23); BASOPHILS PERCENT AUTO 1 % (0-2); EOSINOPHILS ABSOLUTE AUTO 0.21 K/mm3 (0.00-0.68); EOSINOPHILS PERCENT AUTO 3 % (0-6); Hematocrit 36.7 % (33.0-51.0); IMMATURE GRAN ABSOLUTE AUTO 0.08 K/mm3 (0.00-0.10); IMMATURE GRAN PERCENT AUTO 1 % (0-1); LYMPHOCYTES ABSOLUTE AUTO 2.04 K/mm3 (0.84-5.20); LYMPHOCYTES PERCENT AUTO 31 % (21-46); MONOCYTES ABSOLUTE AUTO 1.28 K/mm3 (0.16-1.47); MONOCYTES PERCENT AUTO 19 % (4-13); Mean Corpuscular HGB 26.6 pg (26.0-34.0); Mean Corpuscular Volume 89 fL (80-100); Mean Platelet Volume 10.2 fL (9.1-12.4); NEUTROPHILS ABSOLUTE AUTO 2.97 K/mm3 (1.96-9.15); NEUTROPHILS PERCENT AUTO 45 % (41-73); Platelet Count 295 K/mm3 (150-400); RDW Coefficient Variation 15.7 % (11.7-14.2); RDW Standard Deviation 50.4 fL (35.1-46.3); Red Blood Cell Count 4.14 M/mm3 (3.80-5.20); White Blood Cell Count 6.66 K/mm3 (4.00-11.30)
[2023-12-09] MEDS ORDERED: Acetaminophen 325 MG TABLET PO PRN (06:30)
[2023-12-09 06:32] LABS: Albumin, Blood 2.9 g/dL (3.4-5.0); Albumin/Globulin Ratio 0.9 (0.8-1.8); Bilirubin, Total 0.2 mg/dL (0.1-1.0); Bun/Creatinine Ratio 22.8 (12.0-20.0); Calcium, Blood 8.8 mg/dL (8.5-10.1); Creatinine, Blood 1.14 mg/dL (0.40-1.00); Globulin, Blood 3.3 g/dL (2.2-4.0); Total Protein, Blood 6.2 g/dL (6.4-8.2)
[2023-12-09] MEDS ORDERED: Ipratropium/Albuterol SulF 2.5-0.5MG/3 ML Amp INH PRN (06:35)
[2023-12-09] MEDS ORDERED: Zinc Oxide Ointment 30 GM TOP PRN (06:45)
[2023-12-09] MEDS ORDERED: Mometasone/Formoterol MDI 200/5 mcg 13 GM INH SCH (06:45)
[2023-12-09] MEDS ORDERED: Albuterol HFA200 ACT/6.7 GM INH INH PRN (06:45)
[2023-12-09] MEDS ORDERED: Insulin Human Lispro 100 Units/ML 3ML Syringe SC SCH (07:30)
[2023-12-09] MEDS ORDERED: Pantoprazole Sodium 20 MG Tab PO SCH (07:30)
[2023-12-09 07:49] VITALS: BP 95/59
[2023-12-09] MEDS ORDERED: Enoxaparin 40 MG/0.4 ML SYR SC SCH (09:00)
[2023-12-09] MEDS ORDERED: Sennosides 8.6 MG Tab PO SCH (09:00)
[2023-12-09] MEDS ORDERED: dilTIAZem HCL 120 MG CAP.CD PO SCH (09:00)
[2023-12-09] MEDS ORDERED: Metoprolol Succinate 50 MG TABCR PO SCH (09:00)
[2023-12-09] MEDS ORDERED: Sertraline HCl 50 MG Tab PO SCH (09:00)
[2023-12-09] MEDS ORDERED: Polyethylene Glycol 3350 17 gm PO SCH (09:00)
[2023-12-09] MEDS ORDERED: Nystatin 100,000 Unit/GM CREAM 15 GM TOP SCH (09:00)
[2023-12-09] MEDS ORDERED: Apixaban 5 MG Tab PO SCH (09:00)
[2023-12-09 12:42] LABS: Source, Urine Clean Catch
[2023-12-09 12:46] LABS: Appearance, Urine Clear (Clear); Bilirubin, Urine Neg (Neg); Blood, Urine Neg (Neg); Color, Urine Yellow (P-Yellow); Glucose Qualitative, Urine Neg (Neg); Ketones, Urine Neg (Neg); Leukocyte Esterase, Urine Neg (Neg); Nitrite, Urine Neg (Neg); Protein, Urine Neg (Neg); Urobilinogen, Urine NORM (Normal)
[2023-12-09 15:56] VITALS: BP 121/85
--- NOTE | 2023-12-09 17:54 | NUR ---
A&Ox4. PLEASANT AND COOPERATIVE WITH CARE. CALLS APPROPRIATELY AND IS ABLE TO ADVOCATE NEEDS EFFECTIVELY. AMBULATION. SBA c FWW TO BATHROOM FOR ELIMINATION NEEDS. MEDS WHOLE WITH FLUIDS. TELE A-FIB @ 75bpm. PAIN 8/10 GENERALIZED ACHES , RIGHT HIP AND RIGHT KNEE FOR WHICH PRN NORCO WAS ADMINISTERED. NS @ 75mL/HR. SON TO BEDSIDE TO VISIT THIS EVENING. RENAL US COMPLETED AND WNL. BED IN LOWEST POSITION. CALL LIGHT WITHIN REACH. ALL NEEDS MET. REPORT TO ONCOMING RN.
[2023-12-09 19:31] VITALS: BP 138/77
[2023-12-09] MEDS ORDERED: Gabapentin 300 MG Cap PO SCH (21:00)
[2023-12-09] MEDS ORDERED: TraZODone HCl 100 MG Tab PO ONE (21:05)
[2023-12-09] MEDS ORDERED: TraZODone HCl 100 MG Tab PO PRN (21:05)
--- NOTE | 2023-12-09 21:50 | NUR ---
PT AGITATED, RT VOICED PT UPSET EARLIER. UPON ENTERING ROOM. PT VOICED AGITATION RE NOT WANTING TO BE HERE, ASKED FOR "TRAZADONE", BUT NO TREAZADONE WAS ON HER MED LIST, SHE VOICED SEVERE ANGER AND VOICED SHE WAS THINKING ABOUT LEAVING. NURSE VOICED THAT WE COULD GE HER TRAZADONE ORDERED, TO [facility], AND HE WOUL BE BACCK. MD NOTIFIED AND ORDER FOR TRAZADONE OBTAINED AND ORDREED FROM PHARMACY. RANULFO ROSY MED INTO ROOM, AND PT WAS ALREADY DRESSED AND DEMANDING THAT HE TAKE HER IV OUT. NURSE REMINDED HER OF HAVING COVID AND SHE INCREAESED HER AGITATION AND SAID "I KKNOW I HAVE COVID!", NURSE ENCOURAGED HER TO STAY IN THE HOSPITAL FOR TREATMENT AND FOR HER SAFEATY SHE COULD GET WORSE AND POSSIBLY OUT OF THE HOSPITAL, TO WAIT AND TALK TO THE MD. BUT SHE ESCALATED AND DEMANDED I TAKE OUT HER IV. CHARGE NURSE NOTIFIED, AMA SHEET OBTAINED. IV REMOVED AND BLEEDING, THIS SEEMED TO MAKE HER VERY ANGRY AND DEMANDED THAT I GO AWAY. I PLACED GAUZE AND COBAN ON IT, SHE KEPT PULLING WA HER ARM AND GOT UP AND REFUSED TO SIN THE AMA SHEET. GRABED HER BELONGINGS AND STOMPED OUT OF THE ROOM, AND LEFT THE FOLLR. CHARGE NURSE COSIGNED THE AMA SHEET. CHARGE NURSE NOTIFIED SHERRI WASHINGTON. MD TO BE NOTIFIED ESCALATED
[2023-12-10] MEDS ORDERED: Remdesivir (EUA) 100 MG in NS 250 ML IV SCH (12:00)
== END 2023-12-09 21:21 | disposition left against medical advice (07) ==
LOC: ER 20:15 → ERHOLD 20:16 → MEDS 20:16
PROVIDERS: Hospitalist; Physician Assistant; ADMIT Internal Medicine
DX: U07.1 COVID-19 (principal); N17.9 Acute kidney failure, unspecified; E86.0 Dehydration; I13.0 Hypertensive heart and chronic kidney disease with heart failure and stage 1 through stage 4 chronic kidney disease, or unspecified chronic kidney disease; N18.30 Chronic kidney disease, stage 3 unspecified; E11.22 Type 2 diabetes mellitus with diabetic chronic kidney disease; I50.30 Unspecified diastolic (congestive) heart failure; I48.20 Chronic atrial fibrillation, unspecified; J44.9 Chronic obstructive pulmonary disease, unspecified; F17.210 Nicotine dependence, cigarettes, uncomplicated; Z86.73 Personal history of transient ischemic attack (TIA), and cerebral infarction without residual deficits; Z88.8 Allergy status to other drugs, medicaments and biological substances; Z79.01 Long term (current) use of anticoagulants; Z79.899 Other long term (current) drug therapy
CPT/HCPCS: 0241U; 36415; 76770; 80053; 81003; 82947; 83880; 85025; 93005; 93010; 94640; 94664; 94760; 96361; 96374; 99285-25; A9270; G0378; J0248; J2270; J2470; J7030; J7050

== ENCOUNTER → 2024-01-01 | Outpatient (CLI) | payer OTHER ==
[~2024-01-01] MED LIST changes: +Hydroxyzine HCl50 MG; +IPRAT-ALBUT 0.5-3 ML INH; +PROAIR RESPICL90 MCG INH; -Robaxin750 MG PO
[2024-01-01 14:09] LABS: Source, Urine Clean Catch
[2024-01-01 14:56] LABS: Appearance, Urine Clear (Clear); Bilirubin, Urine Neg (Neg); Blood, Urine 1+ (Neg); Color, Urine Yellow (P-Yellow); Glucose Qualitative, Urine Neg (Neg); Ketones, Urine Neg (Neg); Leukocyte Esterase, Urine 1+ (Neg); Nitrite, Urine Neg (Neg); Protein, Urine Neg (Neg); Specific Gravity, Urine 1.015 (1.003-1.022); Urobilinogen, Urine NORM (Normal)
[2024-01-01 15:10] LABS: Bacteria Many /hpf; Red Blood Cells, Urine 0-2 /hpf (0-2); Squamous Epithelial Cells Few /hpf (Few)
== END | disposition home or self-care (01) ==
LOC: LAB 14:06 → LAB SHORT 14:06
PROVIDERS: Family Medicine
DX: N39.0 Urinary tract infection, site not specified (principal)
CPT/HCPCS: 81001; 87086

== ENCOUNTER 2024-01-04 17:55 | Inpatient (IN) | payer OTHER ==
[~2024-01-04] VITALS: Ht 170.2 cm; Wt 65.9 kg
[~2024-01-04 17:55] MED LIST changes: -Hydroxyzine HCl50 MG; -IPRAT-ALBUT 0.5-3 ML INH; -PROAIR RESPICL90 MCG INH
[2024-01-04 18:36] LABS: BASOPHILS ABSOLUTE AUTO 0.08 K/mm3 (0.00-0.23); BASOPHILS PERCENT AUTO 1 % (0-2); EOSINOPHILS ABSOLUTE AUTO 0.09 K/mm3 (0.00-0.68); EOSINOPHILS PERCENT AUTO 1 % (0-6); Hematocrit 31.4 % (33.0-51.0); Hemoglobin 9.6 g/dL (11.5-16.0); IMMATURE GRAN ABSOLUTE AUTO 0.09 K/mm3 (0.00-0.10); IMMATURE GRAN PERCENT AUTO 1 % (0-1); LYMPHOCYTES ABSOLUTE AUTO 2.01 K/mm3 (0.84-5.20); LYMPHOCYTES PERCENT AUTO 25 % (21-46); MONOCYTES PERCENT AUTO 9 % (4-13); Mean Corpuscular HGB 27.2 pg (26.0-34.0); Mean Corpuscular HGB Conc 30.6 g/dL (31.5-36.5); Mean Corpuscular Volume 89 fL (80-100); Mean Platelet Volume 9.9 fL (9.1-12.4); NEUTROPHILS ABSOLUTE AUTO 4.98 K/mm3 (1.96-9.15); NEUTROPHILS PERCENT AUTO 63 % (41-73); Platelet Count 247 K/mm3 (150-400); RDW Coefficient Variation 15.6 % (11.7-14.2); RDW Standard Deviation 50.6 fL (35.1-46.3); Red Blood Cell Count 3.53 M/mm3 (3.80-5.20); White Blood Cell Count 7.95 K/mm3 (4.00-11.30)
[2024-01-04 18:47] LABS: Albumin, Blood 3.2 g/dL (3.4-5.0); Albumin/Globulin Ratio 1.1 (0.8-1.8); Bilirubin, Total 0.5 mg/dL (0.1-1.0); Bun/Creatinine Ratio 21.3 (12.0-20.0); Calcium, Blood 8.5 mg/dL (8.5-10.1); Creatinine, Blood 1.27 mg/dL (0.40-1.00); Potassium, Blood 5.5 mmol/L (3.5-5.5); Total Protein, Blood 6.2 g/dL (6.4-8.2)
[2024-01-04] MEDS ORDERED: NS 1,000 ML IV SCH ×2 (18:50→21:50)
[2024-01-04] MEDS ORDERED: Morphine Sulfate 4 MG/1 ML Injection IV ONE ×2 (18:50→20:50)
[2024-01-04] MEDS ORDERED: Ondansetron HCl 2 MG / ML 2ML Vial IV ONE (18:50)
[2024-01-04] MEDS ORDERED: Piperacillin/Tazobactam Sod 4.5 GM in NS 100 ML IV ONE (20:30)
[2024-01-04] MEDS ORDERED: FLU VACC TS2024-25(6MOS UP)/PF 45 MCG/0.5 ML SYRINGE IM SCH (21:45)
[2024-01-04] MEDS ORDERED: Ondansetron HCl 2 MG / ML 2ML Vial IV PRN (21:45)
[2024-01-04] MEDS ORDERED: Morphine Sulfate 4 MG/1 ML Injection IV PRN (21:50)
[2024-01-04] MEDS ORDERED: Albuterol 2.5 MG/3 ML VIAL INH PRN (21:55)
[2024-01-04] MEDS ORDERED: Labetalol HCL 5 MG/ML 4ML Injection (Single Dose) IV PRN (22:00)
[2024-01-04] MEDS ORDERED: Mometasone/Formoterol MDI 200/5 mcg 13 GM INH SCH (22:05)
[2024-01-05] VITALS (7 sets, daily range): BP systolic 150–192; BP diastolic 68–79
[2024-01-05] MEDS ORDERED: Insulin Human Lispro 100 Units/ML 3ML Syringe SC SCH
--- NOTE | 2024-01-05 02:23 | NUR ---
ARRIVAL TO UNIT PT ARRIVED TO UNIT AT APPROX 0000. PT ABLE TO TRANSER TO BED WITH 1P ASST. PT A&O X4, ABLE TO ANSWER ALL QUESTIONS APPROPRIATELY. PT C/O R SIDE ABD PAIN. DENIES ANY N/V. PT NPO FOR POSSIBLE SURGERY TODAY. VSS. NO OTHER CONCERNS AT THIS TIME, CALL LIGHT WITHIN REACH
[2024-01-05 04:07] LABS: BASOPHILS ABSOLUTE AUTO 0.07 K/mm3 (0.00-0.23); BASOPHILS PERCENT AUTO 1 % (0-2); EOSINOPHILS ABSOLUTE AUTO 0.22 K/mm3 (0.00-0.68); EOSINOPHILS PERCENT AUTO 3 % (0-6); Hematocrit 30.9 % (33.0-51.0); Hemoglobin 9.4 g/dL (11.5-16.0); IMMATURE GRAN ABSOLUTE AUTO 0.08 K/mm3 (0.00-0.10); IMMATURE GRAN PERCENT AUTO 1 % (0-1); LYMPHOCYTES ABSOLUTE AUTO 2.21 K/mm3 (0.84-5.20); LYMPHOCYTES PERCENT AUTO 31 % (21-46); MONOCYTES ABSOLUTE AUTO 0.75 K/mm3 (0.16-1.47); MONOCYTES PERCENT AUTO 11 % (4-13); Mean Corpuscular HGB 27.2 pg (26.0-34.0); Mean Corpuscular HGB Conc 30.4 g/dL (31.5-36.5); Mean Corpuscular Volume 89 fL (80-100); Mean Platelet Volume 9.5 fL (9.1-12.4); NEUTROPHILS PERCENT AUTO 53 % (41-73); Platelet Count 218 K/mm3 (150-400); RDW Coefficient Variation 15.7 % (11.7-14.2); RDW Standard Deviation 50.8 fL (35.1-46.3); Red Blood Cell Count 3.46 M/mm3 (3.80-5.20); White Blood Cell Count 7.03 K/mm3 (4.00-11.30)
--- NOTE | 2024-01-05 05:27 | NUR ---
SHIFT SUMMARY NO ACUTE EVENTS SINCE COMING TO THE UNIT. PT REMAINS NPO AT THIS TIME FOR POSSOBLE SURGERY TODAY. PAIN MANAGED PER EMAR. PT 1P ASST W/ FWW AND GB. VOIDING. NO OTHER CONCERNS AT THIS TIME, CALL LIGHT WITHIN REACH
[2024-01-05 05:35] LABS: International Normalized Ratio 0.98; Prothrombin Time Results 10.5 Sec (9.7-11.5)
[2024-01-05] MEDS ORDERED: Piperacillin/Tazobactam Sod 3.375 GM in NS 100 ML IV SCH (06:00)
[2024-01-05 06:34] LABS: Bun/Creatinine Ratio 19.3 (12.0-20.0); Calcium, Blood 8.3 mg/dL (8.5-10.1); Creatinine, Blood 1.35 mg/dL (0.40-1.00); Magnesium, Blood 1.9 mg/dL (1.6-2.4); Potassium, Blood 5.2 mmol/L (3.5-5.5)
[2024-01-05] MEDS ORDERED: Pantoprazole Sodium 20 MG Tab PO SCH (07:30)
[2024-01-05] MEDS ORDERED: Losartan Potassium 25 MG Tab PO SCH (09:00)
[2024-01-05] MEDS ORDERED: Spironolactone 50 MG Tab PO SCH (09:00)
[2024-01-05] MEDS ORDERED: Sertraline HCl 100 MG Tab PO SCH (09:00)
[2024-01-05] MEDS ORDERED: Methocarbamol 500 MG Tab PO SCH (09:00)
[2024-01-05] MEDS ORDERED: Diltiazem HCl 180 MG Cap.CD PO SCH (09:00)
[2024-01-05] MEDS ORDERED: Metoprolol Succinate 50 MG TABCR PO SCH (09:00)
[2024-01-05] MEDS ORDERED: Lactated Ringer's 1,000 ML IV SCH (13:20)
[2024-01-05] MEDS ORDERED: Hydroxyzine HCl50 MG (14:07)
[2024-01-05] MEDS ORDERED: SENN187 PO (14:09)
[2024-01-05] MEDS ORDERED: PROAIR RESPICL90 MCG INH (14:11)
[2024-01-05] MEDS ORDERED: IPRAT-ALBUT 0.5-3 ML INH (14:12)
[2024-01-05] MEDS ORDERED: Sennosides 8.6 MG Tab PO PRN (17:25)
[2024-01-05] MEDS ORDERED: Ipratropium/Albuterol SulF 2.5-0.5MG/3 ML Amp INH PRN (17:30)
--- NOTE | 2024-01-05 18:41 | NUR ---
SUMMARY: PT ADMITTED FOR ACUTE ARDEN. A/O, VSS. PT NPO TODAY FOR SURGERY BUT SURGERY DELAYED. PT PAIN HAS BEEN MANAGED, NO N/V. PT SLEPT ON AND OFF MOST OF TODAY. HAS URINARY URGENCY, SBA TO THE BATHROOM, ATTENDS IN PLACE. CONT BI OX IN PLACE, SP02 STABLE ON 4L NC. NO ACUTE SAFETY CONCERNS, PT USING CALL LIGHT AND MAKE NEEDS KNOWN.
--- NOTE | 2024-01-05 19:27 | NUR ---
THIS RN SPOKE WITH DR. RODRIGUEZ AT THIS TIME CONCERNING PT HX OF AFIB AND ELIQUIS HOME MED. OK FOR PT TO NOT HAVE ANTICOLAGULATION TONIGHT PER MICHAEL. PT NPO AT 0000 FOR SURGERY TOMORROW. REPORT PASSED TO NOC JOHNNIE SHANTEL
[2024-01-05] MEDS ORDERED: HyDROXyzine HCl 25 MG Tab PO SCH (21:00)
[2024-01-05] MEDS ORDERED: Gabapentin 300 MG Cap PO SCH (21:00)
[2024-01-06] VITALS (19 sets, daily range): BP systolic 117–199; BP diastolic 49–95
[2024-01-06 04:54] LABS: BASOPHILS ABSOLUTE AUTO 0.09 K/mm3 (0.00-0.23); BASOPHILS PERCENT AUTO 1 % (0-2); EOSINOPHILS ABSOLUTE AUTO 0.29 K/mm3 (0.00-0.68); EOSINOPHILS PERCENT AUTO 4 % (0-6); Hematocrit 30.9 % (33.0-51.0); Hemoglobin 9.4 g/dL (11.5-16.0); IMMATURE GRAN ABSOLUTE AUTO 0.06 K/mm3 (0.00-0.10); IMMATURE GRAN PERCENT AUTO 1 % (0-1); LYMPHOCYTES ABSOLUTE AUTO 1.55 K/mm3 (0.84-5.20); LYMPHOCYTES PERCENT AUTO 23 % (21-46); MONOCYTES ABSOLUTE AUTO 0.71 K/mm3 (0.16-1.47); MONOCYTES PERCENT AUTO 11 % (4-13); Mean Corpuscular HGB 26.8 pg (26.0-34.0); Mean Corpuscular HGB Conc 30.4 g/dL (31.5-36.5); Mean Corpuscular Volume 88 fL (80-100); NEUTROPHILS ABSOLUTE AUTO 3.93 K/mm3 (1.96-9.15); NEUTROPHILS PERCENT AUTO 59 % (41-73); Platelet Count 231 K/mm3 (150-400); RDW Standard Deviation 48.6 fL (35.1-46.3); Red Blood Cell Count 3.51 M/mm3 (3.80-5.20); White Blood Cell Count 6.63 K/mm3 (4.00-11.30)
[2024-01-06 05:17] LABS: Albumin, Blood 2.7 g/dL (3.4-5.0); Albumin/Globulin Ratio 0.9 (0.8-1.8); Bilirubin, Total 0.5 mg/dL (0.1-1.0); Bun/Creatinine Ratio 13.8 (12.0-20.0); Calcium, Blood 8.3 mg/dL (8.5-10.1); Creatinine, Blood 1.09 mg/dL (0.40-1.00); Globulin, Blood 2.9 g/dL (2.2-4.0); Potassium, Blood 4.7 mmol/L (3.5-5.5); Total Protein, Blood 5.6 g/dL (6.4-8.2)
--- NOTE | 2024-01-06 06:33 | NUR ---
SHIFT SUMMARY NO ACUTE CHANGES T/O SHIFT. PT NPO AT MIDNIGHT. PAIN MANAGED PER EMAR. AMBULATING TO BATHROOM WITH 1 PERSON SBA. ABX INFUSED PER ORDERS. PLAN FOR POTENTIAL SURGERY TODAY. PT RESTING IN BED WITH CALL LIGHT IN REACH. WILL GIVE REPORT TO ONCOMING RN
[2024-01-06] MEDS ORDERED: Bupivacaine 0.5% HCl 5 MG/ML 30MLVIAL ONE (08:01)
[2024-01-06] MEDS ORDERED: Rocuronium Bromide 10 MG/ML 5ML Injection IV ONE (08:15)
[2024-01-06] MEDS ORDERED: FentaNYL Citrate 50 MCG/ML 2 ML Injection ONE ×2 (08:16→09:15)
[2024-01-06] MEDS ORDERED: propofoL 20 ML IV ONE (08:16)
[2024-01-06] MEDS ORDERED: Glycopyrrolate 0.2 MG/ML 5ML VIAL ONE (09:09)
[2024-01-06] MEDS ORDERED: Sugammadex Sodium 200 MG/2ML SDV (100 MG/ML) ONE (09:16)
[2024-01-06] MEDS ORDERED: HYDROcodone 5-APAP 325 TAB PO PRN (10:15)
[2024-01-06] MEDS ORDERED: HYDROmorphone HCl/Pf 1MG SYR ONE (10:44)
--- NOTE | 2024-01-06 12:02 | NUR ---
PT ARRIVED TO ROOM VIA GOURNEY, SLID TO HOSPITAL BED. DROUSEY BUT AROUSABLE TO VOICE. PAIN MANAGED. HYPERTENSIVE UPON ARRIVAL. 4L NC, BIOX ON. LAP SITES X4 C/D/I WITHOUT DRAINAGE. DENIES N/V AT THIS TIME. CALL LIGHT WITHIN REACH, BED IN LOWEST POSITION, WATER AND ICE CHIPS AT BEDSIDE.
[2024-01-06] MEDS ORDERED: HydrALAZINE HCl 20 MG / ML 1ML Vial IV PRN (13:30)
--- NOTE | 2024-01-06 17:59 | NUR ---
SHIFT SUMMARY POD 0 LAP ARDEN. EATING/DRINKING/VOIDING. VSS. NOTED HYPERTENSION POST OP, TREATED PER EMAR. LAP SITES X3 C/D/I COVERED WITH GAUZE AND TEGADERM. A&O X4, PLEASENT MOOD. BED IN LOWEST POSITION. CALL LIGHT WITHIN REACH.
[2024-01-07] VITALS (11 sets, daily range): BP systolic 170–206; BP diastolic 54–89
--- NOTE | 2024-01-07 04:29 | NUR ---
SHIFT SUMMARY POD1. X3 LAP SITES CDI. PAIN MANAGED UTILIZING NPIS AND PER EMAR. PT DENIES NAUSEA. PAUL PO WELL. VOIDING WITHOUT DIFFICULTY. 1PA WITH FWW, UP TO BATHROOM. PT WITH MILD, BRIEF EVENTS OF AGITATION/CONFUSION OVER SHIFT. A&OX4. PT ABLE TO REST DURING SHIFT. PT VOICED UNDERSTANDING OF PLAN OF CARE, DENIES QUESTIONS/CONCERNS AT THIS TIME.
--- NOTE | 2024-01-07 05:59 | NUR ---
OXYGEN THERAPY PT REPORTS HOME OXYGEN USE OF 3L LFNC WHILE ASLEEP. SPO2 MAINTAINED OVER COURSE OF SHIFT. AT 0550, PT DESAT TO 88% WHILE ASLEEP. APPLIED 2L LFNC. SPO2 AFTER INITIATION OF OXYGEN THERAPY 96%
[2024-01-07 08:02] LABS: BASOPHILS ABSOLUTE AUTO 0.02 K/mm3 (0.00-0.23); BASOPHILS PERCENT AUTO 0 % (0-2); EOSINOPHILS PERCENT AUTO 0 % (0-6); Hematocrit 34.1 % (33.0-51.0); Hemoglobin 10.6 g/dL (11.5-16.0); IMMATURE GRAN ABSOLUTE AUTO 0.12 K/mm3 (0.00-0.10); IMMATURE GRAN PERCENT AUTO 1 % (0-1); LYMPHOCYTES ABSOLUTE AUTO 1.24 K/mm3 (0.84-5.20); LYMPHOCYTES PERCENT AUTO 14 % (21-46); MONOCYTES ABSOLUTE AUTO 0.69 K/mm3 (0.16-1.47); MONOCYTES PERCENT AUTO 8 % (4-13); Mean Corpuscular HGB 26.9 pg (26.0-34.0); Mean Corpuscular HGB Conc 31.1 g/dL (31.5-36.5); Mean Corpuscular Volume 87 fL (80-100); Mean Platelet Volume 9.7 fL (9.1-12.4); NEUTROPHILS ABSOLUTE AUTO 6.93 K/mm3 (1.96-9.15); NEUTROPHILS PERCENT AUTO 77 % (41-73); Platelet Count 270 K/mm3 (150-400); RDW Coefficient Variation 14.9 % (11.7-14.2); RDW Standard Deviation 47.8 fL (35.1-46.3); Red Blood Cell Count 3.94 M/mm3 (3.80-5.20)
[2024-01-07 08:18] LABS: Albumin, Blood 3.3 g/dL (3.4-5.0); Albumin/Globulin Ratio 0.9 (0.8-1.8); Bilirubin, Total 0.5 mg/dL (0.1-1.0); Bun/Creatinine Ratio 15.7 (12.0-20.0); Calcium, Blood 9.1 mg/dL (8.5-10.1); Creatinine, Blood 0.89 mg/dL (0.40-1.00); Globulin, Blood 3.5 g/dL (2.2-4.0); Potassium, Blood 4.6 mmol/L (3.5-5.5); Total Protein, Blood 6.8 g/dL (6.4-8.2)
[2024-01-07] MEDS ORDERED: HYDROcodone 5-APAP 325 TAB PO PRN (09:00)
[2024-01-07] MEDS ORDERED: Polyethylene Glycol 3350 17 gm PO SCH (09:00)
[2024-01-07] MEDS ORDERED: Apixaban 5 MG Tab PO SCH (11:00)
[2024-01-07] MEDS ORDERED: Calcium Carbonate 500 MG Tab Chew PO PRN (11:45)
--- NOTE | 2024-01-07 16:16 | NUR ---
CARE NOTE BP NOTED TO BE 200/85, THIS RN CALLED DR. SHAH AT APPROX. 1615 AND LEFT AND MESSAGE.
[2024-01-07] MEDS ORDERED: Insulin Human Lispro 100 Units/ML 3ML Syringe SC SCH (16:30)
--- NOTE | 2024-01-07 17:24 | NUR ---
SHIFT SUMMARY PT IS ALERT AND ORIENTED X 4, SHE APPEARS CONFUSED AT TIMES BUT IS ABLE TO MAKE HER NEEDS KNOWN AND HAS CALLED APPROPRIATELY. BP HAS BEEN NOTED TO BE HYPERTENSIVE, DR. SHAH MADE AWARE, PLEASE SEE EMAR FOR ELEVATED BP MANAGEMENT. SHE HAS DENIED FEELINGS OF CHEST PAIN/PRESSURE, LIGHTHEADEDNESS/DIZZINESS WELL NAUSEA. SHE IS A SBA TO MANAGE LINES IN ROOM. SHE HAS AMBULATED TO BATHROOM TO VOID URINE BUT HAS YET TO HAVE A BM SINCE ADMISSION. THIS RN GAVE PRN SENNA WELL MIRALX PER EMAR ORDERS. SHE HAS HAD GOOD PO INTAKE. HER SON IS AT BEDSIDE. PAIN HAS BEEN REPORTED IN ABD WELL IN R HIP AND R KNEE. THE PT WAS EDUCATED BY THIS RN REGARDING PAIN MANAGEMENT AND THE NEED LET THIS RN KNOWN WHEN SHE IS FEELING PAIN AND IS IN NEED OF PAIN MANAGEMENT. SHE HAS DEMONSTRATED WHAT APPEARS TO BE PARANOID BEHAVIOR THIS EVENING. THIS RN SPOKE W/ SAND CLEANING MACHINE OPERATOR ERIC REGARDING BEHAVIOR. CALL LIGHT IS W/IN REACH.
[2024-01-07] MEDS ORDERED: Spironolactone 50 MG Tab PO SCH (18:00)
[2024-01-07] MEDS ORDERED: Losartan Potassium 50 MG Tab PO ONE (18:00)
[2024-01-07] MEDS ORDERED: HydrALAZINE HCl 25 MG Tab PO PRN (19:50)
[2024-01-07] MEDS ORDERED: HydrALAZINE HCl 25 MG Tab PO ONE (19:50)
--- NOTE | 2024-01-07 20:05 | NUR ---
HOSPITALIST COMMUNICATION CALL PLACED TO HOSPITALIST R/T PT'S BP OF 205/89. PT REMAINS ASYMPTOMATIC AT THIS TIME. RECIEVED ORDER FOR PO HYDRALAZINE. DR. RUSH UPDATED WHEN HE ROUNDED THROUGH THE UNIT.
--- NOTE | 2024-01-08 00:33 | NUR ---
NOTIFY PROVIDER NOTIFED PROVIDER, DR. RUSH, FOR ELEVATED BP (192/77), HR 63. ASYMPTOMATIC. TOO SOON FOR NEXT PRN DOSE HYDRALAZINE. PROVIDER ORDERED ONE TIME DOSE FOR NOW OF 25MG PO HYDRALAZINE.
[2024-01-08] MEDS ORDERED: HydrALAZINE HCl 25 MG Tab PO ONE ×2 (01:00→05:00)
[2024-01-08 01:43] VITALS: BP 171/64
[2024-01-08 04:07] VITALS: BP 184/79
--- NOTE | 2024-01-08 04:33 | NUR ---
NOTIFY PROVIDER NOTIFIED DR. RUSH OF ELEVATED BP, 184/79 WITH HR 56. INFORMED PROVIDER THAT NEXT DOSE PO HYDRALAZINE NOT AVAILABLE UNTIL 0645 WITH CURRENT ORDERS. PROVIDER STATES HE PLANS TO CHANGE ORDER FREQUENCY TO Q4HRS.
[2024-01-08] MEDS ORDERED: HydrALAZINE HCl 25 MG Tab PO PRN (05:00)
[2024-01-08 05:10] LABS: BASOPHILS ABSOLUTE AUTO 0.05 K/mm3 (0.00-0.23); BASOPHILS PERCENT AUTO 1 % (0-2); EOSINOPHILS ABSOLUTE AUTO 0.09 K/mm3 (0.00-0.68); EOSINOPHILS PERCENT AUTO 1 % (0-6); Hematocrit 30.9 % (33.0-51.0); Hemoglobin 9.7 g/dL (11.5-16.0); IMMATURE GRAN ABSOLUTE AUTO 0.09 K/mm3 (0.00-0.10); IMMATURE GRAN PERCENT AUTO 1 % (0-1); LYMPHOCYTES ABSOLUTE AUTO 1.95 K/mm3 (0.84-5.20); LYMPHOCYTES PERCENT AUTO 24 % (21-46); MONOCYTES ABSOLUTE AUTO 0.83 K/mm3 (0.16-1.47); MONOCYTES PERCENT AUTO 10 % (4-13); Mean Corpuscular HGB 27.2 pg (26.0-34.0); Mean Corpuscular HGB Conc 31.4 g/dL (31.5-36.5); Mean Corpuscular Volume 87 fL (80-100); Mean Platelet Volume 9.2 fL (9.1-12.4); NEUTROPHILS ABSOLUTE AUTO 5.21 K/mm3 (1.96-9.15); NEUTROPHILS PERCENT AUTO 63 % (41-73); Platelet Count 262 K/mm3 (150-400); RDW Coefficient Variation 15.4 % (11.7-14.2); RDW Standard Deviation 48.3 fL (35.1-46.3); Red Blood Cell Count 3.56 M/mm3 (3.80-5.20); White Blood Cell Count 8.22 K/mm3 (4.00-11.30)
[2024-01-08 05:32] LABS: Bun/Creatinine Ratio 11.1 (12.0-20.0); Calcium, Blood 8.5 mg/dL (8.5-10.1); Creatinine, Blood 0.9 mg/dL (0.40-1.00)
--- NOTE | 2024-01-08 05:38 | NUR ---
SHIFT SUMMARY POD2 LAP ARDEN. X3 LAP SITES CDI. PAIN MANAGED UTILIZING NPIS AND PER EMAR. PAUL PO FLUIDS AND FOOD, VOIDING WITHOUT DIFFICULTY. ELEVATED BP OVERNIGHT, SEE VITALS & NURSE NOTES RE: PROVIDER NOTIFICATIONS. ASYMPTOMATIC WITH ELEVATED BP READINGS. PT EXPRESSES ANXIETY WITH DC TO PRISON. PT STATES SHE DOES NOT FEEL COMFORTABLE GOING HOME WITH "SUCH HIGH BLOOD PRESSURE", VERBALIZES THAT THE FACILITY NURSE WORKS LIMITED HOURS AND THAT SHE IS WORRIED ABOUT RECEIVING TIMELY CARE.
[2024-01-08 07:26] VITALS: BP 176/65
[2024-01-08] MEDS ORDERED: Bisacodyl 10 MG Supp PR PRN (07:40)
[2024-01-08] MEDS ORDERED: Losartan Potassium 50 MG Tab PO ONE (08:00)
--- NOTE | 2024-01-08 08:04 | NUR ---
DR AREVALO AND DR LEO IN TO SEE PT THIS AM
[2024-01-08] MEDS ORDERED: Losartan Potassium 50 MG Tab PO SCH (09:00)
[2024-01-08 09:15] VITALS: BP 160/70
[2024-01-08 14:04] VITALS: BP 145/81
--- NOTE | 2024-01-08 14:58 | NUR ---
REPORT CALLED TO URIEL AT [facility].
[2024-01-08 15:20] VITALS: BP 159/84
--- NOTE | 2024-01-08 15:25 | NUR ---
DISCHARGED REVIEWED DC INSTRUCTIONS WITH PT/VERBALIZED UNDERSTANDING. PROVIDED YOGURT PER PT REQUEST. REPORT CALLED PREVIOUSLY NOTED. PT LEFT UNIT WITH POSSESSIONS AND DC PAPERWORK IN HAND TO MEET TAXI OUTSIDE.
== END 2024-01-08 15:24 | DRG 418 ==
LOC: ER 17:55 → SURS 23:57
PROVIDERS: Nurse Practitioner Acute Care; Registered Nurse; Student in an Organized Health Care Education/Training Program; Surgery; ADMIT Internal Medicine
PROC: 0FT44ZZ Resection of Gallbladder, Percutaneous Endoscopic Approach (ICD-10-PCS; principal; 2024-01-06 08:30)
DX: K81.0 Acute cholecystitis (principal); I13.0 Hypertensive heart and chronic kidney disease with heart failure and stage 1 through stage 4 chronic kidney disease, or unspecified chronic kidney disease; N17.9 Acute kidney failure, unspecified; I48.20 Chronic atrial fibrillation, unspecified; I50.32 Chronic diastolic (congestive) heart failure; N18.30 Chronic kidney disease, stage 3 unspecified; E11.22 Type 2 diabetes mellitus with diabetic chronic kidney disease; J44.9 Chronic obstructive pulmonary disease, unspecified; G89.29 Other chronic pain; D63.1 Anemia in chronic kidney disease; F17.210 Nicotine dependence, cigarettes, uncomplicated; R39.15 Urgency of urination; Z88.8 Allergy status to other drugs, medicaments and biological substances; Z91.048 Other nonmedicinal substance allergy status; Z86.73 Personal history of transient ischemic attack (TIA), and cerebral infarction without residual deficits; K21.9 Gastro-esophageal reflux disease without esophagitis; Z90.710 Acquired absence of both cervix and uterus; Z90.89 Acquired absence of other organs; Z98.890 Other specified postprocedural states; Z79.899 Other long term (current) drug therapy; Z79.84 Long term (current) use of oral hypoglycemic drugs; Z79.01 Long term (current) use of anticoagulants
CPT/HCPCS: 36415; 74177; 74300; 76705; 80048; 80053; 82947; 83690; 83735; 84484; 85025; 85610; 88304; 93005; 93010; 94640; 94664; 94760; 94762; 96361; 96365-59; 96375; 96376; 99285-25; A9270; C1894; J0360; J1170; J2270; J2405; J2470; J2543; J2704; J3010; J7030; Q9967

== ENCOUNTER 2024-01-23 17:33 | Inpatient (IN) | payer OTHER ==
[~2024-01-23] VITALS: Ht 167.6 cm; Wt 56.5 kg
[~2024-01-23 17:33] MED LIST changes: +GLUCOPHAGE1000 M1 PO; +Hydroxyzine HCl50 MG; +IPRAT-ALBUT 0.5-3 ML INH; -LOSA25 PO; +PROAIR RESPICL90 MCG INH; +SERT100 PO; -Zoloft50 MG PO; +[UNRECOGNIZED DRUG - CODE] PO
[2024-01-23] MEDS ORDERED: Ipratropium/Albuterol SulF 2.5-0.5MG/3 ML Amp INH ONE (17:50)
[2024-01-23 18:01] LABS: BASOPHILS ABSOLUTE AUTO 0.12 K/mm3 (0.00-0.23); BASOPHILS PERCENT AUTO 1 % (0-2); EOSINOPHILS ABSOLUTE AUTO 0.27 K/mm3 (0.00-0.68); EOSINOPHILS PERCENT AUTO 3 % (0-6); Hematocrit 38.2 % (33.0-51.0); Hemoglobin 11.7 g/dL (11.5-16.0); IMMATURE GRAN ABSOLUTE AUTO 0.11 K/mm3 (0.00-0.10); IMMATURE GRAN PERCENT AUTO 1 % (0-1); LYMPHOCYTES ABSOLUTE AUTO 2.11 K/mm3 (0.84-5.20); LYMPHOCYTES PERCENT AUTO 19 % (21-46); MONOCYTES ABSOLUTE AUTO 0.98 K/mm3 (0.16-1.47); MONOCYTES PERCENT AUTO 9 % (4-13); Mean Corpuscular HGB 27.2 pg (26.0-34.0); Mean Corpuscular HGB Conc 30.6 g/dL (31.5-36.5); Mean Corpuscular Volume 89 fL (80-100); Mean Platelet Volume 9.6 fL (9.1-12.4); NEUTROPHILS ABSOLUTE AUTO 7.29 K/mm3 (1.96-9.15); NEUTROPHILS PERCENT AUTO 67 % (41-73); Platelet Count 371 K/mm3 (150-400); RDW Standard Deviation 48.7 fL (35.1-46.3); White Blood Cell Count 10.88 K/mm3 (4.00-11.30)
[2024-01-23] MEDS ORDERED: ACET325 PO (18:20)
[2024-01-23] MEDS ORDERED: BENZ100A PO (18:21)
[2024-01-23] MEDS ORDERED: BUPRENORPHINE HC2 MG SL (18:22)
[2024-01-23] MEDS ORDERED: BISA10S PR (18:23)
[2024-01-23] MEDS ORDERED: DESITIN DAILY136 GM TP (18:25)
[2024-01-23] MEDS ORDERED: DOCU100 PO (18:27)
[2024-01-23] MEDS ORDERED: VOLTAREN ARTHRI20 GM TOP (18:27)
[2024-01-23] MEDS ORDERED: Flonase 0.05% N16 GM (18:31)
[2024-01-23] MEDS ORDERED: Isosorbide Mono30 MG PO (18:32)
[2024-01-23] MEDS ORDERED: KETO60I IM (18:34)
[2024-01-23] MEDS ORDERED: DULCOLAX400 MG/5 M PO (18:35)
[2024-01-23] MEDS ORDERED: LOPE2C PO (18:35)
[2024-01-23] MEDS ORDERED: NYSTRIT TOP (18:35)
[2024-01-23] MEDS ORDERED: LIDO700A20 TOP (18:35)
[2024-01-23 19:03] LABS: Influenza A, PCR NEGATIVE (NEGATIVE); Influenza B, PCR NEGATIVE (NEGATIVE); Resp Syncytial Virus, PCR NEGATIVE (NEGATIVE); SARS-Cov-2 (COVID-19) PCR, MMC NEGATIVE (NEGATIVE)
[2024-01-23 19:27] LABS: Albumin, Blood 3.6 g/dL (3.4-5.0); Albumin/Globulin Ratio 1.1 (0.8-1.8); Bilirubin, Total 0.5 mg/dL (0.1-1.0); Bun/Creatinine Ratio 23.4 (12.0-20.0); Creatinine, Blood 1.84 mg/dL (0.40-1.00); Globulin, Blood 3.2 g/dL (2.2-4.0); Potassium, Blood 5.7 mmol/L (3.5-5.5); Total Protein, Blood 6.8 g/dL (6.4-8.2)
[2024-01-23] MEDS ORDERED: Lactated Ringer's 1,000 ML IV SCH (19:35)
[2024-01-23] MEDS ORDERED: Ondansetron HCl 2 MG / ML 2ML Vial IV PRN (20:40)
[2024-01-23] MEDS ORDERED: Albuterol 2.5 MG/3 ML VIAL INH PRN (20:40)
[2024-01-23] MEDS ORDERED: FLU VACC TS2024-25(6MOS UP)/PF 45 MCG/0.5 ML SYRINGE IM ONE (20:40)
[2024-01-23] MEDS ORDERED: Ipratropium/Albuterol SulF 2.5-0.5MG/3 ML Amp INH SCH (20:40)
[2024-01-23] MEDS ORDERED: NS 1,000 ML IV SCH (20:40)
[2024-01-23] MEDS ORDERED: HydrALAZINE HCl 20 MG / ML 1ML Vial IV PRN (20:45)
[2024-01-23] MEDS ORDERED: CALCIUM GLUC IN NACL, ISO-OSM 100 ML IV ONE (21:00)
[2024-01-23] MEDS ORDERED: Gabapentin 300 MG Cap PO SCH (21:00)
[2024-01-23] MEDS ORDERED: HyDROXyzine HCl 25 MG Tab PO SCH (21:00)
[2024-01-23] MEDS ORDERED: Methocarbamol 500 MG Tab PO SCH (21:00)
[2024-01-23] MEDS ORDERED: Apixaban 5 MG Tab PO SCH (21:00)
[2024-01-23 21:08] LABS: Thyroid Stimulating Hormone 1.57 uIU/mL (0.360-4.800)
[2024-01-23 21:55] VITALS: BP 148/45
[2024-01-24] MEDS ORDERED: HYDROcodone 5-APAP 325 TAB PO PRN (01:00)
[2024-01-24 01:34] LABS: BASOPHILS PERCENT AUTO 2 % (0-2); EOSINOPHILS ABSOLUTE AUTO 0.26 K/mm3 (0.00-0.68); EOSINOPHILS PERCENT AUTO 4 % (0-6); Hematocrit 34.8 % (33.0-51.0); Hemoglobin 10.7 g/dL (11.5-16.0); IMMATURE GRAN ABSOLUTE AUTO 0.06 K/mm3 (0.00-0.10); IMMATURE GRAN PERCENT AUTO 1 % (0-1); LYMPHOCYTES ABSOLUTE AUTO 2.12 K/mm3 (0.84-5.20); LYMPHOCYTES PERCENT AUTO 31 % (21-46); MONOCYTES ABSOLUTE AUTO 0.71 K/mm3 (0.16-1.47); MONOCYTES PERCENT AUTO 10 % (4-13); Mean Corpuscular HGB 27.1 pg (26.0-34.0); Mean Corpuscular HGB Conc 30.7 g/dL (31.5-36.5); Mean Corpuscular Volume 88 fL (80-100); Mean Platelet Volume 9.4 fL (9.1-12.4); NEUTROPHILS ABSOLUTE AUTO 3.58 K/mm3 (1.96-9.15); NEUTROPHILS PERCENT AUTO 52 % (41-73); Platelet Count 300 K/mm3 (150-400); RDW Coefficient Variation 14.7 % (11.7-14.2); RDW Standard Deviation 47.5 fL (35.1-46.3); Red Blood Cell Count 3.95 M/mm3 (3.80-5.20); White Blood Cell Count 6.83 K/mm3 (4.00-11.30)
[2024-01-24 01:47] LABS: Albumin, Blood 3.4 g/dL (3.4-5.0); Albumin/Globulin Ratio 1.1 (0.8-1.8); Bilirubin, Total 0.5 mg/dL (0.1-1.0); Bun/Creatinine Ratio 29.3 (12.0-20.0); Calcium, Blood 9.8 mg/dL (8.5-10.1); Creatinine, Blood 1.4 mg/dL (0.40-1.00); Magnesium, Blood 1.2 mg/dL (1.6-2.4); Potassium, Blood 5.1 mmol/L (3.5-5.5); Total Protein, Blood 6.4 g/dL (6.4-8.2)
[2024-01-24 02:47] VITALS: BP 145/59
[2024-01-24] MEDS ORDERED: Pantoprazole Sodium 40 MG Tab PO SCH (06:00)
--- NOTE | 2024-01-24 06:06 | NUR ---
Shift Summary Pt admitted to this floor from ED for MYESHA. She has been feeling progressively weaker and dizzy t/o the last week following her galbladder removal surgery. She states she has not been able to keep down food without emesis during that time. She is wearing a ZIO patch. At her MD appointment yesterday she was running sinus ariadna in the 40's, while here she has been sinus ariadna in the 50s. I gave her some Zofran this AM so she could try to drink some ensure and keep it down. She is currently sleeping comfotably. Rcving IV fluids as ordered. She is AOx4, 1 SBA to the BR. On 2L O2 while asleep, per ED report she has a history of SPO2 desat during sleep.
[2024-01-24] MEDS ORDERED: Magnesium Sulf 2 GM/Water 50ML 50 ML IV SCH (07:05)
[2024-01-24] MEDS ORDERED: Insulin Human Lispro 100 Units/ML 3ML Syringe SC SCH (07:30)
[2024-01-24 07:48] VITALS: BP 130/58
[2024-01-24] MEDS ORDERED: NS 1,000 ML IV SCH (09:00)
[2024-01-24] MEDS ORDERED: Sertraline HCl 100 MG Tab PO SCH (09:00)
[2024-01-24] MEDS ORDERED: Loratadine 10 MG Tab PO SCH (09:00)
[2024-01-24 15:01] VITALS: BP 128/52
[2024-01-24] MEDS ORDERED: Gabapentin 100 MG Cap PO SCH (17:00)
--- NOTE | 2024-01-24 17:04 | NUR ---
NO ACUTE CHANGES THIS SHIFT. WINDOW BLIND OPEN, PT ENCOURAGED TO SIT IN CHAIR FOR MEALS. PT STATED THAT SHE WANTED EVERYONE TO BE SHUT OUT. PT HAS SLEPT MAJORITY OF SHIFT. ORIENTED X3-4, INTERMITTENTLY IRRITABLE WITH STAFF. 2L NC. PLAN IS TO MONITOR LABS IN THE MORNING. PT IS SBA WITH FWW TO BEDSIDE COMMODE. ABLE TO KEEP MEALS AND DRINK DOWN. TREATED FOR PAIN AND NAUSEA ONCE THIS SHIFT.
[2024-01-24 20:10] VITALS: BP 128/52
[2024-01-24] MEDS ORDERED: Apixaban 5 MG Tab PO SCH (21:00)
--- NOTE | 2024-01-24 22:34 | NUR ---
NOTIFIED BY MARKET RESEARCH WORKER THAT PT WENT INTO AFIB @ 2218 HR IN 90'S. WHEN ASSESSED PT DENIES PALPITATIONS, SOB, DIZZYNESS.
--- NOTE | 2024-01-25 00:38 | NUR ---
SHIFT SUMMARY NOC PT A/O X 4. PLEASANT AND COOPERATIVE WITH CARE. VSS. PT ON TELE AND CONVERTED TO AFIB IN 90'S @ 2218, PT ASYMPTOMATIC UPON ASSESSMENT. PT ON O2 2L/NC SPO2 >92%. INFUSION OF NS @ 100 ML/HR RUNNING. T MG 1.2 YESTERDAY AND REPLACEMENT GIVEN, AWAITING AM LABS FOR IMPROVEMENT. PT GENERALIZED PAIN BEING MANAGED PER EMAR. PT EXPECTED TO DISCHARGE BACK TO [facility] TODAY. PT CURRENTLY RESTING WITH BED IN LOWEST POSITION, AND CALL LIGHT WITHIN REACH.
[2024-01-25 03:34] VITALS: BP 151/91
[2024-01-25] MEDS ORDERED: Acetaminophen 325 MG TABLET PO PRN (03:40)
[2024-01-25 05:04] LABS: BASOPHILS ABSOLUTE AUTO 0.07 K/mm3 (0.00-0.23); BASOPHILS PERCENT AUTO 1 % (0-2); EOSINOPHILS ABSOLUTE AUTO 0.23 K/mm3 (0.00-0.68); EOSINOPHILS PERCENT AUTO 3 % (0-6); Hematocrit 31.7 % (33.0-51.0); Hemoglobin 9.6 g/dL (11.5-16.0); IMMATURE GRAN ABSOLUTE AUTO 0.06 K/mm3 (0.00-0.10); IMMATURE GRAN PERCENT AUTO 1 % (0-1); LYMPHOCYTES ABSOLUTE AUTO 1.69 K/mm3 (0.84-5.20); LYMPHOCYTES PERCENT AUTO 22 % (21-46); MONOCYTES ABSOLUTE AUTO 0.77 K/mm3 (0.16-1.47); MONOCYTES PERCENT AUTO 10 % (4-13); Mean Corpuscular HGB Conc 30.3 g/dL (31.5-36.5); Mean Corpuscular Volume 89 fL (80-100); Mean Platelet Volume 9.7 fL (9.1-12.4); NEUTROPHILS PERCENT AUTO 64 % (41-73); Platelet Count 271 K/mm3 (150-400); RDW Standard Deviation 49.1 fL (35.1-46.3); Red Blood Cell Count 3.56 M/mm3 (3.80-5.20); White Blood Cell Count 7.82 K/mm3 (4.00-11.30)
[2024-01-25 05:43] LABS: Bilirubin, Total 0.3 mg/dL (0.1-1.0); Calcium, Blood 8.7 mg/dL (8.5-10.1); Creatinine, Blood 1.12 mg/dL (0.40-1.00); Globulin, Blood 2.9 g/dL (2.2-4.0); Magnesium, Blood 1.7 mg/dL (1.6-2.4); Total Protein, Blood 5.9 g/dL (6.4-8.2)
[2024-01-25 07:37] VITALS: BP 158/86
[2024-01-25] MEDS ORDERED: Diltiazem HCl 180 MG Cap.CD PO SCH (10:00)
[2024-01-25] MEDS ORDERED: HYDR10 PO (13:26)
[2024-01-25 14:07] LABS: Hemoglobin 10.6 g/dL (11.5-16.0); Mean Corpuscular HGB 27.2 pg (26.0-34.0); Mean Corpuscular HGB Conc 30.3 g/dL (31.5-36.5); Mean Corpuscular Volume 90 fL (80-100); Mean Platelet Volume 9.5 fL (9.1-12.4); Platelet Count 277 K/mm3 (150-400); RDW Standard Deviation 48.8 fL (35.1-46.3); White Blood Cell Count 8.84 K/mm3 (4.00-11.30)
--- NOTE | 2024-01-25 15:17 | NUR ---
REPORT GIVEN TO URIEL AT [facility], PT WALKED TO BATHROOM AND BED USING WALKER APPROPRIATELY, EDCUATION PROVIDED ON IMPORTANCE OF STAYING HYDRATED. CURRENLY AWAITING TRANSPORT.
== END 2024-01-25 15:25 | disposition home health service (06) | DRG 683 ==
LOC: ER 17:33 → MEDS 20:36 → ENPENDDIS 01-25 13:33 → MEDS 01-25 15:25
PROVIDERS: Emergency Medicine; Family Medicine; Nurse Practitioner Acute Care; ADMIT Family Medicine
DX: N17.9 Acute kidney failure, unspecified (principal); I13.0 Hypertensive heart and chronic kidney disease with heart failure and stage 1 through stage 4 chronic kidney disease, or unspecified chronic kidney disease; I50.32 Chronic diastolic (congestive) heart failure; J44.1 Chronic obstructive pulmonary disease with (acute) exacerbation; E87.5 Hyperkalemia; R00.1 Bradycardia, unspecified; E83.42 Hypomagnesemia; Z86.73 Personal history of transient ischemic attack (TIA), and cerebral infarction without residual deficits; Z79.01 Long term (current) use of anticoagulants; I48.0 Paroxysmal atrial fibrillation; Z88.8 Allergy status to other drugs, medicaments and biological substances; F17.210 Nicotine dependence, cigarettes, uncomplicated; E11.22 Type 2 diabetes mellitus with diabetic chronic kidney disease; N18.30 Chronic kidney disease, stage 3 unspecified; G47.00 Insomnia, unspecified; Z87.19 Personal history of other diseases of the digestive system; F41.9 Anxiety disorder, unspecified; Z90.710 Acquired absence of both cervix and uterus; Z90.89 Acquired absence of other organs; Z98.890 Other specified postprocedural states; Z98.1 Arthrodesis status; Z79.891 Long term (current) use of opiate analgesic; Z79.899 Other long term (current) drug therapy; Z90.49 Acquired absence of other specified parts of digestive tract
CPT/HCPCS: 0241U; 36415; 71046; 80053; 82947; 83735; 83880; 84145; 84443; 84484; 85025; 85027; 93005; 93010; 94640; 94664; 94760; 96360; 97110; 97162; 99285-25; A9270; J0612; J2405; J3475; J7030; J7120

== ENCOUNTER 2024-01-30 11:38 | Inpatient (IN) | payer OTHER ==
[~2024-01-30] VITALS: Ht 167.6 cm; Wt 57.1 kg
[2024-01-30] MEDS ORDERED: Ondansetron HCl 2 MG / ML 2ML Vial IV ONE (12:25)
[2024-01-30] MEDS ORDERED: HYDROcodone 5-APAP 325 TAB PO ONE (12:25)
[2024-01-30 12:27] LABS: Calcium, Blood 9.7 mg/dL (8.5-10.1); Creatinine, Blood 2.16 mg/dL (0.40-1.00); Magnesium, Blood 1.3 mg/dL (1.6-2.4); Potassium, Blood 4.8 mmol/L (3.5-5.5)
[2024-01-30 12:32] LABS: BASOPHILS ABSOLUTE AUTO 0.12 K/mm3 (0.00-0.23); BASOPHILS PERCENT AUTO 1 % (0-2); EOSINOPHILS ABSOLUTE AUTO 0.13 K/mm3 (0.00-0.68); EOSINOPHILS PERCENT AUTO 1 % (0-6); Hematocrit 39.1 % (33.0-51.0); Hemoglobin 12.2 g/dL (11.5-16.0); IMMATURE GRAN ABSOLUTE AUTO 0.15 K/mm3 (0.00-0.10); IMMATURE GRAN PERCENT AUTO 2 % (0-1); LYMPHOCYTES ABSOLUTE AUTO 1.81 K/mm3 (0.84-5.20); LYMPHOCYTES PERCENT AUTO 18 % (21-46); MONOCYTES ABSOLUTE AUTO 0.67 K/mm3 (0.16-1.47); MONOCYTES PERCENT AUTO 7 % (4-13); Mean Corpuscular HGB 26.9 pg (26.0-34.0); Mean Corpuscular HGB Conc 31.2 g/dL (31.5-36.5); Mean Corpuscular Volume 86 fL (80-100); NEUTROPHILS ABSOLUTE AUTO 7.32 K/mm3 (1.96-9.15); NEUTROPHILS PERCENT AUTO 72 % (41-73); Platelet Count 366 K/mm3 (150-400); RDW Standard Deviation 47.9 fL (35.1-46.3); Red Blood Cell Count 4.53 M/mm3 (3.80-5.20)
[2024-01-30] MEDS ORDERED: NS 1,000 ML IV SCH ×2 (12:55→18:15)
[2024-01-30] MEDS ORDERED: Magnesium Sulf 2 GM/Water 50ML 50 ML IV ONE (12:55)
[2024-01-30 15:05] LABS: Bun/Creatinine Ratio 20.1 (12.0-20.0); Calcium, Blood 8.8 mg/dL (8.5-10.1); Creatinine, Blood 1.99 mg/dL (0.40-1.00); Potassium, Blood 5.9 mmol/L (3.5-5.5)
[2024-01-30 15:37] LABS: Base Excess Venous -5.3 mmol/L; Bicarbonate Venous 19.6 mmol/L (24.0-30.0); PCO2 Venous 49.2 mmHg (38-42); PO2 Venous 50.6 mmHg (38-42); pH Blood Venous 7.26 (7.34-7.37)
[2024-01-30] MEDS ORDERED: Ipratropium/Albuterol SulF 2.5-0.5MG/3 ML Amp INH ONE (15:55)
[2024-01-30 16:02] LABS: Bun/Creatinine Ratio 18.9 (12.0-20.0); Calcium, Blood 9.3 mg/dL (8.5-10.1); Creatinine, Blood 2.06 mg/dL (0.40-1.00); Potassium, Blood 5.2 mmol/L (3.5-5.5)
[2024-01-30] MEDS ORDERED: Ipratropium/Albuterol SulF 2.5-0.5MG/3 ML Amp INH SCH (18:10)
[2024-01-30] MEDS ORDERED: FLU VACC TS2024-25(6MOS UP)/PF 45 MCG/0.5 ML SYRINGE IM SCH (18:15)
[2024-01-30] MEDS ORDERED: Albuterol 2.5 MG/3 ML VIAL INH PRN (18:15)
[2024-01-30] MEDS ORDERED: Ondansetron HCl 2 MG / ML 2ML Vial IV PRN (18:15)
[2024-01-30] MEDS ORDERED: NS 1,000 ML IV ONE (18:16)
[2024-01-30] MEDS ORDERED: HydrOXYzine Pamoate 25 MG Cap PO PRN (18:20)
[2024-01-30] MEDS ORDERED: HYDROcodone 5-APAP 325 TAB PO PRN (18:30)
[2024-01-30 19:12] LABS: Source, Urine Clean Catch
[2024-01-30 19:17] LABS: Appearance, Urine Clear (Clear); Bilirubin, Urine Neg (Neg); Blood, Urine Neg (Neg); Color, Urine Yellow (P-Yellow); Glucose Qualitative, Urine Neg (Neg); Ketones, Urine Neg (Neg); Leukocyte Esterase, Urine 1+ (Neg); Nitrite, Urine Neg (Neg); Protein, Urine 1+ (Neg); Urobilinogen, Urine NORM (Normal)
[2024-01-30 19:20] LABS: Influenza A, PCR NEGATIVE (NEGATIVE); Influenza B, PCR NEGATIVE (NEGATIVE); Resp Syncytial Virus, PCR NEGATIVE (NEGATIVE); SARS-Cov-2 (COVID-19) PCR, MMC NEGATIVE (NEGATIVE)
[2024-01-30 19:29] LABS: Bacteria Few /hpf; Red Blood Cells, Urine 0-2 /hpf (0-2); Squamous Epithelial Cells Few /hpf (Few)
[2024-01-30 19:30] LABS: Hyaline Casts 0-2 /lpf (0-2)
[2024-01-30 20:06] VITALS: BP 153/68
--- NOTE | 2024-01-30 20:12 | NUR ---
ADMIT NOTE PT ARRIVED TO FLOOR VIA GURNEY. PT ORIENTED TO UNIT. CALL BUTTON WITHIN REACH. IV FLUIDS INFUSING. TELEMETRY IN PLACE.
[2024-01-30 21:00] LABS: Alanine Aminotransfer (ALT/SGP 16 U/L (12-78); Albumin, Blood 3.4 g/dL (3.4-5.0); Albumin/Globulin Ratio 1.1 (0.8-1.8); Alk Phos 122 U/L (50-136); Aspartate Aminotrans (AST/SGOT 12 U/L (12-37); Bilirubin, Direct <0.1 mg/dL (0.0-0.3); Bilirubin, Indirect Unable to Calculate mg/dL (0.1-0.7); Bilirubin, Total 0.2 mg/dL (0.1-1.0); Globulin, Blood 3.1 g/dL (2.2-4.0); Total Protein, Blood 6.5 g/dL (6.4-8.2)
[2024-01-30] MEDS ORDERED: Gabapentin 100 MG Cap PO SCH (21:00)
[2024-01-30] MEDS ORDERED: Apixaban 5 MG Tab PO SCH (21:00)
[2024-01-30 22:09] LABS: Base Excess Venous -3.2 mmol/L; Bicarbonate Venous 21.3 mmol/L (24.0-30.0); PCO2 Venous 49.9 mmHg (38-42); pH Blood Venous 7.28 (7.34-7.37)
[2024-01-30] MEDS ORDERED: Sodium Bicarbonate 650 MG Tab PO ONE (22:50)
[2024-01-31] VITALS (7 sets, daily range): BP systolic 142–212; BP diastolic 69–89
--- NOTE | 2024-01-31 04:22 | NUR ---
SHIFT SUMMARY ADMITTED THIS SHIFT FOR MYESHA/BRADYCARDIA THIS SHIFT. FULL CODE. CONTACT ISOLATION FOR RULE OUT C. DIFF. SHE REPORTED DIARRHEA PREVIOUS TO ADMIT. IV FLUIDS INFUSING. RENAL CONSULT IS DR. WILLIS, WHO ROUNDED THIS SHIFT. AC CBG'S. TELEMETRY: NSR @ 67 BPM. SODIUM BICARB GIVEN THIS SHIFT, ACIDOSIS NOTED. 1 ASSIST W/FWW - BRP. ADA DIET. ON RA. A&O X4, ANXIETY NOTED - MEDICATED PER EMAR.
[2024-01-31 05:32] LABS: BASOPHILS ABSOLUTE AUTO 0.08 K/mm3 (0.00-0.23); BASOPHILS PERCENT AUTO 1 % (0-2); EOSINOPHILS ABSOLUTE AUTO 0.25 K/mm3 (0.00-0.68); EOSINOPHILS PERCENT AUTO 4 % (0-6); Hematocrit 34.4 % (33.0-51.0); Hemoglobin 10.7 g/dL (11.5-16.0); IMMATURE GRAN ABSOLUTE AUTO 0.13 K/mm3 (0.00-0.10); IMMATURE GRAN PERCENT AUTO 2 % (0-1); LYMPHOCYTES ABSOLUTE AUTO 1.64 K/mm3 (0.84-5.20); LYMPHOCYTES PERCENT AUTO 25 % (21-46); MONOCYTES ABSOLUTE AUTO 0.63 K/mm3 (0.16-1.47); MONOCYTES PERCENT AUTO 10 % (4-13); Mean Corpuscular HGB 27.1 pg (26.0-34.0); Mean Corpuscular HGB Conc 31.1 g/dL (31.5-36.5); Mean Corpuscular Volume 87 fL (80-100); NEUTROPHILS ABSOLUTE AUTO 3.72 K/mm3 (1.96-9.15); NEUTROPHILS PERCENT AUTO 58 % (41-73); Platelet Count 286 K/mm3 (150-400); RDW Coefficient Variation 15.2 % (11.7-14.2); RDW Standard Deviation 48.9 fL (35.1-46.3); Red Blood Cell Count 3.95 M/mm3 (3.80-5.20); White Blood Cell Count 6.45 K/mm3 (4.00-11.30)
[2024-01-31] MEDS ORDERED: Pantoprazole Sodium 40 MG Tab PO SCH (06:00)
[2024-01-31 06:01] LABS: Albumin, Blood 3.3 g/dL (3.4-5.0); Albumin/Globulin Ratio 1.1 (0.8-1.8); Bilirubin, Total 0.4 mg/dL (0.1-1.0); Bun/Creatinine Ratio 22.5 (12.0-20.0); Calcium, Blood 8.4 mg/dL (8.5-10.1); Creatinine, Blood 1.2 mg/dL (0.40-1.00); Magnesium, Blood 1.5 mg/dL (1.6-2.4); Phosphorus, Blood 3.1 mg/dL (2.5-4.9); Potassium, Blood 4.7 mmol/L (3.5-5.5); Total Protein, Blood 6.3 g/dL (6.4-8.2)
[2024-01-31] MEDS ORDERED: Mag Sulfate 1 GM/D5% 100ML 100 ML IV STA (06:39)
[2024-01-31] MEDS ORDERED: Insulin Human Lispro 100 Units/ML 3ML Syringe SC SCH (07:30)
[2024-01-31] MEDS ORDERED: Cholestyramine/Aspartame 4 GM Packet PO SCH (07:30)
[2024-01-31] MEDS ORDERED: Sodium Bicarbonate 650 MG Tab PO SCH ×2 (09:00)
[2024-01-31] MEDS ORDERED: Apixaban 5 MG Tab PO SCH (09:00)
[2024-01-31] MEDS ORDERED: Sertraline HCl 100 MG Tab PO SCH (09:00)
--- NOTE | 2024-01-31 19:22 | NUR ---
SHIFT SUMMARY: PT A/O X4. PLEASANT AND COOPERATIVE WITH CARE. CONTINUING 24 HOUR URINE COLLECTION ENDING AT 0500 ON 02-01-2024. R/O CDIFF PRECAUTIONS IN PLACE. PT HAS NOT HAD BM THIS SHIFT. NS INFUSING @100/HR. MAGNESIUM REPLACED THIS AM. DENIES N/V THIS SHIFT. PAIN MEDICATION GIVEN ONCE FOR CHRONIC PAIN. CALL LIGHT IN REACH. BED IN LOWEST POSITION WITH ALARM ON.
[2024-01-31] MEDS ORDERED: HydrALAZINE HCl 20 MG / ML 1ML Vial IV PRN (22:10)
--- NOTE | 2024-01-31 22:13 | NUR ---
CALLED HOSPITALIST INFORMED HIM OF HTN, AFTER RECHECKS OF BP. NEW ORDERS IN EMAR.
[2024-02-01] VITALS (19 sets, daily range): BP systolic 119–197; BP diastolic 68–101
--- NOTE | 2024-02-01 04:30 | NUR ---
SHIFT SUMMARY ADMITTED FOR MYESHA. BRADYCARDIA. FULL CODE. IV FLUIDS INFUSING. WE ARE MONITORING LABS. AC CBG'S. TELEMETRY: NSR @ 72 BPM. 24 HOUR URINE PROTEIN COLLECTION WILL COMPLETE SOON. 1 ASSIST W/FWW - BRP. PAIN MEDICATION GIVEN THIS SHIFT. DR. WILLIS IS RENAL CONSULT. CALLED HOSPITALIST THIS SHIFT FOR HTN. HYDRALAZINE ORDERED FOR HTN (PRN - SBP > 180).
--- NOTE | 2024-02-01 05:20 | NUR ---
24 HOUR URINE COLLECTION THIS COLLECTION HAS COMPLETED. AWAITING RESULTS.
--- NOTE | 2024-02-01 06:04 | NUR ---
IV FLUIDS RENAL CONSULT DR. WILLIS ORDERED NS RATE CHANGE TO 50 ML PER HOUR.
[2024-02-01] MEDS ORDERED: NS 1,000 ML IV SCH (06:05)
[2024-02-01 06:30] LABS: Protein, Urine Quantitative 15.9 mg/dL (0.0-11.9)
[2024-02-01 06:42] LABS: Hematocrit 31.3 % (33.0-51.0); Hemoglobin 9.8 g/dL (11.5-16.0)
[2024-02-01 07:05] LABS: Albumin, Blood 3.2 g/dL (3.4-5.0); Anion Gap 11 mmol/L (3-11); Blood Urea Nitrogen 17 mg/dL (8-24); Bun/Creatinine Ratio 17.2 (12.0-20.0); CO2, Blood 23 mmol/L (21-32); Calcium, Blood 8.6 mg/dL (8.5-10.1); Chloride, Blood 114 mmol/L (98-108); Creatinine, Blood 0.99 mg/dL (0.40-1.00); Glomerular Filtration Rate 62 (60-); Glucose, Blood 115 mg/dL (70-99); Magnesium, Blood 1.2 mg/dL (1.6-2.4); Potassium, Blood 4.6 mmol/L (3.5-5.5); Sodium, Blood 143 mmol/L (136-145)
[2024-02-01] MEDS ORDERED: Magnesium Sulf 2 GM/Water 50ML 50 ML IV ONE (07:35)
[2024-02-01] MEDS ORDERED: Sodium Phosphate 10 MM in Dextrose 5% 250 ML IV STA (08:13)
[2024-02-01] MEDS ORDERED: AmLODIPine Besylate 5 MG Tab PO SCH (09:00)
[2024-02-01] MEDS ORDERED: Magnesium Oxide 400 MG Tab PO SCH (09:00)
[2024-02-01] MEDS ORDERED: NS 1,000 ML IV ONE (15:26)
[2024-02-01] MEDS ORDERED: Heparin Sodium 1000 Units/ML 10ML MDV ONE (15:26)
[2024-02-01] MEDS ORDERED: NS 250 ML IV ONE (15:26)
--- NOTE | 2024-02-01 15:32 | NUR ---
TRANSFER PT A&OX4, COOPERATIVE, ABLE TO MAKE NEEDS KNOWN. THIS RN WAS NOT INFORMED ABOUT THE ANGIOGRAM UNTIL 20 MINS BEFORE TRANSPORT. PT WAS TRANSPORTED BY 2 RN VIA WHEELCHAIR. INFORMED PT WILL BE GOING TO PCU AFTER PROCEDURE. BELONGINGS WILL BE TRANSFERED TO NEW ROOM AFTER REPORT HAS BEEN GIVEN.
[2024-02-01] MEDS ORDERED: Ondansetron HCl 2 MG / ML 2ML Vial ONE (15:36)
[2024-02-01] MEDS ORDERED: FentaNYL Citrate 50 MCG/ML 2 ML Injection ONE (15:36)
[2024-02-01] MEDS ORDERED: Midazolam HCl 1MG / ML 2ML Vial ONE (15:36)
[2024-02-01] MEDS ORDERED: NS 500 ML IV ONE (15:36)
--- NOTE | 2024-02-01 15:45 | NUR ---
PT TAKEN FOR ANGIOGRAM AROUND 1530. AWAITING PCU BED.
--- NOTE | 2024-02-01 16:10 | NUR ---
SHIFT SUMMARY THIS RN CONTACTED U 02 RN TO GIVE REPORT. PT TRANFERRING TO [facility] 02. LETTY [facility] TRANSPORTED PT BELONGINGS.
[2024-02-01] MEDS ORDERED: Carvedilol 3.125 MG Tab PO SCH (17:00)
--- NOTE | 2024-02-01 17:00 | NUR ---
ARRIVAL TO PCU: PT ARRIVED TO PCU-2 FROM PASSENGER SERVICE SUPERVISOR BY BED AT APPROX 1640. PT LETHARGIC BUT ABLE TO CONVERSE W/ STAFF. ABLE TO MAKE NEEDS KNOWN. PT HYPERTENSIVE ON ARRIVAL W/ SBP 170'S. PER PASSENGER SERVICE SUPERVISOR RN MD SARA AGOSTO REQUESTING TO HOLD OFF ON ANTIHYPERTENSIVES AT THIS TIME TO SEE IF STENT PLACEMENT WILL REDUCE BP. HR 70-80'S, SINUS RHYTHM ON TELE. PER PUBLIC SAFETY OFFICER, 1 3SEC RUN OF SVT; PT ASYMPTOMATIC. SPO2 >90% ON ROOM AIR, RESPIRATIONS EVEN & UNLABORED. RIGHT GROIN SITE INTACT. NO BLEEDING, BRUISING, OR HEMATOMA FORMATION. PEDAL PULSE STRONG TO PALPATION. PT DENIES NUMBNESS/TINGLING. PER PASSENGER SERVICE SUPERVISOR RN, PT TO LAY FLAT FOR 3HRS. NO OTHER NEEDS AT THIS TIME, CALL LIGHT IN REACH.
[2024-02-01] MEDS ORDERED: FentaNYL Citrate 50 MCG/ML 2 ML Injection IV ONE (17:45)
--- NOTE | 2024-02-01 18:04 | NUR ---
PHYSICIAN CONTACT: PT C/O 11/10 PAIN TO LOW BACK, STATING "I CAN'T LAY FLAT LIKE THIS MUCH LONGER." PT ADVISED THAT SHE MUST LAY FLAT FOR GROIN SITE RECOVERY. CALL TO MD PIERCE REGARDING PAIN. W/ ORDER FOR 1X DOSE FENTANYL NOW. DISCUSSED HOLDING PO MEDS & PO INTAKE UNTIL PT CAN SIT UP; PER MD, OK TO HOLD 1700 COREG UNTIL THIS EVENING WHEN ASPIRATION RISK DECREASES.
[2024-02-01] MEDS ORDERED: N-Acetylcysteine 600 MG CAP PO SCH (21:00)
--- NOTE | 2024-02-01 21:06 | NUR ---
ASSUMED CARE ASSUMED CARE AT 1900. BEDSIDE REPORT DONE. PT A/O X 4. ANXIOUS AND STATING SHE HAS 8/10 PAIN IN HER BACK. PT TO LAY FLAT TILL 1999 D/T RIGHT GROIN ACCESS S/P RENAL STENT PLACEMENT. SITE C/D/I. NO S/S OF BLEEDING OR HEMATOMA. MEDICATED PER EMAR AND REPOSITIONED WITH GOOD EFFECT. HTN WITH SBP 180-190'S. MEDICATED ON DAYSHIFT WITH HYDRALAZINE. PT ALSO CONVERTED TO AFIB RATE 130-160'S. GIVEN NOC MEDS WITH NO IMPROVEMENT TO BP/HR. CALL HOSP AND AWAITING ORDERS AT THIS TIME. PUREWICK IN PLACE. CALL LIGHT IN REACH.
[2024-02-01] MEDS ORDERED: Diltiazem HCl 5 MG / ML 10ML Vial IV ONE (21:45)
[2024-02-01] MEDS ORDERED: Diltiazem HCl 5 MG / ML 5ML Vial IV ONE (21:55)
[2024-02-01] MEDS ORDERED: dilTIAZem HCL 60 MG TAB PO SCH (22:00)
[2024-02-02] VITALS (13 sets, daily range): BP systolic 122–177; BP diastolic 68–108
--- NOTE | 2024-02-02 00:37 | NUR ---
UPDATE PT C/O 11/10 RLQ ABD PAIN THAT EXTENDS TO HER RIGHT LOWER BACK. TENDER TO PALPITATION. NO DISCOLORATION NOTED. R GROIN SITE C/D/I. MEDICATED PER EMAR AND HOSP NOTIFIED. VSS. NO NEW ORDERS AT THIS TIME.
[2024-02-02 04:01] LABS: Hemoglobin 11.8 g/dL (11.5-16.0)
[2024-02-02 04:19] LABS: Albumin, Blood 3.4 g/dL (3.4-5.0); Anion Gap 10 mmol/L (3-11); Blood Urea Nitrogen 11 mg/dL (8-24); CO2, Blood 23 mmol/L (21-32); Calcium, Blood 8.8 mg/dL (8.5-10.1); Chloride, Blood 112 mmol/L (98-108); Creatinine, Blood 0.78 mg/dL (0.40-1.00); Glomerular Filtration Rate 82 (60-); Glucose, Blood 127 mg/dL (70-99); Magnesium, Blood 1.6 mg/dL (1.6-2.4); Phosphorus, Blood 2.4 mg/dL (2.5-4.9); Potassium, Blood 4.7 mmol/L (3.5-5.5); Sodium, Blood 140 mmol/L (136-145)
--- NOTE | 2024-02-02 05:29 | NUR ---
SHIFT SUMMARY PT REMAINS A/O X 4. HR NOW AFIB 90-110'S AFTER CARDIZEM IV AND PO. INTERMITTENT HTN NOTED. OTHER VSS. ON RA. PT MEDICATED FOR PAIN X 3 THIS SHIFT. SEE EMAR. NS AT 50ML/HR. PUREWICK IN PLACE. R GROIN SITE C/D/I. CALL LIGHT IN REACH. WILL REPORT OFF TO ONCOMING RN.
[2024-02-02] MEDS ORDERED: Sodium Phosphate 10 MM in Dextrose 5% 250 ML IV STA (07:31)
[2024-02-02] MEDS ORDERED: Guaifenesin/Dextromethorphan Syrup 5 ML UDC PO PRN (08:50)
[2024-02-02] MEDS ORDERED: Polyethylene Glycol 3350 17 gm PO PRN (08:50)
[2024-02-02] MEDS ORDERED: Docusate Sodium/Senna 1 Tab PO SCH (09:00)
[2024-02-02 09:58] LABS: ANTINUCLEAR AB (ANA),HEP-2,IGG <1:80 (<1:80)
[2024-02-02] MEDS ORDERED: Carvedilol 3.125 MG Tab PO ONE (10:45)
--- NOTE | 2024-02-02 10:46 | NUR ---
I CALLED DR. PIERCE PER REQUEST ABOUT THE PT'S HR W/ ACTIVITY AND BP. SINCE DR. WILLIS INCREASED THE PT'S COREG STARTING 02/02, DR. PIERCE WANTED A OT DOSE OF 3.125MG COREG NOW. HE STATED HE WILL CHANGE THE CARDIZEM MEDICATION TO EXTENDED RELEASE. PROVIDER TO PUT IN ORDER. SEE NOTES FOR UPDATES.
[2024-02-02] MEDS ORDERED: Carvedilol 6.25 MG Tab PO SCH (17:00)
--- NOTE | 2024-02-02 17:06 | NUR ---
SHIFT SUMMARY THE PT IS A&oX4, 1P SBA FOR TRANSFER, AC CBG CHECK, AND SHE IS ABLE TO MAKE HER NEEDS KNOWN. THE PT HAD A PURWICK AT THE START OF THE SHIFT, BUT IT WAS TAKEN OUT AND SHE HAS BEEN ABLE TO USE THE BSC. THE PT IS MEDICAL STAUS WITH TELE. ON TELE SHE HAS BEEN AFIB 80'S-150'S HER HR HAS BEEN MORE CONTROLLED SINCE INCREASING PO COREG. BP STABLE. SHE IS ON RA W/ SP02 >93%. THE PT HAS CHRONIC PAIN AND HAS BEEN MEDICATED PER EMAR. SHE IS C/O PAIN IN HER RIGHT FLANK THIS SHIFT. THE PLAN IS FOR THE PT TO D/C TO [facility] 02/[facility]. SHE WAS SUPPOSED TO BE DISCHARGED 02/01, BUT [facility] WAS UNABLE TO DO AN INTAKE TODAY PER CASE MANAGMENT. NO ACUTE EVENTS. SEE NOTES FOR UPDATES
[2024-02-02] MEDS ORDERED: Diltiazem HCl 180 MG Cap.CD PO SCH (18:00)
[2024-02-02 19:26] LABS: GBM, IGG MULTIPLEX BEAD ASSAY 0 AU/mL (0-19); MYELOPEROXIDASE (MPO) AB,IGG 0 AU/mL (0-19); SERINE PROTEINASE 3 PR3 AB,IGG 0 AU/mL (0-19)
[2024-02-03] VITALS (9 sets, daily range): BP systolic 105–162; BP diastolic 55–122
--- NOTE | 2024-02-03 04:13 | NUR ---
END OF SHIFT REPORT PT HAD SEVERAL EVENTS OF AFIB RVR UP TO 160 BPM THAT LASTED UP TO 6 SECONDS. BP CONTINUED TO BE STABLE. NO OTHER NEW ACUTE EVENTS. PLAN OF CARE CONTINUED.
--- NOTE | 2024-02-03 07:54 | NUR ---
PT GOT UP TO BEDSIDE COMMODE AND RATE WENT UP TO 15O AT ONE POINT AND STATED SHE WAS FEELING LIGHT HEADED AND LIKE HER HEART WAS RACING. AFTER RETURNING TO BED HER BLOOD PRESSURE WAS TAKEN AND IT WAS SLIGHT ELVATED AROUD 150 SYSTOLIC AND HER HEART RATE RECOVERED AND WENT DOWN TO THE 130'S AND WE TOLD HER WE WILL CYCLE HER BLOOD PRESSURE AND GAVE HER MEDICATIONS EARLY TO HELP WITH IT. SHE KNOWS WE WILL USE AN ASSISSTIVE DEVICE NEXT TIME TO KEEP HER HEART RATE FROM GOING UP.
[2024-02-03] MEDS ORDERED: Carvedilol 6.25 MG Tab PO SCH (08:00)
[2024-02-03] MEDS ORDERED: dilTIAZem HCL 240 MG CAP.CD PO SCH (09:00)
[2024-02-03 12:05] LABS: Hemoglobin 12.1 g/dL (11.5-16.0)
[2024-02-03 12:24] LABS: Albumin, Blood 3.2 g/dL (3.4-5.0); Anion Gap 11 mmol/L (3-11); Blood Urea Nitrogen 13 mg/dL (8-24); Bun/Creatinine Ratio 15.7 (12.0-20.0); CO2, Blood 23 mmol/L (21-32); Calcium, Blood 9.6 mg/dL (8.5-10.1); Chloride, Blood 112 mmol/L (98-108); Creatinine, Blood 0.83 mg/dL (0.40-1.00); Glomerular Filtration Rate 76 (60-); Glucose, Blood 131 mg/dL (70-99); Magnesium, Blood 1.7 mg/dL (1.6-2.4); Phosphorus, Blood 3.9 mg/dL (2.5-4.9); Potassium, Blood 5.3 mmol/L (3.5-5.5); Sodium, Blood 141 mmol/L (136-145)
[2024-02-03] MEDS ORDERED: Sodium Zirconium Cyclosilicate 10 GM Packet PO SCH (12:50)
--- NOTE | 2024-02-03 14:10 | NUR ---
PATIENT ARRIVED TO MEDICAL FLOOR AT 1410.
--- NOTE | 2024-02-03 14:10 | NUR ---
TRANSFER NOTE: REPORT CALLED TO [facility]ASH[facility]. PT A&OX4 AND COOPERATIVE WITH HER CARE. SATTING >92% ON ROOM AIR. ON TELE SHOWING SINUS RYTHM WITH RATE IN 60'S. TOOK ALL BELONGINGS AND WAS TRANSPORTED VIA WHEELCHAIR AND TAKEN TO ROOM FROM PCT'S. DISCHARGE PAPERWORK AND MEDICATIONS WERE TAKEN WITH PATIENT WELL.
--- NOTE | 2024-02-03 19:10 | NUR ---
END OF SHIFT SUMMARY: A&Ox4. PLEASANT AND COOPERATIVE WITH CARE. CALLS APPROPRIATELY AND IS ABLE TO ADVOCATE NEEDS EFFECTIVELY. AMBULATES INDEPENDENTLY WITHIN ROOM. CONTINENT x2. LBM TODAY. MEDS WHOLE WITH FLUIDS. NO C/O PAIN OR DISCOMFORT. BED IN LOWEST POSITION. CALL LIGHT WITHIN REACH. ALL NEEDS MET. REPORT TO ONCOMING NURSE.
--- NOTE | 2024-02-04 03:53 | NUR ---
SHIFT SUMMARY PT ALERT ORIENTED ABLE TO CALL APPROPRIATELY. GETS UP SBA TO USE THE BATHROOM. C/O HIP AND BACK PAIN MEDICATED WITH NORCO WITH GOOD RELIEF. REMAINS ON TELEMETRY AT R WITH A RATE OF 64. REMAINS ON 2 L OF O2 VIA NC SATTING AT 91%. LIVES AT [facility] AND ISNT ABLE TO GO BACK UNTIL MONDAY. NO C/O NAUSEA THIS SHIFT. BP GOOD AT 126/55. HAS BEEN SLEEPING MOST OF THE NIGHT. RESTING WELL IN BED AT THIS TIME.
[2024-02-04 04:57] LABS: Hematocrit 33.2 % (33.0-51.0); Hemoglobin 10.2 g/dL (11.5-16.0)
[2024-02-04 05:12] VITALS: BP 145/88
[2024-02-04 05:24] LABS: Magnesium, Blood 1.8 mg/dL (1.6-2.4)
[2024-02-04 05:25] LABS: Albumin, Blood 3.2 g/dL (3.4-5.0); Anion Gap 8 mmol/L (3-11); Blood Urea Nitrogen 22 mg/dL (8-24); Bun/Creatinine Ratio 22.7 (12.0-20.0); CO2, Blood 28 mmol/L (21-32); Calcium, Blood 9.3 mg/dL (8.5-10.1); Chloride, Blood 110 mmol/L (98-108); Creatinine, Blood 0.97 mg/dL (0.40-1.00); Glomerular Filtration Rate 63 (60-); Glucose, Blood 116 mg/dL (70-99); Phosphorus, Blood 4.6 mg/dL (2.5-4.9); Potassium, Blood 4.4 mmol/L (3.5-5.5); Sodium, Blood 142 mmol/L (136-145)
--- NOTE | 2024-02-04 07:46 | NUR ---
PER DR WILLIS: FOLLOW UP MONDAY AT 9:30AM IN HIS OFFICE.
[2024-02-04 08:00] VITALS: BP 119/62
--- NOTE | 2024-02-04 18:10 | NUR ---
END OF SHIFT SUMMARY: A&Ox4. COOPERATIVE WITH CARE. CALLS APPROPRIATELY AND IS ABLE TO ADVOCATE NEEDS EFFECTIVELY. CONTINENT OF BOWEL AND BLADDER WITH OCCASIONAL EPISODIC URGE INCONTINENCE. SBA FOR AMBULATION. LBM TODAY. MEDS WHOLE WITH FLUIDS. TELE NORMAL SINUS IN 60s. MEDICATED x2 PRN RIGHT HIP, GROIN AND BACK PAIN. ROOM AIR. NO ACUTE CHANGES TODAY. ANTICIPATE DC HOME TO [facility] TOMORROW, PROVIDED FACILITY NURSE AUTHORIZES RE-ADMIT TO FACILITY. BED IN LOWEST POSITION. CALL LIGHT WITHIN REACH. ALL NEEDS MET. REPORT TO ONCOMING NURSE.
[2024-02-04 19:27] VITALS: BP 141/72
[2024-02-05 03:40] VITALS: BP 144/87
--- NOTE | 2024-02-05 05:07 | NUR ---
ADMITTED 01/30/24: MYESHA. AAOX4 WITH SBA TO BR. TELE ON, NSR @ 75 BPM. LAST BM 02/05/24. AC. PLAN TO DC TO [facility] AM.
[2024-02-05 07:33] VITALS: BP 196/86
--- NOTE | 2024-02-05 08:05 | NUR ---
CALL FROM [employer] STATING PATIENT SHOWING SOME ST CHANGES. PT ELEVATED BP, BUT NO C/O ANGINA OR SOB. EKG DONE; NO CHANGE FROM PREVIOUS EKG. 10mg IV HYDRALAZINE ADMINISTERED FOR SBP >160.
[2024-02-05 08:52] VITALS: BP 145/84
[2024-02-05 10:02] VITALS: BP 135/67
[2024-02-05] MEDS ORDERED: Carvedilol12.5 MG PO (11:39)
[2024-02-05] MEDS ORDERED: NAC600 MG PO (11:40)
--- NOTE | 2024-02-05 13:25 | NUR ---
DISCHARGE SUMMARY: A&Ox4. PLEASANT AND COOPERATIVE WITH CARE. CALLS APPROPRIATELY AND IS ABLE TO ADVOCATE NEEDS EFFECTIVELY. CONTINENT OF BOWEL AND BLADDER; SBA TO BATHROOM FOR ELIMINAION. INDEPENDENT WITH MEALS AND CONSUMED 100% BOTH BREAKFAST AND LUNCH. MEDS WHOLE WITH FLUIDS. C/O HIP/GROIN/BACK PAIN; MEDICATED TWICE PER EMR. REPORT FROM TELE STATING SHE WAS HAVING S-T CHANGES. EKG DONE SHOWED NO CHANGE FROM PREVIOUS EKG. NO C/O CP OR SOB. PRN IV HYDRALAZINE ADMINISTERED SBP >160. IMPROVED UPON RECHECK. NO FURTHER ACUTE CARDIAC CONCERNS. CALL FROM URIEL AT [facility] REQUESTING UPDATE; QUESTIONS ANSWERED AND NURSE DETERMINED PATIENT TO BE BACK AT BASELINE AND APPROPRIATE TO ADMIT BACK TO FACILITY. VSS UPON DISCHARGE. DISCHARGE ORDERS AND MED REC SENT TO [facility]. PATIENT LEFT FLOOR WITH ALL BELONGINGS, ESCORTED BY [facility] CNA. TRANSPORTATION PROVIDED BY [employer].
== END 2024-02-05 13:00 | DRG 674 ==
LOC: ER 11:38 → MEDS 18:09 → PCU 02-01 15:51 → MEDS 02-03 14:09
PROVIDERS: Internal Medicine Nephrology; Nurse Practitioner Acute Care; Student in an Organized Health Care Education/Training Program; ADMIT Internal Medicine
PROC: 04793DZ Dilation of Right Renal Artery with Intraluminal Device, Percutaneous Approach (ICD-10-PCS; principal; 2024-02-01)
PROC: B4161ZZ Fluoroscopy of Right Renal Artery using Low Osmolar Contrast (ICD-10-PCS; 2024-02-01)
DX: N17.9 Acute kidney failure, unspecified (principal); E87.4 Mixed disorder of acid-base balance; I13.0 Hypertensive heart and chronic kidney disease with heart failure and stage 1 through stage 4 chronic kidney disease, or unspecified chronic kidney disease; I50.32 Chronic diastolic (congestive) heart failure; J44.1 Chronic obstructive pulmonary disease with (acute) exacerbation; I70.1 Atherosclerosis of renal artery; E87.5 Hyperkalemia; E11.22 Type 2 diabetes mellitus with diabetic chronic kidney disease; E83.42 Hypomagnesemia; R00.1 Bradycardia, unspecified; M54.2 Cervicalgia; G89.29 Other chronic pain; F17.210 Nicotine dependence, cigarettes, uncomplicated; E11.40 Type 2 diabetes mellitus with diabetic neuropathy, unspecified; N18.31 Chronic kidney disease, stage 3a; M19.90 Unspecified osteoarthritis, unspecified site; K21.9 Gastro-esophageal reflux disease without esophagitis; E11.51 Type 2 diabetes mellitus with diabetic peripheral angiopathy without gangrene; I48.0 Paroxysmal atrial fibrillation; D63.1 Anemia in chronic kidney disease; Z86.73 Personal history of transient ischemic attack (TIA), and cerebral infarction without residual deficits; Z90.49 Acquired absence of other specified parts of digestive tract; Z88.8 Allergy status to other drugs, medicaments and biological substances; Z98.1 Arthrodesis status; Z90.710 Acquired absence of both cervix and uterus; Z90.89 Acquired absence of other organs; Z79.4 Long term (current) use of insulin; Z79.01 Long term (current) use of anticoagulants; Z79.899 Other long term (current) drug therapy; Z79.84 Long term (current) use of oral hypoglycemic drugs; I25.2 Old myocardial infarction; Z98.890 Other specified postprocedural states; Z86.718 Personal history of other venous thrombosis and embolism; Z79.891 Long term (current) use of opiate analgesic
CPT/HCPCS: 0241U; 36252; 36415; 37236; 51798; 71045; 76770; 76937; 80048; 80053; 80069; 80076; 81001; 81050; 82550; 82803; 82947; 83516; 83735; 84100; 84156; 84484; 85014; 85018; 85025; 86039; 86334; 86335; 93005; 93010; 93975; 94640; 94664; 94760; 94762; 96361; 96374; 96375; 99152; 99153; 99285-25; A9270; C1760; C1769; C1876; C1887; C1894; J0360; J1644; J2250; J2405; J3010; J3475; J7030; J7040; J7050; J7060; Q0177; Q9967

== ENCOUNTER → 2024-01-30 | Outpatient (CLI) | payer OTHER ==
[~2024-01-30] MED LIST changes: +BUPRENORPHINE HC2 MG SL; +DESITIN DAILY136 GM TP; +DULCOLAX400 MG/5 M PO; +Isosorbide Mono30 MG PO; +KETO60I IM; +LOPE2C PO; +NYSTRIT TOP; +VOLTAREN ARTHRI20 GM TOP
== END | disposition home or self-care (01) ==
LOC: LAB SHORT 16:14 → LAB 16:14
DX: N39.0 Urinary tract infection, site not specified (principal)
CPT/HCPCS: 87077; 87086; 87186

== ENCOUNTER 2024-02-13 17:03 | Emergency (ER) | payer OTHER ==
[~2024-02-13] VITALS: Ht 167.6 cm; Wt 56.7 kg
[~2024-02-13 17:03] MED LIST changes: +Carvedilol12.5 MG PO; +NAC600 MG PO
[2024-02-13] MEDS ORDERED: HYDROcodone 5-APAP 325 TAB PO ONE (19:55)
[2024-02-13 20:20] LABS: BASOPHILS ABSOLUTE AUTO 0.09 K/mm3 (0.00-0.23); BASOPHILS PERCENT AUTO 1 % (0-2); EOSINOPHILS PERCENT AUTO 4 % (0-6); Hematocrit 35.2 % (33.0-51.0); Hemoglobin 10.9 g/dL (11.5-16.0); IMMATURE GRAN PERCENT AUTO 1 % (0-1); LYMPHOCYTES ABSOLUTE AUTO 2.42 K/mm3 (0.84-5.20); LYMPHOCYTES PERCENT AUTO 29 % (21-46); MONOCYTES ABSOLUTE AUTO 0.91 K/mm3 (0.16-1.47); MONOCYTES PERCENT AUTO 11 % (4-13); Mean Corpuscular HGB 27.5 pg (26.0-34.0); Mean Corpuscular Volume 89 fL (80-100); Mean Platelet Volume 9.5 fL (9.1-12.4); NEUTROPHILS ABSOLUTE AUTO 4.45 K/mm3 (1.96-9.15); NEUTROPHILS PERCENT AUTO 54 % (41-73); Platelet Count 361 K/mm3 (150-400); RDW Coefficient Variation 15.2 % (11.7-14.2); RDW Standard Deviation 49.8 fL (35.1-46.3); Red Blood Cell Count 3.97 M/mm3 (3.80-5.20); White Blood Cell Count 8.27 K/mm3 (4.00-11.30)
[2024-02-13 20:41] LABS: Albumin, Blood 3.5 g/dL (3.4-5.0); Bilirubin, Total 0.3 mg/dL (0.1-1.0); Bun/Creatinine Ratio 23.5 (12.0-20.0); Calcium, Blood 9.3 mg/dL (8.5-10.1); Creatinine, Blood 1.02 mg/dL (0.40-1.00); Globulin, Blood 3.4 g/dL (2.2-4.0); Potassium, Blood 3.9 mmol/L (3.5-5.5); Total Protein, Blood 6.9 g/dL (6.4-8.2)
[2024-02-13 23:00] VITALS: BP 177/94
== END 2024-02-13 23:10 | disposition short-term general hospital (02) ==
LOC: ER 17:03
PROVIDERS: Emergency Medicine
DX: I49.5 Sick sinus syndrome (principal); I13.0 Hypertensive heart and chronic kidney disease with heart failure and stage 1 through stage 4 chronic kidney disease, or unspecified chronic kidney disease; E11.22 Type 2 diabetes mellitus with diabetic chronic kidney disease; N18.30 Chronic kidney disease, stage 3 unspecified; I50.9 Heart failure, unspecified; J44.9 Chronic obstructive pulmonary disease, unspecified; F17.200 Nicotine dependence, unspecified, uncomplicated; Z88.8 Allergy status to other drugs, medicaments and biological substances; Z79.01 Long term (current) use of anticoagulants; Z79.84 Long term (current) use of oral hypoglycemic drugs; Z79.899 Other long term (current) drug therapy; Z86.73 Personal history of transient ischemic attack (TIA), and cerebral infarction without residual deficits
CPT/HCPCS: 71045; 80053; 84484; 85025; 99285-25; A9270

== ENCOUNTER → 2024-04-16 | Outpatient (CLI) | payer OTHER ==
[2024-04-16 19:22] LABS: Amorphous Light (0-Heavy); Bacteria Many /hpf; Squamous Epithelial Cells Few /hpf (Few); Transitional Epithelial Cells Rare /hpf (0-Rare)
== END | disposition home or self-care (01) ==
LOC: LAB 17:41 → LAB SHORT 17:41
PROVIDERS: Family Medicine
DX: N39.46 Mixed incontinence (principal); R30.0 Dysuria
CPT/HCPCS: 81015; 87086

== ENCOUNTER → 2024-04-18 | Outpatient (CLI) | payer OTHER ==
[2024-04-18 16:56] LABS: Adenovirus F 40/41 Not Detected (NOT DETECT); Astrovirus Not Detected (NOT DETECT); Campylobacter Sp Not Detected (NOT DETECT); Cryptosporidium Not Detected (NOT DETECT); Cyclospora Cayetanensis Not Detected (NOT DETECT); E. Coli O157 Not Detected (NOT DETECT); Entamoeba Histolytica Not Detected (NOT DETECT); Enteroaggregative E. coli-EAEC Not Detected (NOT DETECT); Enteropathogenic E. coli-EPEC Not Detected (NOT DETECT); Enterotoxigenic E. coli-ETEC Not Detected (NOT DETECT); Giardia Lamblia Not Detected (NOT DETECT); Norovirus GI/GII Not Detected (NOT DETECT); Plesiomonas Shigelloides Not Detected (NOT DETECT); Rotavirus A Not Detected (NOT DETECT); Salmonella Sp Not Detected (NOT DETECT); Sapovirus Not Detected (NOT DETECT); Shiga Toxin-prod E. coli-STEC Not Detected (NOT DETECT); Shigella/Enteroin E. coli-EIEC Not Detected (NOT DETECT); Vibrio Cholerae Not Detected (NOT DETECT); Vibrio Sp Not Detected (NOT DETECT); Yersinia Enterocolitica Not Detected (NOT DETECT)
== END ==
LOC: LAB SHORT 12:50 → LAB 12:50
PROVIDERS: Family Medicine
DX: E11.9 Type 2 diabetes mellitus without complications (principal); R19.7 Diarrhea, unspecified; R11.2 Nausea with vomiting, unspecified
CPT/HCPCS: 87507

== ENCOUNTER → 2024-05-14 | Outpatient (CLI) | payer OTHER ==
[2024-05-14 19:44] LABS: Adenovirus Not Detected (NOT DETECT); Bordetella pertussis Not Detected (NOT DETECT); Chlamydophila pneumoniae Not Detected (NOT DETECT); Coronavirus 229E Not Detected (NOT DETECT); Coronavirus HKU1 Not Detected (NOT DETECT); Coronavirus NL63 Not Detected (NOT DETECT); Coronavirus OC43 Not Detected (NOT DETECT); Human Metapneumovirus Not Detected (NOT DETECT); Human Rhinovirus/Enterovirus Not Detected (NOT DETECT); Influenza A/2009-H1 Not Detected (NOT DETECT); Influenza A/H1 Not Detected (NOT DETECT); Influenza A/H3 Not Detected (NOT DETECT); Influenza B Not Detected (NOT DETECT); Mycoplasma pneumoniae Not Detected (NOT DETECT); Parainfluenza Virus 1 Not Detected (NOT DETECT); Parainfluenza Virus 2 Not Detected (NOT DETECT); Parainfluenza Virus 3 Not Detected (NOT DETECT); Parainfluenza Virus 4 Not Detected (NOT DETECT); Respiratory Syncytial Virus Not Detected (NOT DETECT); SARS-Cov-2 (COVID-19), BioFire Not Detected (NOT DETECT)
== END | disposition home or self-care (01) ==
LOC: LAB SHORT 17:15 → LAB 17:15
PROVIDERS: Family Medicine
DX: R68.89 Other general symptoms and signs (principal)
CPT/HCPCS: 0202U; 87081

== ENCOUNTER 2024-08-09 16:37 | Emergency (ER) | payer OTHER ==
[~2024-08-09] VITALS: Ht 200.7 cm; Wt 55.3 kg
[2024-08-09 18:00] LABS: Influenza A, PCR NEGATIVE (NEGATIVE); Influenza B, PCR NEGATIVE (NEGATIVE); Resp Syncytial Virus, PCR NEGATIVE (NEGATIVE); SARS-Cov-2 (COVID-19) PCR, MMC NEGATIVE (NEGATIVE)
[2024-08-09 18:05] LABS: BASOPHILS ABSOLUTE AUTO 0.11 K/mm3 (0.00-0.23); BASOPHILS PERCENT AUTO 1 % (0-2); EOSINOPHILS ABSOLUTE AUTO 0.28 K/mm3 (0.00-0.68); EOSINOPHILS PERCENT AUTO 2 % (0-6); Hematocrit 36.2 % (33.0-51.0); Hemoglobin 10.5 g/dL (11.5-16.0); IMMATURE GRAN ABSOLUTE AUTO 0.22 K/mm3 (0.00-0.10); IMMATURE GRAN PERCENT AUTO 2 % (0-1); LYMPHOCYTES ABSOLUTE AUTO 2.54 K/mm3 (0.84-5.20); LYMPHOCYTES PERCENT AUTO 21 % (21-46); MONOCYTES ABSOLUTE AUTO 0.84 K/mm3 (0.16-1.47); MONOCYTES PERCENT AUTO 7 % (4-13); Mean Corpuscular Volume 76 fL (80-100); Mean Platelet Volume 9.7 fL (9.1-12.4); NEUTROPHILS ABSOLUTE AUTO 8.43 K/mm3 (1.96-9.15); NEUTROPHILS PERCENT AUTO 68 % (41-73); Platelet Count 400 K/mm3 (150-400); RDW Coefficient Variation 18.9 % (11.7-14.2); RDW Standard Deviation 51.6 fL (35.1-46.3); Red Blood Cell Count 4.77 M/mm3 (3.80-5.20); White Blood Cell Count 12.42 K/mm3 (4.00-11.30)
[2024-08-09 19:00] LABS: Albumin, Blood 3.5 g/dL (3.4-5.0); Albumin/Globulin Ratio 0.8 (0.8-1.8); Bilirubin, Total 0.5 mg/dL (0.1-1.0); Calcium, Blood 9.2 mg/dL (8.5-10.1); Creatinine, Blood 0.78 mg/dL (0.40-1.00); Globulin, Blood 4.3 g/dL (2.2-4.0); Potassium, Blood 4.1 mmol/L (3.5-5.5); Total Protein, Blood 7.8 g/dL (6.4-8.2)
[2024-08-09 19:42] LABS: Source, Urine Clean Catch
[2024-08-09 19:45] LABS: Appearance, Urine Clear (Clear); Bilirubin, Urine Neg (Neg); Blood, Urine Neg (Neg); Color, Urine Yellow (P-Yellow); Glucose Qualitative, Urine Neg (Neg); Ketones, Urine Neg (Neg); Leukocyte Esterase, Urine 2+ (Neg); Nitrite, Urine Neg (Neg); Protein, Urine 2+ (Neg); Urobilinogen, Urine NORM (Normal)
[2024-08-09 19:54] LABS: Bacteria Many /hpf; Red Blood Cells, Urine 0-2 /hpf (0-2); Squamous Epithelial Cells Mod /hpf (Few)
[2024-08-09] MEDS ORDERED: Amoxicillin/Clavulanate K 875 MG Tab PO ONE (21:45)
[2024-08-09] MEDS ORDERED: PredniSONE 20 MG Tab PO ONE (21:45)
[2024-08-09] MEDS ORDERED: Prednisone20 MG PO (21:46)
[2024-08-09] MEDS ORDERED: AMOCLA875 PO (21:46)
[2024-08-09 22:08] VITALS: BP 171/998
== END 2024-08-09 22:08 | disposition home or self-care (01) ==
LOC: ER 16:37
PROVIDERS: Student in an Organized Health Care Education/Training Program
DX: J44.1 Chronic obstructive pulmonary disease with (acute) exacerbation (principal); I13.0 Hypertensive heart and chronic kidney disease with heart failure and stage 1 through stage 4 chronic kidney disease, or unspecified chronic kidney disease; N18.30 Chronic kidney disease, stage 3 unspecified; I50.9 Heart failure, unspecified; E11.22 Type 2 diabetes mellitus with diabetic chronic kidney disease; F17.200 Nicotine dependence, unspecified, uncomplicated; Z79.52 Long term (current) use of systemic steroids; Z79.899 Other long term (current) drug therapy; Z79.84 Long term (current) use of oral hypoglycemic drugs; Z88.8 Allergy status to other drugs, medicaments and biological substances; Z86.73 Personal history of transient ischemic attack (TIA), and cerebral infarction without residual deficits
CPT/HCPCS: 0241U; 71046; 80053; 81001; 85025; 87077; 87086; 87186; 99285-25; A9270; J7512

== ENCOUNTER 2024-09-30 14:20 | Inpatient (IN) | payer OTHER ==
[~2024-09-30] VITALS: Ht 167.6 cm; Wt 55.8 kg
[2024-09-30 15:13] LABS: BASOPHILS ABSOLUTE AUTO 0.11 K/mm3 (0.00-0.23); BASOPHILS PERCENT AUTO 1 % (0-2); EOSINOPHILS ABSOLUTE AUTO 0.10 K/mm3 (0.00-0.68); EOSINOPHILS PERCENT AUTO 1 % (0-6); Hematocrit 36.7 % (33.0-51.0); Hemoglobin 10.4 g/dL (11.5-16.0); IMMATURE GRAN ABSOLUTE AUTO 0.19 K/mm3 (0.00-0.10); IMMATURE GRAN PERCENT AUTO 1 % (0-1); LYMPHOCYTES ABSOLUTE AUTO 1.79 K/mm3 (0.84-5.20); LYMPHOCYTES PERCENT AUTO 12 % (21-46); MONOCYTES ABSOLUTE AUTO 1.11 K/mm3 (0.16-1.47); MONOCYTES PERCENT AUTO 7 % (4-13); Mean Corpuscular HGB Conc 28.3 g/dL (31.5-36.5); Mean Corpuscular Volume 76 fL (80-100); NEUTROPHILS ABSOLUTE AUTO 11.62 K/mm3 (1.96-9.15); NEUTROPHILS PERCENT AUTO 78 % (41-73); NRBC ABSOLUTE 0.00 K/mm3 (0.00-0.02); NRBC Auto 0.0 /100 WBC (0.0-0.2); Platelet Count 284 K/mm3 (150-400); RDW Coefficient Variation 18.8 % (11.7-14.2); RDW Standard Deviation 48.3 fL (35.1-46.3)
[2024-09-30 15:23] LABS: Source, Urine Straight Cath
[2024-09-30 15:28] LABS: Bilirubin, Urine Neg (Neg); Color, Urine Brown (P-Yellow); Glucose Qualitative, Urine Neg (Neg); Ketones, Urine 1+ (Neg); Leukocyte Esterase, Urine 3+ (Neg); Protein, Urine 4+ (Neg); Specific Gravity, Urine 1.015 (1.003-1.022); Urobilinogen, Urine 1+ (Normal)
[2024-09-30] MEDS ORDERED: CefTRIAXone Sodium 1,000 MG in NS 50 ML IV ONE (15:35)
[2024-09-30] MEDS ORDERED: NS 1,000 ML IV SCH (15:35)
[2024-09-30] MEDS ORDERED: Ondansetron HCl 2 MG / ML 2ML Vial IV ONE (15:35)
[2024-09-30] MEDS ORDERED: Albuterol 2.5 MG/3 ML VIAL INH SCH (15:35)
[2024-09-30 15:43] LABS: Alanine Aminotransfer (ALT/SGP 18.0 U/L (12-78); Albumin, Blood 3.7 g/dL (3.4-5.0); Albumin/Globulin Ratio 1.0 (0.8-1.8); Anion Gap 7.0 mmol/L (3-11); Aspartate Aminotrans (AST/SGOT 16.0 U/L (12-37); Bilirubin, Total 1.4 mg/dL (0.1-1.0); Blood Urea Nitrogen 14.0 mg/dL (8-24); CO2, Blood 31.0 mmol/L (21-32); Calcium, Blood 9.2 mg/dL (8.5-10.1); Chloride, Blood 101.0 mmol/L (98-108); Creatinine, Blood 0.83 mg/dL (0.40-1.00); Globulin, Blood 3.8 g/dL (2.2-4.0); Glucose, Blood 101.0 mg/dL (70-99); Potassium, Blood 3.7 mmol/L (3.5-5.5); Sodium, Blood 135.0 mmol/L (136-145); Total Protein, Blood 7.5 g/dL (6.4-8.2)
[2024-09-30 16:29] LABS: Influenza A, PCR NEGATIVE (NEGATIVE); Influenza B, PCR NEGATIVE (NEGATIVE); Resp Syncytial Virus, PCR NEGATIVE (NEGATIVE); SARS-Cov-2 (COVID-19) PCR, MMC NEGATIVE (NEGATIVE)
[2024-09-30 16:34] LABS: Red Blood Cells, Urine TNTC /hpf (0-2); White Blood Cells, Urine 50-100 /hpf (0-5)
[2024-09-30] MEDS ORDERED: Albuterol 2.5 MG/3 ML VIAL INH PRN (18:05)
[2024-09-30] MEDS ORDERED: Ondansetron HCl 2 MG / ML 2ML Vial IV PRN (18:10)
[2024-09-30] MEDS ORDERED: HYDROcodone 5-APAP 325 TAB PO PRN (18:10)
[2024-09-30] MEDS ORDERED: Ipratropium/Albuterol SulF 2.5-0.5MG/3 ML Amp INH SCH (18:15)
[2024-09-30] MEDS ORDERED: FERSU300 PO (18:16)
[2024-09-30] MEDS ORDERED: GABA100 PO (18:21)
[2024-09-30] MEDS ORDERED: METO100 PO (18:22)
[2024-09-30] MEDS ORDERED: MAG-OXIDE MAGN200 MG PO (18:22)
[2024-09-30] MEDS ORDERED: Crestor40 MG PO (18:23)
[2024-09-30] MEDS ORDERED: PANT40 PO (18:23)
[2024-09-30] MEDS ORDERED: ASPERFLEX1 EACH TOP (18:32)
[2024-09-30] MEDS ORDERED: IPRAT-ALBUT 0.5-3 ML INH (18:32)
[2024-09-30] MEDS ORDERED: Furosemide 10 MG / ML 2ML Vial IV ONE (19:00)
[2024-09-30] MEDS ORDERED: SERT25 PO (20:31)
[2024-09-30] MEDS ORDERED: Insulin Human Lispro 100 Units/ML 3ML Syringe SC SCH (21:00)
[2024-09-30] MEDS ORDERED: Lactobacil 2-S.Thermo-Bifido 1 1 Cap PO SCH (21:00)
[2024-09-30 23:37] VITALS: BP 153/71
[2024-10-01 03:55] VITALS: BP 142/84
--- NOTE | 2024-10-01 04:40 | NUR ---
PT ADMITTED FROM ED THIS SHIFT. DENIES PAIN, VS WNL, USING PURWIK WITH CLEAR YELLOW URINE PRESENT. PT ON TELE WITH AFIB IN 60'S, CBG IN MID 200 RANGE, AND O2 AT 3L/NC. PT FROM [facility] AND WILL REMAIN ON IVABX FOR NOW.
[2024-10-01 05:05] LABS: Hematocrit 34.1 % (33.0-51.0); Hemoglobin 9.5 g/dL (11.5-16.0); Mean Corpuscular HGB Conc 27.9 g/dL (31.5-36.5); Mean Corpuscular Volume 77 fL (80-100); NRBC ABSOLUTE 0.00 K/mm3 (0.00-0.02); NRBC Auto 0.0 /100 WBC (0.0-0.2); Platelet Count 227 K/mm3 (150-400); RDW Coefficient Variation 18.6 % (11.7-14.2); RDW Standard Deviation 49.3 fL (35.1-46.3)
--- NOTE | 2024-10-01 05:18 | NUR ---
PT UPSET THAT SHE CAN'T HAVE A REGULAR DIET, STATES SHE DOESN'T HAVE DIABETES, YET I REMINDED HER THAT SHE TAKES METFORMIN AT HOME, AND THEN SHE STATE'S THAT HER DIABETES HAS BEEN STABLE, BUT THEN REINFORCED WITH HER THAT DOESN'T MEAN THAT SHE DOESN'T HAVE DIABETES ANYMORE. WILL ADDRESS DIET WITH MD ON DAY SHIFT.
[2024-10-01 05:41] LABS: Anion Gap 9.0 mmol/L (3-11); Blood Urea Nitrogen 23.0 mg/dL (8-24); CO2, Blood 30.0 mmol/L (21-32); Calcium, Blood 9.0 mg/dL (8.5-10.1); Chloride, Blood 101.0 mmol/L (98-108); Creatinine, Blood 0.92 mg/dL (0.40-1.00); Glucose, Blood 255.0 mg/dL (70-99); Magnesium, Blood 2.0 mg/dL (1.6-2.4); Potassium, Blood 4.0 mmol/L (3.5-5.5); Sodium, Blood 136.0 mmol/L (136-145)
[2024-10-01] MEDS ORDERED: Polyethylene Glycol 3350 17 gm PO PRN (07:00)
[2024-10-01] MEDS ORDERED: Insulin Human Lispro 100 Units/ML 3ML Syringe SC SCH (07:40)
[2024-10-01 07:49] VITALS: BP 151/96
[2024-10-01] MEDS ORDERED: Diltiazem HCl 180 MG Cap.CD PO SCH (09:00)
[2024-10-01 10:43] VITALS: BP 169/88
[2024-10-01] MEDS ORDERED: CefTRIAXone Sodium 1,000 MG in NS 100 ML IV SCH (12:00)
[2024-10-01] MEDS ORDERED: NS 250 ML IV PRN (12:10)
[2024-10-01] MEDS ORDERED: MASOPHEN500 M2 PO (15:09)
[2024-10-01] MEDS ORDERED: VOLTAREN ARTHRI20 GM TOP (15:11)
[2024-10-01] MEDS ORDERED: FERSU300 PO (15:12)
[2024-10-01] MEDS ORDERED: MAGNESIUM OXID500 MG PO (15:13)
[2024-10-01 16:03] VITALS: BP 137/69
--- NOTE | 2024-10-01 18:00 | NUR ---
PATIENT A/OX3-4, FORGETFUL AT TIMES. VSS, 3LO2 TO MAINTAIN SATS>90%. BLADDER SCAN DONE THIS MORNING AND PATIENT HAD 350 IN BLADDER, WAS ABLE TO VOID 250 DIRECTLY AFTER AND HAS VOIDED SINCE. TYLENOL AND NORCO GIVEN TO TREAT R HIP AND LOWER ABDOMINAL PAIN. ABLE TO TRANSFER WITH FWW AND 1PA. ACHS BLOOD SUGARS, COVERAGE PER SLIDING SCALE. BLOOD SUGARS RUNNING IN THE 200'S THIS SHIFT. FALL PRECAUTIONS IN PLACE, PATIENT HAS BEEM CALLING APPROPRIATELY FOR ASSISTANCE.
[2024-10-01 19:34] VITALS: BP 149/88
[2024-10-01 23:44] VITALS: BP 154/95
[2024-10-02] VITALS (7 sets, daily range): BP systolic 148–186; BP diastolic 86–111
[2024-10-02 05:02] LABS: BASOPHILS ABSOLUTE AUTO 0.01 K/mm3 (0.00-0.23); BASOPHILS PERCENT AUTO 0 % (0-2); EOSINOPHILS ABSOLUTE AUTO 0.00 K/mm3 (0.00-0.68); EOSINOPHILS PERCENT AUTO 0 % (0-6); Hematocrit 32.3 % (33.0-51.0); Hemoglobin 9.0 g/dL (11.5-16.0); IMMATURE GRAN ABSOLUTE AUTO 0.13 K/mm3 (0.00-0.10); IMMATURE GRAN PERCENT AUTO 1 % (0-1); LYMPHOCYTES ABSOLUTE AUTO 0.79 K/mm3 (0.84-5.20); LYMPHOCYTES PERCENT AUTO 7 % (21-46); MONOCYTES ABSOLUTE AUTO 0.23 K/mm3 (0.16-1.47); MONOCYTES PERCENT AUTO 2 % (4-13); Mean Corpuscular HGB Conc 27.9 g/dL (31.5-36.5); Mean Corpuscular Volume 78 fL (80-100); NEUTROPHILS ABSOLUTE AUTO 10.60 K/mm3 (1.96-9.15); NEUTROPHILS PERCENT AUTO 90 % (41-73); NRBC ABSOLUTE 0.00 K/mm3 (0.00-0.02); NRBC Auto 0.0 /100 WBC (0.0-0.2); Platelet Count 225 K/mm3 (150-400); RDW Coefficient Variation 19.0 % (11.7-14.2); RDW Standard Deviation 49.5 fL (35.1-46.3)
[2024-10-02 05:28] LABS: Alanine Aminotransfer (ALT/SGP 19.0 U/L (12-78); Albumin, Blood 3.3 g/dL (3.4-5.0); Albumin/Globulin Ratio 1.0 (0.8-1.8); Anion Gap 7.0 mmol/L (3-11); Aspartate Aminotrans (AST/SGOT 9.0 U/L (12-37); Bilirubin, Total 0.3 mg/dL (0.1-1.0); Blood Urea Nitrogen 28.0 mg/dL (8-24); CO2, Blood 30.0 mmol/L (21-32); Calcium, Blood 8.5 mg/dL (8.5-10.1); Chloride, Blood 103.0 mmol/L (98-108); Creatinine, Blood 1.01 mg/dL (0.40-1.00); Globulin, Blood 3.3 g/dL (2.2-4.0); Glucose, Blood 211.0 mg/dL (70-99); Potassium, Blood 4.3 mmol/L (3.5-5.5); Sodium, Blood 136.0 mmol/L (136-145); Total Protein, Blood 6.6 g/dL (6.4-8.2)
--- NOTE | 2024-10-02 07:18 | NUR ---
NO ACUTE CHANGES, MAKES NEEDS KNOWN
[2024-10-02] MEDS ORDERED: HydrALAZINE HCl 20 MG / ML 1ML Vial IV PRN (15:25)
--- NOTE | 2024-10-02 18:16 | NUR ---
PATIENT REPORTS FEELING MUCH BETTER THIS SHIFT. VSS, ON 2LO2 TO MAINTAIN SATS. PATIENT TOLERATING ADA DIET. URINE DEV/CLEAR, VOIDING WELL AND WITHOUT PAIN. A/O X3-4, FORGETFUL AT TIMES. PLAN IS TO DC HOME WITH HOME HEALTH. NO NEW CONCERNS THIS SHIFT.
[2024-10-02] MEDS ORDERED: Guaifenesin/Dextromethorphan Syrup 5 ML UDC PO PRN (23:25)
[2024-10-03] VITALS (8 sets, daily range): BP systolic 149–190; BP diastolic 88–120
[2024-10-03 05:32] LABS: BASOPHILS ABSOLUTE AUTO 0.02 K/mm3 (0.00-0.23); BASOPHILS PERCENT AUTO 0 % (0-2); EOSINOPHILS ABSOLUTE AUTO 0.00 K/mm3 (0.00-0.68); EOSINOPHILS PERCENT AUTO 0 % (0-6); Hematocrit 33.7 % (33.0-51.0); Hemoglobin 9.4 g/dL (11.5-16.0); IMMATURE GRAN ABSOLUTE AUTO 0.58 K/mm3 (0.00-0.10); IMMATURE GRAN PERCENT AUTO 5 % (0-1); LYMPHOCYTES ABSOLUTE AUTO 0.83 K/mm3 (0.84-5.20); LYMPHOCYTES PERCENT AUTO 7 % (21-46); MONOCYTES ABSOLUTE AUTO 0.44 K/mm3 (0.16-1.47); MONOCYTES PERCENT AUTO 4 % (4-13); Mean Corpuscular HGB Conc 27.9 g/dL (31.5-36.5); Mean Corpuscular Volume 78 fL (80-100); NEUTROPHILS ABSOLUTE AUTO 10.46 K/mm3 (1.96-9.15); NEUTROPHILS PERCENT AUTO 85 % (41-73); NRBC ABSOLUTE 0.00 K/mm3 (0.00-0.02); NRBC Auto 0.0 /100 WBC (0.0-0.2); Platelet Count 238 K/mm3 (150-400); RDW Coefficient Variation 19.6 % (11.7-14.2); RDW Standard Deviation 49.4 fL (35.1-46.3)
[2024-10-03 05:52] LABS: Alanine Aminotransfer (ALT/SGP 19.0 U/L (12-78); Albumin, Blood 3.4 g/dL (3.4-5.0); Albumin/Globulin Ratio 0.9 (0.8-1.8); Anion Gap 6.0 mmol/L (3-11); Aspartate Aminotrans (AST/SGOT 13.0 U/L (12-37); Bilirubin, Total 0.3 mg/dL (0.1-1.0); Blood Urea Nitrogen 29.0 mg/dL (8-24); CO2, Blood 33.0 mmol/L (21-32); Calcium, Blood 8.7 mg/dL (8.5-10.1); Chloride, Blood 103.0 mmol/L (98-108); Creatinine, Blood 0.83 mg/dL (0.40-1.00); Globulin, Blood 3.6 g/dL (2.2-4.0); Glucose, Blood 219.0 mg/dL (70-99); Potassium, Blood 4.4 mmol/L (3.5-5.5); Sodium, Blood 138.0 mmol/L (136-145); Total Protein, Blood 7.0 g/dL (6.4-8.2)
--- NOTE | 2024-10-03 06:42 | NUR ---
MARBLE SETTER SUMMARY BP ELEVATED, OTHERWISE VSS. ANTIHYPERTENSIVE SUPERVISOR PAINT ROLLER COVERS. ALERT AND ORIENTED, BUT EASILY AGITATED. WAS CAUGHT SMOKING AFTER BEDTIME. CIGARETTES AND POLISH COMPOUNDER CONFISCATED BY SECURITY. CHARGE NURSE NOTIFIED. TO BE PLACED ON CAMERA FOR SAFETY. INTERMITTENT CALLING OUT. INTERMITTENT COUGH, COUGH MEDICINE ORDERED AND GIVEN TO PT, SOME IMPROVEMENT. INTERMITTENT SLEEPING. CALL LIGHT IN REACH, RAILS UP X 2 AND BED IN LOW POSITION FOR SAFETY. WILL CONT TO MONITOR
[2024-10-03] MEDS ORDERED: CefTRIAXone Sodium 1,000 MG in NS 100 ML IV SCH (09:00)
[2024-10-03] MEDS ORDERED: Insulin Human Lispro 100 Units/ML 3ML Syringe SC SCH (11:30)
--- NOTE | 2024-10-03 17:35 | NUR ---
PATIENT A/OX3, CONFUSED ABOUT SITUATION. STARTED THE DAY OFF WITH DELUSIONAL THOUGHTS AND HALLUCINATIONS. ZYPREXA GIVEN WHICH HELPED WITH ANXIETY AND AGITATION, BUT PATIENT CONTINUES TO HALLUCINATE. STATES SHE IS SEEING CATS IN HER ROOM AND THOUGHT THE CAMERA IN HER ROOM WAS A PERSON. PATIENT GIVEN ZYPREXA AGAIN THIS EVENING AND WAS ABLE TO NAP. O2 REMAINS AT 1L, UNABLE TO WEAN FROM THAT. HOME O2 ORDERED, CALL RT WHEN CLOSER TO DC. TX GIVEN PER RT, PATIENT USING IS. UP TO BSC WITH SBA, FALL PRECAUTIONS IN PLACE. PATIENT COOPERATIVE WITH CARE AND CALLS APPROPRIATELY FOR ASSISTANCE.
--- NOTE | 2024-10-03 20:13 | NUR ---
ATTEMPTS TO GET OOB. BED ALARM ON AND CAMERA IN ROOM. MEDS GIVEN. VOICED AGREEMENT TO REMAIN IN BED AND USE CALL LIGHT IF NEEDS ARRISE. CALL LIGHT IN REACH. RAILS UP. WILL MONITOR
[2024-10-04] VITALS (7 sets, daily range): BP systolic 125–187; BP diastolic 93–128
--- NOTE | 2024-10-04 03:13 | NUR ---
EXCHANGE TROUBLE SHOOTER SUMMARY BP ELEVATED, NOT HIGH ENOUGH TO RECEIVE ANTIHYPERTENSIVE ORDERED, OTHERWISE, VSS. INTERMITTENT AGITAION AND CALLING OUT TO INDIVIDUALS UNABLE TO BE SEEN BY STAFF. SCOT LAWS ADMIN (SEE MAR). AGITATION INCREASED. BECAME HIGH FALL RISK AND NOT REDIRECTABLE SHE MADE MULTIPLE ATTEMPTS TO GET OOB. BED ALARM AND CAMERA SOUNDING OFF MULTIPLE TIMES. NOTIFIED AND ORDER FOR ALETHA OBTAINED AND APPLIED. O2 PER NC AT 1L/MIN. AWAKE AT INTERVALS. RESPS EVEN. CALL LIGHT IN REACH, RAILS UP X 2 AND BED IN LOW POSITION FOR SAFETY. WILL CONTINUE TO MONITOR.
[2024-10-04 05:21] LABS: BASOPHILS ABSOLUTE AUTO 0.02 K/mm3 (0.00-0.23); BASOPHILS PERCENT AUTO 0 % (0-2); EOSINOPHILS ABSOLUTE AUTO 0.00 K/mm3 (0.00-0.68); EOSINOPHILS PERCENT AUTO 0 % (0-6); Hematocrit 38.9 % (33.0-51.0); Hemoglobin 10.9 g/dL (11.5-16.0); IMMATURE GRAN ABSOLUTE AUTO 0.48 K/mm3 (0.00-0.10); IMMATURE GRAN PERCENT AUTO 4 % (0-1); LYMPHOCYTES ABSOLUTE AUTO 0.86 K/mm3 (0.84-5.20); LYMPHOCYTES PERCENT AUTO 8 % (21-46); MONOCYTES ABSOLUTE AUTO 0.46 K/mm3 (0.16-1.47); MONOCYTES PERCENT AUTO 4 % (4-13); Mean Corpuscular HGB Conc 28.0 g/dL (31.5-36.5); Mean Corpuscular Volume 78 fL (80-100); NEUTROPHILS ABSOLUTE AUTO 9.29 K/mm3 (1.96-9.15); NEUTROPHILS PERCENT AUTO 84 % (41-73); NRBC ABSOLUTE 0.02 K/mm3 (0.00-0.02); NRBC Auto 0.2 /100 WBC (0.0-0.2); RDW Coefficient Variation 20.9 % (11.7-14.2); RDW Standard Deviation 50.8 fL (35.1-46.3)
[2024-10-04 06:13] LABS: Alanine Aminotransfer (ALT/SGP 26.0 U/L (12-78); Albumin, Blood 3.8 g/dL (3.4-5.0); Albumin/Globulin Ratio 0.9 (0.8-1.8); Anion Gap 14.0 mmol/L (3-11); Aspartate Aminotrans (AST/SGOT 45.0 U/L (12-37); Bilirubin, Total 0.6 mg/dL (0.1-1.0); Blood Urea Nitrogen 31.0 mg/dL (8-24); CO2, Blood 27.0 mmol/L (21-32); Calcium, Blood 9.0 mg/dL (8.5-10.1); Chloride, Blood 99.0 mmol/L (98-108); Creatinine, Blood 0.84 mg/dL (0.40-1.00); Globulin, Blood 4.1 g/dL (2.2-4.0); Glucose, Blood 223.0 mg/dL (70-99); Potassium, Blood 5.8 mmol/L (3.5-5.5); Sodium, Blood 134.0 mmol/L (136-145); Total Protein, Blood 7.9 g/dL (6.4-8.2)
--- NOTE | 2024-10-04 11:31 | NUR ---
TELE CONTACTED RN REGARDING PT HR SUSTAINING IN THE 140'S. RN UPDATED RESIDENT VIA PHONE CALL. NO NEW ORDERS AT THIS TIME - REVIEWING WITH ATTENDING. PT IS ASYMPTOMATIC, CONCERNS FOR ANXIETY - SEROQUEL ADMINISTERED APPROX 40 MINUTES AGO.
[2024-10-04] MEDS ORDERED: Metoprolol Tartrate 1 MG/ML 5 ML VIAL IV ONE (12:00)
--- NOTE | 2024-10-04 12:51 | NUR ---
IV METOPROLOL ADMINISTERED WITH POOR RESULTS. PT HR REMAINS 140-170'S AFIB c RVR. THIS RN UPDATED PROVIDER. PLAN FOR PT TO TRANSFER TO PCU FOR A CARDIZEM DRIP TO BE INITIATED. COURT WORKER UPDATED, AWAITING ROOM.
[2024-10-04 12:56] LABS: Albumin, Blood 3.7 g/dL (3.4-5.0); Anion Gap 9 mmol/L (3-11); Blood Urea Nitrogen 30 mg/dL (8-24); CO2, Blood 33 mmol/L (21-32); Calcium, Blood 9.5 mg/dL (8.5-10.1); Chloride, Blood 100 mmol/L (98-108); Creatinine, Blood 0.79 mg/dL (0.40-1.00); Glucose, Blood 112 mg/dL (70-99); Magnesium, Blood 2.1 mg/dL (1.6-2.4); Phosphorus, Blood 3.6 mg/dL (2.5-4.9); Potassium, Blood 4.3 mmol/L (3.5-5.5); Sodium, Blood 138 mmol/L (136-145)
--- NOTE | 2024-10-04 14:04 | NUR ---
PT TRANSFERRED TO PCU 11. RN PROVIDED REPORT TO JOHNNIE REES. TELE INFORMED OF TRANSFER.
[2024-10-04] MEDS ORDERED: Ipratropium/Albuterol SulF 2.5-0.5MG/3 ML Amp INH PRN (14:15)
--- NOTE | 2024-10-04 17:50 | NUR ---
ARRIVES TO PCU FROM MEDICAL FLOOR AT 1400 WITH 1;1 SITTER. NON DIRECTABLE, PULLING AT LINES, PULLS TELE BOX OFF, PUSHES AT STAFF TO GET OUT OF BED. AFTER MULTIPLE ATTEMPS TO REDIRECT TELEPHONE CALL TO DR. STEIN, BILATERAL WRIST RESTRAINTS PLACED, ALETAH VEST REMOVED. IV CARDIZEM INFUSING AT 5ML/HR. HR 100-130, WILL CONTINUE TO MONITOR AND TITRATE PER EMAR. SITTER REMAINS WITH PT. WILL CONTINUE TO MONITOR UNTIL REPORT GIVEN TO NOC SHIFT RN TO ASSUME CARE.
[2024-10-05] VITALS (7 sets, daily range): BP systolic 126–178; BP diastolic 71–102
[2024-10-05 04:35] LABS: BASOPHILS ABSOLUTE AUTO 0.04 K/mm3 (0.00-0.23); BASOPHILS PERCENT AUTO 0 % (0-2); EOSINOPHILS ABSOLUTE AUTO 0.03 K/mm3 (0.00-0.68); EOSINOPHILS PERCENT AUTO 0 % (0-6); Hematocrit 35.3 % (33.0-51.0); Hemoglobin 9.8 g/dL (11.5-16.0); IMMATURE GRAN ABSOLUTE AUTO 0.38 K/mm3 (0.00-0.10); IMMATURE GRAN PERCENT AUTO 2 % (0-1); LYMPHOCYTES ABSOLUTE AUTO 4.12 K/mm3 (0.84-5.20); LYMPHOCYTES PERCENT AUTO 24 % (21-46); MONOCYTES ABSOLUTE AUTO 1.70 K/mm3 (0.16-1.47); MONOCYTES PERCENT AUTO 10 % (4-13); Mean Corpuscular HGB Conc 27.8 g/dL (31.5-36.5); Mean Corpuscular Volume 78 fL (80-100); NEUTROPHILS ABSOLUTE AUTO 10.77 K/mm3 (1.96-9.15); NEUTROPHILS PERCENT AUTO 63 % (41-73); NRBC ABSOLUTE 0.00 K/mm3 (0.00-0.02); NRBC Auto 0.0 /100 WBC (0.0-0.2); Platelet Count 280 K/mm3 (150-400); RDW Coefficient Variation 20.5 % (11.7-14.2); RDW Standard Deviation 53.5 fL (35.1-46.3)
[2024-10-05 04:53] LABS: Anion Gap 7.0 mmol/L (3-11); Blood Urea Nitrogen 34.0 mg/dL (8-24); CO2, Blood 34.0 mmol/L (21-32); Calcium, Blood 8.8 mg/dL (8.5-10.1); Chloride, Blood 99.0 mmol/L (98-108); Creatinine, Blood 0.94 mg/dL (0.40-1.00); Glucose, Blood 103.0 mg/dL (70-99); Potassium, Blood 4.2 mmol/L (3.5-5.5); Sodium, Blood 136.0 mmol/L (136-145)
--- NOTE | 2024-10-05 06:37 | NUR ---
SHIFT SUMMARY PT ALERT, ORIENTED TO SELF. PT CONFUSED TRYING TO GET OUT OF BED AND PULLING AT THINGS. PT HAVING VISUAL HALLUCINATIONS, MEDICATING PER EMAR. RESTRAINTS IN PLACE T/O SHIFT, SEE RESTRAINT DOCUMENTATION. PT IN AFIB, HR IN THE 90'S-100'S. CARDIZEM GTT INFUSING AT 5. SHE DENIES ANY CP/PRESSURE, NUMB/TINGLING, SBP ELEVATED. O2 >92% ON 2L VIA NC. PT INCONTINENT, BREIF IN PLACE. PT LAYING IN BED AT THIS TIME. SOFT WRIST RETRAINTS OFF AT THIS TIME. VEST STILL ON PT BUT NOT TIED TO BED AT THSI TIMES. 1:1 SITTER AT BEDSIDE THIS AM AND WITH PT AT THIS TIME. WILL MONITOR PT AND REPORT TO ONCOMING RN.
--- NOTE | 2024-10-05 12:50 | NUR ---
THIS RN UPDATED PT SON WHILE IN ROOM. PT UNABLE TO TALK ON PHONE DUE TO LETHARGY.
--- NOTE | 2024-10-05 16:56 | NUR ---
SHIFT SUMMARY PT VERY LETHARGIC THIS MORNING, BECAME MORE ALERT THIS AFTERNOON AFTER HOURS OF SLEEP. PT UNABLE TO TAKE MORNING PO MEDS DUE TO LETHARGY, FINALLY ABLE TO BE ALERT ENOUGH TO TAKE PO CARDIZEM AND PO METOPROLOL AROUND 1600, SEE EMAR. PT SLEPT FOR MOST OF SHIFT WITH STAFF PERIODICALLY ATTEMPTING TO WAKE AND ASSESS PT MENTATION. PT BEGAN TO BECOME MORE ALERT ROUGHLY 1600. PT ABLE TO TRANSFER TO BSC WITH 2 PER ASSIST THIS AFTERNOON. PT WAS UP TO RECLINER FOR MOST OF SHIFT, TRANSFERED BACK TO BED AT 1600. SHARON VIERA ON STANDBY AT 1700MD NOTIFIED.
[2024-10-06 00:31] VITALS: BP 156/84
--- NOTE | 2024-10-06 01:02 | NUR ---
[facility] Late Entry: Bedside report completed with offgoing nurse. Patient drowsy but arousable to verbal stimuli. Denies pain/discomfort, VSS, no visible signs of distress noted. Sitter at bedside. Call light and personal items within reach. Bed in low/locked position.
--- NOTE | 2024-10-06 05:46 | NUR ---
SHIFT SUMMARY Patient currently awake, alert, and oriented x4. No acute events overnight, no acute distress at present. VSS. Call light and personal items within reach. Bed low and locked. Pt appropriate, following commands and simple instructions. Was able to use Teachback when asked about the use of the call light. Sitter DCd, bed alarm armed. room placement near the nurse's station. Will continue to monitor with frequent rounding.
[2024-10-06 07:17] VITALS: BP 140/75
[2024-10-06 09:09] LABS: BASOPHILS ABSOLUTE AUTO 0.01 K/mm3 (0.00-0.23); BASOPHILS PERCENT AUTO 0 % (0-2); EOSINOPHILS ABSOLUTE AUTO 0.33 K/mm3 (0.00-0.68); EOSINOPHILS PERCENT AUTO 3 % (0-6); Hematocrit 36.8 % (33.0-51.0); Hemoglobin 10.2 g/dL (11.5-16.0); IMMATURE GRAN ABSOLUTE AUTO 0.27 K/mm3 (0.00-0.10); IMMATURE GRAN PERCENT AUTO 3 % (0-1); LYMPHOCYTES ABSOLUTE AUTO 1.97 K/mm3 (0.84-5.20); LYMPHOCYTES PERCENT AUTO 21 % (21-46); MONOCYTES ABSOLUTE AUTO 0.82 K/mm3 (0.16-1.47); MONOCYTES PERCENT AUTO 9 % (4-13); Mean Corpuscular HGB Conc 27.7 g/dL (31.5-36.5); Mean Corpuscular Volume 80 fL (80-100); NEUTROPHILS ABSOLUTE AUTO 6.19 K/mm3 (1.96-9.15); NEUTROPHILS PERCENT AUTO 65 % (41-73); NRBC ABSOLUTE 0.00 K/mm3 (0.00-0.02); NRBC Auto 0.0 /100 WBC (0.0-0.2); Platelet Count 238 K/mm3 (150-400); RDW Coefficient Variation 20.6 % (11.7-14.2); RDW Standard Deviation 55.1 fL (35.1-46.3)
[2024-10-06 09:33] LABS: Anion Gap 4.0 mmol/L (3-11); Blood Urea Nitrogen 28.0 mg/dL (8-24); CO2, Blood 37.0 mmol/L (21-32); Calcium, Blood 8.4 mg/dL (8.5-10.1); Chloride, Blood 102.0 mmol/L (98-108); Creatinine, Blood 0.87 mg/dL (0.40-1.00); Glucose, Blood 159.0 mg/dL (70-99); Potassium, Blood 4.0 mmol/L (3.5-5.5); Sodium, Blood 139.0 mmol/L (136-145)
[2024-10-06 11:39] VITALS: BP 161/81
[2024-10-06 16:19] VITALS: BP 105/56
--- NOTE | 2024-10-06 17:47 | NUR ---
SHIFT SUMMARY PT A&OX4. ABLE TO FOLLOW DIRECTIONS WELL AND USING CALL LIGHT APPROPRIOTELY. UP TO CHAIR WITH 1P ASSIST FOR ALL MEALS TODAY. PT GIVEN MIRALAX TODAY AND HAD A SUCCESSFUL BM USING THE BSC. BEDBATH COMPLETED TODAY. PT MEDICATED PER EMAR WITH SCHEDULED BUPRENORPHEN AND ONCE WITH PRN TYLENOL. NO OTHER ACUTE CHANGES IN ASSESSMENT AT THIS TIME. VS REVIEWED. CALL LIGHT IN REACH. DENIES OTHER NEEDS AT THIS TIME.
[2024-10-06 17:55] VITALS: BP 126/69
[2024-10-06 21:04] VITALS: BP 100/65
[2024-10-07 00:13] VITALS: BP 102/51
[2024-10-07 04:41] VITALS: BP 143/70
[2024-10-07 05:44] LABS: BASOPHILS ABSOLUTE AUTO 0.01 K/mm3 (0.00-0.23); BASOPHILS PERCENT AUTO 0 % (0-2); EOSINOPHILS ABSOLUTE AUTO 0.33 K/mm3 (0.00-0.68); EOSINOPHILS PERCENT AUTO 4 % (0-6); Hematocrit 32.2 % (33.0-51.0); Hemoglobin 8.8 g/dL (11.5-16.0); IMMATURE GRAN ABSOLUTE AUTO 0.23 K/mm3 (0.00-0.10); IMMATURE GRAN PERCENT AUTO 2 % (0-1); LYMPHOCYTES ABSOLUTE AUTO 1.95 K/mm3 (0.84-5.20); LYMPHOCYTES PERCENT AUTO 21 % (21-46); MONOCYTES ABSOLUTE AUTO 0.85 K/mm3 (0.16-1.47); MONOCYTES PERCENT AUTO 9 % (4-13); Mean Corpuscular HGB Conc 27.3 g/dL (31.5-36.5); Mean Corpuscular Volume 80 fL (80-100); NEUTROPHILS ABSOLUTE AUTO 6.09 K/mm3 (1.96-9.15); NEUTROPHILS PERCENT AUTO 64 % (41-73); NRBC ABSOLUTE 0.00 K/mm3 (0.00-0.02); NRBC Auto 0.0 /100 WBC (0.0-0.2); Platelet Count 238 K/mm3 (150-400); RDW Coefficient Variation 20.6 % (11.7-14.2); RDW Standard Deviation 57.6 fL (35.1-46.3)
--- NOTE | 2024-10-07 06:05 | NUR ---
SHIFT SUMMARY PT SITTING UP IN BED WATCHING TV. DURING SHIFT REPORT, PT HEARD DAY SHIFT NURSE MENTION DEMENTIA DX. THIS RN, WELL BREAK NURSE, LOOKED THROUGH ALL AVAILABLE PT RECORDS, AND COULD NOT LOCATE ANY DX OF DEMENTIA. CHARGE NURSE NOTIFIED.DURING MIDNIGHT ROUNDING AND VITALS, PT COMPLAINED OF PAIN IN HER RIGHT HIP. PT NOT DUE FOR MORE TYLENOL FOR 5 HOURS. OFFERED HEATING PAD. PT HAPPILY ACCEPTED. CONTINUING TO MONITOR. PT ABLE TO GET SOME SLEEP WITH THE AID OF THE HEATING PAD, BUT WOKE IN EXCRUTIATING PAIN . RESIDENT DR. YATES CALLED. DOCTOR STATED SHE WOULD LOOK INTO HER CHART AND SEE WHAT WE CAN DO. PRN TYLENOL ORDER CHANGED FROM 325-650MG Q8 PRN TO 325-650MG Q4 PRN. PT EXPRESSED APPRECIATION FOR THE MEDICATION. PT FINALLY SLEEPING SOUNDLY DURING MORNING MED PASS. PLACED PROTONIX IN PT S LOCKED DRAWER. WILL PASS ALONG TO DAY SHIFT NURSE.
[2024-10-07 06:06] LABS: Anion Gap 5.0 mmol/L (3-11); Blood Urea Nitrogen 31.0 mg/dL (8-24); CO2, Blood 35.0 mmol/L (21-32); Calcium, Blood 8.4 mg/dL (8.5-10.1); Chloride, Blood 102.0 mmol/L (98-108); Creatinine, Blood 0.92 mg/dL (0.40-1.00); Glucose, Blood 134.0 mg/dL (70-99); Potassium, Blood 4.1 mmol/L (3.5-5.5); Sodium, Blood 138.0 mmol/L (136-145)
[2024-10-07 07:56] VITALS: BP 116/82
[2024-10-07 10:32] VITALS: BP 144/88
[2024-10-07] MEDS ORDERED: LOSA50 PO (11:46)
[2024-10-07] MEDS ORDERED: NICO21TP TOP (11:47)
[2024-10-07] MEDS ORDERED: Seroquel Xr50 MG PO (11:48)
[2024-10-07] MEDS ORDERED: METO50ER PO (11:48)
[2024-10-07] MEDS ORDERED: CEFP200 PO (11:50)
[2024-10-07] MEDS ORDERED: CARDIZEM CD180 M6 PO (11:51)
[2024-10-07 13:30] VITALS: BP 106/62
--- NOTE | 2024-10-07 14:03 | NUR ---
REPORT CALLED TO [facility]. AWAITING TRANSPORT.
--- NOTE | 2024-10-07 14:10 | NUR ---
PT DISCHARGED TO [facility] VIA WHEELCHAIR TRANSPORT.
[2024-10-07] MEDS ORDERED: Ipratropium/Albuterol SulF 2.5-0.5MG/3 ML Amp INH SCH (14:15)
== END 2024-10-07 14:00 | disposition home health service (06) | DRG 871 ==
LOC: ER 14:20 → MEDS 18:05 → PCU 10-01 14:56 → MEDS 10-01 14:57 → PCU 10-04 13:55
PROVIDERS: Emergency Medicine; Internal Medicine; Nurse Practitioner Acute Care; Registered Nurse; ADMIT Student in an Organized Health Care Education/Training Program
DX: A41.51 Sepsis due to Escherichia coli [E. coli] (principal); J96.01 Acute respiratory failure with hypoxia; J44.1 Chronic obstructive pulmonary disease with (acute) exacerbation; I50.32 Chronic diastolic (congestive) heart failure; I48.20 Chronic atrial fibrillation, unspecified; F05 Delirium due to known physiological condition; N30.01 Acute cystitis with hematuria; E11.9 Type 2 diabetes mellitus without complications; D63.8 Anemia in other chronic diseases classified elsewhere; I11.0 Hypertensive heart disease with heart failure; K21.9 Gastro-esophageal reflux disease without esophagitis; E78.5 Hyperlipidemia, unspecified; D50.9 Iron deficiency anemia, unspecified; F41.8 Other specified anxiety disorders; E87.5 Hyperkalemia; F17.218 Nicotine dependence, cigarettes, with other nicotine-induced disorders; R41.89 Other symptoms and signs involving cognitive functions and awareness; Z86.73 Personal history of transient ischemic attack (TIA), and cerebral infarction without residual deficits; Z88.8 Allergy status to other drugs, medicaments and biological substances; Z78.1 Physical restraint status
CPT/HCPCS: 0241U; 36415; 51701; 71045; 74177; 80048; 80053; 80069; 81001; 82947; 83605; 83735; 83880; 84484; 85025; 85027; 86140; 87040; 87077; 87086; 87186; 93005; 93010; 93280; 94640; 94664; 94761; 94762; 96365-59; 96366; 96367; 96375; 96376; 97116; 97162; 99285-25; A9270; G0378; J0360; J0456; J0696; J1938; J2405; J2919; J7030; J7050; Q9967

== ENCOUNTER 2024-10-28 07:08 | Emergency (ER) | payer OTHER ==
[~2024-10-28] VITALS: Ht 167.6 cm; Wt 55.3 kg
[~2024-10-28 07:08] MED LIST changes: +ASPERFLEX1 EACH TOP; +CARDIZEM CD180 M6 PO; +CEFP200 PO; +Crestor40 MG PO; +MAG-OXIDE MAGN200 MG PO; +MAGNESIUM OXID500 MG PO; +MASOPHEN500 M2 PO; +METO100 PO; +NICO21TP TOP; +PANT40 PO; +SERT25 PO; +Seroquel Xr50 MG PO
[2024-10-28] MEDS ORDERED: Ipratropium/Albuterol SulF 2.5-0.5MG/3 ML Amp INH ONE (07:30)
[2024-10-28 07:36] LABS: BASOPHILS ABSOLUTE AUTO 0.06 K/mm3 (0.00-0.23); BASOPHILS PERCENT AUTO 1 % (0-2); EOSINOPHILS ABSOLUTE AUTO 0.22 K/mm3 (0.00-0.68); EOSINOPHILS PERCENT AUTO 3 % (0-6); Hematocrit 36.3 % (33.0-51.0); Hemoglobin 9.7 g/dL (11.5-16.0); IMMATURE GRAN ABSOLUTE AUTO 0.05 K/mm3 (0.00-0.10); IMMATURE GRAN PERCENT AUTO 1 % (0-1); LYMPHOCYTES ABSOLUTE AUTO 1.39 K/mm3 (0.84-5.20); LYMPHOCYTES PERCENT AUTO 18 % (21-46); MONOCYTES ABSOLUTE AUTO 0.79 K/mm3 (0.16-1.47); MONOCYTES PERCENT AUTO 10 % (4-13); Mean Corpuscular HGB Conc 26.7 g/dL (31.5-36.5); Mean Corpuscular Volume 90 fL (80-100); NEUTROPHILS ABSOLUTE AUTO 5.38 K/mm3 (1.96-9.15); NEUTROPHILS PERCENT AUTO 68 % (41-73); NRBC ABSOLUTE 0.00 K/mm3 (0.00-0.02); NRBC Auto 0.0 /100 WBC (0.0-0.2); Platelet Count 245 K/mm3 (150-400); RDW Coefficient Variation 23.5 % (11.7-14.2); RDW Standard Deviation 76.6 fL (35.1-46.3)
[2024-10-28 07:55] LABS: Alanine Aminotransfer (ALT/SGP 110.0 U/L (12-78); Albumin, Blood 3.5 g/dL (3.4-5.0); Albumin/Globulin Ratio 0.9 (0.8-1.8); Anion Gap 2.0 mmol/L (3-11); Aspartate Aminotrans (AST/SGOT 98.0 U/L (12-37); Bilirubin, Total 0.3 mg/dL (0.1-1.0); Blood Urea Nitrogen 16.0 mg/dL (8-24); CO2, Blood 39.0 mmol/L (21-32); Calcium, Blood 8.4 mg/dL (8.5-10.1); Chloride, Blood 106.0 mmol/L (98-108); Creatinine, Blood 0.74 mg/dL (0.40-1.00); Globulin, Blood 3.7 g/dL (2.2-4.0); Glucose, Blood 135.0 mg/dL (70-99); Magnesium, Blood 1.9 mg/dL (1.6-2.4); Potassium, Blood 4.2 mmol/L (3.5-5.5); Sodium, Blood 143.0 mmol/L (136-145); Total Protein, Blood 7.2 g/dL (6.4-8.2)
[2024-10-28] MEDS ORDERED: PRED20 PO (09:22)
[2024-10-28 11:00] VITALS: BP 167/82
== END 2024-10-28 12:05 | disposition home or self-care (01) ==
LOC: ER 07:08
PROVIDERS: Student in an Organized Health Care Education/Training Program
DX: J44.1 Chronic obstructive pulmonary disease with (acute) exacerbation (principal); I12.9 Hypertensive chronic kidney disease with stage 1 through stage 4 chronic kidney disease, or unspecified chronic kidney disease; E11.22 Type 2 diabetes mellitus with diabetic chronic kidney disease; N18.30 Chronic kidney disease, stage 3 unspecified; J45.909 Unspecified asthma, uncomplicated; F17.210 Nicotine dependence, cigarettes, uncomplicated; Z88.8 Allergy status to other drugs, medicaments and biological substances; Z79.899 Other long term (current) drug therapy; Z79.01 Long term (current) use of anticoagulants; Z86.73 Personal history of transient ischemic attack (TIA), and cerebral infarction without residual deficits
CPT/HCPCS: 36415; 71045; 80053; 83735; 83880; 84484; 85025; 93005; 93010; 99285-25; J7512

== ENCOUNTER → 2025-01-02 | Outpatient (CLI) | payer OTHER ==
[2025-01-02 13:11] LABS: Bilirubin, Urine Neg (Neg); Glucose Qualitative, Urine Neg (Neg); Ketones, Urine Neg (Neg); Leukocyte Esterase, Urine Neg (Neg); Protein, Urine Neg (Neg); Specific Gravity, Urine 1.015 (1.003-1.022); Urobilinogen, Urine NORM (Normal)
[2025-01-02 13:12] LABS: Color, Urine Pale Yellow (P-Yellow)
== END | disposition home or self-care (01) ==
LOC: LAB 08:45 → LAB SHORT 08:45
PROVIDERS: Student in an Organized Health Care Education/Training Program
DX: N39.0 Urinary tract infection, site not specified (principal); R25.3 Fasciculation
CPT/HCPCS: 80048; 81003; 83735; 84100

== ENCOUNTER → 2025-01-02 | Outpatient (CLI) | payer OTHER ==
[2025-01-02 20:25] LABS: Anion Gap 7.0 mmol/L (3-11); Blood Urea Nitrogen 15.0 mg/dL (8-24); CO2, Blood 36.0 mmol/L (21-32); Calcium, Blood 9.2 mg/dL (8.5-10.1); Chloride, Blood 99.0 mmol/L (98-108); Creatinine, Blood 0.71 mg/dL (0.40-1.00); Glucose, Blood 142.0 mg/dL (70-99); Magnesium, Blood 2.0 mg/dL (1.6-2.4); Phosphorus, Blood 3.7 mg/dL (2.5-4.9); Potassium, Blood 4.3 mmol/L (3.5-5.5); Sodium, Blood 138.0 mmol/L (136-145)
== END ==
LOC: LAB SHORT 14:50 → LAB 14:50
PROVIDERS: Student in an Organized Health Care Education/Training Program
DX: R25.3 Fasciculation (principal)
CPT/HCPCS: 80048; 83735; 84100